=== PATIENT | female | born 2000 | race Caucasian/White ===

== ENCOUNTER 2021-01-30 11:54 | Outpatient (REF) | payer MEDICAID, SELFPAY ==
--- NOTE | ~2021-01-30 | US_ITS ---
EXAMINATION:US pelvic and transvaginal CLINICAL INFORMATION: Reason for Exam EXCESSIVE AND FREQ. MENSES COMPARISON: No priors available. LMP: December 1820 FINDINGS: UTERUS: The uterus is anteverted. Size: 7.6 x 4.1 x 5 cm. Uterine mass: There is no uterine mass. Cervix: Grossly unremarkable. Endometrium: No ultrasound evidence of endometrial lesion. endometrial thickness measures 0.7 cm trace amount of free fluid in the endometrial canal probably physiologic. ADNEXA: Normal Right ovary: There is a simple cyst right ovary measure up to 4.6 cm. Adjacent probably dominant follicle 1.4 cm. Left ovary: Normal in size. FREE FLUID: Trace amount of free fluid. OTHER FINDINGS: None US/US pelvic and transvaginal IMPRESSION: Simple 4.8 cm cyst in the right ovary. Ultrasound otherwise normal. In women who undergo transvaginal ultrasound (TVUS) imaging of adnexal masses, benign ovarian and other adnexal cysts are commonly detected, leading to follow-up sonographic evaluation and, often, patient anxiety. In 2010 the Society of Radiologists in Ultrasound convened a panel of gynecologists, radiologists, and pathologists to develop a consensus statement encompassing characteristic imaging findings for various adnexal cysts as well as follow-up recommendations. Highlights of the statement are as follows: Simple cysts (reproductive age) * Follicles <3 cm in diameter are considered normal. * Cysts <5 cm: follow-up not required. * Cysts >5 to <7 cm: annual follow-up recommended. *
== END 2021-01-30 11:55 | disposition home or self-care (01) ==
LOC: HO.US 11:54
PROVIDERS: PCP Family Medicine; Visit Provider Advanced Practice Midwife
DX: N92.1 Excessive and frequent menstruation with irregular cycle (principal)
CPT/HCPCS: 76830; 76856

== ENCOUNTER 2021-05-09 15:04 | Outpatient (REF) | payer MEDICAID, SELFPAY ==
[2021-05-09 15:36] LABS: Hemoglobin 8.6 g/dl (12.0-16.0)
[2021-05-09 15:38] LABS: Hematocrit 31.7 % (37-47); Immature Retic Fraction 25.1 % (3.0-15.9); Mean Corpuscular HGB Conc 27.1 g/dl (31.0-35.0); Mean Corpuscular Hemoglobin 19.8 pg (27.0-33.0); Mean Corpuscular Volume 72.9 fL (80-98); Mean Platelet Volume 10.3 fL (9.4-12.3); Platelet Count 411 X10*3/uL (160-400); Red Blood Count 4.35 X10*6/uL (4.20-5.50); Red Cell Distribution Width 19.4 % (11.0-16.0); Reticulocyte Percent 2.1 % (0.5-1.8); Reticulocytes Absolute 0.093 X10*6/uL (0.026-0.095); White Blood Count 9.6 X10*3/uL (4.8-10.8)
[2021-05-09 15:41] LABS: Estimated Average Glucose 105 mg/dL; Hemoglobin A1c % 5.3 %
[2021-05-09 15:54] LABS: Alanine Aminotransferase 31 U/L (0-31); Albumin Level 4.2 g/dL (3.5-5.0); Alkaline Phosphatase 65 U/L (39-117); Anion Gap 13 (12-20); Aspartate Amino Transferase 32 U/L (5-31); Bilirubin Total 0.2 mg/dL (0.0-1.0); Blood Urea Nitrogen 11 mg/dL (9-16); Calcium 9.5 mg/dL (8.4-10.2); Carbon Dioxide 23 mmol/L (22-29); Chloride 109 mmol/L (96-108); Estimated Glomerular Filt Rate > 60; Glucose Random 98 mg/dL (60-115); Iron 17 mcg/dL (30-160); Percent Iron Saturation 5 % (15-50); Sodium 141 mmol/L (135-145); Total Iron Binding Capacity 367 mcg/dL (228-428); Total Protein 7.4 g/dL (6.5-8.0); Unsaturated Iron Binding 350 ug/dL
[2021-05-09 16:11] LABS: Band Neutrophils Percent 0 % (3-5); Eosinophils Absolute Manual 0.2 X10*3/UL (0.0-0.8); Eosinophils Percent Manual 2 % (0-4); Lymphocytes Percent Manual 31 % (20-40); Monocytes Absolute Manual 1.1 X10*3/uL (0.0-1.2); Monocytes Percent Manual 11 % (2-11); Neutrophils Absolute Manual 5.4 X10*3/uL (2.2-7.9); Neutrophils Percent Manual 56 % (45-73)
[2021-05-09 16:13] LABS: Microcytosis 1+ (5-14) /OIF
[2021-05-09 16:14] LABS: Platelet Estimate SLIGHTLY INCREASED (NORMAL); Platelet Morphology Comment NORMAL
[2021-05-09 16:15] LABS: Schistocytes 1+ (0-2) /OIF
[2021-05-09 16:16] LABS: Ferritin 4 ng/mL (10-122); HCG Quantitative < 2 mIU/mL; Hypochromasia 3+ (>30) /OIF; Polychromasia 1+ (0-2) /OIF; Smudge Cells PRESENT; TSH reflex Free T4 1.35 uIU/mL (0.32-4.0); Toxic Vacuolation PRESENT; Vitamin D 25-OH Total 17.2 ng/mL (>30)
[2021-05-09 16:18] LABS: Ovalocytes 1+ (5-14) /OIF
[2021-05-09 16:28] LABS: Folate 14.7 ng/mL (> or = 4.0); Vitamin B12 427 pg/mL (200-900)
[2021-05-10 08:55] LABS: RBC Morphology NOTED
[2021-05-12 08:06] LABS: HBsAGNum1 0.27 S/CO (0.00-0.99); Hepatitis B Surface Antigen Negative (Negative)
[2021-05-12 08:13] LABS: ~HepC Num1 0.16 S/CO (0.00-0.79); ~Hepatitis C Antibody Nonreactive (Nonreactive)
[2021-05-12 08:18] LABS: Syphilis Screen Nonreactive (Nonreactive)
[2021-05-12 08:27] LABS: HIV AB/AG Nonreactive (Nonreactive)
== END 2021-05-09 15:05 | disposition home or self-care (01) ==
LOC: HO.LAB 15:04
PROVIDERS: PCP Family Medicine; Visit Provider Family Medicine
DX: Z01.84 Encounter for antibody response examination (principal); Z11.59 Encounter for screening for other viral diseases; Z11.4 Encounter for screening for human immunodeficiency virus [HIV]; D64.9 Anemia, unspecified; N92.1 Excessive and frequent menstruation with irregular cycle
CPT/HCPCS: 36415; 80053; 82306; 82607; 82728; 82746; 83036; 83540; 84443; 84702; 85007; 85027; 85045; 86780; 86803; 87340; 87389

== ENCOUNTER 2021-06-04 21:21 | Emergency (ER) | payer MEDICAID, SELFPAY ==
[2021-06-04 21:54] VITALS: BP 109/51; PULSE 87; RESP 18; TEMP 36.4; O2SAT 99; BMI 42.0
--- NOTE | 2021-06-05 00:01 | ED.FALL ---
HPI - Fall General Chief Complaint: Fall Stated Complaint: Fall Time Seen by Provider: 06/04/21 23:55 Source: patient Mode of arrival: wheelchair Limitations: no limitations History of Present Illness HPI Narrative: Patient is a 20-year-old female with no significant past medical history who slipped and fell at the grocery store approximately 8 hours ago. Patient states she was walking down an aisle when she all of a sudden slipped, she states her legs fell into a split and she fell onto the floor on her left knee with her right leg split back behind her. She denies hitting her head or losing consciousness. She states she looked behind her and noticed 1 of the condition or bottles had poured out onto the floor so she had slipped on the conditioner. She states she is able to ambulate but limps because she has pain on her left knee, behind her knee above her knee and her low upper left leg as well as her low back. She denies any other injuries, chest pain, headache or dizziness. Related Data Allergies Allergy/AdvReac Type Severity Reaction Status Date / Time No Known Allergies Allergy Verified 06/04/21 21:54 Review of Systems Review of Systems: Yes all other systems are reviewed and are negative [facility] Social History Social History Advance Directives: No Advance Directives Information Provided: Yes Physical Exam Vital Signs: Vital Signs: Last Vital Signs Temp 97.6 F 06/04/21 21:54 Pulse 87 06/04/21 21:54 Resp 18 06/04/21 21:54 BP 109/51 L 06/04/21 21:54 Pulse Ox 99 06/04/21 21:54 Body Mass Index 42.0 Const: General: cooperative, healthy appearing, comfortable, no acute distress and well developed Orientation/consciousness: patient oriented x3 Limitations: no limitations HENMT: Head: Yes normal to inspection Eyes: General: appearance normal, both eyes and all related structures Neck: Neck: Yes normal visual inspection and Yes full ROM Resp: Effort & Inspection: normal respiratory effort and able to speak in complete sentences Cardio: Rate: regular rate Back/Spine/Pelvis: Cervical Spine: No Cervical spine tenderness Thoracic/Lumbar Spine: thoracic and lumbar spine normal to inspection, paraspinal muscle tenderness (lumbar area) bilaterally, No thoracic spinal tenderness and No lumbar spinal tenderness Skin: General skin exam: no rashes or lesions noted Neuro: General: patient oriented x3 Extrem: Other: Left knee tender to palpation in the superior aspect of the kneecap and posterior knee. No laxity in the joint, no ecchymosis, no abrasions or edema. No tenderness in the remainder of the left leg. Limping gait. General: Yes normal to inspection Discharge Plan Discharge Clinical Impression: Sprain of knee and leg Qualifiers: Encounter type: initial encounter Laterality: left Qualified Code(s): S83.92XA - Sprain of unspecified site of left knee, initial encounter Low back sprain Qualifiers: Encounter type: initial encounter Qualified Code(s): S33.5XXA - Sprain of ligaments of lumbar spine, initial encounter Patient Disposition: Home, Self-Care Instructions: Knee Sprain (ED), Low Back Strain (ED), Leg Sprain (ED) Additional Instructions: As discussed, please use the crutches to help you ambulate safely. Your leg, knee and low back should feel a little bit you better each day. Please rest them, you may use ice and 600 mg of ibuprofen every 6 hours as needed for the pain. If your pain is not improving a little bit each day over the next 5-7 days, please be sure to follow-up with your primary care doctor as you may need to go to physical therapy. If you lose control of your bladder or bowels, your pain gets worse and cannot be controlled with ibuprofen and acetaminophen, please return to the emergency department.
== END 2021-06-05 00:24 | disposition home or self-care (01) ==
PROVIDERS: Emergency Provider Internal Medicine
DX: S83.92XA Sprain of unspecified site of left knee, initial encounter (principal); S33.5XXA Sprain of ligaments of lumbar spine, initial encounter; M25.561 Pain in right knee; M79.605 Pain in left leg; M79.604 Pain in right leg; W01.0XXA Fall on same level from slipping, tripping and stumbling without subsequent striking against object, initial encounter; Y93.9 Activity, unspecified; Y92.512 Supermarket, store or market as the place of occurrence of the external cause; Y99.9 Unspecified external cause status
CPT/HCPCS: 99282; 99283

== ENCOUNTER 2021-07-28 13:20 | Outpatient (REF) | payer MEDICAID, SELFPAY ==
--- NOTE | ~2021-07-28 | XR_ITS ---
EXAMINATION: XR SKULL CLINICAL INFORMATION: Localized swelling, lump on head. COMPARISON: None TECHNIQUE: 5 views of the skull were obtained. FINDINGS: The bony calvarium is intact. There is no acute fracture. The nasal bones and orbits are intact. The paranasal sinuses are clear. The soft tissues are unremarkable. XR/XR skull min 4V IMPRESSION: Unremarkable examination.
== END 2021-07-28 13:21 | disposition home or self-care (01) ==
LOC: HO.XRAY 13:20
PROVIDERS: PCP Family Medicine; Visit Provider Family Medicine
DX: R22.0 Localized swelling, mass and lump, head (principal); E66.9 Obesity, unspecified
CPT/HCPCS: 70260

== ENCOUNTER 2021-09-05 16:56 | Emergency (ER) | payer MEDICAID, SELFPAY ==
[2021-09-05 17:00] VITALS: BP 109/79; PULSE 112; RESP 18; TEMP 36.8; O2SAT 97; BMI 49.7
--- NOTE | 2021-09-05 18:48 | ED.FEMALEGU ---
HPI - Female Genitourinary General Chief complaint: Dizziness Stated complaint: Dizziness Time Seen by Provider: 09/05/21 18:47 Source: patient and family Mode of arrival: ambulatory Limitations: no limitations History of Present Illness HPI Narrative: Patient with history of metrorrhagia with anemia been having heavy vaginal bleeding for last 2 months changing pads multiple times and passing clots, will dizzy and lightheaded weak not taking any control pill is not taking any iron pills as she does not like them. No chest pain or shortness of breath Related Data Previous Rx's Medication Instructions Recorded L norgest/E estradiol-E estrad 1 tab PO DAILY #182 ea 09/06/21 0.15 mg-30 mcg (84)/10 mcg(7) tabs,3mos (Seasonique) ferrous sulfate 325 mg (65 mg 325 mg PO DAILY #60 tab 09/06/21 iron) tablet Allergies Allergy/AdvReac Type Severity Reaction Status Date / Time No Known Allergies Allergy Verified 09/05/21 17:00 Review of Systems Review of Systems: Yes all other systems are reviewed and are negative [facility], [facility] Social History Social History Advance Directives: No Advance Directives Information Provided: No Patient : No Physical Exam Vital Signs: Vital Signs: Last Vital Signs Temp 99.1 F 09/06/21 00:21 Pulse 88 09/06/21 00:21 Resp 16 09/06/21 00:21 BP 120/75 09/06/21 00:21 Pulse Ox 100 09/05/21 22:03 Body Mass Index 49.7 Appearance: Alert. Oriented X3. No acute distress. Eyes: Pallor++ ENT: Pharynx normal. Oral Mucosa moist Neck: Normal inspection. Neck supple. CVS: Normal heart rate and rhythm. Pulses normal. Respiratory: No respiratory distress. Equal air entry bilateral, no wheezing/rales/rhonchi Abdomen: Soft and nontender. Bowel sounds are present, no mass palpable, no CVA tenderness Skin: Skin warm and dry. Normal skin color. Normal skin turgor. Extremities: No lower extremity edema. No calf tenderness Neuro: Oriented X 3. MDM - Female Genitourinary MDM Narrative Medical decision making narrative: Patient with significant anemia secondary to heavy menstrual bleeding case discussed with Dr. Salgado forger helper advised to start patient on control pills was given 1 unit of blood transfusion and plan to see him next week for follow-up Lab Data Attestation: I reviewed the patient's lab results. Result diagrams: 09/05/21 19:42 09/05/21 19:42 Labs: Lab Results 09/05/21 09/05/21 09/05/21 Range/Units 19:42 19:42 22:22 WBC 11.9 H (4.8-10.8) X10*3/uL RBC 3.81 L (4.20-5.50) X10*6/uL Hgb 7.2 L (12.0-16.0) g/dl Hct 27.2 L (37.0-47.0) % MCV 71.4 L (80.0-98.0) fL MCH 18.9 L (27.0-33.0) pg MCHC 26.5 L (31.0-35.0) g/dl RDW 21.1 H (11.0-16.0) % Plt Count 447 H (160-400) X10*3/uL MPV 9.4 (9.4-12.3) fL Immature Gran % (Auto) 0.6 H (0.0-0.4) % Neut % (Auto) 60.3 (45-73) % Lymph % (Auto) 31.9 (20-40) % [place] % (Auto) 6.0 (2-11) % Eos % (Auto) 0.7 (0-4) % Baso % (Auto) 0.5 (0-2) % Lymph # (Auto) 3.8 (1.2-4.9) X10*3/uL [place] # (Auto) 0.7 (0.1-1.2) X10*3/uL Eos # (Auto) 0.1 (0.0-0.4) X10*3/uL Baso # (Auto) 0.1 (0.0-0.2) X10*3/uL Abs Immat Gran (auto) 0.07 H (0.00-0.03) X10*3/uL Absolute Neuts (auto) 7.2 (2.0-8.3) x10*3/uL Absolute Nucleated RBC 0.000 (0.0-0.012) X10*3/uL Nucleated RBC % (auto) 0.0 (0.0-0.2) /100WBC Sodium 142 (135-145) mmol/L Potassium 4.1 (3.3-5.1) mmol/L Chloride 108 (96-108) mmol/L Carbon Dioxide 26 (22-29) mmol/L Anion Gap 12 (12-20) BUN 10 (9-16) mg/dL Creatinine 0.78 (0.5-1.4) mg/dL Estim Creat Clear Calc 143.0 Estimated GFR > 60 Random Glucose 124 H (60-115) mg/dL Calcium 8.7 D (8.4-10.2) mg/dL Beta HCG, Quant < 2 mIU/mL Blood Type A Positive Antibody Screen NEGATIVE Crossmatch See Detail Discharge Plan Discharge Clinical Impression: Metrorrhagia, Severe anemia Patient Disposition: Home, Self-Care Instructions: Dysfunctional Uterine Bleeding (ED), Anemia (ED) Additional Instructions: Take iron tablets as prescribed Start taking control pills as prescribed See forger helper next week as advised Report to the ER of worsening of bleeding Prescriptions: New L norgest/e.estradiol-e.estrad [Seasonique] 0.15 mg-30 mcg (84)/10 mcg (7) tablets,dose pack,3 month 1 tab PO DAILY Qty: 182 RF: 0 ferrous sulfate 325 mg (65 mg iron) tablet 325 mg PO DAILY Qty: 60 RF: 0
[2021-09-05 19:54] LABS: Basophils Absolute Auto 0.1 X10*3/uL (0.0-0.2); Basophils Percent Auto 0.5 % (0-2); Eosinophils Absolute Auto 0.1 X10*3/uL (0.0-0.4); Eosinophils Percent Auto 0.7 % (0-4); Hematocrit 27.2 % (37.0-47.0); Hemoglobin 7.2 g/dl (12.0-16.0); Imm Gran Abs Auto 0.07 X10*3/uL (0.00-0.03); Imm Gran Pct Auto 0.6 % (0.0-0.4); Lymphocytes Absolute Auto 3.8 X10*3/uL (1.2-4.9); Lymphocytes Percent Auto 31.9 % (20-40); MANUAL DIFF FLAG NO; Mean Corpuscular HGB Conc 26.5 g/dl (31.0-35.0); Mean Corpuscular Hemoglobin 18.9 pg (27.0-33.0); Mean Corpuscular Volume 71.4 fL (80.0-98.0); Mean Platelet Volume 9.4 fL (9.4-12.3); Monocytes Absolute Auto 0.7 X10*3/uL (0.1-1.2); Neutrophils Absolute Auto 7.2 x10*3/uL (2.0-8.3); Neutrophils Percent Auto 60.3 % (45-73); Platelet Count 447 X10*3/uL (160-400); Red Blood Count 3.81 X10*6/uL (4.20-5.50); Red Cell Distribution Width 21.1 % (11.0-16.0); White Blood Count 11.9 X10*3/uL (4.8-10.8)
[2021-09-05 20:07] LABS: Anion Gap 12 (12-20); Blood Urea Nitrogen 10 mg/dL (9-16); Calcium 8.7 mg/dL (8.4-10.2); Carbon Dioxide 26 mmol/L (22-29); Chloride 108 mmol/L (96-108); Estimated Glomerular Filt Rate > 60; Glucose Random 124 mg/dL (60-115); Potassium 4.1 mmol/L (3.3-5.1); Sodium 142 mmol/L (135-145)
[2021-09-05 20:10] VITALS: BP 127/65; PULSE 100
[2021-09-05 20:12] VITALS: BP 131/71; BP 138/72; PULSE 102; PULSE 123
[2021-09-05 20:14] LABS: HCG Quantitative < 2 mIU/mL
[2021-09-05] MEDS: Ferrous Sulfate 324 MG TABLET.DR PO (22:01)
[2021-09-05 22:03] VITALS: BP 149/75; PULSE 97; RESP 20; O2SAT 100
[2021-09-06 00:03] VITALS: BP 124/78; PULSE 92; RESP 16; TEMP 37.2
[2021-09-06 00:21] VITALS: BP 120/75; PULSE 88; RESP 16; TEMP 37.3
[2021-09-06 01:20] VITALS: BP 114/72; PULSE 86; RESP 14; TEMP 37.2
[2021-09-06 01:50] VITALS: BP 127/64; PULSE 82; RESP 16; TEMP 37.1
--- NOTE | 2021-09-06 02:01 | PC.NURSE ---
I assumed care of this pt at 1900/ The pt has been alert and oriented x 3, speech clear and appropriate. She states she came to ED today for evaluation of lightheadedness and generalized weakness - noticeably fatigued today, states she had little to no energy to get up out of bed and start her day. She denies chest pain. Denies difficulty breathing. She is speaking in full sentences, no cyanosis. She denies recent fevers or chills. She states she is currently has menses and believes the amount of bleeding is a lot. I performed orthostatic VS on the pt (see VS) and when she stood at the bedside she noted that there was blood on the bed where she was sitting from her period. Of note, when she stood at the bedside to perform orthostatic VS she denied having any lightheadedness or dizziness. labs were obtained and the pt was found to be anemic and Type and Screen and 1 unit of PRBC's was requested by ER . 1U of PRBC's has been transfused, and the pt is discharged at this time. At the conclusion of the transfusion the pt admitted to feeling much better. She ambulated out of the ED safely, with steady gait, without lightheadedness or dizziness.
== END 2021-09-06 02:06 | disposition home or self-care (01) ==
PROVIDERS: Emergency Provider Internal Medicine; PCP Family Medicine
DX: N92.1 Excessive and frequent menstruation with irregular cycle (principal); D64.9 Anemia, unspecified; R42 Dizziness and giddiness
CPT/HCPCS: 36415; 36430; 80048; 84702; 85025; 86850; 86900; 86901; 86923; 99284; 99285; P9016

== ENCOUNTER 2021-09-23 17:23 | Emergency (ER) | payer MEDICAID, SELFPAY ==
[2021-09-23 17:40] VITALS: BP 158/95; PULSE 77; RESP 18; TEMP 36.2; O2SAT 99; BMI 43.0
[2021-09-23 18:52] LABS: MANUAL DIFF FLAG NO
[2021-09-23 18:53] LABS: Basophils Absolute Auto 0.1 X10*3/uL (0.0-0.2); Basophils Percent Auto 0.6 % (0-2); Eosinophils Percent Auto 0.3 % (0-4); Hematocrit 35.3 % (37.0-47.0); Hemoglobin 10.1 g/dl (12.0-16.0); Imm Gran Abs Auto 0.04 X10*3/uL (0.00-0.03); Imm Gran Pct Auto 0.3 % (0.0-0.4); Lymphocytes Absolute Auto 3.9 X10*3/uL (1.2-4.9); Lymphocytes Percent Auto 33.7 % (20-40); Mean Corpuscular HGB Conc 28.6 g/dl (31.0-35.0); Mean Corpuscular Hemoglobin 22.3 pg (27.0-33.0); Mean Corpuscular Volume 77.9 fL (80.0-98.0); Mean Platelet Volume 9.7 fL (9.4-12.3); Monocytes Absolute Auto 0.7 X10*3/uL (0.1-1.2); Monocytes Percent Auto 5.6 % (2-11); Neutrophils Absolute Auto 6.9 x10*3/uL (2.0-8.3); Neutrophils Percent Auto 59.5 % (45-73); Platelet Count 453 X10*3/uL (160-400); Red Blood Count 4.53 X10*6/uL (4.20-5.50); White Blood Count 11.5 X10*3/uL (4.8-10.8)
[2021-09-23 19:14] LABS: Alanine Aminotransferase 20 U/L (0-31); Albumin Level 4.1 g/dL (3.5-5.0); Alkaline Phosphatase 63 U/L (39-117); Anion Gap 13 (12-20); Aspartate Amino Transferase 19 U/L (5-31); Bilirubin Total 0.2 mg/dL (0.0-1.0); Blood Urea Nitrogen 13 mg/dL (9-16); Calcium 9.5 mg/dL (8.4-10.2); Carbon Dioxide 25 mmol/L (22-29); Chloride 106 mmol/L (96-108); Creatinine Clr Calc Pharmacy 126.1; Estimated Glomerular Filt Rate > 60; Glucose Random 85 mg/dL (60-115); Lipase 34 U/L (8-78); Sodium 140 mmol/L (135-145); Total Protein 7.7 g/dL (6.5-8.0)
--- NOTE | 2021-09-23 23:43 | ED.GENADULT ---
HPI - General Adult General Chief complaint: Vaginal Bleeding Stated complaint: rectal bleeding Time Seen by Provider: 09/23/21 23:42 Related Data Previous Rx's Medication Instructions Recorded L norgest/E estradiol-E estrad 1 tab PO DAILY #182 ea 09/06/21 0.15 mg-30 mcg (84)/10 mcg(7) tabs,3mos (Seasonique) ferrous sulfate 325 mg (65 mg 325 mg PO DAILY #60 tab 09/06/21 iron) tablet Allergies Allergy/AdvReac Type Severity Reaction Status Date / Time No Known Allergies Allergy Verified 09/18/21 14:48 [facility] Family History Family History (Updated 09/18/21 @ 14:47 by Barry Christianson RN) Paternal Grandfather No problems noted. Paternal Grandmother Hypertension Social History Social History Advance Directives: No Advance Directives Information Provided: No Physical Exam Vital Signs: Vital Signs: Last Vital Signs Temp 97.2 F 09/23/21 17:40 Pulse 77 09/23/21 17:40 Resp 18 09/23/21 17:40 BP 158/95 H 09/23/21 17:40 Pulse Ox 99 09/23/21 17:40 BMI result Body Mass Index 43.0 Medical Decision Making Lab Data Result diagrams: 09/23/21 18:47 09/23/21 18:47 Labs: Lab Results 09/23/21 09/23/21 Range/Units 18:47 18:47 WBC 11.5 H (4.8-10.8) X10*3/uL RBC 4.53 (4.20-5.50) X10*6/uL Hgb 10.1 L (12.0-16.0) g/dl Hct 35.3 L (37.0-47.0) % MCV 77.9 L (80.0-98.0) fL MCH 22.3 L (27.0-33.0) pg MCHC 28.6 L (31.0-35.0) g/dl RDW 27.0 H (11.0-16.0) % Plt Count 453 H (160-400) X10*3/uL MPV 9.7 (9.4-12.3) fL Immature Gran % (Auto) 0.3 (0.0-0.4) % Neut % (Auto) 59.5 (45-73) % Lymph % (Auto) 33.7 (20-40) % [place] % (Auto) 5.6 (2-11) % Eos % (Auto) 0.3 (0-4) % Baso % (Auto) 0.6 (0-2) % Lymph # (Auto) 3.9 (1.2-4.9) X10*3/uL [place] # (Auto) 0.7 (0.1-1.2) X10*3/uL Eos # (Auto) 0.0 (0.0-0.4) X10*3/uL Baso # (Auto) 0.1 (0.0-0.2) X10*3/uL Abs Immat Gran (auto) 0.04 H (0.00-0.03) X10*3/uL Absolute Neuts (auto) 6.9 (2.0-8.3) x10*3/uL Absolute Nucleated RBC 0.000 (0.0-0.012) X10*3/uL Nucleated RBC % (auto) 0.0 (0.0-0.2) /100WBC Sodium 140 (135-145) mmol/L Potassium 4.0 (3.3-5.1) mmol/L Chloride 106 (96-108) mmol/L Carbon Dioxide 25 (22-29) mmol/L Anion Gap 13 (12-20) BUN 13 (9-16) mg/dL Creatinine 0.81 (0.5-1.4) mg/dL Estim Creat Clear Calc 126.1 Estimated GFR > 60 Random Glucose 85 (60-115) mg/dL Calcium 9.5 (8.4-10.2) mg/dL Total Bilirubin 0.2 (0.0-1.0) mg/dL AST 19 (5-31) U/L ALT 20 (0-31) U/L Alkaline Phosphatase 63 (39-117) U/L Total Protein 7.7 (6.5-8.0) g/dL Albumin 4.1 (3.5-5.0) g/dL Lipase 34 (8-78) U/L Discharge Plan Discharge Prescriptions: No Action L norgest/e.estradiol-e.estrad [Seasonique] 0.15 mg-30 mcg (84)/10 mcg (7) tablets,dose pack,3 month 1 tab PO DAILY Qty: 182 RF: 0 ferrous sulfate 325 mg (65 mg iron) tablet 325 mg PO DAILY Qty: 60 RF: 0
== END 2021-09-23 23:42 | disposition left against medical advice (07) ==
PROVIDERS: Emergency Provider Emergency Medicine
DX: N93.9 Abnormal uterine and vaginal bleeding, unspecified (principal); D50.9 Iron deficiency anemia, unspecified; Z79.899 Other long term (current) drug therapy
CPT/HCPCS: 36415; 80053; 83690; 85025; 99282; 99283

== ENCOUNTER 2021-10-15 08:53 | Outpatient (REF) | payer MEDICAID, SELFPAY | END 2021-10-15 08:54 | disposition home or self-care (01) | LOC: HO.MDS 08:53 | PROVIDERS: Visit Provider Internal Medicine Medical Oncology | DX: D50.9 Iron deficiency anemia, unspecified (principal) | CPT/HCPCS: 96365; J2916 ==

== ENCOUNTER 2021-12-09 10:14 | Outpatient (REF) | payer MEDICAID, SELFPAY | END 2021-12-09 10:15 | disposition home or self-care (01) | LOC: HO.LAB 10:14 | PROVIDERS: PCP Family Medicine; Visit Provider Family Medicine | DX: Z13.89 Encounter for screening for other disorder (principal) ==

== ENCOUNTER 2022-01-08 11:57 | Emergency (ER) | payer MEDICAID, SELFPAY ==
--- NOTE | ~2022-01-08 | XR_ITS ---
EXAMINATION: LEFT HAND/WRIST CLINICAL INFORMATION: Left hand pain COMPARISON: None TECHNIQUE: 4 views FINDINGS: There is no visible acute fracture, dislocation or subluxation seen. There is no scaphoid fracture either. The soft tissues are normal. XR/XR hand wrist LT IMPRESSION: Unremarkable left hand/wrist exam.
[2022-01-08 13:19] VITALS: BP 125/81; PULSE 61; RESP 18; O2SAT 99; BMI 49.8
--- NOTE | 2022-01-08 14:20 | ED.EXTPRO ---
HPI - Extremity Problem General Chief complaint: Extremity Injury, Upper Stated complaint: Wrist pain/l arm numbness Time Seen by Provider: 01/08/22 14:20 History of Present Illness HPI Narrative: Patient complains of 2 days of a tingling sensation going down her left arm associated with pain in the left side of her neck, she has had no injury or trauma she does not do any lifting at work, she has had no weakness no loss of sensation no other complaint Related Data Home Medications Medication Instructions Recorded Confirmed cholecalciferol (vitamin D3) 25 1 cap PO DAILY 11/06/21 11/06/21 mcg (1,000 unit) capsule (Vitamin D3) Previous Rx's Medication Instructions Recorded ferrous sulfate 325 mg (65 mg 325 mg PO DAILY #60 tab 09/06/21 iron) tablet acetaminophen 500 mg tablet 1,000 mg PO QID PRN #30 tab 01/08/22 ibuprofen 600 mg tablet 600 mg PO Q6H PRN #20 tab 01/08/22 prednisone 20 mg tablet 60 mg PO DAILY 3 Days #9 tab 01/08/22 Allergies Allergy/AdvReac Type Severity Reaction Status Date / Time No Known Allergies Allergy Verified 01/08/22 13:18 Review of Systems Review of Systems: Positive for left arm tingling associated with left-sided neck pain Negatives are no fever chills no dizziness no weakness no headache no loss of sensation no muscle weakness no changes to bowel or bladder no chest pain no shortness of breath no abdominal pain no nausea or vomiting no skin rash Yes all other systems are reviewed and are negative PMFSH Past Medical History Source: nursing notes reviewed Medical History (Updated 01/08/22 @ 14:25 by MICHELE Huerta) COVID-19 Family History Family History (Updated 09/18/21 @ 14:47 by Barry Christianson RN) Paternal Grandfather No problems noted. Paternal Grandmother Hypertension Social History Social History Advance Directives: No Advance Directives Information Provided: Yes Patient : No Physical Exam Vital Signs: Vital Signs: Last Vital Signs Pulse 61 01/08/22 13:19 Resp 18 01/08/22 13:19 BP 125/81 01/08/22 13:19 Pulse Ox 99 01/08/22 13:19 BMI result Body Mass Index 49.8 General appearance comfortable relax no acute distress Head is normocephalic atraumatic The neck is supple but does have some pain with rotation of the neck or lateral bending of the neck, there is tenderness in the soft tissue on the left side of the neck but the skin is normal in appearance there is no bony or midline tenderness The chest is clear to auscultation bilateral Respiratory no distress The back has full range of motion Extremities is full range of motion x4 Left arm exam is full range of motion in shoulder elbow wrist and hand Sensation is intact in distal hand and fingers and symmetrical with the other side Patient Accounting Representative strength is 5/5 symmetrical with the other side Tapping on the volar surface of the wrist did produce mild increase in tingling but there was no significant tenderness in the wrist Course Course Course Narrative: This is likely cervical radiculopathy with no neurologic deficit, but as there was some tenderness when I tapped on the volar wrist there is also a slight chance it could be carpal tunnel so I gave the patient the number of an orthopedist and she is advised to follow with primary doctor and orthopedist for further evaluation if symptoms are not resolved with prednisone and time Discharge Plan Discharge Clinical Impression: Cervical radiculopathy Patient Disposition: Home, Self-Care Additional Instructions: Your exam is consistent with a pinched nerve in the left side neck sending tingling down the arm This is likely from the neck but in some cases carpal tunnel in the left wrist can also cause tingling in the hand so I gave you the number of orthopedist if the tingling continues This is very common and usually goes away by itself We are using steroid prednisone which reduces inflammation around the nerve and many people find it very helpful If you develop weakness or inability to use your hand this is concerning so you would return to the ER right away Follow with primary doctor for further evaluation Prescriptions: New prednisone 20 mg tablet 60 mg PO DAILY 3 Days Qty: 9 0RF ibuprofen 600 mg tablet 600 mg PO Q6H PRN (Reason: pain) Qty: 20 0RF acetaminophen 500 mg tablet 1,000 mg PO QID PRN (Reason: pain) Qty: 30 0RF No Action cholecalciferol (vitamin D3) [Vitamin D3] 25 mcg (1,000 unit) capsule 1 cap PO DAILY 0RF ferrous sulfate 325 mg (65 mg iron) tablet 325 mg PO DAILY Qty: 60 0RF Referrals: Agata Abel MD [Physician] - 2 weeks (Tingling in left hand possible carpal tunnel)
[2022-01-08] MEDS: Ibuprofen 600 MG TABLET PO (14:37)
[2022-01-08] MEDS: predniSONE 20 MG TABLET 60 MG PO (14:37)
== END 2022-01-08 14:46 | disposition home or self-care (01) ==
PROVIDERS: Emergency Provider Emergency Medicine; PCP Family Medicine
DX: M25.532 Pain in left wrist (principal); M54.12 Radiculopathy, cervical region
CPT/HCPCS: 73110; 73130; 99283; 99284

== ENCOUNTER 2022-05-25 11:54 | Emergency (ER) | payer MEDICAID, SELFPAY ==
--- NOTE | ~2022-05-25 | US_ITS ---
EXAMINATION: US VENOUS ULTRASOUND WITH DOPPLER LOWER EXTREMITY, LEFT CLINICAL INFORMATION: Left lower extremity pain and swelling. COMPARISON: None TECHNIQUE: Ultrasound of the deep veins is performed from the hip to the calf with compression sonography and color and pulse Doppler assessment. Spectral analysis with color-flow imaging is performed. FINDINGS: There is normal venous compression and respiratory variation and augmented flow. The visualized common femoral vein, superficial femoral vein, profunda femoral vein, popliteal vein, and the trifurcation region shows no evidence of deep venous thrombosis. No left popliteal cyst. The subcutaneous soft tissues are unremarkable. If the patient's symptoms persist, followup ultrasound in 5 days 7 days might be of value to exclude proximal propagation from a non-visualized calf vein. US/US venous duplex LE LT IMPRESSION: No evidence for deep venous thrombosis in the visualized veins of the left lower extremity.
--- NOTE | ~2022-05-25 | XR_ITS ---
EXAMINATION: XR ANKLE, LEFT CLINICAL INFORMATION: Pain COMPARISON: None TECHNIQUE: AP, lateral, and mortise views of the left ankle. FINDINGS: Bone alignment is normal. No fracture or dislocation is seen. The ankle mortise is normal. Soft tissues are normal. XR/XR ankle LT min 3V IMPRESSION: Normal left ankle.
[2022-05-25 12:02] VITALS: BP 134/64; PULSE 80; RESP 19; O2SAT 98; BMI 43.9
--- NOTE | 2022-05-25 17:18 | ED_ITS ---
HPI - Extremity Injury (Lower) General Chief Complaint: Extremity Injury, Lower Stated Complaint: L leg swollen Time Seen by Provider: 05/25/22 16:05 History of Present Illness HPI Narrative: Patient complains of pain and some swelling to the left ankle and posterior ankle, denies any injury denies any fever denies any rash, no other joint swollen Related Data Home Medications Medication Instructions Recorded Confirmed cholecalciferol (vitamin D3) 25 1 cap PO DAILY 11/06/21 02/19/22 mcg (1,000 unit) capsule (Vitamin D3) Previous Rx's Medication Instructions Recorded ferrous sulfate 325 mg (65 mg 325 mg PO DAILY #60 tabs 09/06/21 iron) tablet acetaminophen 500 mg tablet 1,000 mg PO QID PRN pain #30 tabs 01/08/22 ibuprofen 600 mg tablet 600 mg PO Q6H PRN pain #20 tabs 01/08/22 prednisone 20 mg tablet 60 mg PO DAILY 3 days #9 tabs 01/08/22 ibuprofen 600 mg tablet 600 mg PO Q6H PRN pain #20 tabs 05/25/22 Allergies Allergy/AdvReac Type Severity Reaction Status Date / Time No Known Allergies Allergy Verified 02/19/22 09:40 Review of Systems Review of Systems: Positive for left ankle pain and swelling Negatives are no fever no chills no dizziness no weakness no fainting no falling no headache no neck pain no back pain no chest pain no abdominal pain no numbness weakness or tingling no skin rash Yes all other systems are reviewed and are negative PMFSH Past Medical History Source: nursing notes reviewed Medical History (Updated 05/25/22 @ 17:23 by MICHELE Huerta) COVID-19 Family History Family History Paternal Grandfather No problems noted. Paternal Grandmother Hypertension Social History Social History (Updated 02/19/22 @ 09:40 by Rissa Turner CMA) Household Members: Family Housing: Apartment Are you a primary restorative care technician to a significant other at home: No Do you presently have visiting nurse or other home services: No Patient Tobacco Use Status: Never used Tobacco Advance Directives: No Advance Directives Information Provided: No service: No Current occupational status: unemployed Physical Exam Vital Signs: Vital Signs: Last Vital Signs Pulse 80 05/25/22 12:02 Resp 19 05/25/22 12:02 BP 134/64 05/25/22 12:02 Pulse Ox 98 05/25/22 12:02 O2 Del Method 05/25/22 12:02 BMI result Body Mass Index 43.9 General appearance is no distress comfortable The head is normocephalic atraumatic Neck is supple Respiratory no distress Extremities full range of motion x4 including left ankle Left ankle exam there is mild tenderness and mild swelling to the lateral aspect of the left ankle and the posterior ankle there is no swelling or tenderness over the Achilles, the ankle has full range of motion, patient can walk with only a mild limp, skin is normal color no redness or warmth no rash no wound and neurovascular intact distal Other extremities normal Course Course Course Narrative: Patient had ultrasound ordered from triage because there was some pain in the posterior lower leg mostly around the Achilles Ultrasound was negative for DVT The ankle had normal color and circulation no evidence of cellulitis, there was mild soft tissue swelling, patient was given an ankle brace and discharged It was unclear if she could have had a mild twist she thought she may have but was uncertain so it may be a mild sprained ankle and she will follow with orthopedist as needed Discharge Plan Discharge Clinical Impression: Left ankle sprain Patient Disposition: Home, Self-Care Additional Instructions: Activity as tolerated, apply ice, use Motrin only if needed Follow with orthopedist if not improved Return any concerns Prescriptions: New ibuprofen 600 mg tablet 600 mg PO Q6H PRN (Reason: pain) Qty: 20 0RF No Action cholecalciferol (vitamin D3) [Vitamin D3] 25 mcg (1,000 unit) capsule 1 cap PO DAILY ferrous sulfate 325 mg (65 mg iron) tablet 325 mg PO DAILY Qty: 60 0RF prednisone 20 mg tablet 60 mg PO DAILY 3 Days Qty: 9 0RF ibuprofen 600 mg tablet 600 mg PO Q6H PRN (Reason: pain) Qty: 20 0RF acetaminophen 500 mg tablet 1,000 mg PO QID PRN (Reason: pain) Qty: 30 0RF Referrals: Ricardo Florentino MD [Physician] - (Left ankle swelling)
== END 2022-05-25 17:53 | disposition home or self-care (01) ==
PROVIDERS: Emergency Provider Emergency Medicine; PCP Family Medicine
DX: S93.402A Sprain of unspecified ligament of left ankle, initial encounter (principal); X58.XXXA Exposure to other specified factors, initial encounter; M25.572 Pain in left ankle and joints of left foot; Y93.9 Activity, unspecified; Y92.9 Unspecified place or not applicable; Y99.9 Unspecified external cause status
CPT/HCPCS: 73610; 93971; 99282; 99284

== ENCOUNTER → 2022-07-03 10:56 | Outpatient (BNVA) | payer MEDICAID, SELFPAY | PROVIDERS: PCP Family Medicine; Visit Provider Advanced Practice Midwife | DX: Z32.02 Encounter for pregnancy test, result negative (principal); Z87.42 Personal history of other diseases of the female genital tract | CPT/HCPCS: 81025; 99202 ==

== ENCOUNTER 2022-07-17 09:55 | Emergency (ER) | payer MEDICAID, SELFPAY ==
[2022-07-17 10:58] VITALS: BP 127/68; PULSE 74; RESP 16; TEMP 36.5; O2SAT 95; BMI 49.4
[2022-07-17 11:28] LABS: Strep A Nucleic Acid Negative (Negative)
[2022-07-17 11:46] LABS: COVID-19 Test Negative (Negative)
--- NOTE | 2022-07-17 14:28 | PC.NURSE ---
called x 3 to [facility]. no answer presumed lwt
== END 2022-07-17 14:40 | disposition left against medical advice (07) ==
LOC: HO.ED 14:34
PROVIDERS: Emergency Provider Emergency Medicine; PCP Family Medicine
DX: J02.9 Acute pharyngitis, unspecified (principal); Z20.822 Contact with and (suspected) exposure to COVID-19; Z79.899 Other long term (current) drug therapy
CPT/HCPCS: 87635; 87651; 99281; 99283

== ENCOUNTER 2022-08-06 11:53 | Outpatient (REF) | payer MEDICAID, SELFPAY ==
--- NOTE | ~2022-08-06 | XR_ITS ---
EXAMINATION: XR KNEE, LEFT CLINICAL INFORMATION: Pain. COMPARISON: None TECHNIQUE: Three views of the left knee. FINDINGS: No acute fractures or malalignment. No significant degenerative changes. Small joint effusion. Diffuse nonspecific soft tissue thickening. XR/XR knee LT 3V IMPRESSION: 1. No acute fractures or malalignment. 2. Small joint effusion. 3. Diffuse nonspecific soft tissue thickening. If an occult injury is clinically suspected, consider correlation with CT or MR.
--- NOTE | ~2022-08-06 | XR_ITS ---
EXAMINATION: XR TIBIA AND FIBULA, LEFT CLINICAL INFORMATION: Pain. COMPARISON: None TECHNIQUE: AP and lateral views of the left tibia and fibula were obtained. FINDINGS: The bones and soft tissues are normal. No fracture. No osseous lesions. XR/XR tibia fibula LT 2V IMPRESSION: Normal left tibia and fibula. If an occult injury is clinically suspected, consider correlation with CT or MR.
--- NOTE | ~2022-08-06 | XR_ITS ---
EXAMINATION: X-RAY LEFT ANKLE X-RAY LEFT FOOT CLINICAL INFORMATION: Fall. Pain. COMPARISON: Radiograph of the left ankle 05/25/2022. TECHNIQUE: 1 view of the left ankle. 3 views of the left foot. FINDINGS: No acute fractures or subluxation. The ankle mortise is maintained. There is diffuse nonspecific soft tissue swelling, more noticeable around the ankle. XR/XR foot LT min 3V IMPRESSION: 1. No acute fractures or subluxation. 2. Nonspecific soft tissue swelling. If there is clinical suspicious of an occult injury, recommend correlation with a CT or MR.
--- NOTE | ~2022-08-06 | XR_ITS ---
EXAMINATION: X-RAY LEFT ANKLE X-RAY LEFT FOOT CLINICAL INFORMATION: Fall. Pain. COMPARISON: Radiograph of the left ankle 05/25/2022. TECHNIQUE: 1 view of the left ankle. 3 views of the left foot. FINDINGS: No acute fractures or subluxation. The ankle mortise is maintained. There is diffuse nonspecific soft tissue swelling, more noticeable around the ankle. XR/XR ankle LT 2V IMPRESSION: 1. No acute fractures or subluxation. 2. Nonspecific soft tissue swelling. If there is clinical suspicious of an occult injury, recommend correlation with a CT or MR.
== END 2022-08-06 11:54 | disposition home or self-care (01) ==
LOC: HO.XRAY 11:53
PROVIDERS: PCP Family Medicine; Visit Provider Family Medicine
DX: M25.572 Pain in left ankle and joints of left foot (principal); M79.606 Pain in leg, unspecified
CPT/HCPCS: 73562; 73590; 73600; 73630

== ENCOUNTER 2022-08-16 17:43 | Emergency (ER) | payer MEDICAID, SELFPAY ==
[2022-08-16 18:06] VITALS: BP 146/78; PULSE 68; PULSE 83; RESP 16; TEMP 36.4; O2SAT 100; O2SAT 99; BMI 49.4
--- NOTE | 2022-08-16 18:26 | ED_ITS ---
HPI - Psych General Chief Complaint: Psychiatric Symptoms <MICHELE Butler Last Filed: 08/17/22 03:09> Stated Complaint: Depression <MICHELE Butler Last Filed: 08/17/22 03:09> Time Seen by Provider: 08/16/22 17:53 <MICHELE Butler Last Filed: 08/17/22 03:09> Source: patient <MICHELE Butler Last Filed: 08/17/22 03:09> Mode of arrival: ambulatory <MICHELE Butler Last Filed: 08/17/22 03:09> Limitations: no limitations <MICHELE Butler Last Filed: 08/17/22 03:09> History of Present Illness HPI Narrative: 22 yold female presents to the ED for anxiety, depression, and suicidal ideation. Patient states he does not get along with her father at home. He states he has support from a therapist. Patient states she has no plan on how she would kill herself. <MICHELE Butler Last Filed: 08/17/22 03:09> MD complaint: suicidal ideation and feels depressed <MICHELE Butler Last Filed: 08/17/22 03:09> Related Data Home Medications: Home Medications Medication Instructions Recorded Confirmed cholecalciferol (vitamin D3) 25 1 cap PO DAILY 11/06/21 07/03/22 mcg (1,000 unit) capsule (Vitamin D3) Previous Rx's Medication Instructions Recorded acetaminophen 500 mg tablet 1,000 mg PO QID PRN pain #30 tabs 01/08/22 ibuprofen 600 mg tablet 600 mg PO Q6H PRN pain #20 tabs 05/25/22 ferrous sulfate 220 mg (44 mg 220 mg (5 mL) PO BID #300 mL 06/18/22 iron)/5 mL oral elixir <MICHELE Butler Last Filed: 08/17/22 03:09> Allergies/Adverse Reactions: Allergies Allergy/AdvReac Type Severity Reaction Status Date / Time No Known Allergies Allergy Verified 07/03/22 11:18 <MICHELE Butler Last Filed: 08/17/22 03:09> Review of Systems Review of Systems: anixety, depression, suicidal <MICHELE Butler Last Filed: 08/17/22 03:09> Yes all other systems are reviewed and are negative <MICHELE Butler - Last Filed: 08/17/22 03:09> PMF Past Medical History Medical History: Medical History COVID-19 <MICHELE Butler - Last Filed: 08/17/22 03:09> Surgical History: Surgical History No pertinent past surgical history <MICHELE Butler - Last Filed: 08/17/22 03:09> Family History Family History: Family History Paternal Grandfather No problems noted. Paternal Grandmother Hypertension Other Family history of nonleukemic lymphatic malignancy <MICHELE Butler - Last Filed: 08/17/22 03:09> Social History Social History: Social History Household Members: Family Housing: Apartment Are you a primary neonatal intensive care nurse to a significant other at home: No Do you presently have visiting nurse or other home services: No Patient Tobacco Use Status: Never used Tobacco Advance Directives: No Advance Directives Information Provided: Yes service: No Current occupational status: employed <MICHELE Butler - Last Filed: 08/17/22 03:09> Physical Exam Vital Signs: Vital Signs: Last Vital Signs Temp 97.7 F 08/17/22 07:48 Pulse 75 08/17/22 07:48 Resp 16 08/17/22 07:48 BP 132/78 08/17/22 07:48 Pulse Ox 98 08/17/22 07:48 O2 Del Method 08/17/22 07:48 BMI result Body Mass Index 49.4 <MICHELE Butler - Last Filed: 08/17/22 03:09> Vital Signs: Last Vital Signs Temp 97.7 F 08/17/22 07:48 Pulse 75 08/17/22 07:48 Resp 16 08/17/22 07:48 BP 132/78 08/17/22 07:48 Pulse Ox 98 08/17/22 07:48 O2 Del Method 08/17/22 07:48 BMI result Body Mass Index 49.4 <Aldo Moon MD - Last Filed: 08/17/22 08:23> Const: General: cooperative, healthy appearing, comfortable, no acute distress, well developed, alert, awake and Physically active <MICHELE Butler Last Filed: 08/17/22 03:09> Orientation/consciousness: oriented to person, oriented to place, oriented to time and patient oriented x3 <MICHELE Butler Last Filed: 08/17/22 03:09> HEENT: Head: Yes normal to inspection, Yes No palpable skull fracture present, Yes normocephalic, Yes atraumatic and No abrasion <MICHELE Butler Last Filed: 08/17/22 03:09> Eyes: General: appearance normal, both eyes and all related structures <MICHELE Butler Last Filed: 08/17/22 03:09> Neck: Neck: Yes normal visual inspection, Yes full ROM, Yes no lymphadenopathy, Yes no meningeal signs, Yes trachea midline, Yes supple, No anterior neck swelling and No tender <MICHELE Butler Last Filed: 08/17/22 03:09> Chest: Chest palpation & inspection: normal inspection of the chest and normal palpation of entire chest wall <MICHELE Butler Last Filed: 08/17/22 03:09> Resp: Effort & Inspection: normal respiratory effort and able to speak in complete sentences <MICHELE Butler Last Filed: 08/17/22 03:09> Auscultation: clear to auscultation bilaterally <MICHELE Butler Last Filed: 08/17/22 03:09> Cardio: Jugular venous distension: no JVD <MICHELE Butler Last Filed: 08/17/22 03:09> Heart sounds: S1 normal heart sound present and S2 normal heart sound present <MICHELE Butler Last Filed: 08/17/22 03:09> GI: Inspection: Yes normal to inspection and No abdominal wall ecchymosis <MICHELE Butler Last Filed: 08/17/22 03:09> Palpation (GI): Soft to palpation, not firm, nontender, no guarding and not rigid <MICHELE Butler Last Filed: 08/17/22 03:09> : General: Yes no CVA tenderness <MICHELE Butler Last Filed: 08/17/22 03:09> Back/Spine/Pelvis: Back: no CVA tenderness and No back tenderness <MICHELE Butler Last Filed: 08/17/22 03:09> Skin: General skin exam: no rashes or lesions noted and elasticity normal <MICHELE Butler Last Filed: 08/17/22 03:09> Neuro: General: oriented to person, oriented to place, oriented to time, patient oriented x3, gait normal, tone normal, Normal light touch and pain sensation, no meningeal signs and no focal motor deficits <MICHELE Butler Last Filed: 08/17/22 03:09> Extrem: General: Yes normal to inspection and Yes full ROM <MICHELE Butler Last Filed: 08/17/22 03:09> Psych: Appearance: grossly normal, well kempt and not disheveled <MICHELE Butler Last Filed: 08/17/22 03:09> Course Course Course Narrative: Labs ordered. S ordered <MICHELE Butler Last Filed: 08/17/22 03:09> Reevaluation(s) Reevaluation #1: Patient seen by N in the ED. N counselor states patient is safe for discharge. She states patient will be referred Psych Urgent Care where she will be placed with a therapists/psychologist, and [facility]. Patient to be discharged in the morning <MICHELE Butler Last Filed: 08/17/22 03:09> Time: 01:35 <MICHELE Butler Last Filed: 08/17/22 03:09> Reevaluation #2: Patient placed in physician observation at 7am The indication for observation is that the patient needs more time to see if her depression improves or she will need to be admitted. At this time the patient is well developed well nourished, lungs clear, CV RRR, abd nontender, neuro is intact. Crisis to reevaluate to see if patient can be discharged <Aldo Moon MD - Last Filed: 08/17/22 08:23> Time: 07:03 <Aldo Moon MD - Last Filed: 08/17/22 08:23> Reevaluation #3: seen and cleared by crisis <Aldo Moon MD - Last Filed: 08/17/22 08:23> Time: 08:22 <Aldo Moon MD - Last Filed: 08/17/22 08:23> MDM - Psych Lab Data Result diagrams: : 08/16/22 20:00 08/16/22 20:00 <MICHELE Butler - Last Filed: 08/17/22 03:09> Labs: Lab Results 08/16/22 08/16/22 08/16/22 Range/Units 19:35 20:00 20:00 WBC 10.9 H (4.8-10.8) X10*3/uL RBC 4.35 (4.20-5.50) X10*6/uL Hgb 10.6 L (12.0-16.0) g/dl Hct 34.8 L (37.0-47.0) % MCV 80.0 (80.0-98.0) fL MCH 24.4 L (27.0-33.0) pg MCHC 30.5 L (31.0-35.0) g/dl RDW 17.9 H (11.0-16.0) % Plt Count 328 (160-400) X10*3/uL MPV 9.9 (9.4-12.3) fL Immature Gran % (Auto) 0.2 (0.0-0.4) % Neut % (Auto) 67.8 (45-73) % Lymph % (Auto) 25.1 (20-40) % Hart % (Auto) 5.7 (2-11) % Eos % (Auto) 0.6 (0-4) % Baso % (Auto) 0.6 (0-2) % Lymph # (Auto) 2.7 (1.2-4.9) X10*3/uL Hart # (Auto) 0.6 (0.1-1.2) X10*3/uL Eos # (Auto) 0.1 (0.0-0.4) X10*3/uL Baso # (Auto) 0.1 (0.0-0.2) X10*3/uL Abs Immat Gran (auto) 0.02 (0.00-0.03) X10*3/uL Absolute Neuts (auto) 7.4 (2.0-8.3) x10*3/uL Absolute Nucleated RBC 0.000 (0.0-0.012) X10*3/uL Nucleated RBC % (auto) 0.0 (0.0-0.2) /100WBC Sodium 141 (135-145) mmol/L Potassium 3.6 (3.3-5.1) mmol/L Chloride 107 (96-108) mmol/L Carbon Dioxide 20 L (22-29) mmol/L Anion Gap 18 (12-20) BUN 9 (9-16) mg/dL Creatinine 0.76 (0.5-1.4) mg/dL Estim Creat Clear Calc 144.8 Estimated GFR > 60 Random Glucose 111 (60-115) mg/dL Calcium 8.7 (8.4-10.2) mg/dL Total Bilirubin 0.4 (0.0-1.0) mg/dL AST 21 (5-31) U/L ALT 23 (0-31) U/L Alkaline Phosphatase 63 (39-117) U/L Total Protein 7.1 (6.5-8.0) g/dL Albumin 3.9 (3.5-5.0) g/dL Urine Color Urine Appearance Urine pH (5.0-9.0) Ur Specific [place] (1.005-1.025) Urine Protein (Neg-Trace) mg/dL Urine Glucose (UA) (Negative) mg/dL Urine Ketones (Negative) mg/dL Urine Blood (Negative) Urine Nitrite (Negative) Ur Leukocyte Esterase (Negative) Urine RBC (0-2) /HPF Urine WBC (0-5) /HPF Ur Squamous Epith Cells (0-2) /HPF Urine Bacteria (None Seen) Hyaline Casts (0-2) /LPF Urine Test (NEGATIVE) Urine Opiates Screen (Not Detect) Urine Fentanyl Screen (Not Detect) Ur Barbiturates Screen (Not Detect) Ur Phencyclidine Scrn (Not Detect) Ur Amphetamines Screen (Not Detect) U Benzodiazepines Scrn (Not Detect) Urine Cocaine Screen (Not Detect) U Marijuana (THC) Screen (Not Detect) Ethyl Alcohol < 10 mg/dL COVID-19 (NARGIS) Negative (Negative) COVID-19 Clin Com See Note 08/16/22 08/16/22 08/16/22 Range/Units 20:01 20:01 20:01 WBC (4.8-10.8) X10*3/uL RBC (4.20-5.50) X10*6/uL Hgb (12.0-16.0) g/dl Hct (37.0-47.0) % MCV (80.0-98.0) fL MCH (27.0-33.0) pg MCHC (31.0-35.0) g/dl RDW (11.0-16.0) % Plt Count (160-400) X10*3/uL MPV (9.4-12.3) fL Immature Gran % (Auto) (0.0-0.4) % Neut % (Auto) (45-73) % Lymph % (Auto) (20-40) % Hart % (Auto) (2-11) % Eos % (Auto) (0-4) % Baso % (Auto) (0-2) % Lymph # (Auto) (1.2-4.9) X10*3/uL Hart # (Auto) (0.1-1.2) X10*3/uL Eos # (Auto) (0.0-0.4) X10*3/uL Baso # (Auto) (0.0-0.2) X10*3/uL Abs Immat Gran (auto) (0.00-0.03) X10*3/uL Absolute Neuts (auto) (2.0-8.3) x10*3/uL Absolute Nucleated RBC (0.0-0.012) X10*3/uL Nucleated RBC % (auto) (0.0-0.2) /100WBC Sodium (135-145) mmol/L Potassium (3.3-5.1) mmol/L Chloride (96-108) mmol/L Carbon Dioxide (22-29) mmol/L Anion Gap (12-20) BUN (9-16) mg/dL Creatinine (0.5-1.4) mg/dL Estim Creat Clear Calc Estimated GFR Random Glucose (60-115) mg/dL Calcium (8.4-10.2) mg/dL Total Bilirubin (0.0-1.0) mg/dL AST (5-31) U/L ALT (0-31) U/L Alkaline Phosphatase (39-117) U/L Total Protein (6.5-8.0) g/dL Albumin (3.5-5.0) g/dL Urine Color Yellow Urine Appearance Clear Urine pH 6.0 (5.0-9.0) Ur Specific [place] 1.025 (1.005-1.025) Urine Protein Negative (Neg-Trace) mg/dL Urine Glucose (UA) Negative (Negative) mg/dL Urine Ketones Negative (Negative) mg/dL Urine Blood Negative (Negative) Urine Nitrite Negative (Negative) Ur Leukocyte Esterase Trace H (Negative) Urine RBC 0-2 (0-2) /HPF Urine WBC 0-5 (0-5) /HPF Ur Squamous Epith Cells 3-5 (0-2) /HPF Urine Bacteria None Seen (None Seen) Hyaline Casts 0-2 (0-2) /LPF Urine Test NEGATIVE (NEGATIVE) Urine Opiates Screen Not Detected (Not Detect) Urine Fentanyl Screen Not Detected (Not Detect) Ur Barbiturates Screen Not Detected (Not Detect) Ur Phencyclidine Scrn Not Detected (Not Detect) Ur Amphetamines Screen Not Detected (Not Detect) U Benzodiazepines Scrn Not Detected (Not Detect) Urine Cocaine Screen Not Detected (Not Detect) U Marijuana (THC) Screen POSITIVE H (Not Detect) Ethyl Alcohol mg/dL COVID-19 (NARGIS) (Negative) COVID-19 Clin Com <MICHELE Butler - Last Filed: 08/17/22 03:09> Lab Results 08/16/22 08/16/22 08/16/22 Range/Units 19:35 20:00 20:00 WBC 10.9 H (4.8-10.8) X10*3/uL RBC 4.35 (4.20-5.50) X10*6/uL Hgb 10.6 L (12.0-16.0) g/dl Hct 34.8 L (37.0-47.0) % MCV 80.0 (80.0-98.0) fL MCH 24.4 L (27.0-33.0) pg MCHC 30.5 L (31.0-35.0) g/dl RDW 17.9 H (11.0-16.0) % Plt Count 328 (160-400) X10*3/uL MPV 9.9 (9.4-12.3) fL Immature Gran % (Auto) 0.2 (0.0-0.4) % Neut % (Auto) 67.8 (45-73) % Lymph % (Auto) 25.1 (20-40) % Hart % (Auto) 5.7 (2-11) % Eos % (Auto) 0.6 (0-4) % Baso % (Auto) 0.6 (0-2) % Lymph # (Auto) 2.7 (1.2-4.9) X10*3/uL Hart # (Auto) 0.6 (0.1-1.2) X10*3/uL Eos # (Auto) 0.1 (0.0-0.4) X10*3/uL Baso # (Auto) 0.1 (0.0-0.2) X10*3/uL Abs Immat Gran (auto) 0.02 (0.00-0.03) X10*3/uL Absolute Neuts (auto) 7.4 (2.0-8.3) x10*3/uL Absolute Nucleated RBC 0.000 (0.0-0.012) X10*3/uL Nucleated RBC % (auto) 0.0 (0.0-0.2) /100WBC Sodium 141 (135-145) mmol/L Potassium 3.6 (3.3-5.1) mmol/L Chloride 107 (96-108) mmol/L Carbon Dioxide 20 L (22-29) mmol/L Anion Gap 18 (12-20) BUN 9 (9-16) mg/dL Creatinine 0.76 (0.5-1.4) mg/dL Estim Creat Clear Calc 144.8 Estimated GFR > 60 Random Glucose 111 (60-115) mg/dL Calcium 8.7 (8.4-10.2) mg/dL Total Bilirubin 0.4 (0.0-1.0) mg/dL AST 21 (5-31) U/L ALT 23 (0-31) U/L Alkaline Phosphatase 63 (39-117) U/L Total Protein 7.1 (6.5-8.0) g/dL Albumin 3.9 (3.5-5.0) g/dL Urine Color Urine Appearance Urine pH (5.0-9.0) Ur Specific [place] (1.005-1.025) Urine Protein (Neg-Trace) mg/dL Urine Glucose (UA) (Negative) mg/dL Urine Ketones (Negative) mg/dL Urine Blood (Negative) Urine Nitrite (Negative) Ur Leukocyte Esterase (Negative) Urine RBC (0-2) /HPF Urine WBC (0-5) /HPF Ur Squamous Epith Cells (0-2) /HPF Urine Bacteria (None Seen) Hyaline Casts (0-2) /LPF Urine Test (NEGATIVE) Urine Opiates Screen (Not Detect) Urine Fentanyl Screen (Not Detect) Ur Barbiturates Screen (Not Detect) Ur Phencyclidine Scrn (Not Detect) Ur Amphetamines Screen (Not Detect) U Benzodiazepines Scrn (Not Detect) Urine Cocaine Screen (Not Detect) U Marijuana (THC) Screen (Not Detect) Ethyl Alcohol < 10 mg/dL COVID-19 (NARGIS) Negative (Negative) COVID-19 Clin Com See Note 08/16/22 08/16/22 08/16/22 Range/Units 20:01 20:01 20:01 WBC (4.8-10.8) X10*3/uL RBC (4.20-5.50) X10*6/uL Hgb (12.0-16.0) g/dl Hct (37.0-47.0) % MCV (80.0-98.0) fL MCH (27.0-33.0) pg MCHC (31.0-35.0) g/dl RDW (11.0-16.0) % Plt Count (160-400) X10*3/uL MPV (9.4-12.3) fL Immature Gran % (Auto) (0.0-0.4) % Neut % (Auto) (45-73) % Lymph % (Auto) (20-40) % Hart % (Auto) (2-11) % Eos % (Auto) (0-4) % Baso % (Auto) (0-2) % Lymph # (Auto) (1.2-4.9) X10*3/uL Hart # (Auto) (0.1-1.2) X10*3/uL Eos # (Auto) (0.0-0.4) X10*3/uL Baso # (Auto) (0.0-0.2) X10*3/uL Abs Immat Gran (auto) (0.00-0.03) X10*3/uL Absolute Neuts (auto) (2.0-8.3) x10*3/uL Absolute Nucleated RBC (0.0-0.012) X10*3/uL Nucleated RBC % (auto) (0.0-0.2) /100WBC Sodium (135-145) mmol/L Potassium (3.3-5.1) mmol/L Chloride (96-108) mmol/L Carbon Dioxide (22-29) mmol/L Anion Gap (12-20) BUN (9-16) mg/dL Creatinine (0.5-1.4) mg/dL Estim Creat Clear Calc Estimated GFR Random Glucose (60-115) mg/dL Calcium (8.4-10.2) mg/dL Total Bilirubin (0.0-1.0) mg/dL AST (5-31) U/L ALT (0-31) U/L Alkaline Phosphatase (39-117) U/L Total Protein (6.5-8.0) g/dL Albumin (3.5-5.0) g/dL Urine Color Yellow Urine Appearance Clear Urine pH 6.0 (5.0-9.0) Ur Specific [place] 1.025 (1.005-1.025) Urine Protein Negative (Neg-Trace) mg/dL Urine Glucose (UA) Negative (Negative) mg/dL Urine Ketones Negative (Negative) mg/dL Urine Blood Negative (Negative) Urine Nitrite Negative (Negative) Ur Leukocyte Esterase Trace H (Negative) Urine RBC 0-2 (0-2) /HPF Urine WBC 0-5 (0-5) /HPF Ur Squamous Epith Cells 3-5 (0-2) /HPF Urine Bacteria None Seen (None Seen) Hyaline Casts 0-2 (0-2) /LPF Urine Test NEGATIVE (NEGATIVE) Urine Opiates Screen Not Detected (Not Detect) Urine Fentanyl Screen Not Detected (Not Detect) Ur Barbiturates Screen Not Detected (Not Detect) Ur Phencyclidine Scrn Not Detected (Not Detect) Ur Amphetamines Screen Not Detected (Not Detect) U Benzodiazepines Scrn Not Detected (Not Detect) Urine Cocaine Screen Not Detected (Not Detect) U Marijuana (THC) Screen POSITIVE H (Not Detect) Ethyl Alcohol mg/dL COVID-19 (NARGIS) (Negative) COVID-19 Clin Com <Aldo Moon MD - Last Filed: 08/17/22 08:23> Discharge Plan Discharge Clinical Impression: Anxiety, Depression <MICHELE Butler - Last Filed: 08/17/22 03:09> Patient Disposition: Home, Self-Care <MICHELE Butler - Last Filed: 08/17/22 03:09> Instructions: Depression (ED), Anxiety (ED) <MICHELE Butler - Last Filed: 08/17/22 03:09> Additional Instructions: You will be referred by in to Urgent Care for Psychiatry which would give you medication, therapist, and psychiatrist. Return to the ED for any suicidal/homicidal ideation, auditory/visual hallucinations, any physical complaints, any other concerning symptoms. <MICHELE Butler - Last Filed: 08/17/22 03:09> Prescriptions: No Action cholecalciferol (vitamin D3) [Vitamin D3] 25 mcg (1,000 unit) capsule 1 cap PO DAILY ferrous sulfate 220 mg (44 mg iron)/5 mL Elixir 220 mg PO BID Qty: 300 4RF ibuprofen 600 mg tablet 600 mg PO Q6H PRN (Reason: pain) Qty: 20 0RF acetaminophen 500 mg tablet 1,000 mg PO QID PRN (Reason: pain) Qty: 30 0RF <MICHELE Butler - Last Filed: 08/17/22 03:09> Stand Alone Forms: Work/School Release <MICHELE Butler - Last Filed: 08/17/22 03:09> Print Language: Vietnamese <MICHELE Butler - Last Filed: 08/17/22 03:09>
[2022-08-16 19:58] LABS: COVID-19 Test Negative (Negative); IDNOW Serial# 55D5AD1C
[2022-08-16 20:00] VITALS: BP 131/71; PULSE 82; RESP 16; TEMP 36.6; O2SAT 98
[2022-08-16 20:08] LABS: MANUAL DIFF FLAG NO
[2022-08-16 20:11] LABS: Basophils Absolute Auto 0.1 X10*3/uL (0.0-0.2); Basophils Percent Auto 0.6 % (0-2); Eosinophils Absolute Auto 0.1 X10*3/uL (0.0-0.4); Eosinophils Percent Auto 0.6 % (0-4); Hematocrit 34.8 % (37.0-47.0); Hemoglobin 10.6 g/dl (12.0-16.0); Imm Gran Abs Auto 0.02 X10*3/uL (0.00-0.03); Imm Gran Pct Auto 0.2 % (0.0-0.4); Lymphocytes Absolute Auto 2.7 X10*3/uL (1.2-4.9); Lymphocytes Percent Auto 25.1 % (20-40); Mean Corpuscular HGB Conc 30.5 g/dl (31.0-35.0); Mean Corpuscular Hemoglobin 24.4 pg (27.0-33.0); Mean Platelet Volume 9.9 fL (9.4-12.3); Monocytes Absolute Auto 0.6 X10*3/uL (0.1-1.2); Monocytes Percent Auto 5.7 % (2-11); Neutrophils Absolute Auto 7.4 x10*3/uL (2.0-8.3); Neutrophils Percent Auto 67.8 % (45-73); Platelet Count 328 X10*3/uL (160-400); Red Blood Count 4.35 X10*6/uL (4.20-5.50); Red Cell Distribution Width 17.9 % (11.0-16.0); White Blood Count 10.9 X10*3/uL (4.8-10.8)
[2022-08-16 20:11] LABS: Appearance Urine Clear; Color Urine Yellow; Glucose Urine UA Negative (Negative); Leukocyte Esterase Urine Trace (Negative); Nitrite Urine Negative (Negative); Specific Gravity - Urine 1.025 (1.005-1.025); UMIC TRIGGER UACC YES; Urine Blood Negative (Negative); Urine Ketones Negative (Negative); Urine Protein Negative (Neg-Trace)
[2022-08-16 20:14] LABS: UPreg QC Valid YES; Urine Pregnancy NEGATIVE (NEGATIVE)
[2022-08-16 20:16] LABS: Bacteria Urine None Seen (None Seen); Hyaline Casts Urine 0-2 /LPF (0-2); RBC Urine 0-2 /HPF (0-2); WBC Urine 0-5 /HPF (0-5)
[2022-08-16 20:26] LABS: Amphetamine Screen Urine Not Detected (Not Detect); Barbiturates, Urine Not Detected (Not Detect); Benzodiazepines Screen Urine Not Detected (Not Detect); Cannabinoid Screen Urine POSITIVE (Not Detect); Cocaine Screen Urine Not Detected (Not Detect); Fentanyl, urine Not Detected (Not Detect); Opiate Screen Urine Not Detected (Not Detect); Phencyclidine Screen Urine Not Detected (Not Detect)
[2022-08-16 20:27] LABS: Alanine Aminotransferase 23 U/L (0-31); Albumin Level 3.9 g/dL (3.5-5.0); Alkaline Phosphatase 63 U/L (39-117); Anion Gap 18 (12-20); Aspartate Amino Transferase 21 U/L (5-31); Bilirubin Total 0.4 mg/dL (0.0-1.0); Blood Urea Nitrogen 9 mg/dL (9-16); Calcium 8.7 mg/dL (8.4-10.2); Carbon Dioxide 20 mmol/L (22-29); Chloride 107 mmol/L (96-108); Creatinine Clr Calc Pharmacy 144.8; Estimated Glomerular Filt Rate > 60; Ethanol < 10 mg/dL; Glucose Random 111 mg/dL (60-115); Potassium 3.6 mmol/L (3.3-5.1); Sodium 141 mmol/L (135-145); Total Protein 7.1 g/dL (6.5-8.0)
--- NOTE | 2022-08-16 20:37 | PC.NURSE ---
pt is having [employer] for supper.step mom at bedside .
[2022-08-16 21:51] VITALS: BP 150/76; PULSE 86; RESP 16; TEMP 37.1; O2SAT 98
--- NOTE | 2022-08-16 23:49 | PC.NURSE ---
pt is laying in bed watching television ,sitter at bedside .
[2022-08-16] MEDS: Melatonin 3 MG TABLET PO (23:56)
[2022-08-16] MEDS: LORazepam 1 MG TABLET PO (23:56)
--- NOTE | 2022-08-17 01:03 | PC.NURSE ---
[facility] in to evaluate patient
[2022-08-17 01:27] VITALS: BP 147/68; PULSE 79; RESP 17; TEMP 37.1; O2SAT 98
[2022-08-17 06:00] VITALS: RESP 18
--- NOTE | 2022-08-17 07:00 | PC.NURSE ---
report given to VENKATESH Cordon
[2022-08-17 07:48] VITALS: BP 132/78; PULSE 75; RESP 16; TEMP 36.5; O2SAT 98
== END 2022-08-17 08:44 | disposition home or self-care (01) ==
PROVIDERS: Physician Assistant; Emergency Provider Student in an Organized Health Care Education/Training Program; PCP Family Medicine
DX: F33.1 Major depressive disorder, recurrent, moderate (principal); R45.851 Suicidal ideations; F41.1 Generalized anxiety disorder; F43.0 Acute stress reaction; Z20.822 Contact with and (suspected) exposure to COVID-19; Z79.899 Other long term (current) drug therapy
CPT/HCPCS: 36415; 80053; 80307; 81001; 81025; 82077; 85025; 87635; 99284

== ENCOUNTER → 2022-11-24 07:52 | Outpatient (BNVA) | payer MEDICAID, SELFPAY | PROVIDERS: PCP Family Medicine; Visit Provider Nurse Practitioner Family | DX: G47.33 Obstructive sleep apnea (adult) (pediatric) (principal); G47.19 Other hypersomnia; R06.83 Snoring | CPT/HCPCS: 99202 ==

== ENCOUNTER → 2022-12-16 15:44 | Outpatient (REF) | payer MEDICAID, SELFPAY | LOC: HO.SL 15:44 | PROVIDERS: PCP Family Medicine; Visit Provider Nurse Practitioner Family | DX: G47.33 Obstructive sleep apnea (adult) (pediatric) (principal); G47.19 Other hypersomnia; R06.83 Snoring | CPT/HCPCS: 95806 ==

== ENCOUNTER 2022-12-24 15:59 | Emergency (ER) | payer MEDICAID, SELFPAY ==
--- NOTE | ~2022-12-24 | CT_ITS ---
EXAMINATION: CT ABDOMEN AND PELVIS WITHOUT CONTRAST CLINICAL INFORMATION: Left-sided abdominal pain diverticulitis. COMPARISON: None available. TECHNIQUE: Multidetector volumetric imaging was performed from the superior aspect of the liver through the pubic symphysis. Sagittal and coronal reformatted images were obtained on the technologist's workstation. This CT examination was performed using dose optimization techniques as appropriate, variously including the following: *Automated exposure control *Adjustment of mA and/or kV according to patient size (this includes techniques or standardized protocols for targeted exams where dose is matched to indication/reason for exam; i.e. extremities or head) *Use of iterative reconstruction technique DLP: 1056 mGy-cm FINDINGS: LUNG BASES: The visualized lung bases are unremarkable. LIVER, GALLBLADDER, AND BILIARY TREE: Mild hepatomegaly. Diffuse hepatic steatosis. No focal liver lesions. No biliary dilatation. Gallbladder unremarkable. PANCREAS: Unremarkable. SPLEEN: Unremarkable. ADRENAL GLANDS: Unremarkable. KIDNEYS AND URETERS: The kidneys are normal in size, shape, and attenuation. No hydronephrosis, hydroureter, or calculi seen. No perinephric stranding. BLADDER: Unremarkable. GASTROINTESTINAL TRACT: The small and large bowel are unremarkable. The appendix is unremarkable. ABDOMINAL WALL: No significant hernia is appreciated. LYMPH NODES: Normal. VASCULAR: Unremarkable. PELVIC VISCERA: Uterus and ovaries unremarkable. OSSEOUS STRUCTURES: No acute or suspicious osseous abnormalities. CT/CT abdomen pelvis wo IV con IMPRESSION: * No acute findings within the abdomen or pelvis to explain the patient's symptomatology. * Mild hepatomegaly and diffuse hepatic steatosis.
--- NOTE | 2022-12-24 16:04 | ED.ABDPAIN ---
HPI - Abdominal Pain General Chief Complaint: Abdominal Pain <MICHELE Gan - Last Filed: 12/24/22 16:09> Stated Complaint: Abdominal pain <MICHELE Gan - Last Filed: 12/24/22 16:09> Time Seen by Provider: 12/25/22 01:38 <MICHELE Gan - Last Filed: 12/24/22 16:09> Source: patient <Aime Bethea MD - Last Filed: 12/25/22 03:45> Mode of arrival: ambulatory <Aime Bethea MD - Last Filed: 12/25/22 03:45> Limitations: no limitations <Aime Bethea MD - Last Filed: 12/25/22 03:45> History of Present Illness HPI narrative: 22-year-old female who presents emergency department for evaluation of abdominal pain. The patient states she has been having abdominal pain on off since November of 2022. She is to her epigastric and left abdominal areas when asked to localize the pain. She states the pain will last for 3 or 4 days and then resolved. She states that over the last 3 days the pain is come back. She states that it is a intermittent, sharp pain which is 8/10 at its worst. The pain is associated with nausea and vomiting, she vomited once today. She states that she has also had 2 loose tray. She denied dysuria but has noted urinary frequency. She states that her doctor started her on a pill for her stomach acid in this give her some improvement of her pain. She also states that she started Depo-Provera in November of 2022 to help control her menstrual periods. <Aime Bethea MD - Last Filed: 12/25/22 03:45> Related Data Home Medications: Home Medications Medication Instructions Recorded Confirmed cholecalciferol (vitamin D3) 25 1 cap PO DAILY 11/06/21 12/17/22 mcg (1,000 unit) capsule (Vitamin D3) omeprazole 20 mg capsule,delayed 20 mg PO DAILY 11/24/22 12/17/22 release sertraline 25 mg tablet 25 mg PO DAILY 11/24/22 12/17/22 Previous Rx's Medication Instructions Recorded acetaminophen 500 mg tablet 1,000 mg PO QID PRN pain #30 tabs 01/08/22 ibuprofen 600 mg tablet 600 mg PO Q6H PRN pain #20 tabs 05/25/22 ferrous sulfate 220 mg (44 mg 220 mg (5 mL) PO BID #300 mL 06/18/22 iron)/5 mL oral elixir aluminum hydrox-magnesium carb 254 10 ml PO QID PRN dyspepsia #355 mL 12/25/22 mg-237.5 mg/5 mL oral suspension (Gaviscon Extra Strength) <MICHELE Gan - Last Filed: 12/24/22 16:09> Allergies/Adverse Reactions: Allergies Allergy/AdvReac Type Severity Reaction Status Date / Time No Known Allergies Allergy Verified 11/24/22 07:57 <MICHELE Gan - Last Filed: 12/24/22 16:09> Review of Systems Review of Systems Yes all other systems are reviewed and are negative <Aime Bethea MD - Last Filed: 12/25/22 03:45> [facility] Past Medical History [facility] Narrative: Past surgical history: None. Social history: She denies tobacco and alcohol use. She states she smokes marijuana and night to help her sleep. <Aime Bethea MD - Last Filed: 12/25/22 03:45> Medical History: Medical History COVID-19 <MICHELE Gan - Last Filed: 12/24/22 16:09> Surgical History: Surgical History No pertinent past surgical history S/P tonsillectomy <MICHELE Gan - Last Filed: 12/24/22 16:09> Family History Family History: Family History Paternal Grandfather No problems noted. Paternal Grandmother Hypertension Other Family history of nonleukemic lymphatic malignancy <MICHELE Gan - Last Filed: 12/24/22 16:09> Social History Social History: Social History Household Members: Family Housing: Apartment Are you a primary ocular care technician to a significant other at home: No Do you presently have visiting nurse or other home services: No Alcohol intake: never Patient Tobacco Use Status: Never used Tobacco Smoked in Last 30 Days: No Use of substances other than those prescribed or required for medical reasons: Yes Substance Use Type: Marijuana Substance Use Frequency: Daily Advance Directives: No Advance Directives Information Provided: No service: No Current occupational status: employed <MICHELE Gan - Last Filed: 12/24/22 16:09> Physical Exam ED Vital Signs: Vital Signs - 24 hr 12/24/22 16:06 12/24/22 23:06 12/25/22 01:52 Temperature 98 F 98.0 F Pulse Rate 99 73 65 Respiratory Rate 20 19 18 Blood Pressure 164/93 H 104/59 L 116/62 Pulse Oximetry 100 98 97 Oxygen Delivery Method Room Air Room Air BMI result Body Mass Index 49.4 <MICHELE Gan - Last Filed: 12/24/22 16:09> Vital Signs - 24 hr 12/24/22 16:06 12/24/22 23:06 12/25/22 01:52 Temperature 98 F 98.0 F Pulse Rate 99 73 65 Respiratory Rate 20 19 18 Blood Pressure 164/93 H 104/59 L 116/62 Pulse Oximetry 100 98 97 Oxygen Delivery Method Room Air Room Air BMI result Body Mass Index 49.4 <Aime Bethea MD - Last Filed: 12/25/22 03:45> Const Other: Awake, alert, female patient, pleasant, cooperative, no distress, answers all questions appropriately, elevated BMI 49.4 <Aime Bethea MD - Last Filed: 12/25/22 03:45> HENMT Head: Yes normal to inspection, Yes normocephalic and Yes atraumatic <Aime Bethea MD - Last Filed: 12/25/22 03:45> Ears: external ears normal <Aime Bethea MD - Last Filed: 12/25/22 03:45> General nose exam: Normal external nose present <Aime Bethea MD - Last Filed: 12/25/22 03:45> Face and sinus: Yes normal facial exam <Aime Bethea MD - Last Filed: 12/25/22 03:45> Mouth: Normal oral and palatal mucosa present <MD Terence Ventura Last Filed: 12/25/22 03:45> Throat: Yes posterior oropharynx normal <MD Terence Ventura Last Filed: 12/25/22 03:45> Eyes General: appearance normal, both eyes and all related structures <MD Terence Ventura Last Filed: 12/25/22 03:45> Pupils: Equal, round and reactive pupils present <MD Terence Ventura Last Filed: 12/25/22 03:45> Neck Neck: Yes normal visual inspection, Yes no lymphadenopathy, Yes trachea midline and Yes supple <MD Terence Ventura Last Filed: 12/25/22 03:45> Chest Chest palpation & inspection: normal inspection of the chest and normal palpation of entire chest wall <MD Terence Ventura Last Filed: 12/25/22 03:45> Resp Effort & Inspection: normal respiratory effort and able to speak in complete sentences <MD Terence Ventura Last Filed: 12/25/22 03:45> Auscultation: clear to auscultation bilaterally <MD Terence Ventura Last Filed: 12/25/22 03:45> Cardio Rate: regular rate <MD Terence Ventura Last Filed: 12/25/22 03:45> Rhythm: regular rhythm <MD Terence Ventura Last Filed: 12/25/22 03:45> Heart sounds: S1 normal heart sound present, S2 normal heart sound present and no murmurs <MD Terence Ventura Last Filed: 12/25/22 03:45> GI Other: Abdomen is obese, moderate epigastric and left upper quadrant tenderness, mild left lower quadrant tenderness, normoactive bowel sounds, no rebound <MD Terence Ventura Last Filed: 12/25/22 03:45> Palpation (GI): Tenderness to palpation present (GI) and Guarding due to palpation present (GI) <MD Terence Ventura Last Filed: 12/25/22 03:45> General: Yes no CVA tenderness <Aime Bethea MD - Last Filed: 12/25/22 03:45> Back/Spine/Pelvis Back: no CVA tenderness <Aime Bethea MD - Last Filed: 12/25/22 03:45> Skin General skin exam: no rashes or lesions noted <Aime Bethea MD - Last Filed: 12/25/22 03:45> Neuro Cranial nerves: Yes Equal, round and reactive pupils present <Aime Bethea MD - Last Filed: 12/25/22 03:45> Cognition (Neuro): normal cognition <Aime Bethea MD - Last Filed: 12/25/22 03:45> Motor exam (neuro): 5/5 motor strength present throughout <Aime Bethea MD - Last Filed: 12/25/22 03:45> Extrem General: Yes normal to inspection <Aime Behtea MD - Last Filed: 12/25/22 03:45> Psych Appearance: grossly normal <Aime Bethea MD - Last Filed: 12/25/22 03:45> Speech and movement: Normal speech and movement present <Aime Bethea MD - Last Filed: 12/25/22 03:45> Affect: normal affect <Aime Bethea MD - Last Filed: 12/25/22 03:45> Course Course Course Narrative: RME--22yo F w/PMHx AGUSTÍN, c/o left lower abd pain, nausea, emesis x1 episode, and ?vaginal bleeding when wiping x today. Denies dysuria, diarrhea, fever. LMP in October Abd soft nontender Labs, UA, Preg ordered <MICHELE Gna - Last Filed: 12/24/22 16:09> Medical Decision Making Medical Decision Making MDM Narrative: 22-year-old female who presents emergency department for evaluation of intermittent epigastric and left sided abdominal pain since November 2022. She states the pain will last for 3-4 days and then resolved. The pain started again 3-4 days prior, she has had associated nausea, vomiting and diarrhea. Vital signs revealed an elevated blood pressure otherwise unremarkable. Physical examination did reveal epigastric, left upper quadrant and left lower quadrant tenderness. Patient had a CBC, BMP, lipase, test, urinalysis ordered from provider triage. 0154: My interpretation patient's laboratory evaluation is as follows: Low elevated platelets [id number]. Rate is test negative. Urinalysis revealed positive blood, trace leukocyte esterase, microscopic revealed greater than 20 RBCs, and squamous cells I ordered a CT scan of the abdomen pelvis without IV contrast to further evaluate the patient's abdominal pain. 0327: CT of the abdomen pelvis did not reveal any acute causes for the patient's pain. The patient most likely has gastritis. She was advised to continue taking the medication prescribed her provider and she was also given a prescription for extra-strength Gaviscon. <Aime Bethea MD - Last Filed: 12/25/22 03:45> Differential Diagnosis Differential diagnosis includes was not limited to gastritis, esophagitis, pancreatitis, diverticulitis, renal colic <Aime Bethea MD - Last Filed: 12/25/22 03:45> Lab Data [facility] Lab Attestation statement: I reviewed the patient's lab results. <Aime Bethea MD - Last Filed: 12/25/22 03:45> Please see [facility] for discussion <Aime Bethea MD - Last Filed: 12/25/22 03:45> Result Diagrams: 12/24/22 16:18 12/24/22 16:18 <MICHELE Gan - Last Filed: 12/24/22 16:09> Labs: Lab Results 12/24/22 12/24/22 12/24/22 Range/Units 16:18 16:18 16:18 WBC 12.3 H (4.8-10.8) X10*3/uL RBC 5.01 (4.20-5.50) X10*6/uL Hgb 9.9 L (12.0-16.0) g/dl Hct 35.4 L (37.0-47.0) % MCV 70.7 L (80.0-98.0) fL MCH 19.8 L (27.0-33.0) pg MCHC 28.0 L (31.0-35.0) g/dl RDW 21.4 H (11.0-16.0) % Plt Count 516 H (160-400) X10*3/uL MPV 9.8 (9.4-12.3) fL Immature Gran % (Auto) 0.4 (0.0-0.4) % Neut % (Auto) 62.6 (45-73) % Lymph % (Auto) 29.6 (20-40) % Beauregard % (Auto) 6.8 (2-11) % Eos % (Auto) 0.2 (0-4) % Baso % (Auto) 0.4 (0-2) % Lymph # (Auto) 3.7 (1.2-4.9) X10*3/uL Bea[place]gard # (Auto) 0.8 (0.1-1.2) X10*3/uL Eos # (Auto) 0.0 (0.0-0.4) X10*3/uL Baso # (Auto) 0.1 (0.0-0.2) X10*3/uL Abs Immat Gran (auto) 0.05 H (0.00-0.03) X10*3/uL Absolute Neuts (auto) 7.7 (2.0-8.3) x10*3/uL Absolute Nucleated RBC 0.000 (0.0-0.012) X10*3/uL Nucleated RBC % (auto) 0.0 (0.0-0.2) /100WBC Sodium 143 (135-145) mmol/L Potassium 3.9 (3.3-5.1) mmol/L Chloride 110 H (96-108) mmol/L Carbon Dioxide 24 (22-29) mmol/L Anion Gap 13 (12-20) BUN 9 (9-16) mg/dL Creatinine 0.84 (0.5-1.4) mg/dL Estim Creat Clear Calc 131.1 Estimated GFR > 60 Random Glucose 114 (60-115) mg/dL Calcium 9.2 (8.4-10.2) mg/dL Magnesium 2.2 (1.6-2.6) mg/dL Total Bilirubin 0.4 (0.0-1.0) mg/dL Direct Bilirubin < 0.2 (0.0-0.5) mg/dL AST 15 (5-31) U/L ALT 15 (0-31) U/L Alkaline Phosphatase 67 (39-117) U/L Total Protein 7.5 (6.5-8.0) g/dL Albumin 4.2 (3.5-5.0) g/dL Lipase 31 (8-78) U/L Urine Color DK YELLOW Urine Appearance Cloudy Urine pH 6.0 (5.0-9.0) Ur Specific [place]ville >= 1.030 H (1.005-1.025) Urine Protein 30 (1+) H (Neg-Trace) mg/dL Urine Glucose (UA) Negative (Negative) mg/dL Urine Ketones Trace (Negative) mg/dL Urine Blood Large (3+) H (Negative) Urine Nitrite Negative (Negative) Ur Leukocyte Esterase Trace H (Negative) Urine RBC >20 H (0-2) /HPF Urine WBC 21-50 H (0-5) /HPF Ur Squamous Epith Cells 6-10 (0-2) /HPF Urine Bacteria Trace (None Seen) Hyaline Casts 3-5 (0-2) /LPF Urine Test (NEGATIVE) 12/24/22 Range/Units 16:18 WBC (4.8-10.8) X10*3/uL RBC (4.20-5.50) X10*6/uL Hgb (12.0-16.0) g/dl Hct (37.0-47.0) % MCV (80.0-98.0) fL MCH (27.0-33.0) pg MCHC (31.0-35.0) g/dl RDW (11.0-16.0) % Plt Count (160-400) X10*3/uL MPV (9.4-12.3) fL Immature Gran % (Auto) (0.0-0.4) % Neut % (Auto) (45-73) % Lymph % (Auto) (20-40) % Beauregard % (Auto) (2-11) % Eos % (Auto) (0-4) % Baso % (Auto) (0-2) % Lymph # (Auto) (1.2-4.9) X10*3/uL Bea[place]gard # (Auto) (0.1-1.2) X10*3/uL Eos # (Auto) (0.0-0.4) X10*3/uL Baso # (Auto) (0.0-0.2) X10*3/uL Abs Immat Gran (auto) (0.00-0.03) X10*3/uL Absolute Neuts (auto) (2.0-8.3) x10*3/uL Absolute Nucleated RBC (0.0-0.012) X10*3/uL Nucleated RBC % (auto) (0.0-0.2) /100WBC Sodium (135-145) mmol/L Potassium (3.3-5.1) mmol/L Chloride (96-108) mmol/L Carbon Dioxide (22-29) mmol/L Anion Gap (12-20) BUN (9-16) mg/dL Creatinine (0.5-1.4) mg/dL Estim Creat Clear Calc Estimated GFR Random Glucose (60-115) mg/dL Calcium (8.4-10.2) mg/dL Magnesium (1.6-2.6) mg/dL Total Bilirubin (0.0-1.0) mg/dL Direct Bilirubin (0.0-0.5) mg/dL AST (5-31) U/L ALT (0-31) U/L Alkaline Phosphatase (39-117) U/L Total Protein (6.5-8.0) g/dL Albumin (3.5-5.0) g/dL Lipase (8-78) U/L Urine Color Urine Appearance Urine pH (5.0-9.0) Ur Specific Granville (1.005-1.025) Urine Protein (Neg-Trace) mg/dL Urine Glucose (UA) (Negative) mg/dL Urine Ketones (Negative) mg/dL Urine Blood (Negative) Urine Nitrite (Negative) Ur Leukocyte Esterase (Negative) Urine RBC (0-2) /HPF Urine WBC (0-5) /HPF Ur Squamous Epith Cells (0-2) /HPF Urine Bacteria (None Seen) Hyaline Casts (0-2) /LPF Urine Test NEGATIVE (NEGATIVE) <MICHELE Gan - Last Filed: 12/24/22 16:09> Lab Results 12/24/22 12/24/22 12/24/22 Range/Units 16:18 16:18 16:18 WBC 12.3 H (4.8-10.8) X10*3/uL RBC 5.01 (4.20-5.50) X10*6/uL Hgb 9.9 L (12.0-16.0) g/dl Hct 35.4 L (37.0-47.0) % MCV 70.7 L (80.0-98.0) fL MCH 19.8 L (27.0-33.0) pg MCHC 28.0 L (31.0-35.0) g/dl RDW 21.4 H (11.0-16.0) % Plt Count 516 H (160-400) X10*3/uL MPV 9.8 (9.4-12.3) fL Immature Gran % (Auto) 0.4 (0.0-0.4) % Neut % (Auto) 62.6 (45-73) % Lymph % (Auto) 29.6 (20-40) % Beauregard % (Auto) 6.8 (2-11) % Eos % (Auto) 0.2 (0-4) % Baso % (Auto) 0.4 (0-2) % Lymph # (Auto) 3.7 (1.2-4.9) X10*3/uL Bea[place]gard # (Auto) 0.8 (0.1-1.2) X10*3/uL Eos # (Auto) 0.0 (0.0-0.4) X10*3/uL Baso # (Auto) 0.1 (0.0-0.2) X10*3/uL Abs Immat Gran (auto) 0.05 H (0.00-0.03) X10*3/uL Absolute Neuts (auto) 7.7 (2.0-8.3) x10*3/uL Absolute Nucleated RBC 0.000 (0.0-0.012) X10*3/uL Nucleated RBC % (auto) 0.0 (0.0-0.2) /100WBC Sodium 143 (135-145) mmol/L Potassium 3.9 (3.3-5.1) mmol/L Chloride 110 H (96-108) mmol/L Carbon Dioxide 24 (22-29) mmol/L Anion Gap 13 (12-20) BUN 9 (9-16) mg/dL Creatinine 0.84 (0.5-1.4) mg/dL Estim Creat Clear Calc 131.1 Estimated GFR > 60 Random Glucose 114 (60-115) mg/dL Calcium 9.2 (8.4-10.2) mg/dL Magnesium 2.2 (1.6-2.6) mg/dL Total Bilirubin 0.4 (0.0-1.0) mg/dL Direct Bilirubin < 0.2 (0.0-0.5) mg/dL AST 15 (5-31) U/L ALT 15 (0-31) U/L Alkaline Phosphatase 67 (39-117) U/L Total Protein 7.5 (6.5-8.0) g/dL Albumin 4.2 (3.5-5.0) g/dL Lipase 31 (8-78) U/L Urine Color DK YELLOW Urine Appearance Cloudy Urine pH 6.0 (5.0-9.0) Ur Specific [place] >= 1.030 H (1.005-1.025) Urine Protein 30 (1+) H (Neg-Trace) mg/dL Urine Glucose (UA) Negative (Negative) mg/dL Urine Ketones Trace (Negative) mg/dL Urine Blood Large (3+) H (Negative) Urine Nitrite Negative (Negative) Ur Leukocyte Esterase Trace H (Negative) Urine RBC >20 H (0-2) /HPF Urine WBC 21-50 H (0-5) /HPF Ur Squamous Epith Cells 6-10 (0-2) /HPF Urine Bacteria Trace (None Seen) Hyaline Casts 3-5 (0-2) /LPF Urine Test (NEGATIVE) 12/24/22 Range/Units 16:18 WBC (4.8-10.8) X10*3/uL RBC (4.20-5.50) X10*6/uL Hgb (12.0-16.0) g/dl Hct (37.0-47.0) % MCV (80.0-98.0) fL MCH (27.0-33.0) pg MCHC (31.0-35.0) g/dl RDW (11.0-16.0) % Plt Count (160-400) X10*3/uL MPV (9.4-12.3) fL Immature Gran % (Auto) (0.0-0.4) % Neut % (Auto) (45-73) % Lymph % (Auto) (20-40) % Beauregard % (Auto) (2-11) % Eos % (Auto) (0-4) % Baso % (Auto) (0-2) % Lymph # (Auto) (1.2-4.9) X10*3/uL Bea[place]gard # (Auto) (0.1-1.2) X10*3/uL Eos # (Auto) (0.0-0.4) X10*3/uL Baso # (Auto) (0.0-0.2) X10*3/uL Abs Immat Gran (auto) (0.00-0.03) X10*3/uL Absolute Neuts (auto) (2.0-8.3) x10*3/uL Absolute Nucleated RBC (0.0-0.012) X10*3/uL Nucleated RBC % (auto) (0.0-0.2) /100WBC Sodium (135-145) mmol/L Potassium (3.3-5.1) mmol/L Chloride (96-108) mmol/L Carbon Dioxide (22-29) mmol/L Anion Gap (12-20) BUN (9-16) mg/dL Creatinine (0.5-1.4) mg/dL Estim Creat Clear Calc Estimated GFR Random Glucose (60-115) mg/dL Calcium (8.4-10.2) mg/dL Magnesium (1.6-2.6) mg/dL Total Bilirubin (0.0-1.0) mg/dL Direct Bilirubin (0.0-0.5) mg/dL AST (5-31) U/L ALT (0-31) U/L Alkaline Phosphatase (39-117) U/L Total Protein (6.5-8.0) g/dL Albumin (3.5-5.0) g/dL Lipase (8-78) U/L Urine Color Urine Appearance Urine pH (5.0-9.0) Ur Specific [place] (1.005-1.025) Urine Protein (Neg-Trace) mg/dL Urine Glucose (UA) (Negative) mg/dL Urine Ketones (Negative) mg/dL Urine Blood (Negative) Urine Nitrite (Negative) Ur Leukocyte Esterase (Negative) Urine RBC (0-2) /HPF Urine WBC (0-5) /HPF Ur Squamous Epith Cells (0-2) /HPF Urine Bacteria (None Seen) Hyaline Casts (0-2) /LPF Urine Test NEGATIVE (NEGATIVE) <Aime Bethea MD - Last Filed: 12/25/22 03:45> Radiology Impression Discussion of test interpretation with radiology: I have reviewed the radiologist's reading. <Aime Bethea MD - Last Filed: 12/25/22 03:45> Radiologist Impression: CT abdomen pelvis wo IV con IMPRESSION: * No acute findings within the abdomen or pelvis to explain the patient's symptomatology. * Mild hepatomegaly and diffuse hepatic steatosis. Dictated By:Minh White MDSigned By:<Electronically signed by Minh White MD in [place]>12/25/22 0257 <Aime Bethea MD - Last Filed: 12/25/22 03:45> Discharge Plan Discharge Clinical Impression: Abdominal pain, Gastritis <MICHELE Gan - Last Filed: 12/24/22 16:09> Patient Disposition: Home, Self-Care <MICHELE Gan - Last Filed: 12/24/22 16:09> Instructions: Gastritis (ED) <MICHELE Gan - Last Filed: 12/24/22 16:09> Additional Instructions: Your blood work was unremarkable. The CT scan of your abdomen pelvis did not reveal a cause for your pain. Continue taking the medication prescribed by your doctor (omeprazole) to help reduce the acid in your stomach Take extra-strength Gaviscon 10 mL (2 tsp) 4 times a day as needed for abdominal pain. Follow-up with your doctor in 2 days. Please return to the emergency department if your symptoms get worse or if you develop any symptoms that are concerning to you. <MICHELE Gan - Last Filed: 12/24/22 16:09> Prescriptions: New Gaviscon Extra Strength 254-237.5 mg/5 mL suspension 10 ml PO QID PRN (Reason: dyspepsia) Qty: 355 0RF No Action cholecalciferol (vitamin D3) [Vitamin D3] 25 mcg (1,000 unit) capsule 1 cap PO DAILY ferrous sulfate 220 mg (44 mg iron)/5 mL Elixir 220 mg PO BID Qty: 300 4RF ibuprofen 600 mg tablet 600 mg PO Q6H PRN (Reason: pain) Qty: 20 0RF acetaminophen 500 mg tablet 1,000 mg PO QID PRN (Reason: pain) Qty: 30 0RF omeprazole 20 mg capsule,delayed release(DR/EC) 20 mg PO DAILY sertraline 25 mg tablet 25 mg PO DAILY <MICEHLE Gan - Last Filed: 12/24/22 16:09>
[2022-12-24 16:06] VITALS: BP 164/93; PULSE 99; RESP 20; TEMP 36.6; O2SAT 100; BMI 49.4
[2022-12-24 16:26] LABS: MANUAL DIFF FLAG NO
[2022-12-24 16:28] LABS: Basophils Absolute Auto 0.1 X10*3/uL (0.0-0.2); Basophils Percent Auto 0.4 % (0-2); Eosinophils Percent Auto 0.2 % (0-4); Hematocrit 35.4 % (37.0-47.0); Hemoglobin 9.9 g/dl (12.0-16.0); Imm Gran Abs Auto 0.05 X10*3/uL (0.00-0.03); Imm Gran Pct Auto 0.4 % (0.0-0.4); Lymphocytes Absolute Auto 3.7 X10*3/uL (1.2-4.9); Lymphocytes Percent Auto 29.6 % (20-40); Mean Corpuscular Hemoglobin 19.8 pg (27.0-33.0); Mean Corpuscular Volume 70.7 fL (80.0-98.0); Mean Platelet Volume 9.8 fL (9.4-12.3); Monocytes Absolute Auto 0.8 X10*3/uL (0.1-1.2); Monocytes Percent Auto 6.8 % (2-11); Neutrophils Absolute Auto 7.7 x10*3/uL (2.0-8.3); Neutrophils Percent Auto 62.6 % (45-73); Platelet Count 516 X10*3/uL (160-400); Red Blood Count 5.01 X10*6/uL (4.20-5.50); Red Cell Distribution Width 21.4 % (11.0-16.0); White Blood Count 12.3 X10*3/uL (4.8-10.8)
[2022-12-24 16:29] LABS: Appearance Urine Cloudy; Color Urine DK YELLOW; Glucose Urine UA Negative (Negative); Leukocyte Esterase Urine Trace (Negative); Nitrite Urine Negative (Negative); Specific Gravity - Urine >= 1.030 (1.005-1.025); UMIC TRIGGER UACC YES; Urine Blood Large (3+) (Negative); Urine Ketones Trace mg/dL (Negative); Urine Protein 30 (1+) mg/dL (Neg-Trace)
[2022-12-24 16:31] LABS: UPreg QC Valid YES; Urine Pregnancy NEGATIVE (NEGATIVE)
[2022-12-24 16:39] LABS: Bacteria Urine Trace (None Seen); RBC Urine >20 /HPF (0-2); UACC Culture Trigger YES; WBC Urine 21-50 /HPF (0-5)
[2022-12-24 16:47] LABS: Alanine Aminotransferase 15 U/L (0-31); Albumin Level 4.2 g/dL (3.5-5.0); Alkaline Phosphatase 67 U/L (39-117); Anion Gap 13 (12-20); Aspartate Amino Transferase 15 U/L (5-31); Bilirubin Direct < 0.2 mg/dL (0.0-0.5); Bilirubin Total 0.4 mg/dL (0.0-1.0); Blood Urea Nitrogen 9 mg/dL (9-16); Calcium 9.2 mg/dL (8.4-10.2); Carbon Dioxide 24 mmol/L (22-29); Chloride 110 mmol/L (96-108); Creatinine Clr Calc Pharmacy 131.1; Estimated Glomerular Filt Rate > 60; Glucose Random 114 mg/dL (60-115); Lipase 31 U/L (8-78); Magnesium 2.2 mg/dL (1.6-2.6); Potassium 3.9 mmol/L (3.3-5.1); Sodium 143 mmol/L (135-145); Total Protein 7.5 g/dL (6.5-8.0)
[2022-12-24 23:06] VITALS: BP 104/59; PULSE 73; RESP 19; TEMP 36.7; O2SAT 98
[2022-12-25 01:52] VITALS: BP 116/62; PULSE 65; RESP 18; O2SAT 97
[2022-12-25 03:55] VITALS: BP 104/50; PULSE 69; RESP 16; O2SAT 95
== END 2022-12-25 04:05 | disposition home or self-care (01) ==
PROVIDERS: Physician Assistant; Emergency Provider Emergency Medicine Emergency Medical Services; PCP Family Medicine
DX: K29.70 Gastritis, unspecified, without bleeding (principal); R10.9 Unspecified abdominal pain; F12.90 Cannabis use, unspecified, uncomplicated
CPT/HCPCS: 36415; 74176; 80048; 80076; 81001; 81025; 83690; 83735; 85025; 87086; 99284

== ENCOUNTER 2022-12-29 13:30 | Emergency (ER) | payer MEDICAID, SELFPAY ==
[2022-12-29 14:04] VITALS: BP 118/76; PULSE 67; O2SAT 98
[2022-12-29 14:38] VITALS: BP 143/78; PULSE 62; RESP 18; TEMP 36.1; O2SAT 98; BMI 50.1
--- NOTE | 2022-12-29 14:42 | ED_ITS ---
HPI - Abdominal Pain General Chief Complaint: Abdominal Pain <MICHELE Treviño - Last Filed: 12/29/22 14:44> Stated Complaint: N/V <MICHELE Treviño - Last Filed: 12/29/22 14:44> Time Seen by Provider: 12/29/22 17:31 <MICHELE Treviño - Last Filed: 12/29/22 14:44> Source: patient <Morgan Colunga MD - Last Filed: 12/29/22 18:30> Mode of arrival: ambulatory <Morgan Colunga MD - Last Filed: 12/29/22 18:30> Limitations: no limitations <Morgan Colunga MD - Last Filed: 12/29/22 18:30> History of Present Illness HPI narrative: Patient been having chronic lower abdominal pain for last 2 months was seen here on 12/24 CT scan was negative comes in for same with nausea , vomiting to 4-5 times no nausea now no fever no chills also complaining of mild headache patient looks very comfortable on arrival talking to the family on the phone denies any significant dysuria frequency patient was seen here on 12/24 at that time urine showed WBC and leuko Estrase was positive <Morgan Colunga MD - Last Filed: 12/29/22 18:30> Related Data Home Medications: Home Medications Medication Instructions Recorded Confirmed cholecalciferol (vitamin D3) 25 1 cap PO DAILY 11/06/21 12/17/22 mcg (1,000 unit) capsule (Vitamin D3) omeprazole 20 mg capsule,delayed 20 mg PO DAILY 11/24/22 12/17/22 release sertraline 25 mg tablet 25 mg PO DAILY 11/24/22 12/17/22 Previous Rx's Medication Instructions Recorded acetaminophen 500 mg tablet 1,000 mg PO QID PRN pain #30 tabs 01/08/22 ibuprofen 600 mg tablet 600 mg PO Q6H PRN pain #20 tabs 05/25/22 ferrous sulfate 220 mg (44 mg 220 mg (5 mL) PO BID #300 mL 06/18/22 iron)/5 mL oral elixir aluminum hydrox-magnesium carb 254 10 ml PO QID PRN dyspepsia #355 mL 12/25/22 mg-237.5 mg/5 mL oral suspension (Gaviscon Extra Strength) cefuroxime axetil 250 mg tablet 250 mg PO BID 7 days #14 tabs 12/29/22 dicyclomine 20 mg tablet 20 mg PO QID PRN abdominal pain 12/29/22 #20 tabs <MICHELE Treviño - Last Filed: 12/29/22 14:44> Allergies/Adverse Reactions: Allergies Allergy/AdvReac Type Severity Reaction Status Date / Time No Known Allergies Allergy Verified 11/24/22 07:57 <MICHELE Treviño - Last Filed: 12/29/22 14:44> Review of Systems Review of Systems Yes all other systems are reviewed and are negative <Morgan Colunga MD - Last Filed: 12/29/22 18:30> [facility] Past Medical History Medical History: Medical History COVID-19 <MICHELE Treviño - Last Filed: 12/29/22 14:44> Surgical History: Surgical History No pertinent past surgical history S/P tonsillectomy <MICHELE Treviño - Last Filed: 12/29/22 14:44> Family History Family History: Family History Paternal Grandfather No problems noted. Paternal Grandmother Hypertension Other Family history of nonleukemic lymphatic malignancy <MICHELE Treviño - Last Filed: 12/29/22 14:44> Social History Social History: Social History Household Members: Family Housing: Apartment Are you a primary child care provider to a significant other at home: No Do you presently have visiting nurse or other home services: No Alcohol intake: never Patient Tobacco Use Status: Never used Tobacco Substance Use Type: Marijuana Advance Directives: No Advance Directives Information Provided: No service: No Current occupational status: employed <MICHELE Treviño - Last Filed: 12/29/22 14:44> Physical Exam ED Vital Signs: Vital Signs - 24 hr 12/29/22 14:38 Temperature 97 F Pulse Rate 62 Respiratory Rate 18 Blood Pressure 143/78 H Pulse Oximetry 98 Oxygen Delivery Method Room Air BMI result Body Mass Index 50.1 <MICHELE Treviño - Last Filed: 12/29/22 14:44> Vital Signs - 24 hr 12/29/22 14:38 Temperature 97 F Pulse Rate 62 Respiratory Rate 18 Blood Pressure 143/78 H Pulse Oximetry 98 Oxygen Delivery Method Room Air BMI result Body Mass Index 50.1 <Morgan Colunga MD - Last Filed: 12/29/22 18:30> Appearance: Alert. Oriented X3. No acute distress. ENT: Pharynx normal. Oral Mucosa moist Neck: Normal inspection. Neck supple. CVS: Normal heart rate and rhythm. Pulses normal. Respiratory: No respiratory distress. Equal air entry bilateral, no wheezing/rales/rhonchi Abdomen: Soft and nontender. Bowel sounds are present, mild suprapubic tenderness no rebound tenderness or guarding Skin: Skin warm and dry. Normal skin color. Normal skin turgor. Extremities: No lower extremity edema. No calf tenderness Neuro: Oriented X 3. No motor deficit. <Morgan Colunga MD - Last Filed: 12/29/22 18:30> Course Course Course Narrative: This is an RME: Additional HPI, ROS, PE not included below will be deferred to primary provider. 22 year old female presents w/ n/v lower abd pain since this am. Reports fatigue, mailse. Abd pain is lower and crampy. No appetitite PE diffuse lower abd tenderness. Plan- labs, imaging, ua <MICHELE Treviño - Last Filed: 12/29/22 14:44> Medical Decision Making Medical Decision Making [facility] Narrative: Patient with nonspecific lower abdominal pain likely IBS , also has UTI, will treat her with antibiotic Ceftin and Rx dicyclomine <Morgan Colunga MD - Last Filed: 12/29/22 18:30> Lab Data [facility] Lab Attestation statement: I reviewed the patient's lab results. <Morgan Colunga MD - Last Filed: 12/29/22 18:30> Result Diagrams: 12/29/22 16:46 12/29/22 16:46 <MICHELE Treviño - Last Filed: 12/29/22 14:44> Labs: Lab Results 12/29/22 12/29/22 12/29/22 Range/Units 16:46 16:46 16:46 WBC 13.3 H (4.8-10.8) X10*3/uL RBC 4.87 (4.20-5.50) X10*6/uL Hgb 9.5 L (12.0-16.0) g/dl Hct 35.0 L (37.0-47.0) % MCV 71.9 L (80.0-98.0) fL MCH 19.5 L (27.0-33.0) pg MCHC 27.1 L (31.0-35.0) g/dl RDW 22.5 H (11.0-16.0) % Plt Count 463 H (160-400) X10*3/uL MPV 9.6 (9.4-12.3) fL Immature Gran % (Auto) 0.5 H (0.0-0.4) % Neut % (Auto) 77.6 H (45-73) % Lymph % (Auto) 17.0 L (20-40) % [place] % (Auto) 4.4 (2-11) % Eos % (Auto) 0.1 (0-4) % Baso % (Auto) 0.4 (0-2) % Lymph # (Auto) 2.3 (1.2-4.9) X10*3/uL [place] # (Auto) 0.6 (0.1-1.2) X10*3/uL Eos # (Auto) 0.0 (0.0-0.4) X10*3/uL Baso # (Auto) 0.1 (0.0-0.2) X10*3/uL Abs Immat Gran (auto) 0.07 H (0.00-0.03) X10*3/uL Absolute Neuts (auto) 10.3 H (2.0-8.3) x10*3/uL Absolute Nucleated RBC 0.000 (0.0-0.012) X10*3/uL Nucleated RBC % (auto) 0.0 (0.0-0.2) /100WBC Sodium 144 (135-145) mmol/L Potassium 4.0 (3.3-5.1) mmol/L Chloride 112 H (96-108) mmol/L Carbon Dioxide 26 (22-29) mmol/L Anion Gap 10 L (12-20) BUN 8 L (9-16) mg/dL Creatinine 0.76 (0.5-1.4) mg/dL Estim Creat Clear Calc 146.2 Estimated GFR > 60 Random Glucose 80 (60-115) mg/dL Calcium 9.1 (8.4-10.2) mg/dL Magnesium 2.4 (1.6-2.6) mg/dL Total Bilirubin 0.3 (0.0-1.0) mg/dL AST 16 (5-31) U/L ALT 15 (0-31) U/L Alkaline Phosphatase 65 (39-117) U/L Total Protein 7.0 (6.5-8.0) g/dL Albumin 4.0 (3.5-5.0) g/dL Lipase 20 (8-78) U/L COVID-19 (NARGIS) (Negative) COVID-19 Clin Com Influenza Type A (ANUJA) Negative (Negative) Influenza Type B (ANUJA) Negative (Negative) Influenza A & B Note See Note 12/29/22 Range/Units 16:46 WBC (4.8-10.8) X10*3/uL RBC (4.20-5.50) X10*6/uL Hgb (12.0-16.0) g/dl Hct (37.0-47.0) % MCV (80.0-98.0) fL MCH (27.0-33.0) pg MCHC (31.0-35.0) g/dl RDW (11.0-16.0) % Plt Count (160-400) X10*3/uL MPV (9.4-12.3) fL Immature Gran % (Auto) (0.0-0.4) % Neut % (Auto) (45-73) % Lymph % (Auto) (20-40) % [place] % (Auto) (2-11) % Eos % (Auto) (0-4) % Baso % (Auto) (0-2) % Lymph # (Auto) (1.2-4.9) X10*3/uL [place] # (Auto) (0.1-1.2) X10*3/uL Eos # (Auto) (0.0-0.4) X10*3/uL Baso # (Auto) (0.0-0.2) X10*3/uL Abs Immat Gran (auto) (0.00-0.03) X10*3/uL Absolute Neuts (auto) (2.0-8.3) x10*3/uL Absolute Nucleated RBC (0.0-0.012) X10*3/uL Nucleated RBC % (auto) (0.0-0.2) /100WBC Sodium (135-145) mmol/L Potassium (3.3-5.1) mmol/L Chloride (96-108) mmol/L Carbon Dioxide (22-29) mmol/L Anion Gap (12-20) BUN (9-16) mg/dL Creatinine (0.5-1.4) mg/dL Estim Creat Clear Calc Estimated GFR Random Glucose (60-115) mg/dL Calcium (8.4-10.2) mg/dL Magnesium (1.6-2.6) mg/dL Total Bilirubin (0.0-1.0) mg/dL AST (5-31) U/L ALT (0-31) U/L Alkaline Phosphatase (39-117) U/L Total Protein (6.5-8.0) g/dL Albumin (3.5-5.0) g/dL Lipase (8-78) U/L COVID-19 (NARGIS) Negative (Negative) COVID-19 Clin Com See Note Influenza Type A (ANUJA) (Negative) Influenza Type B (ANUJA) (Negative) Influenza A & B Note <MICHELE Treviño - Last Filed: 12/29/22 14:44> Lab Results 12/29/22 12/29/22 12/29/22 Range/Units 16:46 16:46 16:46 WBC 13.3 H (4.8-10.8) X10*3/uL RBC 4.87 (4.20-5.50) X10*6/uL Hgb 9.5 L (12.0-16.0) g/dl Hct 35.0 L (37.0-47.0) % MCV 71.9 L (80.0-98.0) fL MCH 19.5 L (27.0-33.0) pg MCHC 27.1 L (31.0-35.0) g/dl RDW 22.5 H (11.0-16.0) % Plt Count 463 H (160-400) X10*3/uL MPV 9.6 (9.4-12.3) fL Immature Gran % (Auto) 0.5 H (0.0-0.4) % Neut % (Auto) 77.6 H (45-73) % Lymph % (Auto) 17.0 L (20-40) % [place] % (Auto) 4.4 (2-11) % Eos % (Auto) 0.1 (0-4) % Baso % (Auto) 0.4 (0-2) % Lymph # (Auto) 2.3 (1.2-4.9) X10*3/uL [place] # (Auto) 0.6 (0.1-1.2) X10*3/uL Eos # (Auto) 0.0 (0.0-0.4) X10*3/uL Baso # (Auto) 0.1 (0.0-0.2) X10*3/uL Abs Immat Gran (auto) 0.07 H (0.00-0.03) X10*3/uL Absolute Neuts (auto) 10.3 H (2.0-8.3) x10*3/uL Absolute Nucleated RBC 0.000 (0.0-0.012) X10*3/uL Nucleated RBC % (auto) 0.0 (0.0-0.2) /100WBC Sodium 144 (135-145) mmol/L Potassium 4.0 (3.3-5.1) mmol/L Chloride 112 H (96-108) mmol/L Carbon Dioxide 26 (22-29) mmol/L Anion Gap 10 L (12-20) BUN 8 L (9-16) mg/dL Creatinine 0.76 (0.5-1.4) mg/dL Estim Creat Clear Calc 146.2 Estimated GFR > 60 Random Glucose 80 (60-115) mg/dL Calcium 9.1 (8.4-10.2) mg/dL Magnesium 2.4 (1.6-2.6) mg/dL Total Bilirubin 0.3 (0.0-1.0) mg/dL AST 16 (5-31) U/L ALT 15 (0-31) U/L Alkaline Phosphatase 65 (39-117) U/L Total Protein 7.0 (6.5-8.0) g/dL Albumin 4.0 (3.5-5.0) g/dL Lipase 20 (8-78) U/L COVID-19 (NARGIS) (Negative) COVID-19 Clin Com Influenza Type A (ANUJA) Negative (Negative) Influenza Type B (ANUJA) Negative (Negative) Influenza A & B Note See Note 12/29/22 Range/Units 16:46 WBC (4.8-10.8) X10*3/uL RBC (4.20-5.50) X10*6/uL Hgb (12.0-16.0) g/dl Hct (37.0-47.0) % MCV (80.0-98.0) fL MCH (27.0-33.0) pg MCHC (31.0-35.0) g/dl RDW (11.0-16.0) % Plt Count (160-400) X10*3/uL MPV (9.4-12.3) fL Immature Gran % (Auto) (0.0-0.4) % Neut % (Auto) (45-73) % Lymph % (Auto) (20-40) % [place] % (Auto) (2-11) % Eos % (Auto) (0-4) % Baso % (Auto) (0-2) % Lymph # (Auto) (1.2-4.9) X10*3/uL [place] # (Auto) (0.1-1.2) X10*3/uL Eos # (Auto) (0.0-0.4) X10*3/uL Baso # (Auto) (0.0-0.2) X10*3/uL Abs Immat Gran (auto) (0.00-0.03) X10*3/uL Absolute Neuts (auto) (2.0-8.3) x10*3/uL Absolute Nucleated RBC (0.0-0.012) X10*3/uL Nucleated RBC % (auto) (0.0-0.2) /100WBC Sodium (135-145) mmol/L Potassium (3.3-5.1) mmol/L Chloride (96-108) mmol/L Carbon Dioxide (22-29) mmol/L Anion Gap (12-20) BUN (9-16) mg/dL Creatinine (0.5-1.4) mg/dL Estim Creat Clear Calc Estimated GFR Random Glucose (60-115) mg/dL Calcium (8.4-10.2) mg/dL Magnesium (1.6-2.6) mg/dL Total Bilirubin (0.0-1.0) mg/dL AST (5-31) U/L ALT (0-31) U/L Alkaline Phosphatase (39-117) U/L Total Protein (6.5-8.0) g/dL Albumin (3.5-5.0) g/dL Lipase (8-78) U/L COVID-19 (NARGIS) Negative (Negative) COVID-19 Clin Com See Note Influenza Type A (ANUJA) (Negative) Influenza Type B (ANUJA) (Negative) Influenza A & B Note <Morgan Colunga MD - Last Filed: 12/29/22 18:30> Discharge Plan Discharge Clinical Impression: UTI (urinary tract infection), Irritable bowel syndrome <MICHELE Treviño - Last Filed: 12/29/22 14:44> Patient Disposition: Home, Self-Care <MICHELE Treviño - Last Filed: 12/29/22 14:44> Instructions: Irritable Bowel Syndrome (ED), Urinary Tract Infection in Women (ED) <MICHELE Treviño - Last Filed: 12/29/22 14:44> Additional Instructions: Drink plenty of fluid Take medication as prescribed Follow with PCP <MICHELE Treviño - Last Filed: 12/29/22 14:44> Prescriptions: New cefuroxime axetil 250 mg tablet 250 mg PO BID 7 Days Qty: 14 0RF dicyclomine 20 mg tablet 20 mg PO QID PRN (Reason: abdominal pain) Qty: 20 0RF No Action cholecalciferol (vitamin D3) [Vitamin D3] 25 mcg (1,000 unit) capsule 1 cap PO DAILY ferrous sulfate 220 mg (44 mg iron)/5 mL Elixir 220 mg PO BID Qty: 300 4RF ibuprofen 600 mg tablet 600 mg PO Q6H PRN (Reason: pain) Qty: 20 0RF Gaviscon Extra Strength 254-237.5 mg/5 mL suspension 10 ml PO QID PRN (Reason: dyspepsia) Qty: 355 0RF acetaminophen 500 mg tablet 1,000 mg PO QID PRN (Reason: pain) Qty: 30 0RF omeprazole 20 mg capsule,delayed release(DR/EC) 20 mg PO DAILY sertraline 25 mg tablet 25 mg PO DAILY <MICHELE Treviño - Last Filed: 12/29/22 14:44>
[2022-12-29 16:53] LABS: MANUAL DIFF FLAG NO
[2022-12-29 16:55] LABS: Basophils Absolute Auto 0.1 X10*3/uL (0.0-0.2); Basophils Percent Auto 0.4 % (0-2); Eosinophils Percent Auto 0.1 % (0-4); Hemoglobin 9.5 g/dl (12.0-16.0); Imm Gran Abs Auto 0.07 X10*3/uL (0.00-0.03); Imm Gran Pct Auto 0.5 % (0.0-0.4); Lymphocytes Absolute Auto 2.3 X10*3/uL (1.2-4.9); Mean Corpuscular HGB Conc 27.1 g/dl (31.0-35.0); Mean Corpuscular Hemoglobin 19.5 pg (27.0-33.0); Mean Corpuscular Volume 71.9 fL (80.0-98.0); Mean Platelet Volume 9.6 fL (9.4-12.3); Monocytes Absolute Auto 0.6 X10*3/uL (0.1-1.2); Monocytes Percent Auto 4.4 % (2-11); Neutrophils Absolute Auto 10.3 x10*3/uL (2.0-8.3); Neutrophils Percent Auto 77.6 % (45-73); Platelet Count 463 X10*3/uL (160-400); Red Blood Count 4.87 X10*6/uL (4.20-5.50); Red Cell Distribution Width 22.5 % (11.0-16.0); White Blood Count 13.3 X10*3/uL (4.8-10.8)
[2022-12-29 17:09] LABS: COVID-19 Test Negative (Negative); IDNOW Serial# 9DB6401D; IDNOW Serial# BCCEAD1C; Influenza A Negative (Negative); Influenza B2 Negative (Negative)
[2022-12-29 17:15] LABS: Alanine Aminotransferase 15 U/L (0-31); Alkaline Phosphatase 65 U/L (39-117); Anion Gap 10 (12-20); Aspartate Amino Transferase 16 U/L (5-31); Bilirubin Total 0.3 mg/dL (0.0-1.0); Blood Urea Nitrogen 8 mg/dL (9-16); Calcium 9.1 mg/dL (8.4-10.2); Carbon Dioxide 26 mmol/L (22-29); Chloride 112 mmol/L (96-108); Creatinine Clr Calc Pharmacy 146.2; Estimated Glomerular Filt Rate > 60; Glucose Random 80 mg/dL (60-115); Lipase 20 U/L (8-78); Magnesium 2.4 mg/dL (1.6-2.6); Sodium 144 mmol/L (135-145)
[2022-12-29] MEDS: Dicyclomine HCl 10 MG CAPSULE 20 MG PO (18:24)
[2022-12-29 18:27] VITALS: BP 140/79; RESP 16
== END 2022-12-29 18:37 | disposition home or self-care (01) ==
PROVIDERS: Physician Assistant; Emergency Provider Internal Medicine; PCP Family Medicine
DX: K58.9 Irritable bowel syndrome, unspecified (principal); N39.0 Urinary tract infection, site not specified; Z20.822 Contact with and (suspected) exposure to COVID-19; Z20.828 Contact with and (suspected) exposure to other viral communicable diseases; Z79.899 Other long term (current) drug therapy
CPT/HCPCS: 80053; 83690; 83735; 85025; 87502; 87635; 99282; 99283

== ENCOUNTER 2023-01-05 09:24 | Outpatient (REF) | payer MEDICAID, SELFPAY | END 2023-01-05 09:25 | disposition home or self-care (01) | LOC: HO.MDS 09:24 | PROVIDERS: Visit Provider Internal Medicine Medical Oncology | DX: D50.9 Iron deficiency anemia, unspecified (principal) | CPT/HCPCS: 96365; J1756 ==

== ENCOUNTER → 2023-01-19 09:59 | Day surgery (SDC) | payer MEDICAID, SELFPAY ==
--- NOTE | 2023-01-19 12:49 | P.PICC_ITS ---
PICC Line Insertion NPICC Diagnosis: Anemia Indication: Transfusions Pertinent Labs: reviewed Technique: Following informed consent including risks, benefits and alternatives and using sterile technique including cap and mask, sterile gown, glove and drape, the left arm was prepped and draped in the usual sterile fashion of full barrier technique with CHG. Following completion of [place] Protocol the skin and soft tissues were anesthetized with 1% Lidocaine plain. Using ultrasound guidance, the left basilic vein access was obtained in a single attempt. Over an 0.018 wire through peel-away sheath, a single lumen 4 r[place] PASV PICC line was positioned. Catheter length is 45 cm internal length, 0 cm external length, for a total trimmed length of 45 cm . The procedure was performed in . Tip verification was performed by Karime Rosario with Amelia 3CG. Tip located in SVC. Ultrasound was used to document vein patency and for needle entry. A formal ultrasound picture and cardiac rhythm strip was recorded. [facility] [employer] [facility] has released the line for use and it is currently dressed with a StatLock, Tegaderm, and CHG disc. Verification has been performed for blood return and line patency. Arm Circumference: 45 cm Equipment: [employer] PowerPICC Solo Catheter Type: 4 r[place] single lumen PASV PICC Lot #: [id number]
== END ==
PROVIDERS: PCP Family Medicine; Visit Provider Radiology Diagnostic Radiology
DX: D50.9 Iron deficiency anemia, unspecified (principal); Z90.89 Acquired absence of other organs; F12.90 Cannabis use, unspecified, uncomplicated; Z86.16 Personal history of COVID-19; R06.83 Snoring; G47.19 Other hypersomnia
CPT/HCPCS: 36573; 99212; C1751

== ENCOUNTER 2023-01-22 15:23 | Outpatient (REF) | payer MEDICAID, SELFPAY ==
--- NOTE | ~2023-01-22 | US_ITS ---
EXAMINATION: US VENOUS WITH DOPPLER UPPER EXTREMITY, LEFT CLINICAL INFORMATION: Left upper extremity swelling. COMPARISON: None available. TECHNIQUE: Ultrasound of the upper extremity is performed using compression sonography and color and pulse Doppler flow with assessment of augmentation of flow. There is also imaging and Doppler assessment of the jugular and subclavian veins. Spectral analysis with color-flow imaging is performed. FINDINGS: The left internal jugular, subclavian, axillary, basilic and cephalic veins are patent. There is a long line seen in the left basilic vein. The left brachial vein is not optimally visualized due to patient's bandage. The visualized left brachial vein is patent. Radial and ulnar veins in the forearm are patent. US/US venous duplex UE LT IMPRESSION: No DVT demonstrated in the left upper extremity.
== END 2023-01-22 15:24 | disposition home or self-care (01) ==
LOC: HO.US 15:23
PROVIDERS: PCP Family Medicine; Visit Provider Internal Medicine Medical Oncology
DX: R60.9 Edema, unspecified (principal)
CPT/HCPCS: 93971

== ENCOUNTER 2023-01-29 13:12 | Outpatient (REF) | payer MEDICAID, SELFPAY | END 2023-01-29 13:13 | disposition home or self-care (01) | LOC: HO.MDS 13:12 | PROVIDERS: Visit Provider Internal Medicine Medical Oncology | DX: D50.9 Iron deficiency anemia, unspecified (principal) | CPT/HCPCS: 96365; J1756 ==

== ENCOUNTER 2023-02-04 10:57 | Outpatient (REF) | payer MEDICAID, SELFPAY | END 2023-02-04 10:58 | disposition home or self-care (01) | LOC: HO.MDS 10:57 | PROVIDERS: Visit Provider Internal Medicine Medical Oncology | DX: D50.9 Iron deficiency anemia, unspecified (principal) | CPT/HCPCS: 96365; J1756 ==

== ENCOUNTER 2023-02-04 12:11 | Outpatient (REF) | payer MEDICAID, SELFPAY ==
[2023-02-04 13:31] LABS: Alanine Aminotransferase 20 U/L (0-31); Alkaline Phosphatase 64 U/L (39-117); Anion Gap 11 (12-20); Aspartate Amino Transferase 20 U/L (5-31); Bilirubin Total 0.4 mg/dL (0.0-1.0); Blood Urea Nitrogen 9 mg/dL (9-16); Calcium 9.3 mg/dL (8.4-10.2); Carbon Dioxide 27 mmol/L (22-29); Chloride 108 mmol/L (96-108); Cholesterol 105 mg/dL; Estimated Glomerular Filt Rate > 60; Glucose Random 108 mg/dL (60-115); HDL Cholesterol 24 mg/dL; LDL Cholesterol Calculated 46 mg/dl; Potassium 4.4 mmol/L (3.3-5.1); Sodium 142 mmol/L (135-145); Triglycerides 175 mg/dL
[2023-02-04 13:49] LABS: TSH reflex Free T4 1.81 uIU/mL (0.32-4.0)
[2023-02-05 08:50] LABS: ~HepC Num1 0.28 S/CO (0.00-0.79); ~Hepatitis C Antibody Nonreactive (Nonreactive)
[2023-02-05 08:51] LABS: HIV AB/AG Nonreactive (Nonreactive)
[2023-02-06 15:09] LABS: TS Negative Control Passed; TS Panel A 0; TS Panel B 0; TS Positive Control Passed; TSpotTB Negative (Negative)
== END 2023-02-04 12:12 | disposition home or self-care (01) ==
LOC: HO.LAB 12:11
PROVIDERS: Visit Provider Nurse Practitioner Primary Care
DX: Z11.1 Encounter for screening for respiratory tuberculosis (principal); R60.9 Edema, unspecified; R03.0 Elevated blood-pressure reading, without diagnosis of hypertension; E66.01 Morbid (severe) obesity due to excess calories; Z68.42 Body mass index [BMI] 45.0-49.9, adult; Z86.2 Personal history of diseases of the blood and blood-forming organs and certain disorders involving the immune mechanism; Z11.3 Encounter for screening for infections with a predominantly sexual mode of transmission
CPT/HCPCS: 36415; 80053; 80061; 84443; 86481; 86803; 87389

== ENCOUNTER 2023-02-12 12:55 | Outpatient (REF) | payer MEDICAID, SELFPAY | END 2023-02-12 12:56 | disposition home or self-care (01) | LOC: HO.MDS 12:55 | PROVIDERS: Visit Provider Internal Medicine Medical Oncology | DX: D50.9 Iron deficiency anemia, unspecified (principal) | CPT/HCPCS: 96365; J1756 ==

== ENCOUNTER 2023-02-17 12:55 | Emergency (ER) | payer MEDICAID, SELFPAY ==
[2023-02-17 13:23] VITALS: BP 137/85; PULSE 63; RESP 18; TEMP 36.4; O2SAT 100; BMI 69.5
--- NOTE | 2023-02-17 14:51 | ED.EXTPRO ---
HPI - Extremity Problem General Chief complaint: Extremity Injury, Upper Stated complaint: L Arm Swelling No Injury Related Data Home Medications Medication Instructions Recorded Confirmed cholecalciferol (vitamin D3) 25 1 cap PO DAILY 11/06/21 12/17/22 mcg (1,000 unit) capsule (Vitamin D3) omeprazole 20 mg capsule,delayed 20 mg PO DAILY 11/24/22 12/17/22 release sertraline 25 mg tablet 25 mg PO DAILY 11/24/22 12/17/22 Previous Rx's Medication Instructions Recorded acetaminophen 500 mg tablet 1,000 mg PO QID PRN pain #30 tabs 01/08/22 ibuprofen 600 mg tablet 600 mg PO Q6H PRN pain #20 tabs 05/25/22 ferrous sulfate 220 mg (44 mg 220 mg (5 mL) PO BID #300 mL 06/18/22 iron)/5 mL oral elixir aluminum hydrox-magnesium carb 254 10 ml PO QID PRN dyspepsia #355 mL 12/25/22 mg-237.5 mg/5 mL oral suspension (Gaviscon Extra Strength) cefuroxime axetil 250 mg tablet 250 mg PO BID 7 days #14 tabs 12/29/22 dicyclomine 20 mg tablet 20 mg PO QID PRN abdominal pain 12/29/22 #20 tabs Allergies Allergy/AdvReac Type Severity Reaction Status Date / Time No Known Allergies Allergy Verified 01/19/23 14:16 [facility] Past Medical History Medical History COVID-19 Surgical History No pertinent past surgical history S/P tonsillectomy Family History Family History Paternal Grandfather No problems noted. Paternal Grandmother Hypertension Other Family history of nonleukemic lymphatic malignancy Social History Social History Household Members: Family Housing: Apartment Are you a primary overnight caregiver to a significant other at home: No Do you presently have visiting nurse or other home services: No Alcohol intake: never Patient Tobacco Use Status: Never used Tobacco Substance Use Type: Marijuana service: No Current occupational status: employed Physical Exam Vital Signs: Vital Signs: Last Vital Signs Temp 97.5 F 02/17/23 13:23 Pulse 63 02/17/23 13:23 Resp 18 02/17/23 13:23 BP 137/85 02/17/23 13:23 Pulse Ox 100 02/17/23 13:23 O2 Del Method Room Air 02/17/23 13:23 BMI result Body Mass Index 69.5 Course Course Course Narrative: RME - 22 yo female with LUE PICC placed in January for iron transfusions presents to the ER for evaluation of LUE swelling, worsening over the last 1 week. visiting nurse measured her arm last week and it was 44cm, this week up to 48 cm. concern for UE DVT. plan: LUE doppler Reevaluation(s) Reevaluation #1: patient eloped from the ER prior to US completion. attemped to call her cell phone but there was no answer. Discharge Plan Discharge Clinical Impression: Left arm swelling Patient Disposition: Elopement Prescriptions: No Action cholecalciferol (vitamin D3) [Vitamin D3] 25 mcg (1,000 unit) capsule 1 cap PO DAILY ferrous sulfate 220 mg (44 mg iron)/5 mL Elixir 220 mg PO BID Qty: 300 4RF ibuprofen 600 mg tablet 600 mg PO Q6H PRN (Reason: pain) Qty: 20 0RF Gaviscon Extra Strength 254-237.5 mg/5 mL suspension 10 ml PO QID PRN (Reason: dyspepsia) Qty: 355 0RF acetaminophen 500 mg tablet 1,000 mg PO QID PRN (Reason: pain) Qty: 30 0RF cefuroxime axetil 250 mg tablet 250 mg PO BID 7 Days Qty: 14 0RF dicyclomine 20 mg tablet 20 mg PO QID PRN (Reason: abdominal pain) Qty: 20 0RF omeprazole 20 mg capsule,delayed release(DR/EC) 20 mg PO DAILY sertraline 25 mg tablet 25 mg PO DAILY
== END 2023-02-17 16:56 | disposition left against medical advice (07) ==
PROVIDERS: Emergency Provider Emergency Medicine; PCP Family Medicine
DX: M79.89 Other specified soft tissue disorders (principal); Z79.899 Other long term (current) drug therapy
CPT/HCPCS: 99281

== ENCOUNTER 2023-02-18 | Outpatient (REF) | payer MEDICAID, SELFPAY | END 2023-02-18 00:01 | disposition home or self-care (01) | LOC: HO.MDS | PROVIDERS: Visit Provider Internal Medicine Medical Oncology | DX: D50.9 Iron deficiency anemia, unspecified (principal) | CPT/HCPCS: J1756 ==

== ENCOUNTER 2023-02-18 13:57 | Emergency (ER) | payer MEDICAID, SELFPAY ==
--- NOTE | ~2023-02-18 | XR_ITS ---
EXAMINATION: XR CHEST CLINICAL INFORMATION: Check PICC COMPARISON: None available. TECHNIQUE: PA view of the chest was obtained. FINDINGS: No significant abnormality is noted involving the heart, lungs, mediastinum, bony thorax or soft tissues. Left upper extremity PICC line is seen with its tip within the distal superior vena cava. XR/XR chest 1V IMPRESSION: No acute parenchymal disease. Left upper extremity PICC line in place.
--- NOTE | ~2023-02-18 | US_ITS ---
EXAMINATION: US VENOUS WITH DOPPLER UPPER EXTREMITY, LEFT CLINICAL INFORMATION: Swelling COMPARISON: None available. TECHNIQUE: Ultrasound of the upper extremity is performed using compression sonography and color and pulse Doppler flow with assessment of augmentation of flow. There is also imaging and Doppler assessment of the jugular and subclavian veins. Spectral analysis with color-flow imaging is performed. FINDINGS: Respiratory variation, normal compression, and augmented flow are noted throughout the upper extremity including the axillary, brachial, cubital, and radial and ulnar veins. There is normal flow in the internal jugular and subclavian veins. There is no visible deep or superficial thrombophlebitis. If the patient's symptoms progress, a followup ultrasound in 5 -7 days might be of value to exclude proximal propagation from a nonvisualized distal arm vein. US/US venous duplex UE LT IMPRESSION: No DVT demonstrated in the left upper extremity
[2023-02-18 14:04] VITALS: BP 138/91; PULSE 81; RESP 17; TEMP 36.6; O2SAT 100; BMI 50.4
--- NOTE | 2023-02-18 14:07 | ED_ITS ---
HPI - General Adult General Chief complaint: General Medical Stated complaint: pick line issues Time Seen by Provider: 02/18/23 14:26 Source: patient, RN notes reviewed and old records reviewed Mode of arrival: ambulatory History of Present Illness HPI narrative: 22-year-old female with a past medical history LUE PICC placed in January for iron transfusions presenting to the ED complaining of LUE swelling and discomfort x 1 week. States her VNA measured her arm last week and was 44 cm, this week 48 cm. Denies CP, SOB, miss, tingling, weakness, injury to area, fever Onset (ago): week(s) Related Data Home Medications Medication Instructions Recorded Confirmed cholecalciferol (vitamin D3) 25 1 cap PO DAILY 11/06/21 12/17/22 mcg (1,000 unit) capsule (Vitamin D3) omeprazole 20 mg capsule,delayed 20 mg PO DAILY 11/24/22 12/17/22 release sertraline 25 mg tablet 25 mg PO DAILY 11/24/22 12/17/22 Previous Rx's Medication Instructions Recorded acetaminophen 500 mg tablet 1,000 mg PO QID PRN pain #30 tabs 01/08/22 ibuprofen 600 mg tablet 600 mg PO Q6H PRN pain #20 tabs 05/25/22 ferrous sulfate 220 mg (44 mg 220 mg (5 mL) PO BID #300 mL 06/18/22 iron)/5 mL oral elixir aluminum hydrox-magnesium carb 254 10 ml PO QID PRN dyspepsia #355 mL 12/25/22 mg-237.5 mg/5 mL oral suspension (Gaviscon Extra Strength) cefuroxime axetil 250 mg tablet 250 mg PO BID 7 days #14 tabs 12/29/22 dicyclomine 20 mg tablet 20 mg PO QID PRN abdominal pain 12/29/22 #20 tabs Allergies Allergy/AdvReac Type Severity Reaction Status Date / Time No Known Allergies Allergy Verified 01/19/23 14:16 Review of Systems Review of Systems: Constitutional: No Fever, No Chills ENT/Mouth: No Ear Pain, No Nasal Congestion, No sore throat, No Rhinorrhea, No Swallowing Difficulty Cardiovascular: No Chest Pain, No SOB Respiratory: No Cough, No Wheezing Gastrointestinal: No Nausea, No Vomiting, No Diarrhea, No Abdominal pain Musculoskeletal: No joint pain, No Myalgias, + Joint Swelling Skin: +Skin Lesions, No rash Neuro: No Weakness, No Numbness, No Paresthesias Yes all other systems are reviewed and are negative Constitutional: Constitutional: Reports as per [facility] Past Medical History Attestation statement: The following information was validated with the patient. Source: old records reviewed Medical History COVID-19 Surgical History No pertinent past surgical history S/P tonsillectomy Family History Family History Paternal Grandfather No problems noted. Paternal Grandmother Hypertension Other Family history of nonleukemic lymphatic malignancy Social History Social History Household Members: Family Housing: Apartment Are you a primary wild animal caretaker to a significant other at home: No Do you presently have visiting nurse or other home services: No Alcohol intake: never Patient Tobacco Use Status: Never used Tobacco Substance Use Type: Marijuana Advance Directives: No Advance Directives Information Provided: No service: No Current occupational status: employed Physical Exam ED Vital Signs: Vital Signs - 24 hr 02/18/23 14:04 02/18/23 15:30 Temperature 97.9 F 98.6 F Pulse Rate 81 81 Respiratory Rate 17 18 Blood Pressure 138/91 H 131/73 Pulse Oximetry 100 100 Oxygen Delivery Method Room Air Room Air BMI result Body Mass Index 50.4 Const General: cooperative, healthy appearing and no acute distress Orientation/consciousness: patient oriented x3 Limitations: no limitations HENMT Head: Yes normal to inspection and Yes atraumatic Ears: hearing grossly normal bilaterally General nose exam: Normal external nose present Face and sinus: Yes normal facial exam Eyes General: appearance normal, both eyes and all related structures EOM: EOMs intact bilaterally Neck Neck: Yes normal visual inspection and Yes no meningeal signs Resp Effort & Inspection: normal respiratory effort and no respiratory distress Cardio Rate: regular rate Heart sounds: S1 normal heart sound present and S2 normal heart sound present Skin Rashes: no rashes Wounds: no wounds Neuro General: patient oriented x3, tone normal and no meningeal signs Gait exam (Neuro): Normal gait present Extrem Other: PICC line in place to LUE with mild surrounding swelling. No fluctuance/ induration. Mildly tender. No erythema/ warmth or drainage. Neurovascularly intact distally Course Course Course Narrative: This is an RME: Additional HPI, ROS, PE not included below will be deferred to primary provider. 22 yo F w/ picline to LUE placed on January 19 using it for iron infussions presents w/ pain and swelling around site of line PE appears infiltrated ? plan- Ir nurses called will se patient XR chest 1V IMPRESSION: No acute parenchymal disease. Left upper extremity PICC line in place. ? US venous duplex UE LT IMPRESSION: No DVT demonstrated in the left upper extremity >IR nurse evaluated patient in the ED and states line appears appropriate, flushes easily and has good blood return. PICC positioned correctly. Results discussed with patient including worrisome signs and symptoms and strict return precautions, and when to return to the emergency department. They verbalized understanding and feel safe for discharge at this time. Medical Decision Making Medical Decision Making MDM Narrative: 22-year-old female with a past medical history LUE PICC placed in January for iron transfusions presenting to the ED complaining of LUE swelling and discomfort x 1 week. on exam vital signs stable, NAD, nontoxic-appearing, physical exam as noted above. PICC line intact left upper extremity with mild surrounding swelling and tenderness. Neurovascular intact distally. No erythema/ warmth. No crepitus/fluctuance or induration. Line possibly infiltrated. Low suspicion for infection PICC team was consulted by triage provider and stated they would evaluate patient in the ED will obtain x-ray for placement in ultrasound rule out DVT Please refer to course for remaining clinical decision making, interpretation of labs/imaging results, and discussions with consultants and/or family members. Differential Diagnosis Differential Diagnoses: The differential diagnosis associated with the presentation includes As above Consult Healthcare Provider Management of the patient was discussed with: Hoisting Engine Operator Lab Data [facility] Lab Attestation statement: I reviewed the patient's lab results. Radiology Impression Discussion of test interpretation with radiology: I have reviewed the radiologist's reading. External Record Review External record reviewed: Inpatient record, Office record, Outpatient record, Prior outpatient labs, Prior outpatient radiology, Primary care record and Outside ED record Tests considered The following testing was considered but not selected: As above Discharge Plan Discharge Clinical Impression: PICC line infiltration Patient Disposition: Still a Patient Prescriptions: No Action cholecalciferol (vitamin D3) [Vitamin D3] 25 mcg (1,000 unit) capsule 1 cap PO DAILY ferrous sulfate 220 mg (44 mg iron)/5 mL Elixir 220 mg PO BID Qty: 300 4RF ibuprofen 600 mg tablet 600 mg PO Q6H PRN (Reason: pain) Qty: 20 0RF Gaviscon Extra Strength 254-237.5 mg/5 mL suspension 10 ml PO QID PRN (Reason: dyspepsia) Qty: 355 0RF acetaminophen 500 mg tablet 1,000 mg PO QID PRN (Reason: pain) Qty: 30 0RF cefuroxime axetil 250 mg tablet 250 mg PO BID 7 Days Qty: 14 0RF dicyclomine 20 mg tablet 20 mg PO QID PRN (Reason: abdominal pain) Qty: 20 0RF omeprazole 20 mg capsule,delayed release(DR/EC) 20 mg PO DAILY sertraline 25 mg tablet 25 mg PO DAILY
[2023-02-18 15:30] VITALS: BP 131/73; PULSE 81; RESP 18; TEMP 37; O2SAT 100
--- NOTE | 2023-02-18 16:26 | PC.NURSE ---
02/18/2023 1610 to ED to assess PICC line. Flushes easily no pain with flushing good blood return, no redness or swelling noted. PICC line at 0. Reported to the patient's nurse and MICHELE Gan who stated ultrasound of left arm was negative. awaiting chest xray report.
--- NOTE | 2023-02-18 16:35 | PC.NURSE ---
02/18/23 Visit to ED to assess the PICC. No redness or swelling noted. The PICC flushed easily with no pain and had a good blood return. The PICC was positioned as it was placed at 0. This was reported to ED RN and MICHELE Gan who stated that the ultrasound of the left arm was negative. Chest xray taken and was read that the tip of the PICC was at the distal SVC. Patient given Radiology number to report in the future if there are any future problem.
== END 2023-02-18 17:01 | disposition home or self-care (01) ==
PROVIDERS: Emergency Provider Student in an Organized Health Care Education/Training Program; PCP Family Medicine
DX: M79.89 Other specified soft tissue disorders (principal); R60.0 Localized edema; M79.602 Pain in left arm; M79.601 Pain in right arm; R07.89 Other chest pain; Z79.899 Other long term (current) drug therapy
CPT/HCPCS: 71045; 93971; 99283; 99284

== ENCOUNTER 2023-02-19 12:00 | Outpatient (REF) | payer MEDICAID, SELFPAY | END 2023-02-19 12:01 | disposition home or self-care (01) | LOC: HO.MDS 12:00 | PROVIDERS: Visit Provider Internal Medicine Medical Oncology | DX: D50.9 Iron deficiency anemia, unspecified (principal) | CPT/HCPCS: 96365; 96374; J1756 ==

== ENCOUNTER 2023-03-04 11:08 | Outpatient (REF) | payer MEDICAID, SELFPAY | END 2023-03-04 11:09 | disposition home or self-care (01) | LOC: HO.MDS 11:08 | PROVIDERS: Visit Provider Internal Medicine Medical Oncology | DX: D50.9 Iron deficiency anemia, unspecified (principal) | CPT/HCPCS: 96365; J1756 ==

== ENCOUNTER 2023-03-09 12:59 | Outpatient (REF) | payer MEDICAID, SELFPAY ==
[2023-03-09 13:58] LABS: MANUAL DIFF FLAG NO
[2023-03-09 14:07] LABS: Basophils Percent Auto 0.5 % (0-2); Eosinophils Absolute Auto 0.1 X10*3/uL (0.0-0.4); Eosinophils Percent Auto 0.7 % (0-4); Hematocrit 40.7 % (37.0-47.0); Imm Gran Abs Auto 0.03 X10*3/uL (0.00-0.03); Imm Gran Pct Auto 0.3 % (0.0-0.4); Lymphocytes Percent Auto 22.6 % (20-40); Mean Corpuscular HGB Conc 29.5 g/dl (31.0-35.0); Mean Corpuscular Hemoglobin 23.8 pg (27.0-33.0); Mean Corpuscular Volume 80.8 fL (80.0-98.0); Mean Platelet Volume 9.9 fL (9.4-12.3); Monocytes Absolute Auto 0.5 X10*3/uL (0.1-1.2); Monocytes Percent Auto 5.6 % (2-11); Neutrophils Absolute Auto 6.2 x10*3/uL (2.0-8.3); Neutrophils Percent Auto 70.3 % (45-73); Platelet Count 263 X10*3/uL (160-400); Red Blood Count 5.04 X10*6/uL (4.20-5.50); Red Cell Distribution Width 23.9 % (11.0-16.0); White Blood Count 8.9 X10*3/uL (4.8-10.8)
--- NOTE | 2023-03-09 14:35 | HO.REMOVAL ---
Removal of PICC/Midline Removal of PICC/Midline: Removal of PICC/Midline: 1. Date: 03/09/2023 2. Reason removed: no longer needed 3. Inserted length: 45 CM 4. Removed length: 45 CM 5. A 2X2 gauze and Tegaderm dressing was placed over the site upon removal. No edema or bleeding at the site.
== END 2023-03-09 13:00 | disposition home or self-care (01) ==
LOC: HO.MDS 12:59
PROVIDERS: Visit Provider Internal Medicine Medical Oncology
DX: D50.9 Iron deficiency anemia, unspecified (principal); Z45.2 Encounter for adjustment and management of vascular access device
CPT/HCPCS: 36415; 85025; 96365; J1756

== ENCOUNTER 2023-03-24 10:26 | Outpatient (RCR) | payer MEDICAID, SELFPAY | END 2023-04-15 10:38 | disposition home or self-care (01) | LOC: HO.PT 10:26 | PROVIDERS: PCP Family Medicine; Visit Provider Family Medicine | DX: M79.605 Pain in left leg (principal) | CPT/HCPCS: 97110; 97162 ==

== ENCOUNTER 2023-05-10 12:01 | Emergency (ER) | payer MEDICAID, SELFPAY ==
--- NOTE | ~2023-05-10 | XR_ITS ---
EXAMINATION: XR LUMBOSACRAL SPINE CLINICAL INFORMATION: Low back pain, status post fall COMPARISON: None available. TECHNIQUE: Three views of the lumbosacral spine. FINDINGS: Vertebral body heights are maintained. No evidence of acute compression deformity. The disc spaces are preserved and the vertebral alignment is normal. The paraspinal soft tissues are normal. Visualized pelvic bones intact. XR/XR lumbar spine 2-3V IMPRESSION: No radiographic evidence of acute osseous abnormality.
--- NOTE | ~2023-05-10 | US_ITS ---
EXAMINATION: US VENOUS ULTRASOUND WITH DOPPLER LOWER EXTREMITY, LEFT CLINICAL INFORMATION: Left lower extremity pain and swelling COMPARISON: May 2022. TECHNIQUE: Ultrasound of the deep veins is performed from the hip to the calf with compression sonography and color and pulse Doppler assessment. Spectral analysis with color-flow imaging is performed. FINDINGS: There is normal venous compression and respiratory variation and augmented flow. The visualized common femoral vein, superficial femoral vein, profunda femoral vein, popliteal vein, and the trifurcation region shows no evidence of deep venous thrombosis. There is no significant popliteal fossa cyst. There is a node in the upper left thigh measuring 2.5 x 0.7 cm. If the patient's symptoms persist, followup ultrasound in 5 days 7 days might be of value to exclude proximal propagation from a non-visualized calf vein. US/US venous duplex LE IMPRESSION: No DVT demonstrated in the left lower extremity.
[2023-05-10 12:13] VITALS: BP 123/72; PULSE 71; RESP 18; TEMP 36.4; O2SAT 100; BMI 72.1
--- NOTE | 2023-05-10 12:19 | ED_ITS ---
HPI - General Adult General Chief complaint: Back Pain/Injury Stated complaint: fall lower back inj Time Seen by Provider: 05/10/23 13:28 Source: patient, RN notes reviewed and old records reviewed Mode of arrival: ambulatory History of Present Illness HPI narrative: 22-year-old female with a past medical history of anemia, AGUSTÍN, presenting to the ED complaining of left low back/buttock pain intermittently radiating down LLE x3 days s/p mechanical trip and fall on water at [employer]. Denies head trauma or LOC. Denies symptoms prior to fall, numbness, tingling, weakness, incontinence/retention, fever. Also reports LLE swelling, and intermittent calf pain. Denies recent travel, cigarette smoking, oral OCPs, history of clots Onset (ago): day(s) Related Data Home Medications Medication Instructions Recorded Confirmed cholecalciferol (vitamin D3) 25 1 cap PO DAILY 11/06/21 12/17/22 mcg (1,000 unit) capsule (Vitamin D3) omeprazole 20 mg capsule,delayed 20 mg PO DAILY 11/24/22 12/17/22 release sertraline 25 mg tablet 25 mg PO DAILY 11/24/22 12/17/22 Previous Rx's Medication Instructions Recorded acetaminophen 500 mg tablet 1,000 mg PO QID PRN pain #30 tabs 01/08/22 ibuprofen 600 mg tablet 600 mg PO Q6H PRN pain #20 tabs 05/25/22 ferrous sulfate 220 mg (44 mg 220 mg (5 mL) PO BID #300 mL 06/18/22 iron)/5 mL oral elixir aluminum hydrox-magnesium carb 254 10 ml PO QID PRN dyspepsia #355 mL 12/25/22 mg-237.5 mg/5 mL oral suspension (Gaviscon Extra Strength) cefuroxime axetil 250 mg tablet 250 mg PO BID 7 days #14 tabs 12/29/22 dicyclomine 20 mg tablet 20 mg PO QID PRN abdominal pain 12/29/22 #20 tabs acetaminophen 500 mg tablet 500 mg PO Q6H PRN fever or pain 05/10/23 (Tylenol Extra Strength) #14 tabs cyclobenzaprine 5 mg tablet 5 mg PO Q8H PRN pain (scale score 05/10/23 7-10) 5 days #14 tabs lidocaine 5 % topical patch 1 patch topical DAILY PRN pain #30 05/10/23 (Lidoderm) ea naproxen 500 mg tablet 500 mg PO BID PRN pain 10 days #20 05/10/23 tabs Allergies Allergy/AdvReac Type Severity Reaction Status Date / Time No Known Allergies Allergy Verified 01/19/23 14:16 Review of Systems Review of Systems: Constitutional: No Fever, No Chills ENT/Mouth: No Ear Pain, No Nasal Congestion, No sore throat, No Rhinorrhea, No Swallowing Difficulty Cardiovascular: No Chest Pain, No SOB, +LLE edema Respiratory: No Cough, No Sputum, No Wheezing Gastrointestinal: No Nausea, No Vomiting, No Abdominal pain Genitourinary: No Dysuria, No Hematuria, No Urinary Incontinence/retention, No Flank Pain Musculoskeletal: + joint pain, No Myalgias, No Joint Swelling Skin: No Skin Lesions, No rash Neuro: No Weakness, No Numbness, No Paresthesias Yes all other systems are reviewed and are negative Constitutional: Constitutional: Reports as per [facility] Past Medical History Attestation statement: The following information was validated with the patient. Source: old records reviewed Medical History COVID-19 Surgical History No pertinent past surgical history S/P tonsillectomy Family History Family History Paternal Grandfather No problems noted. Paternal Grandmother Hypertension Other Family history of nonleukemic lymphatic malignancy Social History Social History Household Members: Family Housing: Apartment Are you a primary skin care instructor to a significant other at home: No Do you presently have visiting nurse or other home services: No Alcohol intake: never Patient Tobacco Use Status: Never used Tobacco Substance Use Type: Marijuana Advance Directives: No Advance Directives Information Provided: No service: No Current occupational status: employed Physical Exam ED Vital Signs: Vital Signs - 24 hr 05/10/23 12:13 05/10/23 16:19 Temperature 97.5 F 97.9 F Pulse Rate 71 72 Respiratory Rate 18 18 Blood Pressure 123/72 126/72 Pulse Oximetry 100 100 Oxygen Delivery Method Room Air Room Air BMI result Body Mass Index 72.1 Const General: cooperative, healthy appearing and no acute distress Orientation/consciousness: patient oriented x3 Limitations: no limitations HENMT Head: Yes normal to inspection and Yes atraumatic Ears: hearing grossly normal bilaterally General nose exam: Normal external nose present Face and sinus: Yes normal facial exam Eyes General: appearance normal, both eyes and all related structures EOM: EOMs intact bilaterally Neck Neck: Yes normal visual inspection and Yes no meningeal signs Resp Effort & Inspection: normal respiratory effort and no respiratory distress Auscultation: clear to auscultation bilaterally Cardio Rate: regular rate Heart sounds: S1 normal heart sound present and S2 normal heart sound present GI Inspection: Yes normal to inspection Palpation (GI): Soft to palpation, nontender, no guarding and not rigid General: Yes no CVA tenderness Back/Spine/Pelvis Other: No midline cervical/thoracic/lumbar spinous tenderness/step-off or deformity. + left buttock tenderness to palpation reproducing subjective complaint. No erythema/ecchymosis Back: no CVA tenderness Skin Rashes: no rashes Wounds: no wounds Neuro Other: Strength intact throughout. No saddle anesthesia. Sensation intact to light touch. Neurovascular intact distally General: patient oriented x3, gait normal, tone normal, moves all extremities, no meningeal signs and no focal motor deficits Gait exam (Neuro): Normal gait present Motor exam (neuro): 5/5 motor strength present throughout Extrem Other: + left lower extremity with mild swelling, nonpitting edema, + calf tenderness. Neurovascular intact distally. No superficial thrombophlebitis or discoloration Course Course Course Narrative: This is an RME: Additional HPI, ROS, PE not included below will be deferred to primary provider. This is a 22-year-old female presenting to the emergency department with left lower back pain with radiation to left lower extremity, patient tells me on Wednesday she fell onto her back and since then has been having pain in it intermittently radiates left lower extremity just above the knee. Denies numbness, tingling. No red flag symptoms. Ambulatory into triage Since this is traumatic will obtain x-ray of lower back, will give Toradol for pain. 155--US venous duplex LE LT IMPRESSION: No DVT demonstrated in the left lower extremity. US venous duplex LE LT IMPRESSION: No DVT demonstrated in the left lower extremity. Results discussed with patient including worrisome signs and symptoms and strict return precautions, and when to return to the emergency department. They verbalized understanding and feel safe for discharge at this time. Medications Administered Discontinued Medications Generic Name Dose Route Start Last Admin Trade Name Jean Carlos PRN Reason Stop Dose Admin Ketorolac Tromethamine 30 mg 05/10/23 12:19 05/10/23 13:09 Ketorolac Tromethamine 15 Mg/Ml Vial IM 05/10/23 12:20 Not Given ONCE ONE Lidocaine 1 patch 05/10/23 15:53 05/10/23 16:24 Lidocaine 4 % Patch Adh..Patch TRANSDERMA 05/10/23 15:54 1 patch ONCE ONE Administration Protocol Naproxen 500 mg 05/10/23 15:53 05/10/23 16:25 Naproxen 500 Mg Tablet PO 05/10/23 15:54 500 mg ONCE ONE Administration Medical Decision Making Medical Decision Making MDM Narrative: 22-year-old female with a past medical history of anemia, AGUSTÍN, presenting to the ED complaining of left low back/buttock pain intermittently radiating down LLE x3 days s/p mechanical trip and fall on water [place]. On exam vital signs stable, NAD, nontoxic appearing, physical exam as noted above, no midline spinous tenderness throughout or red flag symptoms. LLE with mild swelling and calf tenderness. Concern for fracture vs MSK pain/strain vs sciatica vs DVT. Lower suspicion for cauda equina/cord compression, epidural abscess, DVT, compartment syndrome, PE Plan: X-ray, venous duplex ultrasound Please refer to course for remaining clinical decision making, interpretation of labs/imaging results, and discussions with consultants and/or family members. Differential Diagnosis Differential Diagnoses: The differential diagnosis associated with the presentation includes As above Admission/Observation Consideration of admission/observation: Escalation of care including admission/observation considered Lab Data MDM Lab Attestation statement: I reviewed the patient's lab results. Radiology Impression Discussion of test interpretation with radiology: I have reviewed the radiologist's reading. External Record Review External record reviewed: Inpatient record, Office record, Outpatient record, Prior outpatient labs, Prior outpatient radiology, Primary care record and Outside ED record Tests considered The following testing was considered but not selected: As above Prescription Management I considered prescription management with: Pain Medication Chronic Conditions Patient?s care impacted by: Other (AGUSTÍN, anemia) Discharge Plan Discharge Clinical Impression: Low back pain Patient Disposition: Home, Self-Care Instructions: Acute Low Back Pain (ED) Additional Instructions: Your x-ray and ultrasound were unremarkable Your pain is likely musculoskeletal Flexeril is a muscle relaxer, take at night as it makes you drowsy, do not drive, drink alcohol, or operate machinery while taking it Naproxen as an anti-inflammatory / pain medication, take with food Lidoderm patches are numbing patches, apply to painful area In addition take Tylenol at home If symptoms persist or worsen, pain becomes unbearable, you developed urinary retention or incontinence, or weakness return to the ED Prescriptions: New acetaminophen [Tylenol Extra Strength] 500 mg tablet 500 mg PO Q6H PRN (Reason: fever or pain) Qty: 14 0RF lidocaine [Lidoderm] 5 % adhesive patch,medicated 1 patch topical DAILY MDD remove after 12 hours PRN (Reason: pain) Qty: 30 0RF Rx Instructions: leave on most painful area for up to 12 hrs naproxen 500 mg tablet 500 mg PO BID PRN (Reason: pain) 10 Days Qty: 20 0RF cyclobenzaprine 5 mg tablet 5 mg PO Q8H PRN (Reason: pain (scale score 7-10)) 5 Days Qty: 14 0RF No Action cholecalciferol (vitamin D3) [Vitamin D3] 25 mcg (1,000 unit) capsule 1 cap PO DAILY ferrous sulfate 220 mg (44 mg iron)/5 mL Elixir 220 mg PO BID Qty: 300 4RF ibuprofen 600 mg tablet 600 mg PO Q6H PRN (Reason: pain) Qty: 20 0RF Gaviscon Extra Strength 254-237.5 mg/5 mL suspension 10 ml PO QID PRN (Reason: dyspepsia) Qty: 355 0RF acetaminophen 500 mg tablet 1,000 mg PO QID PRN (Reason: pain) Qty: 30 0RF cefuroxime axetil 250 mg tablet 250 mg PO BID 7 Days Qty: 14 0RF dicyclomine 20 mg tablet 20 mg PO QID PRN (Reason: abdominal pain) Qty: 20 0RF omeprazole 20 mg capsule,delayed release(DR/EC) 20 mg PO DAILY sertraline 25 mg tablet 25 mg PO DAILY Referrals: Antoinette Mejia MD [Primary Care Provider] - 5 days Interventions: ED Discharge Assessment Last Done: 05/10/23 16:28 Discharge Date/Time: 05/10/23 16:28
[2023-05-10 16:19] VITALS: BP 126/72; PULSE 72; RESP 18; TEMP 36.6; O2SAT 100
[2023-05-10] MEDS: Lidocaine 4 % Patch ADH..PATCH 1 PATCH TRANSDERMA (16:24)
[2023-05-10] MEDS: NaPROXEN 500 MG TABLET PO (16:25)
== END 2023-05-10 16:28 | disposition home or self-care (01) ==
PROVIDERS: Emergency Provider Emergency Medicine; PCP Family Medicine
DX: M54.50 Low back pain, unspecified (principal); M79.662 Pain in left lower leg
CPT/HCPCS: 72100; 93971; 99283; 99284

== ENCOUNTER → 2023-06-18 09:06 | Outpatient (BNVA) | payer MEDICAID, SELFPAY | PROVIDERS: PCP Family Medicine; Visit Provider Physician Assistant Surgical ==

== ENCOUNTER 2023-06-21 08:04 | Outpatient (AMB) | payer MEDICAID, SELFPAY ==
--- NOTE | 2023-06-21 09:06 | MHC.OFFVISWM ---
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 Allergies No Known Allergies Allergy (Verified 06/21/23 09:06) Medication List - Last Reconciled 06/21/23 by Piter Coleman MD acetaminophen 1,000 mg (2 x 500 mg) PO QID PRN acetaminophen (Tylenol Extra Strength) 500 mg PO Q6H PRN aluminum hydrox-magnesium carb 254-237.5 mg/5 mL (Gaviscon Extra Strength) 10 mL PO QID PRN cholecalciferol (vitamin D3) (Vitamin D3) 1 cap PO DAILY cyclobenzaprine 5 mg PO Q8H PRN 5 days dicyclomine 20 mg PO QID PRN ferrous sulfate 220 mg (5 mL) PO BID ibuprofen 600 mg PO Q6H PRN lidocaine 5% (Lidoderm) 1 patch topical DAILY PRN MDD remove after 12 hours omeprazole 20 mg PO DAILY sertraline 25 mg PO DAILY 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 HPI Details Start time: 8.50am, End time: 9.39am ?I spent 44 minutes speaking with the patient on the phone plus an additional 5 minutes reviewing and updating records for a total of 49 minutes HPI Comments History of Present Illness Details Previous weight loss efforts: none Wakes up: 9am, Sleeps: 11pm Breakfast: 9.30am (pancakes, waffles, oatmeal, bread) Lunch: 2.30pm (pizza, rice) Dinner: 4pm (rice and beans) Snacks: 8pm (cupcakes) Exercise: none Fluids: Coffee (1/wk), tea: none, soda: none, juice: (apple/orange juice) 1 glass per day, ETOH: none PFSH Medical History (Updated 06/21/23 @ 09:12 by Piter Coleman MD) Chronic headaches GERD (gastroesophageal reflux disease) Back pain Morbid obesity COVID-19 Surgical History S/P tonsillectomy No pertinent past surgical history Family History Paternal Grandfather No problems noted. Paternal Grandmother Hypertension Other Family history of nonleukemic lymphatic malignancy Social History Household Members: Family Housing: Apartment Are you a primary hospice home care coordinator to a significant other at home: No Do you presently have visiting nurse or other home services: No Alcohol intake: never Patient Tobacco Use Status: Never used Tobacco Substance Use Type: Marijuana service: No Current occupational status: employed Female Reproductive History Menstrual Age of Menarche: 10 Assessment & Plan Assessment & Plan (1) Morbid obesity: Code(s): E66.01 - Morbid (severe) obesity due to excess calories Plan: 1.? Plan for lap sleeve gastrectomy. If diaphragmatic or ventral hernias are present at time of surgery, these will be repaired laparoscopically as well. 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 I emphasized the importance of close follow-up, adherence to instructions and good communication. 2. Nutritional counseling. Start with 2 Pure protein (buy at [employer], [employer], [employer], [employer]) shakes (HALF scoop EACH in 8oz low fat unsweetened almond milk each) at 10am-12pm and 1pm-3pm, 1 protein bar ([employer] Perfect protein bars, buy at [employer], ?[employer], [employer], or [employer]) at 4pm-6pm, dinner at 7pm (10 forks of protein and 10 forks of salad/vegetables) and one more protein bar after dinner at 9pm-11pm. Meal to include lean meat (beef, fish, pork, turkey, chicken), or ethiopian yogurt, or egg whites, or beans with a salad with olive oil and fruits (berries, pears, apples, kiwi). Avoid salt, breads, potatoes, rice, pasta, desserts. 3. Each shake would be drunk slowly, like coffee in a period of 2 hours. 4. Cut each bar in 4 pieces and eat each piece in 30min ?to make each bar last 2 hours. 5. I emphasized the importance of measuring accurately the food portion and measure it when serving the food in plate 6. The meal portions include 10 full-size forks of meat and 10 full-size forks of salad. You always eat the meat portion but you can replace up to 5 forks for salad/vegetables with rice, potatoes or pasta, or a fruit ?if you like. The less you do it the better weight loss will be. 7. One full-size fork is what it can be scooped on the fork without falling aside and not what can be bit with the fork. Use regular forks like those you find in a typical restaurant. 8.? Please send me weight measurements as soon as possible and then once a week. Always include your diet and exercise plan. 9. Start walking outside daily, tracking calories with a goal of 300 calories per day, daily. Goal is to burn 2000 calories per week on active walking. 10. Alternatively purchase a stationary bike, elliptical or treadmill at home that can track calories. Let me know if you do so I can give you an exercise plan. 11.?It is important of avoiding and for at least 18 months postoperatively and has been discussed at the infosession. 12. Goal is to lose at least 1.5-2lbs per week 13. Goal to lose 10% of your weight before surgery, which is about 28lbs. Ultimate weight goal: 251lbs before surgery 14. Please follow the diet plan exactly without any change. If you don't like something about the plan or you feel hungry you need to communicate with me so I can help you revise the plan. You should not change the plan yourself. (2) GERD (gastroesophageal reflux disease): Code(s): K21.9 - Gastro-esophageal reflux disease without esophagitis (3) Back pain: Code(s): M54.9 - Dorsalgia, unspecified (4) Microcytic anemia: Code(s): D50.9 - Iron deficiency anemia, unspecified Orders: Orders Lipid Panel Today D50.9 - Iron deficiency anemia, unspecified, E66.01 - Morbid (severe) obesity due to excess calories, K21.9 - Gastro-esophageal reflux disease without esophagitis, M54.9 - Dorsalgia, unspecified IRON PROFILE Today D50.9 - Iron deficiency anemia, unspecified, E66.01 - Morbid (severe) obesity due to excess calories, K21.9 - Gastro-esophageal reflux disease without esophagitis, M54.9 - Dorsalgia, unspecified Vitamin B12 and Folate Today D50.9 - Iron deficiency anemia, unspecified, E66.01 - Morbid (severe) obesity due to excess calories, K21.9 - Gastro-esophageal reflux disease without esophagitis, M54.9 - Dorsalgia, unspecified Zinc Today D50.9 - Iron deficiency anemia, unspecified, E66.01 - Morbid (severe) obesity due to excess calories, K21.9 - Gastro-esophageal reflux disease without esophagitis, M54.9 - Dorsalgia, unspecified Comprehensive Met. Panel Today D50.9 - Iron deficiency anemia, unspecified, E66.01 - Morbid (severe) obesity due to excess calories, K21.9 - Gastro-esophageal reflux disease without esophagitis, M54.9 - Dorsalgia, unspecified Vitamin B1 Today D50.9 - Iron deficiency anemia, unspecified, E66.01 - Morbid (severe) obesity due to excess calories, K21.9 - Gastro-esophageal reflux disease without esophagitis, M54.9 - Dorsalgia, unspecified Vitamin A Today D50.9 - Iron deficiency anemia, unspecified, E66.01 - Morbid (severe) obesity due to excess calories, K21.9 - Gastro-esophageal reflux disease without esophagitis, M54.9 - Dorsalgia, unspecified Ferritin Today D50.9 - Iron deficiency anemia, unspecified, E66.01 - Morbid (severe) obesity due to excess calories, K21.9 - Gastro-esophageal reflux disease without esophagitis, M54.9 - Dorsalgia, unspecified H Pylori Breath Test Today D50.9 - Iron deficiency anemia, unspecified, E66.01 - Morbid (severe) obesity due to excess calories, K21.9 - Gastro-esophageal reflux disease without esophagitis, M54.9 - Dorsalgia, unspecified Hemoglobin A1c Today D50.9 - Iron deficiency anemia, unspecified, E66.01 - Morbid (severe) obesity due to excess calories, K21.9 - Gastro-esophageal reflux disease without esophagitis, M54.9 - Dorsalgia, unspecified Insulin Today D50.9 - Iron deficiency anemia, unspecified, E66.01 - Morbid (severe) obesity due to excess calories, K21.9 - Gastro-esophageal reflux disease without esophagitis, M54.9 - Dorsalgia, unspecified Complete Blood Count Auto Diff Today D50.9 - Iron deficiency anemia, unspecified, E66.01 - Morbid (severe) obesity due to excess calories, K21.9 - Gastro-esophageal reflux disease without esophagitis, M54.9 - Dorsalgia, unspecified C Reactive Protein Today D50.9 - Iron deficiency anemia, unspecified, E66.01 - Morbid (severe) obesity due to excess calories, K21.9 - Gastro-esophageal reflux disease without esophagitis, M54.9 - Dorsalgia, unspecified PTHI Today D50.9 - Iron deficiency anemia, unspecified, E66.01 - Morbid (severe) obesity due to excess calories, K21.9 - Gastro-esophageal reflux disease without esophagitis, M54.9 - Dorsalgia, unspecified TSH reflex Free T4 Today D50.9 - Iron deficiency anemia, unspecified, E66.01 - Morbid (severe) obesity due to excess calories, K21.9 - Gastro-esophageal reflux disease without esophagitis, M54.9 - Dorsalgia, unspecified Vitamin D 25-OH Total Today D50.9 - Iron deficiency anemia, unspecified, E66.01 - Morbid (severe) obesity due to excess calories, K21.9 - Gastro-esophageal reflux disease without esophagitis, M54.9 - Dorsalgia, unspecified US abdomen comp w elastography Today D50.9 - Iron deficiency anemia, unspecified, E66.01 - Morbid (severe) obesity due to excess calories, K21.9 - Gastro-esophageal reflux disease without esophagitis, M54.9 - Dorsalgia, unspecified XR chest 2V Today D50.9 - Iron deficiency anemia, unspecified, E66.01 - Morbid (severe) obesity due to excess calories, K21.9 - Gastro-esophageal reflux disease without esophagitis, M54.9 - Dorsalgia, unspecified ECG 12 lead EKG Today D50.9 - Iron deficiency anemia, unspecified, E66.01 - Morbid (severe) obesity due to excess calories, K21.9 - Gastro-esophageal reflux disease without esophagitis, M54.9 - Dorsalgia, unspecified FL upper GI w air Today D50.9 - Iron deficiency anemia, unspecified, E66.01 - Morbid (severe) obesity due to excess calories, K21.9 - Gastro-esophageal reflux disease without esophagitis, M54.9 - Dorsalgia, unspecified Referrals Behavioral Health Referral D50.9 - Iron deficiency anemia, unspecified, E66.01 - Morbid (severe) obesity due to excess calories, K21.9 - Gastro-esophageal reflux disease without esophagitis, M54.9 - Dorsalgia, unspecified Nutrition/Dietitian Referral D50.9 - Iron deficiency anemia, unspecified, E66.01 - Morbid (severe) obesity due to excess calories, K21.9 - Gastro-esophageal reflux disease without esophagitis, M54.9 - Dorsalgia, unspecified Telehealth Telehealth Location of provider rendering services: practice address Location of patient: address on file Patient Identification confirmed using: Name, : Yes Telehealth method: voice only Patient verbally consented to treatment: Yes Patient verbally consented to billing insurance company: Yes Patient informed of any privacy concerns related to visit: Yes Minutes spent on Phone/Video with Pt.: 49 Coding Level of Care Code Tele [facility] Pt Level 4 ([id number]) Diagnoses Morbid obesity E66.01 GERD (gastroesophageal reflux disease) K21.9 Back pain M54.9 Microcytic anemia D50.9 Time Spent (min) 49
[2023-06-21 09:17] VITALS: BMI 49.5
== END 2023-06-21 09:40 | disposition home or self-care (01) ==
LOC: HO.HBS 08:04
PROVIDERS: PCP Family Medicine; Visit Provider Surgery
DX: E66.01 Morbid (severe) obesity due to excess calories (principal); Z68.42 Body mass index [BMI] 45.0-49.9, adult; K21.9 Gastro-esophageal reflux disease without esophagitis; M54.9 Dorsalgia, unspecified; D50.9 Iron deficiency anemia, unspecified
CPT/HCPCS: 99204

== ENCOUNTER → 2023-06-21 08:04 | Outpatient (BNVA) | payer MEDICAID, SELFPAY | PROVIDERS: PCP Family Medicine; Visit Provider Surgery ==

== ENCOUNTER 2023-06-22 09:59 | Outpatient (REF) | payer MEDICAID, SELFPAY ==
--- NOTE | ~2023-06-22 | XR_ITS ---
EXAMINATION: XR CHEST CLINICAL INFORMATION: Morbid obesity. COMPARISON: 02/18/2023. TECHNIQUE: 2 views of the chest were obtained. FINDINGS: No acute finding. Lung barakat are comparable to previous. The cardiac silhouette is within normal limits. The hilar regions do not appear pathologically enlarged. There is no effusion. XR/XR chest 2V IMPRESSION: No acute finding.
--- NOTE | 2023-06-22 10:05 | ECG_ITS ---
Test Reason : morbid obesity Blood Pressure : / mmHG Vent. Rate : 081 BPM Atrial Rate : 081 BPM P-R Int : 136 ms QRS Dur : 080 ms QT Int : 360 ms P-R-T Axes : 060 036 009 degrees QTc Int : 418 ms Normal sinus rhythm Normal ECG No previous ECGs available Referred By: Piter Coleman Electronically Signed By:VIDAL KOENIG
[2023-06-22 10:24] LABS: MANUAL DIFF FLAG NO
[2023-06-22 10:36] LABS: Basophils Absolute Auto 0.1 X10*3/uL (0.0-0.2); Basophils Percent Auto 0.6 % (0-2); Eosinophils Absolute Auto 0.1 X10*3/uL (0.0-0.4); Eosinophils Percent Auto 0.8 % (0-4); Hemoglobin 14.6 g/dl (12.0-16.0); Imm Gran Abs Auto 0.03 X10*3/uL (0.00-0.03); Imm Gran Pct Auto 0.3 % (0.0-0.4); Lymphocytes Absolute Auto 3.3 X10*3/uL (1.2-4.9); Lymphocytes Percent Auto 34.2 % (20-40); Mean Corpuscular HGB Conc 32.4 g/dl (31.0-35.0); Mean Corpuscular Hemoglobin 28.1 pg (27.0-33.0); Mean Corpuscular Volume 86.7 fL (80.0-98.0); Mean Platelet Volume 10.2 fL (9.4-12.3); Monocytes Absolute Auto 0.6 X10*3/uL (0.1-1.2); Monocytes Percent Auto 5.8 % (2-11); Neutrophils Absolute Auto 5.6 x10*3/uL (2.0-8.3); Neutrophils Percent Auto 58.3 % (45-73); Platelet Count 295 X10*3/uL (160-400); Red Blood Count 5.19 X10*6/uL (4.20-5.50); Red Cell Distribution Width 14.5 % (11.0-16.0); White Blood Count 9.6 X10*3/uL (4.8-10.8)
[2023-06-22 10:48] LABS: Estimated Average Glucose 128 mg/dL; Hemoglobin A1c % 6.1 % (<6.0)
[2023-06-22 11:07] LABS: Alanine Aminotransferase 13 U/L (0-31); Albumin Level 4.1 g/dL (3.5-5.0); Alkaline Phosphatase 60 U/L (39-117); Anion Gap 13 (12-20); Aspartate Amino Transferase 15 U/L (5-31); Bilirubin Total 0.6 mg/dL (0.0-1.0); Blood Urea Nitrogen 11 mg/dL (9-16); C Reactive Protein 1.04 mg/dL (< or = 0.50); Calcium 9.7 mg/dL (8.4-10.2); Carbon Dioxide 22 mmol/L (22-29); Chloride 111 mmol/L (96-108); Cholesterol 123 mg/dL (<200); Estimated Glomerular Filt Rate > 60; Glucose Random 103 mg/dL (60-115); HDL Cholesterol 26 mg/dL (>40); Iron 83 mcg/dL (30-160); LDL Cholesterol Calculated 58 mg/dL (<100); Percent Iron Saturation 33 % (15-50); Potassium 3.9 mmol/L (3.3-5.1); Sodium 142 mmol/L (135-145); Total Iron Binding Capacity 249 mcg/dL (228-428); Total Protein 7.4 g/dL (6.5-8.0); Triglycerides 197 mg/dL (<150); Unsaturated Iron Binding 166 ug/dL
[2023-06-22 11:29] LABS: Ferritin 63 ng/mL (10-122); Insulin 89 uU/mL (2-29); TSH reflex Free T4 2.53 uIU/mL (0.32-4.0); Vitamin D 25-OH Total 22.4 ng/mL (>30)
[2023-06-22 11:30] LABS: Vitamin B12 358 pg/mL (200-900)
[2023-06-23 11:53] LABS: Calcium (PTHI) 9.2 mg/dL (8.6-10.2); PTHI 28 pg/mL (16-77)
[2023-06-25 06:18] LABS: Zinc 84 mcg/dL (60-130)
[2023-06-27 06:18] LABS: Vitamin B1 11 nmol/L (8-30)
[2023-06-30 11:59] LABS: Vitamin A 52 mcg/dL (38-98)
== END 2023-06-22 10:00 | disposition home or self-care (01) ==
LOC: HO.LAB 09:59
PROVIDERS: PCP Family Medicine; Visit Provider Surgery
DX: E66.01 Morbid (severe) obesity due to excess calories (principal); K21.9 Gastro-esophageal reflux disease without esophagitis; M54.9 Dorsalgia, unspecified; D50.9 Iron deficiency anemia, unspecified
CPT/HCPCS: 36415; 71046; 80053; 80061; 82306; 82607; 82728; 82746; 83036; 83525; 83540; 83970; 84425; 84443; 84590; 84630; 85025; 86140; 93005

== ENCOUNTER 2023-07-07 09:00 | Outpatient (AMB) | payer MEDICAID, SELFPAY ==
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
== END 2023-07-07 10:00 | disposition home or self-care (01) ==
LOC: HO.HBST 09:31
PROVIDERS: PCP Family Medicine; Visit Provider Counselor Mental Health
DX: F41.9 Anxiety disorder, unspecified (principal); F43.21 Adjustment disorder with depressed mood; F50.9 Eating disorder, unspecified
CPT/HCPCS: 90791

== ENCOUNTER → 2023-07-07 09:00 | Outpatient (BNVA) | payer MEDICAID, SELFPAY | PROVIDERS: PCP Family Medicine; Visit Provider Counselor Mental Health | DX: F41.8 Other specified anxiety disorders (principal); F43.21 Adjustment disorder with depressed mood; F50.9 Eating disorder, unspecified; E66.01 Morbid (severe) obesity due to excess calories | CPT/HCPCS: 90791 ==

== ENCOUNTER 2023-07-13 10:46 | Outpatient (AMB) | payer MEDICAID, SELFPAY ==
--- NOTE | 2023-07-13 10:39 | A.OFFVIS_ITS ---
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 doesn't feel safe to walk outside. doesn't have money for a membership or workout equipment Dietary counseling reduction Who buys your food self Who prepares/cooks your food self Meal frequency regular: breakfast (pancakes), lunch (Mcdonalds ), dinner (dominos ) and snacks Lifestyle Food frequency Dairy: daily, Fruit: occasionally, Vegetables: occasionally, Grains/pasta/breads/cereal (carbs): daily, Meats/poultry/fish (protein): daily (chicken, fish, beef ), Meat substitutes/nuts/seeds/legumes: daily, Processed foods/meats: daily, Restaurants/fast foods: daily, Soda: daily, Juice: daily and Coffee: daily (now has cut back on ) Diagnosis Nutrition problem #1 overweight/obesity As related to (etiology) #1 excess energy intake and physical inactivity As evidenced by (sign/symptom) #1 high BMI Monitoring/Goals Nutrition problem monitoring total energy intake, level of knowledge/skill, total PRO intake, total CHO intake and weight Outcome progress not met Learning/Education Readiness to learn good Stages of change contemplation Educational materials provided Yes Most Recent Diabetes Results: Cholesterol 123 mg/dL (<200) 06/22/23 HDL Cholesterol 26 mg/dL (>40) L 06/22/23 Triglycerides 197 mg/dL (<150) H 06/22/23 Creatinine 0.72 mg/dL (0.5-1.4) 06/22/23 Blood Urea Nitrogen 11 mg/dL (9-16) 06/22/23 Sodium 142 mmol/L (135-145) 06/22/23 Potassium 3.9 mmol/L (3.3-5.1) 06/22/23 Chloride 111 mmol/L (96-108) H 06/22/23 Carbon Dioxide 22 mmol/L (22-29) 06/22/23 Calcium 9.7 mg/dL (8.4-10.2) 06/22/23 AST 15 U/L (5-31) 06/22/23 ALT 13 U/L (0-31) 06/22/23 Total Protein 7.4 g/dL (6.5-8.0) 06/22/23 Albumin 4.1 g/dL (3.5-5.0) 06/22/23 PFSH Medical History (Updated 07/10/23 @ 12:17 by Piter Coleman MD) Chronic headaches GERD (gastroesophageal reflux disease) Back pain Morbid obesity COVID-19 Surgical History S/P tonsillectomy No pertinent past surgical history Family History Paternal Grandfather No problems noted. Paternal Grandmother Hypertension Other Family history of nonleukemic lymphatic malignancy Social History Household Members: Family Housing: Apartment Are you a primary acute care clinical nurse specialist to a significant other at home: No Do you presently have visiting nurse or other home services: No Alcohol intake: never Patient Tobacco Use Status: Never used Tobacco Substance Use Type: Marijuana service: No Current occupational status: employed Female Reproductive History Menstrual Age of Menarche: 10 Assessment & Plan Assessment & Plan (1) Morbid obesity: Code(s): E66.01 - Morbid (severe) obesity due to excess calories Patient Instructions: Provided resources for free exercise videos at home, suggested using the stairs in her building for exercise. She will continue her nutrition plan as given by surgeon, but recommended lower sugar bar such as zone macros or the celebrate. complete classes. f/u 08/18 10:30 Telehealth Telehealth Location of provider rendering services: practice address Location of patient: address on file Patient Identification confirmed using: Name, : Yes Telehealth method: video Patient verbally consented to treatment: Yes Patient verbally consented to billing insurance company: Yes Patient informed of any privacy concerns related to visit: Yes Minutes spent on Phone/Video with Pt.: 25 Coding Level of Care Code Nutr Indiv Intake (35190) Diagnoses Morbid obesity E66.01 Time Spent (min) 25
== END 2023-07-13 10:55 | disposition home or self-care (01) ==
LOC: HO.HBS 10:46
PROVIDERS: PCP Family Medicine; Visit Provider Dietitian, Registered
DX: E66.01 Morbid (severe) obesity due to excess calories (principal)

== ENCOUNTER → 2023-07-13 10:46 | Outpatient (BNVA) | payer MEDICAID, SELFPAY | PROVIDERS: PCP Family Medicine; Visit Provider Dietitian, Registered | DX: E66.01 Morbid (severe) obesity due to excess calories (principal); Z71.3 Dietary counseling and surveillance | CPT/HCPCS: 97802 ==

== ENCOUNTER 2023-07-16 08:06 | Outpatient (AMB) | payer MEDICAID, SELFPAY ==
--- NOTE | 2023-07-16 10:13 | MHC.OFFVISWM ---
Intake VS Expanded 07/16/23 10:27 Height 5 ft 3 in Weight 274 lb 4 oz BMI 48.6 Body Fat % 41.4 Body Fat Mass 113.6 Fat Free Mass 160.8 Visceral Fat Rating 29 Body Water % 40.2 Body Water Mass 110.3 Intake Visit Reasons: TV Follow Up SWL - 1ST Allergies No Known Allergies Allergy (Verified 06/21/23 09:06) HPI TV Follow Up SWL - 1ST HPI Details Start time: 10am, End time: 10.33am ?I spent 28 minutes speaking with the patient on the phone plus an additional 5 minutes reviewing and updating records for a total of 33 minutes HPI Comments History of Present Illness Details Overall weight loss: 5.4lbs, or 1.93% TBWL Is doing 2 Pure protein shakes (1/2 scoop in almond milk), 2 Zone Perfect protein bars and one meal (not measured) Exercise: walking outside for 350 calories, daily PFSH Medical History (Updated 07/10/23 @ 12:17 by Piter Coleman MD) Chronic headaches GERD (gastroesophageal reflux disease) Back pain Morbid obesity COVID-19 Surgical History S/P tonsillectomy No pertinent past surgical history Family History Paternal Grandfather No problems noted. Paternal Grandmother Hypertension Other Family history of nonleukemic lymphatic malignancy Social History Household Members: Family Housing: Apartment Are you a primary family day care worker to a significant other at home: No Do you presently have visiting nurse or other home services: No Alcohol intake: never Patient Tobacco Use Status: Never used Tobacco Substance Use Type: Marijuana service: No Current occupational status: employed Female Reproductive History Menstrual Age of Menarche: 10 Assessment & Plan Assessment & Plan (1) Morbid obesity: Code(s): E66.01 - Morbid (severe) obesity due to excess calories Plan: 1. Continue same nutritional plan of 2 Pure protein shakes (1/2 scoop in almond milk), 2 Zone Perfect protein bars and one meal 2. It is extremely important to measure the food portions in forkfuls to be 10 of protein and 10 salad 3. Exercise: continue walking outside for 350 calories, daily. Track only the calories you burn when you walk with the intention to exercise and not calories you burn walking at work. 4. Alternatively purchase a stationary bike, elliptical or treadmill at home that can track calories. Let me know if you do so I can give you an exercise plan. 5. Continue to send me weight measurements weekly on Saturdays (2) GERD (gastroesophageal reflux disease): Code(s): K21.9 - Gastro-esophageal reflux disease without esophagitis (3) AGUSTÍN (obstructive sleep apnea): Code(s): G47.33 - Obstructive sleep apnea (adult) (pediatric) Telehealth Telehealth Location of provider rendering services: practice address Location of patient: address on file Patient Identification confirmed using: Name, : Yes Telehealth method: voice only Patient verbally consented to treatment: Yes Patient verbally consented to billing insurance company: Yes Patient informed of any privacy concerns related to visit: Yes Minutes spent on Phone/Video with Pt.: 33 Coding Level of Care Code Tele Est Pt Level 4 (29061) Diagnoses Morbid obesity E66.01 GERD (gastroesophageal reflux disease) K21.9 AGUSTÍN (obstructive sleep apnea) G47.33 Time Spent (min) 33
[2023-07-16 10:27] VITALS: BMI 48.6
== END 2023-07-16 10:34 | disposition home or self-care (01) ==
LOC: HO.HBS 08:06
PROVIDERS: PCP Family Medicine; Visit Provider Surgery
DX: E66.01 Morbid (severe) obesity due to excess calories (principal); K21.9 Gastro-esophageal reflux disease without esophagitis; G47.33 Obstructive sleep apnea (adult) (pediatric)
CPT/HCPCS: 99214

== ENCOUNTER 2023-07-16 08:06 | Outpatient (REF) | payer MEDICAID, SELFPAY ==
--- NOTE | ~2023-07-16 | XR_ITS ---
EXAMINATION: XR ANKLE, LEFT CLINICAL INFORMATION: Pain. COMPARISON: Radiograph left ankle 08/06/2022. TECHNIQUE: AP, lateral, and mortise views of the left ankle. FINDINGS: Significant diffuse soft tissue swelling. No acute fractures or subluxation. No unexpected radiopaque foreign bodies. XR/XR ankle LT min 3V IMPRESSION: 1. No acute fractures or malalignment. 2. Nonspecific diffuse significant soft tissue swelling. Correlate with physical examination.
== END 2023-07-16 08:07 | disposition home or self-care (01) ==
LOC: HO.LNP 08:06
PROVIDERS: PCP Family Medicine; Visit Provider Surgery
DX: M25.572 Pain in left ankle and joints of left foot (principal); E66.01 Morbid (severe) obesity due to excess calories; K21.9 Gastro-esophageal reflux disease without esophagitis; M54.9 Dorsalgia, unspecified; D50.9 Iron deficiency anemia, unspecified; G89.29 Other chronic pain
CPT/HCPCS: 73610; 83013

== ENCOUNTER 2023-08-04 17:41 | Outpatient (REF) | payer MEDICAID, SELFPAY ==
[2023-08-05 04:54] LABS: CT PCR NOT DETECTED (Not Detect.); NG PCR NOT DETECTED (Not Detect.)
[2023-08-05 13:38] LABS: BV Int Neg Control Negative (Negative); BV Int Pos Control Positive (Positive)
== END 2023-08-04 17:42 | disposition home or self-care (01) ==
LOC: HO.HHCLNP 17:41
PROVIDERS: Visit Provider Advanced Practice Midwife
DX: N72 Inflammatory disease of cervix uteri (principal); Z11.3 Encounter for screening for infections with a predominantly sexual mode of transmission
CPT/HCPCS: 0353U; 87480; 87510; 87660

== ENCOUNTER 2023-08-06 08:27 | Outpatient (AMB) | payer MEDICAID, SELFPAY ==
--- NOTE | 2023-08-06 08:28 | MHC.OFFVISWM ---
Intake Intake Visit Reasons: (tv) SWL followup transfer from Dr Brionna Neslon No Known Allergies Allergy (Verified 08/06/23 08:28) HPI HPI Comments History of Present Illness Details The pt was called at [phone] for today's tele visit in transition from Dr. Coleman. Patient confirmed that she would like to transition and is interested in laparoscopic sleeve gastrectomy. The patient is a 23-year-old woman with a history of iron deficiency anemia, possibly due to menses, who required IV iron transfusion earlier this year. Notes from heme/onc suggested an evaluation to exclude celiac and other possible etiologies. Prior overall weight loss: 5.4lbs, or 1.93% TBWL The patient did not have await to report today. Is doing 2 Pure protein shakes (1/2 scoop in almond milk), Celebrate protein bars and one meal (not measured) for dinner, anywhere from 4-6pm. She would like to transition to premade pure protein shake since there is old at [employer] were she works but was advised to continue the current meal plan Exercise: walking outside for 350 calories, daily; she reports that she is going to the gym for 2 hours twice a week. She states she has burning about 300 calories on the treadmill with the incline at 5 GERD ESS VY QOL PFSH Medical History Chronic headaches GERD (gastroesophageal reflux disease) Back pain Morbid obesity COVID-19 Surgical History S/P tonsillectomy No pertinent past surgical history Family History Paternal Grandfather No problems noted. Paternal Grandmother Hypertension Other Family history of nonleukemic lymphatic malignancy Social History Household Members: Family Housing: Apartment Are you a primary healthcare management to a significant other at home: No Do you presently have visiting nurse or other home services: No Alcohol intake: never Patient Tobacco Use Status: Never used Tobacco Substance Use Type: Marijuana service: No Current occupational status: employed Female Reproductive History Menstrual Age of Menarche: 10 Review of Systems Const All systems reviewed & are unremarkable except as noted in HPI and below Physical Exam Telephone visit was conducted today Results Reviewed Results Reviewed: 06/22/2023 Hemoglobin is normal at 14.6 following IV iron infusion Platelet count 295 K, white cell count 9.6 Hemoglobin A1c is elevated 6.1 consistent with prediabetes insulin elevated at 89 CRP elevated 1.04 TAGs elevated at 197 Vit D low at 22.4 Assessment & Plan Assessment & Plan (1) Morbid obesity: Code(s): E66.01 - Morbid (severe) obesity due to excess calories (2) GERD (gastroesophageal reflux disease): Code(s): K21.9 - Gastro-esophageal reflux disease without esophagitis (3) Chronic headaches: Code(s): R51.9 - Headache, unspecified; G89.29 - Other chronic pain (4) Vitamin D deficiency: Code(s): E55.9 - Vitamin D deficiency, unspecified (5) Vitamin B12 deficiency: Code(s): E53.8 - Deficiency of other specified B group vitamins (6) AGUSTÍN (obstructive sleep apnea): Code(s): G47.33 - Obstructive sleep apnea (adult) (pediatric) (7) Excessive daytime sleepiness: Code(s): G47.19 - Other hypersomnia (8) Microcytic anemia: Code(s): D50.9 - Iron deficiency anemia, unspecified Plan No changes were made to the patient's meal plan today. She is discouraged from using premade protein shakes and could should continue her current meal plan. The importance of exercise to augment weight loss was discussed with the patient and apparently understood. We discussed her steps at work verses trended exercise/calorie expenditure in a gym. The patient is advised to increase her game time to 3-4 days a week and to exclude concern over steps at work as these do not correlate with successful exercise directed towards weight loss. We briefly discussed the patient's history of anemia and she noted that she needed to end the call and requested an in-person follow-up. Will see the patient back in 2 weeks for 45 minute office visit. She will contact me before then if she has any questions. Telehealth Telehealth Location of provider rendering services: practice address Location of patient: address on file Patient Identification confirmed using: Name, : Yes Telehealth method: voice only Patient verbally consented to treatment: Yes Patient verbally consented to billing insurance company: Yes Patient informed of any privacy concerns related to visit: Yes Coding Level of Care Code Tele New Pt Level 4 (68490) Diagnoses Morbid obesity E66.01 GERD (gastroesophageal reflux disease) K21.9 Chronic headaches R51.9; G89.29 Vitamin D deficiency E55.9 Vitamin B12 deficiency E53.8 AGUSTÍN (obstructive sleep apnea) G47.33 Excessive daytime sleepiness G47.19 Microcytic anemia D50.9
== END 2023-08-06 16:25 | disposition home or self-care (01) ==
LOC: HO.HBS 08:27
PROVIDERS: Visit Provider Surgery
DX: E66.01 Morbid (severe) obesity due to excess calories (principal); K21.9 Gastro-esophageal reflux disease without esophagitis; R51.9 Headache, unspecified; G89.29 Other chronic pain; E55.9 Vitamin D deficiency, unspecified; E53.8 Deficiency of other specified B group vitamins; G47.33 Obstructive sleep apnea (adult) (pediatric); G47.19 Other hypersomnia; D50.9 Iron deficiency anemia, unspecified
CPT/HCPCS: 99213

== ENCOUNTER → 2023-08-06 08:27 | Outpatient (BNVA) | payer MEDICAID, SELFPAY | PROVIDERS: Visit Provider Surgery ==

== ENCOUNTER → 2023-08-18 11:03 | Outpatient (BNVA) | payer MEDICAID, SELFPAY | PROVIDERS: Visit Provider Dietitian, Registered | DX: E66.9 Obesity, unspecified (principal) | CPT/HCPCS: 97803 ==

== ENCOUNTER 2023-08-26 12:54 | Outpatient (AMB) | payer MEDICAID, SELFPAY ==
--- NOTE | 2023-08-26 13:10 | A.OFFVIS_ITS ---
Intake VS Expanded 08/26/23 13:17 BP 137/72 Blood Pressure Location Rt brachial Blood Pressure Position Sitting Pulse 85 Pulse Source Pulse Oximeter Temp 98.6 F Temperature Source Temporal Artery Scan Pulse Oximetry 97 Oxygen Delivery Method Room Air Height 5 ft 3 in Weight 284 lb 9.6 oz BMI 50.4 Body Fat % 44.0 Body Fat Mass 125.0 Fat Free Mass 159.4 Visceral Fat Rating 13.0 Body Water % 40.3 Body Water Mass 114.6 Muscle Mass/Score 151.4 Basal Metabolic Rate/Score 2,304 Intake Visit Reasons: SWL Allergies No Known Allergies Allergy (Verified 08/26/23 13:14) HPI HPI Comments History of Present Illness Details The patient is a 23-year-old woman with a history of iron deficiency anemia, possibly due to menses, who required IV iron transfusion earlier this year. Notes from heme/onc suggested an evaluation to exclude celiac and other possible etiologies. Pt presents today wth a weight of 284.6 lbs/BMI 50.4 representing 6 lb weight gain since her last appointment. Patient notes a need to use Premier premade protein products due to financial assistance paying for the product. We reviewed yesterday's meals which included an apple and peanut butter, weight rice with dinner, applesauce and the patient also notes that due to requiring a bus to get to the gym, she has only been to the gym on 1 occasion. She would like to transition to Premiere premade pure protein shakes due to coverage with food stamps. Exercise: The patient stated today she has not been exercising and is not trending calories. daily; she reports that she is going to the gym for 2 hours twice a week. She states she has burning about 300 calories on the treadmill with the incline at 5 only once. GERD 1 ESS 5 VY 1 QOL 36 PFSH Medical History Chronic headaches GERD (gastroesophageal reflux disease) Back pain Morbid obesity COVID-19 Surgical History S/P tonsillectomy No pertinent past surgical history Family History Paternal Grandfather No problems noted. Paternal Grandmother Hypertension Other Family history of nonleukemic lymphatic malignancy Social History (Reviewed 08/26/23 @ 13:18 by Lucian Lynne MD, [facility], [facility]) Household Members: Family Housing: Apartment Are you a primary zoo caretaker to a significant other at home: No Do you presently have visiting nurse or other home services: No Alcohol intake: never Patient Tobacco Use Status: Never used Tobacco Substance Use Type: Marijuana service: No Current occupational status: employed Female Reproductive History Menstrual Age of Menarche: 10 Review of Systems Const All systems reviewed & are unremarkable except as noted in HPI and below Physical Exam On exam, the patient is nontoxic and in good spirits She is anicteric She is having no respiratory distress Abdomen is obese Results Reviewed Results Reviewed: 06/22/2023 Hemoglobin is normal at 14.6 following IV iron infusion Platelet count 295 K, white cell count 9.6 Hemoglobin A1c is elevated 6.1 consistent with prediabetes insulin elevated at 89 CRP elevated 1.04 TAGs elevated at 197 Vit D low at 22.4 Diagnostic imaging CXR-NAD UGI-pending Abdominal ultrasound-pending Assessment & Plan Assessment & Plan (1) Morbid obesity: Code(s): E66.01 - Morbid (severe) obesity due to excess calories (2) AGUSTÍN (obstructive sleep apnea): Code(s): G47.33 - Obstructive sleep apnea (adult) (pediatric) (3) History of irregular menstrual bleeding: Code(s): Z87.42 - Personal history of other diseases of the female genital tract (4) Microcytic anemia: Code(s): D50.9 - Iron deficiency anemia, unspecified (5) GERD (gastroesophageal reflux disease): Code(s): K21.9 - Gastro-esophageal reflux disease without esophagitis (6) Vitamin D deficiency: Code(s): E55.9 - Vitamin D deficiency, unspecified (7) Vitamin B12 deficiency: Code(s): E53.8 - Deficiency of other specified B group vitamins Plan We reviewed the patient's weight gain and her meal from yesterday. We also reviewed her lack of exercise and difficulty in getting to a gym due to transportation. She also notes that she is not currently working and has no plans to return to work. We discussed options of walking for an hour while tracking calories expended in a shopping mall or large shopping center and she is working on trying to obtain exercise equipment. Since she stated she will not be returning to work, she noted that she has time to exercise during the day and will try to do so. She also noted living in a 7 store apartment and asked about using the stairs for exercise. Once is a reasonable option as long as she does not fall. We reviewed the need for weight loss of 29 lb to a goal of 255 lb for surgery. Patient was given educational materials to sure with her grandmother who cooks her meals to try to avoid pasta, starch, carbohydrates and fats. The patient requested a written meal plan to review with her grandmother and is follows below from [employer]. The patient will follow-up with me in 3 weeks. The patient stated plainly that she cannot afford protein mixes and would have to drop out of the program for financial reasons if she cannot use Premier protein. Preop Bariatric Plan 1.?? Nutritional counseling:?Keep using the Premier Protein shakes & Celebrate bars?you do NOT need to buy a new product Start with? Premier Protein shakes First shake at 7-9am Second shake at noon 1 Celebrate Protein bars at 2-3pm. Dinner at 4:30 pm (10 forks of protein and 10 forks of salad/vegetables). Meal to include lean meat (beef, fish, pork, turkey, chicken), cooked vegetables or a salad with olive oil and/or fruits (berries, pears, apples, kiwi). Avoid breads, potatoes, starches, rice, pasta, desserts.? The sooner you decrease carbohydrates & excess fats, the sooner you will reach your goal. 2.?? If you are hungry after dinner, you can have a Mohawk Yogurt, cottage cheese (4 oz) or another protein bar. Try to drink 64 oz of water daily and avoid soda and juices. ?2. Each shake would be drunk slowly in a period of 2 hours. ?3. Cut each bar in 4 pieces and eat each piece in 30 min to make each bar last 2 hours. ?4. I emphasized the importance of measuring accurately the food portion and measure it carefully when serving the food on the plate ?5. The meal portions include 10 full-size forks of meat and 10 full-size forks of salad. You should always eat the meat portion but you can skip the forks of salad/vegetables and replace with a fruit if you like. The less you do it the better weight loss will be. ?6. One full-size fork is what can be scooped on the fork without falling aside and not what can be bit with the fork. Use regular forks like those you find in a typical restaurant. ?7.? Please send me weight measurements as soon as possible and then once a week. Always include your diet and exercise plan. Alternatively come weekly at the office for weight checks and send me the measurements. ?8. Exercise counseling:? Begin by watching a stretching for beginner?s video.? Start slowly and begin to stretch your muscles.? You should do this before and after each exercise session to prevent injury.? Please use the exercise equipment at your building. Start elliptical with a resistance of 2. Increase resistance by 1 every 3 min to your most comfortable resistance with a max resistance of 8.? Reduce the resistance by 1 every 3 minutes back down to 2 and repeat cycles for 300 calories. Alternatively, start treadmill with a speed of 3.0 and incline of 0, increasing incline by 1 every 3 minutes to the highest comfortable level (max 6 for now) then decrease in the same fashion.? Repeat process to a goal of 300 calories.? Goal of 2000 calories burned or more weekly.? You may also consider use of the stationary bike.? The easiest would be to choose the fat-burn or interval training program on the machine and do this until you reach the 300 calorie goal.? Alternatively, you can manually adjust the resistance in a similar fashion as mentioned above, (resistance of 2-8 with a goal speed of 12 mph).?Tracking calories is essential. 9. Alternatively, start walking outside daily, tracking calories with a goal of 300 calories per day, daily. If [id number] is needed, you can start there, but the goal is DAILY. You can download the suyapa?[employer]?which can track your time, distance and calories while walking outside.? You press start in the suyapa when you start and then stop when you are finished. ? 10.? It is important to avoid and for at least 18 months postoperatively and it has been discussed at the information session 11. Please get labs, EKG and chest X-Ray within 1 week. 12. Discussed and answered all questions regarding?obtained consent to participate in the [place] [facility]?Registry. 13. Please follow the diet plan exactly, without any change.? If you do not like something about the plan or you feel hungry, you need to communicate with m jace so I can help you revise the plan.? You should not change the plan yourself. 14. Goal is to lose 1.5-2.0 lbs/week 15. Goal is to lose 10% of your weight before surgery, which is about 29 lbs. Ultimate weight goal: 255 lbs before surgery.? Remember that you may need to lose more weight to qualify for surgery if your abdominal ultrasound shows your liver or spleen are enlarged or if your upper GI shows a hiatal hernia. IF YOU EXPERIENCE PAIN, SEVERE SHORTNESS OF BREATH, DIZZINESS OR LIGHTHEADEDNESS, OR SIGNIFICANT CONSTIPATION OR DIARRHEA, (DIARRRHEA CAN OCCUR FROM SOME ARTIFICIAL SWEETENERS) PLEASE NOTIFY THE OFFICE! If you have diabetes, you will need to follow your blood sugars at least twice a day (morning & evening, or as needed if you are shaky/sweaty or feel hypoglycemic).? Please discuss with Dr. Lynne.? Text Dr. Lynne at [phone] If you have hypertension/high blood pressure, you will need to monitor your blood pressure regarding adjusting medications.? Please discuss with Dr. Lynne.? We encourage patients to track calories burned while exercising as this is a more proven method verses ?steps? or ?miles walked? apps.? Patients who have dedicated exercise time at regular intervals throughout the week have greater weight loss then patients who hope that being active at work or through their day will result in weight loss.? Your body has adapted to your current life & you need to add regular exercise, just like you added a healthier diet for your health goals. Resistance training (weight lifting) is helpful to reach your goal, strengthen your bones or if your weight loss has stalled (reached a plateau) by both burning calories & adding muscle, which increases your metabolism.? Chest, back & thigh muscles can be exercised at home or at a gym.? Please discuss your goals with Dr. Lynne or a qualified crew trainer at your local gym. YouTube options: ?Sit to Be Fit, Daily Burn, Venu, Walk away the pounds, [employer] Websites: Sit and Be Fit? https://www.sitandbefit.org/ Go For Life https://dm8zbcs.mally.nih.gov/ Coding Level of Care Code Est Pt Level 4 (01126) Diagnoses Morbid obesity E66.01 AGUSTÍN (obstructive sleep apnea) G47.33 History of irregular menstrual bleeding Z87.42 Microcytic anemia D50.9 GERD (gastroesophageal reflux disease) K21.9 Vitamin D deficiency E55.9 Vitamin B12 deficiency E53.8
[2023-08-26 13:17] VITALS: BP 137/72; PULSE 85; TEMP 37; O2SAT 97; BMI 50.4
== END 2023-08-26 14:34 | disposition home or self-care (01) ==
PROVIDERS: PCP Family Medicine; Visit Provider Surgery
DX: Z92.3 Personal history of irradiation (principal); R06.00 Dyspnea, unspecified
CPT/HCPCS: 99214

== ENCOUNTER → 2023-08-26 12:54 | Outpatient (BNVA) | payer MEDICAID, SELFPAY | PROVIDERS: Visit Provider Surgery | DX: E66.01 Morbid (severe) obesity due to excess calories (principal); G47.33 Obstructive sleep apnea (adult) (pediatric); E55.9 Vitamin D deficiency, unspecified; E53.8 Deficiency of other specified B group vitamins; K21.9 Gastro-esophageal reflux disease without esophagitis; D50.9 Iron deficiency anemia, unspecified; Z87.42 Personal history of other diseases of the female genital tract; Z68.43 Body mass index [BMI] 50.0-59.9, adult | CPT/HCPCS: 99212 ==

== ENCOUNTER 2023-09-07 08:58 | Outpatient (REF) | payer MEDICAID, SELFPAY ==
--- NOTE | ~2023-09-07 | US_ITS ---
EXAMINATION: US COMPLETE ABDOMEN WITH LIVER ELASTOGRAPHY CLINICAL INFORMATION: Morbid obesity. COMPARISON: None available. TECHNIQUE: Real-time imaging of the abdominal viscera. Noninvasive ultrasound liver fibrosis assessment is performed using Diego ElastPQ point quantification shear wave elastography (2D-SWE) with a C5-2 MHz transducer. Multiple elastography samples are obtained. FINDINGS: PANCREAS: Normal. The visualized pancreatic head and body are normal in appearance. The remainder of the pancreas is obscured from visualization by the overlying bowel gas. ABDOMINAL AORTA: The proximal and distal aortic segments are normal in caliber. The mid segment is obscured by overlapping bowel gas. INFERIOR VENA CAVA: Visualized portions are normal. LIVER: The liver demonstrates normal size, contour and echogenicity. No focal lesion or intrahepatic biliary duct dilatation. The right lobe measures 20.0 cm in length. The left lobe measures 15.1 cm in length. Portal flow is towards the liver (hepatopetal). Shear wave liver elastography median stiffness is 1.39 m/s (reference: normal median stiffness is 1.3 m/s or less). IQR/median stiffness to assess sampling precision is 0.11 (reference: good quality data set is IQR/median stiffness of 0.15 or less). GALLBLADDER: Normal. The gallbladder is physiologically distended without evidence of stones, sludge, polyps, wall thickening or pericholecystic fluid. COMMON BILE DUCT: Normal in caliber measuring 0.6 cm in diameter. RIGHT KIDNEY: Normal. No hydronephrosis. No renal calculi or focal parenchymal lesions. The kidney measures 10.8 cm in maximum dimension. LEFT KIDNEY: Normal. No hydronephrosis. No renal calculi or focal parenchymal lesions. The kidney measures 10.0 cm in maximum dimension. SPLEEN: Normal. The spleen measures 10.4 cm in maximum dimension. FREE FLUID: None. US/US abdomen comp w elastography IMPRESSION: 1. There is generalized increase in hepatic echotexture, consistent with fatty infiltration or hepatocellular disease. Please correlate clinically. No focal hepatic mass or intrahepatic biliary dilatation is seen. 2. Liver elastography: In the absence of other known clinical signs, measurements rule out compensated advanced chronic liver disease. If there are known clinical signs, further testing may be needed for confirmation. 3. Technically limited ultrasound examination of the pancreas and abdominal great vessels. REFERENCE: Society of Radiologists in Ultrasound Liver Stiffness Thresholds (2020): LIVER STIFFNESS THRESHOLDS: *Liver Stiffness equal or less than 1.3 m/s: High probability of being normal. *Liver Stiffness less than 1.7 m/s: In the absence of other known clinical signs, rules out compensated advanced chronic liver disease. *Liver Stiffness 1.7-2.1 m/s: Suggestive of compensated advanced chronic liver disease but need further test for confirmation. *Liver Stiffness over 2.1 m/s: Rules in compensated advanced chronic liver disease. *Liver Stiffness over 2.4 m/s: Suggestive of clinically significant portal hypertension. QUALITY OF DATA SET: *IQR/Median value equal or less than 0.15 implies a quality data set. *IQR/Median value over 0.15 implies a poor quality data set. SIGNIFICANT CHANGE FROM PRIOR EXAM: Significant change if liver stiffness measurement is 10% or greater from prior exam. OTHER CONSIDERATIONS: The stage of liver fibrosis may be overestimated in the setting of acute hepatitis, liver inflammation, elevated liver function tests, hepatic vascular congestion, obstructive cholestasis, non-fasting state, and infiltrative diseases such as amyloidosis and lymphoma. In some patients with NAFLD, the liver stiffness thresholds for compensated advanced chronic liver disease may be lower. In causes other than viral hepatitis and NAFLD, liver stiffness thresholds are not well established.
--- NOTE | ~2023-09-07 | FL_ITS ---
EXAMINATION: XR FLUOROSCOPY UPPER GI WITH AIR CLINICAL INFORMATION: Preop evaluation prior to bariatric surgery COMPARISON: None TECHNIQUE: Fluoroscopic air contrast upper GI examination was performed utilizing standard techniques with thin and thick barium and effervescent granules. Numerous spot images were obtained. FINDINGS: Lateral cine images of the oropharynx and hypopharynx demonstrate normal swallow mechanism with normal epiglottic inversion and soft palate elevation. No tracheal penetration, glottic or subglottic aspiration identified. No nasopharyngeal reflux present. Hypopharyngeal structures appear normal without evidence of mass or diverticulum. There was no significant cricopharyngeal achalasia. Dual and single contrast images of the esophagus demonstrate normal caliber, contour, and mucosal pattern. No evidence of stricture, mass, or ulcerations identified. Esophageal peristalsis was normal. No evidence of hiatus hernia identified. Gastroesophageal reflux is seen up to the thoracic inlet. Dual contrast and single contrast images of the stomach demonstrated normal contour and mucosal pattern without evidence of mass, ulceration, or other abnormality. Contrast freely passed into the gastric antrum and duodenal bulb without delay. Single and air-contrast images of the duodenal bulb demonstrate no abnormality. The duodenal sweep has a normal appearance, course, and mucosal fold appearance. The imaged proximal jejunum has a normal fold pattern and caliber. FLUOROSCOPY TIME: 4 minutes 35 seconds Number of Spot Images: 11 Number of Cine: 9 DOSE AREA PRODUCT: [id number] uGy-m2 (microgray-meter squared) FL/FL upper GI w air IMPRESSION: 1. Gastroesophageal reflux, otherwise unremarkable exam This procedure was performed by Neo Zavala PA-C, and supervised by Dr. Bardales
== END 2023-09-07 08:59 | disposition home or self-care (01) ==
LOC: HO.US 08:58
PROVIDERS: Visit Provider Surgery
DX: E66.01 Morbid (severe) obesity due to excess calories (principal); K21.9 Gastro-esophageal reflux disease without esophagitis; M54.9 Dorsalgia, unspecified; D50.9 Iron deficiency anemia, unspecified
CPT/HCPCS: 74246; 76705; 76981

== ENCOUNTER → 2023-09-07 09:00 | Outpatient (BNV) | payer MEDICAID, SELFPAY | PROVIDERS: Visit Provider Radiology Diagnostic Radiology | DX: K21.9 Gastro-esophageal reflux disease without esophagitis (principal); E66.01 Morbid (severe) obesity due to excess calories; Z01.818 Encounter for other preprocedural examination | CPT/HCPCS: 74246 ==

== ENCOUNTER 2023-09-16 12:30 | Outpatient (AMB) | payer OTHER, SELFPAY ==
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
== END 2023-10-06 15:02 | disposition home or self-care (01) ==
LOC: HO.HBST 13:24
PROVIDERS: Visit Provider Counselor Mental Health
DX: F41.9 Anxiety disorder, unspecified (principal); F43.21 Adjustment disorder with depressed mood; F50.9 Eating disorder, unspecified
CPT/HCPCS: 90834

== ENCOUNTER → 2023-09-16 12:30 | Outpatient (BNVA) | payer OTHER, MEDICAID, SELFPAY | PROVIDERS: Visit Provider Counselor Mental Health ==

== ENCOUNTER 2023-09-17 15:34 | Outpatient (REF) | payer MEDICAID, SELFPAY ==
--- NOTE | ~2023-09-17 | XR_ITS ---
EXAMINATION: XR FOOT, LEFT CLINICAL INFORMATION: Pain left great toe. COMPARISON: None available. TECHNIQUE: AP, lateral, and oblique views of the left foot. FINDINGS: The bones and soft tissues are normal. No fracture. Alignment is anatomic. Joint spaces are maintained. XR/XR foot LT min 3V IMPRESSION: Unremarkable left foot.
== END 2023-09-17 15:35 | disposition home or self-care (01) ==
LOC: HO.HHCX 15:34
PROVIDERS: Visit Provider Registered Nurse
DX: M79.675 Pain in left toe(s) (principal)
CPT/HCPCS: 73630

== ENCOUNTER 2023-09-29 13:16 | Outpatient (AMB) | payer MEDICAID, SELFPAY ==
--- NOTE | 2023-09-29 13:07 | MHC.AMNUTRGE ---
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 is avoidant of questions Exercise: 3x per week [employer] online classes: completed, score 25% and 60% on classes 4 and 6 Reviewed today. Pt stated no questions but also had difficulty remembering anything from the classes Dietary counseling reduction Diagnosis Nutrition problem #1 overweight/obesity As related to (etiology) #1 excess energy intake and physical inactivity As evidenced by (sign/symptom) #1 high BMI Monitoring/Goals Nutrition problem monitoring total energy intake, level of knowledge/skill, total PRO intake, total CHO intake and weight Outcome progress not met Learning/Education Readiness to learn fair Stages of change preparation Educational materials provided Yes Most Recent Diabetes Results: No Data to Display [facility] Medical History Chronic headaches GERD (gastroesophageal reflux disease) Back pain Morbid obesity COVID-19 Surgical History S/P tonsillectomy No pertinent past surgical history Family History Paternal Grandfather No problems noted. Paternal Grandmother Hypertension Other Family history of nonleukemic lymphatic malignancy Social History Household Members: Family Housing: Apartment Are you a primary personal care service provider to a significant other at home: No Do you presently have visiting nurse or other home services: No Alcohol intake: never Patient Tobacco Use Status: Never used Tobacco Substance Use Type: Marijuana service: No Current occupational status: employed Female Reproductive History Menstrual Age of Menarche: 10 Assessment & Plan Assessment & Plan (1) Morbid obesity: Code(s): E66.01 - Morbid (severe) obesity due to excess calories Plan will discuss pts candidacy with team Telehealth Telehealth Location of provider rendering services: practice address Location of patient: address on file Patient Identification confirmed using: Name, : Yes Telehealth method: voice only Patient verbally consented to treatment: Yes Patient verbally consented to billing insurance company: Yes Patient informed of any privacy concerns related to visit: Yes Minutes spent on Phone/Video with Pt.: 20 Coding Level of Care Code Nutr Indiv Subseq ([id number]) Diagnoses Morbid obesity E66.01 Time Spent (min) 20
[2023-09-29 13:20] VITALS: BMI 47.5
== END 2023-09-29 13:20 | disposition home or self-care (01) ==
LOC: HO.HBS 13:16
PROVIDERS: Visit Provider Dietitian, Registered
DX: E66.01 Morbid (severe) obesity due to excess calories (principal)

== ENCOUNTER → 2023-09-29 13:16 | Outpatient (BNVA) | payer MEDICAID, SELFPAY | PROVIDERS: Visit Provider Dietitian, Registered | DX: E66.01 Morbid (severe) obesity due to excess calories (principal); Z68.42 Body mass index [BMI] 45.0-49.9, adult | CPT/HCPCS: 97803 ==

== ENCOUNTER 2023-10-28 11:59 | Outpatient (AMB) | payer MEDICAID, SELFPAY ==
--- NOTE | 2023-10-28 11:37 | MHC.OFFVISWM ---
Intake Intake Visit Reasons: telephone F/U SWL Allergies No Known Allergies Allergy (Verified 08/26/23 13:14) HPI HPI Comments History of Present Illness Details The patient is a pleasant 23 year old female who returns to the clinic for pre-operative surgical weight loss management.? They were last seen in the office on 09/29/2023, recorded weight at that time was 268 pounds, with a BMI of 47.8.? Today's weight is same.? There has been a weight loss of 11 pounds since initiating the surgical weight loss program with a total body weight loss of 3.94%. Goal weight prior to surgery is 255lbs. Pre op work up completed as follows: SWL classes:? 05/18 appts: 09/16 with Zuleyka, Pt will need to provide a letter from her provider and will be seen by me again in 4-[address] appts: 09/29, kirill Barclay will discuss pts candidacy with team Labs: 06/22/2023, Hemoglobin A1c is elevated 6.1 consistent with prediabetes insulin elevated at 89, CRP elevated 1.04, TAGs elevated at 197, Vit D low at 22.4 H. pylori: 07/16/2023, negative CXR: 06/22/23, NAD EK06/22/23, normal EKG ABD U/S: 09/07/23, generalized increase in hepatic echotexture, consistent with fatty infiltration or hepatocellular disease; In the absence of other known clinical signs, measurements rule out compensated advanced chronic liver disease UGI: reflux, otherwise unremarkable Current meal plan includes: Premier premade shake at 7-9am Second shake at noon 1 Celebrate Protein bars at 2-3pm Dinner at 4:30 pm (10 forks of protein and 10 forks of salad/vegetables) if hungry after dinner can have yogurt, cottage cheese or bar Current exercise plan includes: home workouts, has dumbbells and using Buru Buru videos has been working out 3x/week, 30 minutes to an hour COUNTS INCLUDE 234 BEDS AT THE [facility] Medical History Chronic headaches GERD (gastroesophageal reflux disease) Back pain Morbid obesity COVID-19 Surgical History S/P tonsillectomy No pertinent past surgical history Family History Paternal Grandfather No problems noted. Paternal Grandmother Hypertension Other Family history of nonleukemic lymphatic malignancy Social History Household Members: Family Housing: Apartment Are you a primary home care specialist to a significant other at home: No Do you presently have visiting nurse or other home services: No Alcohol intake: never Patient Tobacco Use Status: Never used Tobacco Substance Use Type: Marijuana service: No Current occupational status: employed Female Reproductive History Menstrual Age of Menarche: 10 Assessment & Plan Assessment & Plan (1) Morbid obesity: Code(s): E66.01 - Morbid (severe) obesity due to excess calories (2) AGUSTÍN (obstructive sleep apnea): Code(s): G47.33 - Obstructive sleep apnea (adult) (pediatric) (3) GERD (gastroesophageal reflux disease): Code(s): K21.9 - Gastro-esophageal reflux disease without esophagitis (4) Microcytic anemia: Code(s): D50.9 - Iron deficiency anemia, unspecified Plan Will schedule follow up appt with Zuleyka and discuss pt with Ning. Change meal plan to the following per pt request: 7-9am Slimfast shake, 1.5 scoops in 8oz unsweetened almond milk (30g protein) 11am-1pm same shake 2-3pm Celebrate bar 4:30pm dinner- 10 forks protein, 10 forks veg 6pm if needed- protein bar, yogurt, or cottage cheese Congratulated pt on increasing her exercise, goal of 2000 calories burned per week. Texted meal plan to pt and encouarged her to reach out between appts with any questions. F/U again with me in 3-4 weeks. Patient is morbidly obese and is not considered stable at this time. I spent a total of 30 minutes reviewing/updating records, examining the patient and counseling the patient on weight management as detailed above. Telehealth Telehealth Location of provider rendering services: practice address Location of patient: address on file Patient Identification confirmed using: Name, : Yes Telehealth method: voice only Patient verbally consented to treatment: Yes Patient verbally consented to billing insurance company: Yes Patient informed of any privacy concerns related to visit: Yes Minutes spent on Phone/Video with Pt.: 18 Coding Level of Care Code Tele Est Pt Level 4 (28258) Diagnoses Morbid obesity E66.01 AGUSTÍN (obstructive sleep apnea) G47.33 GERD (gastroesophageal reflux disease) K21.9 Microcytic anemia D50.9
== END 2023-10-28 12:02 | disposition home or self-care (01) ==
LOC: HO.HBS 11:59
PROVIDERS: Visit Provider Physician Assistant Surgical
DX: E66.01 Morbid (severe) obesity due to excess calories (principal); Z68.42 Body mass index [BMI] 45.0-49.9, adult; G47.33 Obstructive sleep apnea (adult) (pediatric); K21.9 Gastro-esophageal reflux disease without esophagitis; D50.9 Iron deficiency anemia, unspecified
CPT/HCPCS: 99214

== ENCOUNTER → 2023-10-28 11:59 | Outpatient (BNVA) | payer MEDICAID, SELFPAY | PROVIDERS: Visit Provider Physician Assistant Surgical ==

== ENCOUNTER 2023-11-02 13:42 | Outpatient (REF) | payer MEDICAID, SELFPAY ==
[2023-11-02 16:49] LABS: CT PCR NOT DETECTED (Not Detect.); NG PCR NOT DETECTED (Not Detect.)
== END 2023-11-02 13:43 | disposition home or self-care (01) ==
LOC: HO.CHCLNP 13:42
PROVIDERS: Visit Provider Advanced Practice Midwife
DX: N76.0 Acute vaginitis (principal)
CPT/HCPCS: 0353U

== ENCOUNTER 2023-11-10 13:58 | Emergency (ER) | payer MEDICAID, SELFPAY ==
[2023-11-10 14:30] VITALS: BP 155/103; PULSE 92; RESP 16; TEMP 35.6; O2SAT 98; BMI 49.0
--- NOTE | 2023-11-10 14:34 | ED.GENADULT ---
HPI - General Adult General Chief complaint: Extremity Problem Stated complaint: L Toe Infection Time Seen by Provider: 11/10/23 14:40 Source: patient Mode of arrival: ambulatory Limitations: no limitations History of Present Illness HPI narrative: 23-year-old female presents with concerns that she may have a left great toe infection, patient reports she had an ingrown toenail she tried to remove at home, since then has been having redness, swelling around cuticle and drainage. She reports toes very painful and throbbing. Denies fevers, chills, numbness, tingling. This has never happened to her before. No recent pedicures. Has not seen a specialist for this. Related Data Home Medications Medication Instructions Recorded Confirmed omeprazole 20 mg capsule,delayed 20 mg PO DAILY 11/24/22 06/21/23 release Previous Rx's Medication Instructions Recorded ibuprofen 600 mg tablet 600 mg PO Q6H PRN pain #20 tabs 05/25/22 ferrous sulfate 220 mg (44 mg 220 mg (5 mL) PO BID #300 mL 06/18/22 iron)/5 mL oral elixir dicyclomine 20 mg tablet 20 mg PO QID PRN abdominal pain 12/29/22 #20 tabs acetaminophen 500 mg tablet 500 mg PO Q6H PRN fever or pain 05/10/23 (Tylenol Extra Strength) #14 tabs cyclobenzaprine 5 mg tablet 5 mg PO Q8H PRN pain (scale score 05/10/23 7-10) 5 days #14 tabs lidocaine 5 % topical patch 1 patch topical DAILY PRN pain #30 05/10/23 (Lidoderm) ea cholecalciferol (vitamin D3) 125 125 mcg PO DAILY #30 caps 07/10/23 mcg (5,000 unit) capsule mecobalamin (vitamin B12) 500 mcg 500 mcg PO .COMPLEX #30 tabs 07/10/23 chewable tablet cephalexin 500 mg tablet 500 mg PO Q6H 10 days #40 tabs 11/10/23 doxycycline hyclate 100 mg capsule 100 mg PO BID 10 days #20 caps 11/10/23 Allergies Allergy/AdvReac Type Severity Reaction Status Date / Time No Known Allergies Allergy Verified 08/26/23 13:14 Review of Systems Review of Systems: Yes all other systems are reviewed and are negative PMFSH Past Medical History Attestation statement: The following information was validated with the patient. Source: old records reviewed and nursing notes reviewed Medical History Chronic headaches GERD (gastroesophageal reflux disease) Back pain Morbid obesity COVID-19 Surgical History S/P tonsillectomy No pertinent past surgical history Family History Family History Paternal Grandfather No problems noted. Paternal Grandmother Hypertension Other Family history of nonleukemic lymphatic malignancy Social History Social History Household Members: Family Housing: Apartment Are you a primary acute care occupational therapist to a significant other at home: No Do you presently have visiting nurse or other home services: No Alcohol intake: never Patient Tobacco Use Status: Never used Tobacco Substance Use Type: Marijuana Advance Directives: No Advance Directives Information Provided: No service: No Current occupational status: employed Physical Exam ED Vital Signs: Vital Signs - 24 hr 11/10/23 14:30 Temperature 96.1 F L Pulse Rate 92 Respiratory Rate 16 Blood Pressure 155/103 H Pulse Oximetry 98 Oxygen Delivery Method Room Air BMI result Body Mass Index 49.0 Vital signs significant for hypertension likely secondary to pain/discomfort. Appearance: Alert.? Oriented X3.? No acute distress.? Head: Normocephalic, atraumatic, no step-offs or deformities CVS: Pulses normal.? Respiratory: No respiratory distress.? Abdomen: Soft and nontender.? Skin: Skin warm and dry.? Normal skin color.? Normal skin turgor.? Extremities: No lower extremity edema.? No calf ttp. 5/5 strength to bilateral upper and lower extremities 2+ dorsalis pedis, anterior tibialis posterior tibialis pulses equal bilateral. Normal sensation distally. Left great toe with erythema, warmth and drainage from cuticle region. Consistent with a paronychia. No abscess. Full range of motion to all toes. Neuro: Oriented X 3.? No motor deficit.? No sensory deficit. CN 2-12 intact Course Course Course Narrative: RME: 23 yold female presents to the ED for left great toe pain that is infected. Patient tried to take her out her grown toe nail and than redness and pus collection. Discussed with patient for trial of oral anbtiotics and soaking, but patient refused and wants in grown toe nail excised. Medical Decision Making Medical Decision Making [facility] Narrative: 1445 23 year old female presents w/ pain to L great toe PE w/ 2+ dorsalis pedis, anterior tibialis posterior tibialis pulses equal bilateral. Normal sensation distally. Left great toe with erythema, warmth and drainage from cuticle region. Consistent with a paronychia. No abscess. History and physical exam consistent with paronychia without abscess. An overlying cellulitis. Unlikely septic joint, gout, pseudogout. No signs of systemic illness Plan antibiotic and warm water soaks at home. No indication for incision and drainage no palpable abscess. Patient to be discharged explain this to her. Has no further questions. Will give her follow-up with podiatry. Educated patient on diagnosis and treatment plan, answered all question, patient verbalizes understanding. At this time patient will be discharged home, advised to return with new or worsening symptoms. Educated on worrisome signs and symptoms and when to return. At this time I feel comfortable discharge home. Differential Diagnosis Differential Diagnoses: The differential diagnosis associated with the presentation includes History and physical exam consistent with paronychia without abscess. An overlying cellulitis. Unlikely septic joint, gout, pseudogout. No signs of systemic illness Admission/Observation Consideration of admission/observation: Escalation of care including admission/observation considered unlikely Discharge Plan Discharge Clinical Impression: Paronychia of great toe Patient Disposition: Home, Self-Care Instructions: Paronychia (ED), Cellulitis (ED) Additional Instructions: Take your medications as prescribed. If you were prescribed antibiotics today, it is important that you take your medication to their entirety, do not skip any doses, do not finish them early. Follow-up with your primary care provider this week. Return to the emergency department with new or worsening symptoms. Such as fevers, chills, chest pain, shortness of breath, nausea, vomiting, dizziness, headache, vision changes, lethargy In case of emergency call 911 Please soak here foot in warm water with Epsom salt 3 to 4 times a day. Follow-up with podiatry or body specialist you may need a referral from your primary care provider. [facility] [address] [place] [id number] Prescriptions: New doxycycline hyclate 100 mg capsule 100 mg PO BID 10 Days Qty: 20 0RF cephalexin 500 mg tablet 500 mg PO Q6H 10 Days Qty: 40 0RF No Action cholecalciferol (vitamin D3) 125 mcg (5,000 unit) capsule 125 mcg PO DAILY Qty: 30 2RF mecobalamin (vitamin B12) 500 mcg tablet,chewable 500 mcg PO .COMPLEX Qty: 30 2RF Rx Instructions: 500 mcg orally once per day; ferrous sulfate 220 mg (44 mg iron)/5 mL Elixir 220 mg PO BID Qty: 300 4RF ibuprofen 600 mg tablet 600 mg PO Q6H PRN (Reason: pain) Qty: 20 0RF dicyclomine 20 mg tablet 20 mg PO QID PRN (Reason: abdominal pain) Qty: 20 0RF acetaminophen [Tylenol Extra Strength] 500 mg tablet 500 mg PO Q6H PRN (Reason: fever or pain) Qty: 14 0RF lidocaine [Lidoderm] 5 % adhesive patch,medicated 1 patch topical DAILY MDD remove after 12 hours PRN (Reason: pain) Qty: 30 0RF Rx Instructions: leave on most painful area for up to 12 hrs cyclobenzaprine 5 mg tablet 5 mg PO Q8H PRN (Reason: pain (scale score 7-10)) 5 Days Qty: 14 0RF omeprazole 20 mg capsule,delayed release(DR/EC) 20 mg PO DAILY Referrals: Antoinette Mejia MD [Primary Care Provider] - 2 days Interventions: ED Discharge Assessment Last Done: 11/10/23 14:51 Discharge Date/Time: 11/10/23 14:52
--- NOTE | 2023-11-10 14:52 | PC.NURSE ---
Pt brought to [facility] from triage, provider at bedside to see patient, pt d/c a couple minutes later with pod follow up
== END 2023-11-10 14:52 | disposition home or self-care (01) ==
PROVIDERS: Emergency Provider Emergency Medicine Emergency Medical Services; PCP Family Medicine
DX: L03.032 Cellulitis of left toe (principal)
CPT/HCPCS: 99282; 99283

== ENCOUNTER 2023-12-17 15:36 | Outpatient (REF) | payer MEDICAID, SELFPAY ==
[2023-12-17 17:44] LABS: MANUAL DIFF FLAG NO
[2023-12-17 18:02] LABS: Basophils Absolute Auto 0.1 X10*3/uL (0.0-0.2); Basophils Percent Auto 0.7 % (0-2); Eosinophils Absolute Auto 0.1 X10*3/uL (0.0-0.4); Eosinophils Percent Auto 0.5 % (0-4); Hematocrit 46.3 % (37.0-47.0); Hemoglobin 15.5 g/dl (12.0-16.0); Imm Gran Abs Auto 0.04 X10*3/uL (0.00-0.03); Imm Gran Pct Auto 0.4 % (0.0-0.4); Lymphocytes Absolute Auto 3.3 X10*3/uL (1.2-4.9); Lymphocytes Percent Auto 33.6 % (20-40); Mean Corpuscular HGB Conc 33.5 g/dl (31.0-35.0); Mean Corpuscular Volume 89.7 fL (80.0-98.0); Mean Platelet Volume 10.6 fL (9.4-12.3); Monocytes Absolute Auto 0.5 X10*3/uL (0.1-1.2); Monocytes Percent Auto 5.1 % (2-11); Neutrophils Absolute Auto 5.9 x10*3/uL (2.0-8.3); Neutrophils Percent Auto 59.7 % (45-73); Platelet Count 271 X10*3/uL (160-400); Red Blood Count 5.16 X10*6/uL (4.20-5.50); Red Cell Distribution Width 14.6 % (11.0-16.0)
[2023-12-17 18:11] LABS: Alanine Aminotransferase 30 U/L (0-31); Alkaline Phosphatase 78 U/L (39-117); Anion Gap 12 (12-20); Aspartate Amino Transferase 30 U/L (5-31); Bilirubin Total 0.4 mg/dL (0.0-1.0); Blood Urea Nitrogen 8 mg/dL (9-16); Calcium 9.5 mg/dL (8.4-10.2); Carbon Dioxide 27 mmol/L (22-29); Chloride 107 mmol/L (96-108); Estimated Glomerular Filt Rate > 60; Glucose Random 76 mg/dL (60-115); Potassium 3.5 mmol/L (3.3-5.1); Sodium 142 mmol/L (135-145); Total Protein 7.7 g/dL (6.5-8.0)
[2023-12-17 18:26] LABS: HCG Quantitative < 2 mIU/mL; TSH reflex Free T4 2.29 uIU/mL (0.32-4.0)
[2023-12-18 06:08] LABS: Estimated Average Glucose 134 mg/dL; Hemoglobin A1c % 6.3 % (<6.0)
== END 2023-12-17 15:37 | disposition home or self-care (01) ==
LOC: HO.HHCL 15:36
PROVIDERS: Visit Provider Student in an Organized Health Care Education/Training Program
DX: R53.1 Weakness (principal)
CPT/HCPCS: 36415; 80053; 83036; 84443; 84702; 85025

== ENCOUNTER 2023-12-24 23:16 | Emergency (ER) | payer MEDICAID, SELFPAY ==
[2023-12-24 23:23] VITALS: BP 157/93; PULSE 102; RESP 20; TEMP 37.6; O2SAT 99; BMI 51.8
--- NOTE | 2023-12-25 02:25 | ED_ITS ---
HPI - Ear Problem General Chief complaint: Ear Problems Stated complaint: Earache Time Seen by Provider: 12/25/23 02:02 Source: patient Mode of arrival: ambulatory Limitations: no limitations History of Present Illness HPI Narrative: 23 yo female with PMH of GERD, AGUSTÍN, here with c/o L ear pain since Wednesday now ear is more swollen and it's hard to hear. History of same in past not a diabetic MD Complaint: ear pain and ear discharge Location: left ear Duration: constant Severity: moderate Relieving factors: nothing Exacerbating factors: palpation Discharge from ear: yes - purulent Associated symptoms ear: decreased hearing, headache, external ear tenderness and ear swelling Treatment prior to arrival: none Related Data Home Medications Medication Instructions Recorded Confirmed omeprazole 20 mg capsule,delayed 20 mg PO DAILY 11/24/22 06/21/23 release Previous Rx's Medication Instructions Recorded ibuprofen 600 mg tablet 600 mg PO Q6H PRN pain #20 tabs 05/25/22 ferrous sulfate 220 mg (44 mg 220 mg (5 mL) PO BID #300 mL 06/18/22 iron)/5 mL oral elixir dicyclomine 20 mg tablet 20 mg PO QID PRN abdominal pain 12/29/22 #20 tabs acetaminophen 500 mg tablet 500 mg PO Q6H PRN fever or pain 05/10/23 (Tylenol Extra Strength) #14 tabs cyclobenzaprine 5 mg tablet 5 mg PO Q8H PRN pain (scale score 05/10/23 7-10) 5 days #14 tabs lidocaine 5 % topical patch 1 patch topical DAILY PRN pain #30 05/10/23 (Lidoderm) ea cholecalciferol (vitamin D3) 125 125 mcg PO DAILY #30 caps 07/10/23 mcg (5,000 unit) capsule mecobalamin (vitamin B12) 500 mcg 500 mcg PO .COMPLEX #30 tabs 07/10/23 chewable tablet cephalexin 500 mg tablet 500 mg PO Q6H 10 days #40 tabs 11/10/23 doxycycline hyclate 100 mg capsule 100 mg PO BID 10 days #20 caps 11/10/23 levofloxacin 750 mg tablet 750 mg PO DAILY #9 tabs 12/25/23 ofloxacin 0.3 % ear drops 10 drp otic (ears) DAILY 7 days #5 12/25/23 mL Allergies Allergy/AdvReac Type Severity Reaction Status Date / Time No Known Allergies Allergy Verified 12/24/23 23:23 Review of Systems Review of Systems: Constitutional : No Fever, No Chills, No Fatigue ENT/Mouth : No sore throat, No Rhinorrhea Eyes: No Eye Pain, No Swelling, No Redness, pos ear pain, pos ear swelling Cardiovascular : No Chest Pain, No SOB, No Dyspnea on Exertion Respiratory : No Cough, No Sputum Gastrointestinal : No Nausea, No Vomiting, No Diarrhea, No abdominal Pain Genitourinary : No Dysuria, No Urinary Frequency, No Hematuria, Musculoskeletal : No joint pain, No Myalgias, No Joint Swelling Skin : No Skin Lesions, No rash Neuro : No Weakness, No Numbness, No Dizziness, positive Headache All other systems reviewed and are negative [facility] Past Medical History Attestation statement: The following information was validated with the patient. Source: old records reviewed Medical History Chronic headaches GERD (gastroesophageal reflux disease) Back pain Morbid obesity COVID-19 Surgical History S/P tonsillectomy No pertinent past surgical history Family History Family History (Reviewed 08/26/23 @ 13:18 by Lucian Lynne MD, [facility], [facility]) Paternal Grandfather No problems noted. Paternal Grandmother Hypertension Other Family history of nonleukemic lymphatic malignancy Social History Social History Household Members: Family Housing: Apartment Are you a primary wound care physician to a significant other at home: No Do you presently have visiting nurse or other home services: No Alcohol intake: never Patient Tobacco Use Status: Never used Tobacco Substance Use Type: Marijuana Advance Directives: No Advance Directives Information Provided: No service: No Current occupational status: employed Physical Exam Vital Signs: Vital Signs: Last Vital Signs Temp 99.7 F 12/24/23 23:23 Pulse 102 H 12/24/23 23:23 Resp 20 12/24/23 23:23 BP 157/93 H 12/24/23 23:23 Pulse Ox 99 12/24/23 23:23 O2 Del Method Room Air 12/24/23 23:23 BMI result Body Mass Index 51.8 Appearance: Alert. Oriented X3. No acute distress. Eyes: Pupils equal, round and reactive to light. ENT: Pharynx normal. L ear TM normal, ext canal swollen with yellow material, L ext ear there is mild swelling and erythema but not sig no mastoid or preauricular swelling no swelling into the jaw Neck: Normal inspection. Neck supple. CVS: Normal heart rate and rhythm. Pulses normal. Respiratory: No respiratory distress. Breath sounds normal. Abdomen: Soft and nontender. Skin: Skin warm and dry. Normal skin color. Normal skin turgor. Extremities: No lower extremity edema. No calf ttp Neuro: Oriented X 3. No motor deficit. No sensory deficit. Medical Decision Making Medical Decision Making MDM Narrative: 23 yo female with no diabetes here with c/o L ear pain with external otitis and mild external swelling given then will start on ofloxacin gtt and levofloxacin PO - will DC home with precautions no signs of deeper space infection Differential Diagnosis Differential Diagnoses: The differential diagnosis associated with the presentation includes otitis externa, malignant external otitis Admission/Observation Consideration of admission/observation: Escalation of care including admission/observation considered not toxic, immuncompetent will start on oral antibiotics and gtt trial External Record Review External record reviewed: Office record Prescription Management I considered prescription management with: Antibiotic Discharge Plan Discharge Clinical Impression: Otitis externa Qualifiers: Otitis externa type: unspecified type Chronicity: acute Laterality: left Qualified Code(s): H60.502 - Unspecified acute noninfective otitis externa, left ear Patient Disposition: Home, Self-Care Instructions: Otitis Externa (ED) Additional Instructions: finish all antibiotics. fill the medications tomorrow. return for worsening symptoms increased swelling pain, confusion, severe headaches, fevers or any other concerns. while on the levofloxacin do not exercise jump or do anything that can injure your tendons Prescriptions: New levofloxacin 750 mg tablet 750 mg PO DAILY Qty: 9 0RF ofloxacin 0.3 % drops 10 drp otic (ears) DAILY 7 Days Qty: 5 0RF No Action cholecalciferol (vitamin D3) 125 mcg (5,000 unit) capsule 125 mcg PO DAILY Qty: 30 2RF mecobalamin (vitamin B12) 500 mcg tablet,chewable 500 mcg PO .COMPLEX Qty: 30 2RF Rx Instructions: 500 mcg orally once per day; ferrous sulfate 220 mg (44 mg iron)/5 mL Elixir 220 mg PO BID Qty: 300 4RF ibuprofen 600 mg tablet 600 mg PO Q6H PRN (Reason: pain) Qty: 20 0RF dicyclomine 20 mg tablet 20 mg PO QID PRN (Reason: abdominal pain) Qty: 20 0RF doxycycline hyclate 100 mg capsule 100 mg PO BID 10 Days Qty: 20 0RF cephalexin 500 mg tablet 500 mg PO Q6H 10 Days Qty: 40 0RF acetaminophen [Tylenol Extra Strength] 500 mg tablet 500 mg PO Q6H PRN (Reason: fever or pain) Qty: 14 0RF lidocaine [Lidoderm] 5 % adhesive patch,medicated 1 patch topical DAILY MDD remove after 12 hours PRN (Reason: pain) Qty: 30 0RF Rx Instructions: leave on most painful area for up to 12 hrs cyclobenzaprine 5 mg tablet 5 mg PO Q8H PRN (Reason: pain (scale score 7-10)) 5 Days Qty: 14 0RF omeprazole 20 mg capsule,delayed release(DR/EC) 20 mg PO DAILY Stand Alone Forms: Work/School Release
[2023-12-25] MEDS: levoFLOXacin 750 MG TABLET PO (02:41)
[2023-12-25] MEDS: dexAMETHasone 6 MG TABLET PO (02:41)
[2023-12-25] MEDS: HYDROcodone Bit/Acetam 5/325 TABLET 1 TAB PO (02:41)
[2023-12-25 02:46] VITALS: BP 131/77; PULSE 93; RESP 14; TEMP 36.8; O2SAT 100
== END 2023-12-25 02:51 | disposition home or self-care (01) ==
PROVIDERS: Emergency Provider Emergency Medicine; PCP Family Medicine
DX: H60.502 Unspecified acute noninfective otitis externa, left ear (principal); H92.02 Otalgia, left ear
CPT/HCPCS: 99283; J8540

== ENCOUNTER 2023-12-27 11:41 | Outpatient (AMB) | payer MEDICAID, SELFPAY ==
--- NOTE | 2023-12-27 11:30 | MHC.OFFVISWM ---
Intake VS Expanded 12/27/23 11:48 Height 5 ft 2.5 in Weight 286 lb BMI 51.5 Intake Visit Reasons: TV F/U SWL Allergies No Known Allergies Allergy (Verified 12/24/23 23:23) Medication List - Last Reconciled 12/27/23 by MICHELE Quintero acetaminophen (Tylenol Extra Strength) 500 mg PO Q6H PRN cephalexin 500 mg PO Q6H 10 days cholecalciferol (vitamin D3) 125 mcg PO DAILY cyclobenzaprine 5 mg PO Q8H PRN 5 days dicyclomine 20 mg PO QID PRN doxycycline hyclate 100 mg PO BID 10 days ferrous sulfate 220 mg (5 mL) PO BID ibuprofen 600 mg PO Q6H PRN levofloxacin 750 mg PO DAILY lidocaine 5% (Lidoderm) 1 patch topical DAILY PRN MDD remove after 12 hours mecobalamin (vitamin B12) 500 mcg orally once per day; ofloxacin 0.3% 10 drps otic (ears) DAILY 7 days omeprazole 20 mg PO DAILY HPI HPI Comments History of Present Illness Details The patient is a pleasant 23 year old female who returns to the clinic for pre-operative surgical weight loss management.? They were last seen in the office on 10/28/2023, recorded weight at that time was 268 pounds, with a BMI of 47.8.? Today's weight is 286.?Weight at start of program was 279.5. Goal weight prior to surgery is 255lbs. Pt reports stress is a factor. Pt reports I'm eating healthy, eating salads and proteins like chicken . When asked how many protein bars she has been consuming per day she reports 3. Pre op work up completed as follows: SWL classes:? 05/18 appts: 09/16 with Zuleyka, Pt will need to provide a letter from her provider and will be seen by me again in 4-[address] appts: 09/29, kirill Barclay will discuss pts candidacy with team Labs: 06/22/2023, Hemoglobin A1c is elevated 6.1 consistent with prediabetes insulin elevated at 89, CRP elevated 1.04, TAGs elevated at 197, Vit D low at 22.4 H. pylori: 07/16/2023, negative CXR: 06/22/23, NAD EK/12/23, normal EKG ABD U/S: 09/07/23, generalized increase in hepatic echotexture, consistent with fatty infiltration or hepatocellular disease; In the absence of other known clinical signs, measurements rule out compensated advanced chronic liver disease UGI: reflux, otherwise unremarkable Current meal plan includes: 7-9am Slimfast shake, 1.5 scoops in 8oz unsweetened almond milk (30g protein) 11am-1pm same shake 2-3pm Celebrate bar 4:30pm dinner- 10 forks protein, 10 forks veg 6pm if needed- protein bar, yogurt, or cottage cheese Current exercise plan includes: home workouts, has dumbbells and using [employer] videos has only been walking outdoors 3x/week, 30 minutes PFSH Medical History Chronic headaches GERD (gastroesophageal reflux disease) Back pain Morbid obesity COVID-19 Surgical History S/P tonsillectomy No pertinent past surgical history Family History Paternal Grandfather No problems noted. Paternal Grandmother Hypertension Other Family history of nonleukemic lymphatic malignancy Social History Household Members: Family Housing: Apartment Are you a primary career development coordinator/teacher to a significant other at home: No Do you presently have visiting nurse or other home services: No Alcohol intake: never Patient Tobacco Use Status: Never used Tobacco Substance Use Type: Marijuana service: No Current occupational status: employed Female Reproductive History Menstrual Age of Menarche: 10 Assessment & Plan Assessment & Plan (1) Morbid obesity: Code(s): E66.01 - Morbid (severe) obesity due to excess calories Plan We discussed that pt is now at a higher weight than when she started the program. Reinforced the need to stick to meal plan and not deviate. Do not make changes without communicating with our office first. Will resend meal plan via text. Pt is not exercising adequately, needs to burn 2000 calories per week and track. Will schedule f/u with Zuleyka and discuss with Ning as pt still needs RD/BH clearance. RTC 4 weeks. Encouraged pt to text me weights weekly and reach out between appts with any questions. Patient is morbidly obese and is not considered stable at this time. I spent a total of 30 minutes reviewing/updating records, examining the patient and counseling the patient on weight management as detailed above. Telehealth Telehealth Location of provider rendering services: other Location of patient: address on file Patient Identification confirmed using: Name, : Yes Telehealth method: voice only Patient verbally consented to treatment: Yes Patient verbally consented to billing insurance company: Yes Patient informed of any privacy concerns related to visit: Yes Minutes spent on Phone/Video with Pt.: 14 Coding Level of Care Code Tele Est Pt Level 4 (96343) Diagnoses Morbid obesity E66.01
[2023-12-27 11:48] VITALS: BMI 51.5
== END 2023-12-27 12:28 | disposition home or self-care (01) ==
LOC: HO.HBS 11:41
PROVIDERS: PCP Family Medicine; Visit Provider Physician Assistant Surgical
DX: E66.01 Morbid (severe) obesity due to excess calories (principal)
CPT/HCPCS: 99214

== ENCOUNTER → 2023-12-27 11:41 | Outpatient (BNVA) | payer MEDICAID, SELFPAY | PROVIDERS: PCP Family Medicine; Visit Provider Physician Assistant Surgical ==

== ENCOUNTER → 2024-01-20 13:14 | Outpatient (BNVA) | payer MEDICAID, SELFPAY | PROVIDERS: PCP Family Medicine; Visit Provider Physician Assistant Surgical ==

== ENCOUNTER 2024-01-25 22:46 | Emergency (ER) | payer MEDICAID, SELFPAY ==
[2024-01-25 22:59] VITALS: BP 126/67; PULSE 107; RESP 16; TEMP 37.5; O2SAT 96; BMI 52.5
[2024-01-25 23:29] LABS: MANUAL DIFF FLAG NO
[2024-01-25 23:34] LABS: Basophils Percent Auto 0.2 % (0-2); Eosinophils Percent Auto 0.1 % (0-4); Hematocrit 43.2 % (37.0-47.0); Hemoglobin 14.2 g/dl (12.0-16.0); Imm Gran Abs Auto 0.03 X10*3/uL (0.00-0.03); Imm Gran Pct Auto 0.3 % (0.0-0.4); Lymphocytes Absolute Auto 1.3 X10*3/uL (1.2-4.9); Lymphocytes Percent Auto 13.8 % (20-40); Mean Corpuscular HGB Conc 32.9 g/dl (31.0-35.0); Mean Corpuscular Hemoglobin 29.5 pg (27.0-33.0); Mean Corpuscular Volume 89.6 fL (80.0-98.0); Mean Platelet Volume 9.8 fL (9.4-12.3); Monocytes Absolute Auto 0.6 X10*3/uL (0.1-1.2); Monocytes Percent Auto 6.5 % (2-11); Neutrophils Absolute Auto 7.7 x10*3/uL (2.0-8.3); Neutrophils Percent Auto 79.1 % (45-73); Platelet Count 283 X10*3/uL (160-400); Red Blood Count 4.82 X10*6/uL (4.20-5.50); White Blood Count 9.7 X10*3/uL (4.8-10.8)
[2024-01-25 23:52] LABS: Alanine Aminotransferase 28 U/L (0-31); Alkaline Phosphatase 68 U/L (39-117); Anion Gap 13 (12-20); Aspartate Amino Transferase 26 U/L (5-31); Bilirubin Total 0.6 mg/dL (0.0-1.0); Blood Urea Nitrogen 10 mg/dL (9-16); Calcium 8.9 mg/dL (8.4-10.2); Carbon Dioxide 23 mmol/L (22-29); Chloride 107 mmol/L (96-108); Creatinine Clr Calc Pharmacy 166.1; Estimated Glomerular Filt Rate > 60; Glucose Random 90 mg/dL (60-115); Lipase 13 U/L (8-78); Potassium 3.3 mmol/L (3.3-5.1); Sodium 140 mmol/L (135-145); Total Protein 7.5 g/dL (6.5-8.0)
[2024-01-26 00:12] LABS: Influenza A PCR NEGATIVE (Negative); Influenza B PCR NEGATIVE (Negative); Resp Syncy Virus RNA Qual PCR NEGATIVE (Negative); SARS COV2 PCR INHOUSE NEGATIVE (Negative)
[2024-01-26 05:11] VITALS: BP 100/58; PULSE 99; RESP 16; TEMP 36.9; O2SAT 96
--- NOTE | 2024-01-26 05:51 | ED.NAVMDI ---
HPI - Nausea/Vomiting/Diarrhea General Chief complaint: Nausea/Vomiting/Diarrhea Stated complaint: Vomiting/headache/hot and cold Time Seen by Provider: 01/26/24 05:28 Source: patient Mode of arrival: ambulatory Limitations: no limitations History of Present Illness HPI Narrative: Patient has been nauseated and vomiting for last 24hrs vomited 4 -5 times also had diarrhea 3 times diffuse abdominal pain no fever no chills unable to take any solid of liquids although complain of headache and chills last bowel movement was over 6 hours ago patient also complaining of slight dysuria no frequency no hematuria /flank pain Related Data Home Medications ?Medication ?Instructions ?Recorded ?Confirmed omeprazole 20 mg capsule,delayed 20 mg PO DAILY 11/24/22 12/27/23 release Previous Rx's ?Medication ?Instructions ?Recorded ibuprofen 600 mg tablet 600 mg PO Q6H PRN pain #20 tabs 05/25/22 ferrous sulfate 220 mg (44 mg 220 mg (5 mL) PO BID #300 mL 06/18/22 iron)/5 mL oral elixir dicyclomine 20 mg tablet 20 mg PO QID PRN abdominal pain 12/29/22 #20 tabs acetaminophen 500 mg tablet 500 mg PO Q6H PRN fever or pain 05/10/23 (Tylenol Extra Strength) #14 tabs cyclobenzaprine 5 mg tablet 5 mg PO Q8H PRN pain (scale score 05/10/23 7-10) 5 days #14 tabs lidocaine 5 % topical patch 1 patch topical DAILY PRN pain #30 05/10/23 (Lidoderm) ea cholecalciferol (vitamin D3) 125 125 mcg PO DAILY #30 caps 07/10/23 mcg (5,000 unit) capsule mecobalamin (vitamin B12) 500 mcg 500 mcg PO .COMPLEX #30 tabs 07/10/23 chewable tablet cephalexin 500 mg tablet 500 mg PO Q6H 10 days #40 tabs 11/10/23 doxycycline hyclate 100 mg capsule 100 mg PO BID 10 days #20 caps 11/10/23 levofloxacin 750 mg tablet 750 mg PO DAILY #9 tabs 12/25/23 ofloxacin 0.3 % ear drops 10 drp otic (ears) DAILY 7 days #5 12/25/23 mL ondansetron 4 mg disintegrating 4 mg PO Q6-8H PRN nausea and 01/26/24 tablet vomiting #7 tabs Allergies Allergy/AdvReac Type Severity Reaction Status Date / Time No Known Allergies Allergy Verified 01/25/24 23:02 Review of Systems Review of Systems: Yes all other systems are reviewed and are negative [facility] Past Medical History Medical History Chronic headaches GERD (gastroesophageal reflux disease) Back pain Morbid obesity COVID-19 Surgical History S/P tonsillectomy No pertinent past surgical history Family History Family History Paternal Grandfather No problems noted. Paternal Grandmother Hypertension Other Family history of nonleukemic lymphatic malignancy Social History Social History Household Members: Family Housing: Apartment Are you a primary health care legal assistant to a significant other at home: No Do you presently have visiting nurse or other home services: No Alcohol intake: never Patient Tobacco Use Status: Never used Tobacco Smoked in Last 30 Days: No Use of substances other than those prescribed or required for medical reasons: No Substance Use Type: Marijuana Advance Directives: No Advance Directives Information Provided: No Patient : No service: No Current occupational status: employed Physical Exam Vital Signs: Vital Signs: Last Vital Signs Temp 98.5 F 01/26/24 05:11 Pulse 99 01/26/24 05:11 Resp 16 01/26/24 05:11 BP 100/58 L 01/26/24 05:11 Pulse Ox 96 01/26/24 05:11 O2 Del Method Room Air 01/26/24 05:11 BMI result Body Mass Index 52.5 Appearance: Alert. Oriented X3. No acute distress. Eyes: No pallor or icterus ENT: Pharynx normal. Oral Mucosa moist Neck: Normal inspection. Neck supple. CVS: Normal heart rate and rhythm. Pulses normal. Respiratory: No respiratory distress. Equal air entry bilateral, no wheezing/rales/rhonchi Abdomen: Soft and nontender. Bowel sounds are present, no mass palpable, no CVA tenderness Skin: Skin warm and dry. Normal skin color. Normal skin turgor. Medications Administered Discontinued Medications Generic Name Dose Route Start Last Admin Trade Name Jean Carlos PRN Reason Stop Dose Admin Ondansetron HCl 4 mg 01/26/24 05:35 01/26/24 06:04 Ondansetron Odt 4 Mg Tab.Kaity SIEGEL 01/26/24 05:36 4 mg ONCE ONE Administration Medical Decision Making Medical Decision Making [facility] Narrative: Patient has acute gastroenteritis with mostly nausea and vomiting feeling better after Zofran labs are stable will check the Lab Data [facility] Lab Attestation statement: I reviewed the patient's lab results. 01/25/24 23:12 01/25/24 23:12 Labs: Lab Results 01/25/24 Range/Units 23:12 WBC 9.7 (4.8-10.8) X10*3/uL RBC 4.82 (4.20-5.50) X10*6/uL Hgb 14.2 (12.0-16.0) g/dl Hct 43.2 (37.0-47.0) % MCV 89.6 (80.0-98.0) fL MCH 29.5 (27.0-33.0) pg MCHC 32.9 (31.0-35.0) g/dl RDW 14.0 (11.0-16.0) % Plt Count 283 (160-400) X10*3/uL MPV 9.8 (9.4-12.3) fL Immature Gran % (Auto) 0.3 (0.0-0.4) % Neut % (Auto) 79.1 H (45-73) % Lymph % (Auto) 13.8 L (20-40) % [place] % (Auto) 6.5 (2-11) % Eos % (Auto) 0.1 (0-4) % Baso % (Auto) 0.2 (0-2) % Lymph # (Auto) 1.3 (1.2-4.9) X10*3/uL [place] # (Auto) 0.6 (0.1-1.2) X10*3/uL Eos # (Auto) 0.0 (0.0-0.4) X10*3/uL Baso # (Auto) 0.0 (0.0-0.2) X10*3/uL Abs Immat Gran (auto) 0.03 (0.00-0.03) X10*3/uL Absolute Neuts (auto) 7.7 (2.0-8.3) x10*3/uL Absolute Nucleated RBC 0.000 (0.0-0.012) X10*3/uL Nucleated RBC % (auto) 0.0 (0.0-0.2) /100WBC Sodium 140 (135-145) mmol/L Potassium 3.3 (3.3-5.1) mmol/L Chloride 107 (96-108) mmol/L Carbon Dioxide 23 (22-29) mmol/L Anion Gap 13 (12-20) BUN 10 (9-16) mg/dL Creatinine 0.69 (0.5-1.4) mg/dL Estim Creat Clear Calc 166.1 Estimated GFR > 60 Random Glucose 90 (60-115) mg/dL Calcium 8.9 D (8.4-10.2) mg/dL Total Bilirubin 0.6 (0.0-1.0) mg/dL AST 26 (5-31) U/L ALT 28 (0-31) U/L Alkaline Phosphatase 68 (39-117) U/L Total Protein 7.5 (6.5-8.0) g/dL Albumin 4.0 (3.5-5.0) g/dL Lipase 13 (8-78) U/L Influenza Type A (PCR) NEGATIVE (Negative) Influenza Type B (PCR) NEGATIVE (Negative) RSV RNA Qual (PCR) NEGATIVE (Negative) SARS-CoV-2 RNA (RT-PCR) NEGATIVE (Negative) Discharge Plan Discharge Clinical Impression: Acute gastroenteritis Patient Disposition: Still a Patient Prescriptions: New ondansetron 4 mg tablet,disintegrating 4 mg PO Q6-8H PRN (Reason: nausea and vomiting) Qty: 7 0RF No Action cholecalciferol (vitamin D3) 125 mcg (5,000 unit) capsule 125 mcg PO DAILY Qty: 30 2RF mecobalamin (vitamin B12) 500 mcg tablet,chewable 500 mcg PO .COMPLEX Qty: 30 2RF Rx Instructions: 500 mcg orally once per day; ferrous sulfate 220 mg (44 mg iron)/5 mL Elixir 220 mg PO BID Qty: 300 4RF ibuprofen 600 mg tablet 600 mg PO Q6H PRN (Reason: pain) Qty: 20 0RF dicyclomine 20 mg tablet 20 mg PO QID PRN (Reason: abdominal pain) Qty: 20 0RF doxycycline hyclate 100 mg capsule 100 mg PO BID 10 Days Qty: 20 0RF cephalexin 500 mg tablet 500 mg PO Q6H 10 Days Qty: 40 0RF levofloxacin 750 mg tablet 750 mg PO DAILY Qty: 9 0RF ofloxacin 0.3 % drops 10 drp otic (ears) DAILY 7 Days Qty: 5 0RF acetaminophen [Tylenol Extra Strength] 500 mg tablet 500 mg PO Q6H PRN (Reason: fever or pain) Qty: 14 0RF lidocaine [Lidoderm] 5 % adhesive patch,medicated 1 patch topical DAILY MDD remove after 12 hours PRN (Reason: pain) Qty: 30 0RF Rx Instructions: leave on most painful area for up to 12 hrs cyclobenzaprine 5 mg tablet 5 mg PO Q8H PRN (Reason: pain (scale score 7-10)) 5 Days Qty: 14 0RF omeprazole 20 mg capsule,delayed release(DR/EC) 20 mg PO DAILY Print Language: Honduran
[2024-01-26] MEDS: Ondansetron ODT 4 MG TAB.RAPDIS TRANSLINGU (06:04)
[2024-01-26 08:10] VITALS: BP 94/53; PULSE 80; RESP 17; TEMP 36.7; O2SAT 98
--- NOTE | 2024-01-26 09:00 | PC.NURSE ---
PT IS A/O X 4 NO SOB/MONIKA NOTED SPEAKS IN FULL SENTENCES. AMB (I) GAIT STEADY. DENIES ANY ABD PAIN/DISC AT THIS TIME PT IS C/O HEADACHE. PT AWARE OF PLAN OF CARE. WILL CONTINUE TO MONITOR.
[2024-01-26 09:17] VITALS: BP 130/88; PULSE 86; RESP 18; TEMP 36.6; O2SAT 96
[2024-01-26 09:18] LABS: Appearance Urine Cloudy; Color Urine Dark Yellow; Glucose Urine UA Negative (Negative); Leukocyte Esterase Urine Trace (Negative); Nitrite Urine Negative (Negative); PH 5.5 (5.0-9.0); Specific Gravity - Urine >= 1.030 (1.005-1.025); UMIC TRIGGER UACC YES; Urine Blood Large (3+) (Negative); Urine Ketones 15 mg/dL (Negative); Urine Protein 30 (1+) mg/dL (Neg-Trace)
[2024-01-26 09:23] LABS: Bacteria Urine None Seen (None Seen); Hyaline Casts Urine 0-2 /LPF (0-2); RBC Urine >20 /HPF (0-2); WBC Urine 0-5 /HPF (0-5)
[2024-01-26] MEDS: Acetaminophen 325 MG TABLET 650 MG PO (09:40)
[2024-01-26 09:44] VITALS: BP 130/88; PULSE 86; RESP 18; TEMP 36.6; O2SAT 96
[2024-01-26 09:49] LABS: UPreg QC Valid YES; Urine Pregnancy NEGATIVE (NEGATIVE)
== END 2024-01-26 09:45 | disposition home or self-care (01) ==
PROVIDERS: Emergency Medicine; Emergency Provider Internal Medicine; PCP Family Medicine
DX: K52.9 Noninfective gastroenteritis and colitis, unspecified (principal)
CPT/HCPCS: 0241U; 80053; 81001; 81025; 83690; 85025; 99283; 99284

== ENCOUNTER 2024-02-23 12:41 | Outpatient (AMB) | payer MEDICAID, SELFPAY ==
--- NOTE | 2024-02-23 12:32 | A.OFFVIS_ITS ---
VS Expanded 02/23/24 12:37 Height 5 ft 2.5 in Weight 282 lb BMI 50.8 Intake Visit Reasons: (TELEPHONE) SWL F/U Allergies No Known Allergies Allergy (Verified 01/25/24 23:02) Medication List - Last Reconciled 02/23/24 by MICHELE Quintero acetaminophen (Tylenol Extra Strength) 500 mg PO Q6H PRN cephalexin 500 mg PO Q6H 10 days cholecalciferol (vitamin D3) 125 mcg PO DAILY cyclobenzaprine 5 mg PO Q8H PRN 5 days dicyclomine 20 mg PO QID PRN doxycycline hyclate 100 mg PO BID 10 days ferrous sulfate 220 mg (5 mL) PO BID ibuprofen 600 mg PO Q6H PRN levofloxacin 750 mg PO DAILY lidocaine 5% (Lidoderm) 1 patch topical DAILY PRN MDD remove after 12 hours mecobalamin (vitamin B12) 500 mcg orally once per day; ofloxacin 0.3% 10 drps otic (ears) DAILY 7 days omeprazole 20 mg PO DAILY ondansetron 4 mg PO Q6-8H PRN HPI Comments Details: The patient is a pleasant 23 year old female who returns to the clinic for pre-operative surgical weight loss management.? They were last seen in the office on 12/27/2023, recorded weight at that time was 286 pounds.? Today's weight is 286.?Weight at start of program was 279.5. Goal weight prior to surgery is 255lbs. Pt reports stress is a factor. Pt reports I'm eating healthy, eating salads and proteins like chicken . When asked how many protein bars she has been consuming per day she reports 3. Pre op work up completed as follows: SWL classes:? 05/18 appts: 09/16 with Zuleyka, Pt will need to provide a letter from her provider and will be seen by me again in 4-[address] appts: 09/29, kirill Barclay will discuss pts candidacy with team Labs: 06/22/2023, Hemoglobin A1c is elevated 6.1 consistent with prediabetes insulin elevated at 89, CRP elevated 1.04, TAGs elevated at 197, Vit D low at 22.4 H. pylori: 07/16/2023, negative CXR: 06/22/23, NAD EK06/22/23, normal EKG ABD U/S: 09/07/23, generalized increase in hepatic echotexture, consistent with fatty infiltration or hepatocellular disease; In the absence of other known clinical signs, measurements rule out compensated advanced chronic liver disease UGI: reflux, otherwise unremarkable Current meal plan includes: 7-9am Slimfast shake, 1.5 scoops in 8oz unsweetened almond milk (30g protein) 11am-1pm same shake 2-3pm Celebrate bar 4:30pm dinner- 10 forks protein, 10 forks veg 6pm if needed- protein bar, yogurt, or cottage cheese Current exercise plan includes: home workouts, has dumbbells and using [employer] videos has only been walking outdoors almost every day now, 2 hours PFSH Medical History Chronic headaches GERD (gastroesophageal reflux disease) Back pain Morbid obesity COVID-19 Surgical History S/P tonsillectomy No pertinent past surgical history Family History Paternal Grandfather No problems noted. Paternal Grandmother Hypertension Other Family history of nonleukemic lymphatic malignancy Social History Household Members: Family Housing: Apartment Are you a primary long term care phlebotomist to a significant other at home: No Do you presently have visiting nurse or other home services: No Alcohol intake: never Patient Tobacco Use Status: Never used Tobacco Substance Use Type: Marijuana service: No Current occupational status: employed Female Reproductive History Menstrual Age of Menarche: 10 Telehealth Telehealth Telehealth Platform: Telephone Location of provider rendering services: other Location of patient: address on file Patient Identification confirmed using: Name, : Yes Telehealth method: voice only Patient verbally consented to treatment: Yes Patient verbally consented to billing insurance company: Yes Patient informed of any privacy concerns related to visit: Yes Minutes spent on Phone/Video with Pt.: 15 Assessment & Plan Assessment & Plan (1) Morbid obesity: Code(s): E66.01 - Morbid (severe) obesity due to excess calories Category: Medical (2) GERD (gastroesophageal reflux disease): Code(s): K21.9 - Gastro-esophageal reflux disease without esophagitis Category: Medical (3) AGUSTÍN (obstructive sleep apnea): Code(s): G47.33 - Obstructive sleep apnea (adult) (pediatric) Category: Medical Plan Pt has lost weight since last OV, reports getting enough protein and has increased her exercise. Still needs BH clearance- will arrange appt with Zuleyka before next visit with me. RTC with me in 1 month. Patient is morbidly obese and is not considered stable at this time. I spent a total of 30 minutes reviewing/updating records, examining the patient and counseling the patient on weight management as detailed above.
[2024-02-23 12:37] VITALS: BMI 50.8
== END 2024-02-23 13:01 | disposition home or self-care (01) ==
LOC: HO.HBS 12:41
PROVIDERS: PCP Family Medicine; Visit Provider Physician Assistant Surgical
DX: E66.01 Morbid (severe) obesity due to excess calories (principal); K21.9 Gastro-esophageal reflux disease without esophagitis; G47.33 Obstructive sleep apnea (adult) (pediatric)
CPT/HCPCS: 99214

== ENCOUNTER → 2024-02-23 12:41 | Outpatient (BNVA) | payer MEDICAID, SELFPAY | PROVIDERS: PCP Family Medicine; Visit Provider Physician Assistant Surgical ==

== ENCOUNTER 2024-02-24 13:14 | Outpatient (REF) | payer MEDICAID, SELFPAY ==
[2024-02-24 18:42] LABS: CT PCR NOT DETECTED (Not Detect.); NG PCR NOT DETECTED (Not Detect.)
== END 2024-02-24 13:15 | disposition home or self-care (01) ==
LOC: HO.HHCL 13:14
PROVIDERS: Visit Provider Family Medicine
DX: Z11.3 Encounter for screening for infections with a predominantly sexual mode of transmission (principal)
CPT/HCPCS: 0353U

== ENCOUNTER 2024-02-25 11:08 | Outpatient (REF) | payer MEDICAID, SELFPAY ==
[2024-02-25 11:48] LABS: MANUAL DIFF FLAG NO
[2024-02-25 12:55] LABS: Basophils Absolute Auto 0.1 X10*3/uL (0.0-0.2); Basophils Percent Auto 0.7 % (0-2); Eosinophils Absolute Auto 0.1 X10*3/uL (0.0-0.4); Eosinophils Percent Auto 0.7 % (0-4); Hemoglobin 13.9 g/dl (12.0-16.0); Imm Gran Abs Auto 0.07 X10*3/uL (0.00-0.03); Imm Gran Pct Auto 0.8 % (0.0-0.4); Lymphocytes Absolute Auto 2.6 X10*3/uL (1.2-4.9); Lymphocytes Percent Auto 29.8 % (20-40); Mean Corpuscular HGB Conc 32.3 g/dl (31.0-35.0); Mean Corpuscular Hemoglobin 29.2 pg (27.0-33.0); Mean Corpuscular Volume 90.3 fL (80.0-98.0); Mean Platelet Volume 10.9 fL (9.4-12.3); Monocytes Absolute Auto 0.4 X10*3/uL (0.1-1.2); Monocytes Percent Auto 4.2 % (2-11); Neutrophils Absolute Auto 5.5 x10*3/uL (2.0-8.3); Neutrophils Percent Auto 63.8 % (45-73); Platelet Count 300 X10*3/uL (160-400); Red Blood Count 4.76 X10*6/uL (4.20-5.50); Red Cell Distribution Width 13.7 % (11.0-16.0); White Blood Count 8.6 X10*3/uL (4.8-10.8)
[2024-02-25 12:59] LABS: Estimated Average Glucose 117 mg/dL; Hemoglobin A1c % 5.7 % (<6.0)
[2024-02-25 13:34] LABS: Alanine Aminotransferase 26 U/L (0-31); Albumin Level 4.1 g/dL (3.5-5.0); Alkaline Phosphatase 67 U/L (39-117); Anion Gap 14 (12-20); Aspartate Amino Transferase 26 U/L (5-31); Bilirubin Total 0.4 mg/dL (0.0-1.0); Blood Urea Nitrogen 7 mg/dL (9-16); Calcium 9.5 mg/dL (8.4-10.2); Carbon Dioxide 23 mmol/L (22-29); Chloride 108 mmol/L (96-108); Cholesterol 129 mg/dL (<200); Estimated Glomerular Filt Rate > 60; Glucose Random 123 mg/dL (60-115); HDL Cholesterol 33 mg/dL (>40); Iron 64 mcg/dL (30-160); LDL Cholesterol Calculated 64 mg/dL (<100); Percent Iron Saturation 24 % (15-50); Potassium 3.5 mmol/L (3.3-5.1); Sodium 141 mmol/L (135-145); Total Iron Binding Capacity 272 mcg/dL (228-428); Total Protein 7.6 g/dL (6.5-8.0); Triglycerides 160 mg/dL (<150); Unsaturated Iron Binding 208 ug/dL
[2024-02-25 13:51] LABS: Ferritin 24 ng/mL (10-122)
[2024-02-25 13:59] LABS: Folate 10.3 ng/mL (> or = 4.0); Vitamin B12 357 pg/mL (200-900)
[2024-02-25 14:48] LABS: Reflex LDLD? No
[2024-02-26 10:30] LABS: Syphilis Screen Reactive (Nonreactive)
[2024-02-26 10:36] LABS: HBS Num1 0.87 mIU/mL (0-7.99); HBc Num1 0.11 S/CO (0.00-0.79); HBsAGNum1 0.25 S/CO (0.00-0.99); HIV AB/AG Nonreactive (Nonreactive); HIV Num 1 0.05 S/CO (0.00-0.99); Hepatitis B Core Antibody Nonreactive (Nonreactive); Hepatitis B Surface Antigen Negative (Negative); ~HepC Num1 0.19 S/CO (0.00-0.79); ~Hepatitis B Surface Antibody NONREACTIVE (Nonreactive); ~Hepatitis C Antibody Nonreactive (Nonreactive)
[2024-02-26 10:39] LABS: HBS Num1 0.83 mIU/mL (0-7.99); ~Hepatitis B Surface Antibody NONREACTIVE (Nonreactive)
[2024-02-26 10:49] LABS: Hepatitis A Antibody IgG REACTIVE (Nonreactive); ~Hepatitis A Antibody IgG 11.03 S/CO (0.00-0.99)
[2024-02-26 10:50] LABS: HBc Num1 0.11 S/CO (0.00-0.79); Hepatitis B Core Antibody Nonreactive (Nonreactive)
[2024-03-03 11:50] LABS: RPR Quantitative Reactive 1:1 (Nonreactive); T.Pallidum Particle Agg Test Reactive (Nonreactive)
== END 2024-02-25 11:09 | disposition home or self-care (01) ==
LOC: HO.LAB 11:08
PROVIDERS: PCP Family Medicine; Visit Provider Family Medicine
DX: R03.0 Elevated blood-pressure reading, without diagnosis of hypertension (principal); Z86.2 Personal history of diseases of the blood and blood-forming organs and certain disorders involving the immune mechanism; Z11.3 Encounter for screening for infections with a predominantly sexual mode of transmission; R73.9 Hyperglycemia, unspecified; Z01.84 Encounter for antibody response examination
CPT/HCPCS: 36415; 80053; 80061; 82607; 82728; 82746; 83036; 83540; 85025; 86592; 86704; 86706; 86708; 86780; 86803; 87389

== ENCOUNTER 2024-04-01 20:25 | Emergency (ER) | payer MEDICAID, SELFPAY ==
[2024-04-01 20:32] VITALS: BP 116/72; BP 147/94; PULSE 87; PULSE 92; RESP 16; TEMP 37.2; O2SAT 99; BMI 52.4
[2024-04-01 20:58] LABS: Basophils Absolute Auto 0.1 X10*3/uL (0.0-0.2); Basophils Percent Auto 0.7 % (0-2); Eosinophils Percent Auto 0.4 % (0-4); Hematocrit 39.5 % (37.0-47.0); Hemoglobin 13.2 g/dl (12.0-16.0); Imm Gran Abs Auto 0.02 X10*3/uL (0.00-0.03); Imm Gran Pct Auto 0.2 % (0.0-0.4); Lymphocytes Absolute Auto 2.4 X10*3/uL (1.2-4.9); Lymphocytes Percent Auto 26.6 % (20-40); MANUAL DIFF FLAG NO; Mean Corpuscular HGB Conc 33.4 g/dl (31.0-35.0); Mean Corpuscular Hemoglobin 29.3 pg (27.0-33.0); Mean Corpuscular Volume 87.8 fL (80.0-98.0); Mean Platelet Volume 10.1 fL (9.4-12.3); Monocytes Absolute Auto 0.5 X10*3/uL (0.1-1.2); Monocytes Percent Auto 5.1 % (2-11); Neutrophils Absolute Auto 6.1 x10*3/uL (2.0-8.3); Platelet Count 310 X10*3/uL (160-400); Red Cell Distribution Width 13.9 % (11.0-16.0); White Blood Count 9.1 X10*3/uL (4.8-10.8)
[2024-04-01 21:00] LABS: Appearance Urine Cloudy; Color Urine Yellow; Glucose Urine UA Negative (Negative); Leukocyte Esterase Urine Large (3+) (Negative); Nitrite Urine Negative (Negative); PH 6.5 (5.0-9.0); Specific Gravity - Urine <= 1.005 (1.005-1.025); UMIC TRIGGER UACC YES; Urine Blood Small (1+) (Negative); Urine Ketones Negative (Negative); Urine Protein Negative (Neg-Trace)
[2024-04-01 21:01] LABS: UPreg QC Valid YES; Urine Pregnancy NEGATIVE (NEGATIVE)
[2024-04-01 21:07] LABS: Bacteria Urine 1+ (None Seen); Hyaline Casts Urine 0-2 /LPF (0-2); RBC Urine 0-2 /HPF (0-2); UACC Culture Trigger YES; WBC Urine 21-50 /HPF (0-5)
[2024-04-01 21:11] LABS: Alanine Aminotransferase 19 U/L (0-31); Albumin Level 4.2 g/dL (3.5-5.0); Alkaline Phosphatase 61 U/L (39-117); Anion Gap 14 (12-20); Aspartate Amino Transferase 21 U/L (5-31); Bilirubin Total 0.2 mg/dL (0.0-1.0); Blood Urea Nitrogen 10 mg/dL (9-16); Calcium 9.8 mg/dL (8.4-10.2); Carbon Dioxide 24 mmol/L (22-29); Chloride 108 mmol/L (96-108); Creatinine Clr Calc Pharmacy 128.8; Estimated Glomerular Filt Rate > 60; Glucose Random 102 mg/dL (60-115); Potassium 3.4 mmol/L (3.3-5.1); Sodium 143 mmol/L (135-145); Total Protein 7.8 g/dL (6.5-8.0)
[2024-04-01] MEDS: Ondansetron ODT 4 MG TAB.RAPDIS TRANSLINGU (21:34)
--- NOTE | 2024-04-01 21:35 | ED.NAVMDI ---
HPI - Nausea/Vomiting/Diarrhea General Chief complaint: Nausea/Vomiting/Diarrhea Stated complaint: NAUSEA,LIGHT HEADED Time Seen by Provider: 04/01/24 21:06 Source: patient Mode of arrival: ambulatory History of Present Illness ED Provider: Dr Crawford HPI Narrative: This is a 23-year-old female who is on Wegovy for weight loss, states that she had some side effects over a week ago and then decided to go and take the shot again and felt dizzy and nauseous. She denies any facial/lip/tongue swelling and no difficulty breathing or swallowing and currently denies any issues of nausea stating that they have passed. She denies any fever, chills, vomiting or diarrhea. Related Data Home Medications ?Medication ?Instructions ?Recorded ?Confirmed omeprazole 20 mg capsule,delayed 20 mg PO DAILY 11/24/22 02/23/24 release Previous Rx's ?Medication ?Instructions ?Recorded ibuprofen 600 mg tablet 600 mg PO Q6H PRN pain #20 tabs 05/25/22 ferrous sulfate 220 mg (44 mg 220 mg (5 mL) PO BID #300 mL 06/18/22 iron)/5 mL oral elixir dicyclomine 20 mg tablet 20 mg PO QID PRN abdominal pain 12/29/22 #20 tabs acetaminophen 500 mg tablet 500 mg PO Q6H PRN fever or pain 05/10/23 (Tylenol Extra Strength) #14 tabs cyclobenzaprine 5 mg tablet 5 mg PO Q8H PRN pain (scale score 05/10/23 7-10) 5 days #14 tabs lidocaine 5 % topical patch 1 patch topical DAILY PRN pain #30 05/10/23 (Lidoderm) ea cholecalciferol (vitamin D3) 125 125 mcg PO DAILY #30 caps 07/10/23 mcg (5,000 unit) capsule mecobalamin (vitamin B12) 500 mcg 500 mcg PO .COMPLEX #30 tabs 07/10/23 chewable tablet cephalexin 500 mg tablet 500 mg PO Q6H 10 days #40 tabs 11/10/23 doxycycline hyclate 100 mg capsule 100 mg PO BID 10 days #20 caps 11/10/23 levofloxacin 750 mg tablet 750 mg PO DAILY #9 tabs 12/25/23 ofloxacin 0.3 % ear drops 10 drp otic (ears) DAILY 7 days #5 12/25/23 mL ondansetron 4 mg disintegrating 4 mg PO Q6-8H PRN nausea and 01/26/24 tablet vomiting #7 tabs Allergies Allergy/AdvReac Type Severity Reaction Status Date / Time No Known Allergies Allergy Verified 04/01/24 20:36 Review of Systems Review of Systems: Pertinent positives and negatives as stated in [facility] Past Medical History Source: nursing notes reviewed Medical History Chronic headaches GERD (gastroesophageal reflux disease) Back pain Morbid obesity COVID-19 Surgical History S/P tonsillectomy No pertinent past surgical history Family History Family History Paternal Grandfather No problems noted. Paternal Grandmother Hypertension Other Family history of nonleukemic lymphatic malignancy Social History Social History Household Members: Family Housing: Apartment Are you a primary geriatric care manager to a significant other at home: No Do you presently have visiting nurse or other home services: No Alcohol intake: never Patient Tobacco Use Status: Never used Tobacco Substance Use Type: Marijuana Advance Directives: No Advance Directives Information Provided: No service: No Current occupational status: employed Physical Exam Vital Signs: Vital Signs: Last Vital Signs Temp 98.9 F 04/01/24 20:32 Pulse 92 04/01/24 20:32 Resp 16 04/01/24 20:32 BP 147/94 H 04/01/24 20:32 Pulse Ox 99 04/01/24 20:32 O2 Del Method Room Air 04/01/24 20:32 BMI result Body Mass Index 52.4 VITAL SIGNS: Reviewed. GENERAL: Elevated BMI, Well developed, well nourished, in no acute distress. HEAD: Normocephalic/atraumatic EYES: PERRLA, EOMI LUNGS: Normal breath sounds. No adventitious sounds or accessory muscle use. SpO2<99> CARDIOVASCULAR: Regular rate and rhythm without noted murmurs ABDOMEN: Soft, non-tender, non-distended with bowel sounds. MUSCULOSKELETAL: No tenderness, deformities, or effusions noted on gross inspection. EXTREMITIES: No cyanosis, clubbing or edema. SKIN: Inspection of the skin reveals no rashes NEUROLOGIC: Alert and oriented x 4. Strength and sensation to light touch were grossly intact x 4. Medications Administered Discontinued Medications Generic Name Dose Route Start Last Admin Trade Name Jean Carlos PRN Reason Stop Dose Admin Ondansetron HCl 4 mg 04/01/24 21:09 04/01/24 21:34 Ondansetron Odt 4 Mg Tab.Roderickdis ELMERU 04/01/24 21:10 4 mg ONCE ONE Administration Medical Decision Making Medical Decision Making [facility] Narrative: 23-year-old female with history and clinical presentation most consistent with known semaglutide side effects. No evidence of angioedema or anaphylaxis, patient is otherwise hemodynamically stable and at this time all symptoms have resolved. I reviewed all investigations and hematologic indices are negative for leukocytosis/anemia/thrombocytopenia. Chemistries indices are negative for RASHMI/electrolyte or liver enzyme derangements. Urinalysis is chronically stable with leukocyte esterase/WBCs and contaminated sample, patient has no complaints of urinary symptoms and urine is negative. My interpretation is that patient is experiencing symptoms associated with the medication that she is on, she received 0.4 mg of ODT Zofran, she was encouraged to follow-up with the primary care doctor and discuss completely stopping medication. Differential Diagnosis Differential Diagnoses: The differential diagnosis associated with the presentation includes Please see the discussion above Admission/Observation Consideration of admission/observation: Escalation of care including admission/observation considered Please see the discussion above Lab Data [facility] Lab Attestation statement: I reviewed the patient's lab results. Please see the discussion above 04/01/24 20:50 04/01/24 20:50 Labs: Lab Results 04/01/24 04/01/24 Range/Units 20:50 20:51 WBC 9.1 (4.8-10.8) X10*3/uL RBC 4.50 (4.20-5.50) X10*6/uL Hgb 13.2 (12.0-16.0) g/dl Hct 39.5 (37.0-47.0) % MCV 87.8 (80.0-98.0) fL MCH 29.3 (27.0-33.0) pg MCHC 33.4 (31.0-35.0) g/dl RDW 13.9 (11.0-16.0) % Plt Count 310 (160-400) X10*3/uL MPV 10.1 (9.4-12.3) fL Immature Gran % (Auto) 0.2 (0.0-0.4) % Neut % (Auto) 67.0 (45-73) % Lymph % (Auto) 26.6 (20-40) % Mccracken % (Auto) 5.1 (2-11) % Eos % (Auto) 0.4 (0-4) % Baso % (Auto) 0.7 (0-2) % Lymph # (Auto) 2.4 (1.2-4.9) X10*3/uL Mccracken # (Auto) 0.5 (0.1-1.2) X10*3/uL Eos # (Auto) 0.0 (0.0-0.4) X10*3/uL Baso # (Auto) 0.1 (0.0-0.2) X10*3/uL Abs Immat Gran (auto) 0.02 (0.00-0.03) X10*3/uL Absolute Neuts (auto) 6.1 (2.0-8.3) x10*3/uL Absolute Nucleated RBC 0.000 (0.0-0.012) X10*3/uL Nucleated RBC % (auto) 0.0 (0.0-0.2) /100WBC Sodium 143 (135-145) mmol/L Potassium 3.4 (3.3-5.1) mmol/L Chloride 108 (96-108) mmol/L Carbon Dioxide 24 (22-29) mmol/L Anion Gap 14 (12-20) BUN 10 (9-16) mg/dL Creatinine 0.88 (0.5-1.4) mg/dL Estim Creat Clear Calc 128.8 Estimated GFR > 60 Random Glucose 102 (60-115) mg/dL Calcium 9.8 (8.4-10.2) mg/dL Total Bilirubin 0.2 (0.0-1.0) mg/dL AST 21 (5-31) U/L ALT 19 (0-31) U/L Alkaline Phosphatase 61 (39-117) U/L Total Protein 7.8 (6.5-8.0) g/dL Albumin 4.2 (3.5-5.0) g/dL Urine Color Yellow Urine Appearance Cloudy Urine pH 6.5 (5.0-9.0) Ur Specific [place] <= 1.005 (1.005-1.025) Urine Protein Negative (Neg-Trace) mg/dL Urine Glucose (UA) Negative (Negative) mg/dL Urine Ketones Negative (Negative) mg/dL Urine Blood Small (1+) H (Negative) Urine Nitrite Negative (Negative) Ur Leukocyte Esterase Large (3+) H (Negative) Urine RBC 0-2 (0-2) /HPF Urine WBC 21-50 H (0-5) /HPF Ur Squamous Epith Cells 11-20 (0-2) /HPF Urine Bacteria 1+ (None Seen) Hyaline Casts 0-2 (0-2) /LPF Urine Test NEGATIVE (NEGATIVE) External Record Review External record reviewed: Outpatient record and Prior outpatient labs Critical Care Time Critical Care Time Critical Care Time: Yes Total Critical Care Time: 30 Attestation: I personally attest to this time spent taking care of the patient. Discharge Plan Discharge Clinical Impression: Nausea, Dizziness, Medication side effect Instructions: Lightheadedness (ED) Additional Instructions: Please have an open discussion with the provider who prescribes the weight loss medication until that time would recommend that you no longer proceed with injections. Prescriptions: No Action cholecalciferol (vitamin D3) 125 mcg (5,000 unit) capsule 125 mcg PO DAILY Qty: 30 2RF mecobalamin (vitamin B12) 500 mcg tablet,chewable 500 mcg PO .COMPLEX Qty: 30 2RF Rx Instructions: 500 mcg orally once per day; ferrous sulfate 220 mg (44 mg iron)/5 mL Elixir 220 mg PO BID Qty: 300 4RF ibuprofen 600 mg tablet 600 mg PO Q6H PRN (Reason: pain) Qty: 20 0RF dicyclomine 20 mg tablet 20 mg PO QID PRN (Reason: abdominal pain) Qty: 20 0RF doxycycline hyclate 100 mg capsule 100 mg PO BID 10 Days Qty: 20 0RF cephalexin 500 mg tablet 500 mg PO Q6H 10 Days Qty: 40 0RF levofloxacin 750 mg tablet 750 mg PO DAILY Qty: 9 0RF ofloxacin 0.3 % drops 10 drp otic (ears) DAILY 7 Days Qty: 5 0RF acetaminophen [Tylenol Extra Strength] 500 mg tablet 500 mg PO Q6H PRN (Reason: fever or pain) Qty: 14 0RF lidocaine [Lidoderm] 5 % adhesive patch,medicated 1 patch topical DAILY MDD remove after 12 hours PRN (Reason: pain) Qty: 30 0RF Rx Instructions: leave on most painful area for up to 12 hrs cyclobenzaprine 5 mg tablet 5 mg PO Q8H PRN (Reason: pain (scale score 7-10)) 5 Days Qty: 14 0RF ondansetron 4 mg tablet,disintegrating 4 mg PO Q6-8H PRN (Reason: nausea and vomiting) Qty: 7 0RF omeprazole 20 mg capsule,delayed release(DR/EC) 20 mg PO DAILY Referrals: Antoinette Mejia MD [Primary Care Provider] - Print Language: Tajik
[2024-04-01 21:59] VITALS: BP 147/94; PULSE 92; RESP 16; TEMP 37.2; O2SAT 99
--- OUTSIDE RECORDS SUMMARY | 2024-04-06 07:13 | XMS_ITS | Continuity of Care Document ---
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 Problem Ongoing Yes . Nursing Data Vital Signs : VITAL SIGNS SECTION 10/21/2022 22:57 EST Temperature 99.3 DegF Temperature Route Oral Pulse Rate 71 bpm Respiratory Rate 18 br/min Systolic Blood Pressure 114 mm Hg Diastolic Blood Pressure 72 mm Hg Blood pressure sites Arm, right Pulse Pressure 42 mm Hg Oxygen Saturation 100 % Mode of Delivery (Oxygen) Room air 10/21/2022 20:40 EST Pulse Rate 92 bpm H 10/21/2022 19:57 EST Temperature 97.3 DegF Temperature Route Oral Pulse Rate 120 bpm H Respiratory Rate 18 br/min Systolic Blood Pressure 143 mm Hg H Diastolic Blood Pressure 75 mm Hg Blood pressure sites Arm, right Pulse Pressure 68 mm Hg Oxygen Saturation 100 % Mode of Delivery (Oxygen) Room air . Narrative/Incidental Pt is alert and oriented x4. Pain 10/10, treated with scheduled tylenol and prn oxycodone. Denies dizziness, numbness, and tingling. Positive color/movement/sensation. No edema present. Lungs are clear to auscultation, denies shortness of breath. On continuous O2, satting in the high 90's. Hypoactive bowel sounds. Abdomen soft, round, and nontender. Positive belching, denies nausea and vomiting. Pt is voiding and ambulates independently. Skin is intact. Call hunt is within reach and bed set to the lowest position. . Patient Care team information Care Team Personnel Name: Cullen Seth RN Position: [facility] RN Member Role: Primary Care Nurse Name: Antoinette Mejia MD Position: [facility] Outreach Member Role: PCP Address: Address: [address] [place] [address]- Care Team Related Persons Name: KATIE DHALIWAL Address: home [address] [address] Name: CRISTOBAL DHALIWAL
== END 2024-04-01 22:07 | disposition home or self-care (01) ==
PROVIDERS: Emergency Provider Student in an Organized Health Care Education/Training Program; PCP Family Medicine
DX: R42 Dizziness and giddiness (principal); R11.0 Nausea; T50.995A Adverse effect of other drugs, medicaments and biological substances, initial encounter; Y92.9 Unspecified place or not applicable
CPT/HCPCS: 36415; 80053; 81001; 81025; 85025; 87086; 99282; 99283

== ENCOUNTER 2024-04-07 13:42 | Outpatient (REF) | payer MEDICAID, SELFPAY | END 2024-04-07 13:43 | disposition home or self-care (01) | LOC: HO.HHCLNP 13:42 | PROVIDERS: Visit Provider Registered Nurse | DX: R39.9 Unspecified symptoms and signs involving the genitourinary system (principal) | CPT/HCPCS: 87086 ==

== ENCOUNTER 2024-06-08 18:40 | Outpatient (REF) | payer MEDICAID, SELFPAY ==
[2024-06-09 13:43] LABS: Bacterial Vaginosis PCR POSITIVE (Negative); Candida Group PCR NOT DETECTED (Not Detect); Candida glab krusei PCR NOT DETECTED (Not Detect); Trichomonas vaginalis PCR NOT DETECTED (Not Detect)
== END 2024-06-08 18:41 | disposition home or self-care (01) ==
LOC: HO.HHCLNP 18:40
PROVIDERS: Visit Provider Emergency Medicine
DX: N92.0 Excessive and frequent menstruation with regular cycle (principal)
CPT/HCPCS: 0352U

== ENCOUNTER 2024-06-15 16:06 | Outpatient (REF) | payer MEDICAID, SELFPAY ==
[2024-06-15 17:48] LABS: MANUAL DIFF FLAG NO
[2024-06-15 18:03] LABS: Basophils Absolute Auto 0.1 X10*3/uL (0.0-0.2); Basophils Percent Auto 0.6 % (0-2); Eosinophils Percent Auto 0.2 % (0-4); Hematocrit 41.6 % (37.0-47.0); Hemoglobin 13.5 g/dl (12.0-16.0); Imm Gran Abs Auto 0.04 X10*3/uL (0.00-0.03); Imm Gran Pct Auto 0.4 % (0.0-0.4); Lymphocytes Absolute Auto 2.7 X10*3/uL (1.2-4.9); Lymphocytes Percent Auto 25.1 % (20-40); Mean Corpuscular HGB Conc 32.5 g/dl (31.0-35.0); Mean Corpuscular Hemoglobin 28.2 pg (27.0-33.0); Mean Corpuscular Volume 86.8 fL (80.0-98.0); Mean Platelet Volume 10.4 fL (9.4-12.3); Monocytes Absolute Auto 0.6 X10*3/uL (0.1-1.2); Monocytes Percent Auto 5.8 % (2-11); Neutrophils Absolute Auto 7.3 x10*3/uL (2.0-8.3); Neutrophils Percent Auto 67.9 % (45-73); Platelet Count 347 X10*3/uL (160-400); Red Blood Count 4.79 X10*6/uL (4.20-5.50); White Blood Count 10.8 X10*3/uL (4.8-10.8)
[2024-06-15 18:27] LABS: Alanine Aminotransferase 19 U/L (0-31); Albumin Level 4.3 g/dL (3.5-5.0); Alkaline Phosphatase 54 U/L (39-117); Anion Gap 13 (12-20); Aspartate Amino Transferase 20 U/L (5-31); Bilirubin Total 0.3 mg/dL (0.0-1.0); Blood Urea Nitrogen 11 mg/dL (9-16); Calcium 9.7 mg/dL (8.4-10.2); Carbon Dioxide 25 mmol/L (22-29); Chloride 108 mmol/L (96-108); Estimated Glomerular Filt Rate > 60; Glucose Random 93 mg/dL (60-115); Potassium 3.7 mmol/L (3.3-5.1); Sodium 142 mmol/L (135-145); Total Protein 7.6 g/dL (6.5-8.0)
[2024-06-15 18:44] LABS: Ferritin 20 ng/mL (10-122)
== END 2024-06-15 16:07 | disposition home or self-care (01) ==
LOC: HO.HHCL 16:06
PROVIDERS: Visit Provider Internal Medicine Medical Oncology
DX: D50.9 Iron deficiency anemia, unspecified (principal); R30.0 Dysuria
CPT/HCPCS: 36415; 80053; 82728; 85025; 87086

== ENCOUNTER 2024-06-19 15:19 | Outpatient (REF) | payer MEDICAID, SELFPAY ==
[2024-06-20 04:23] LABS: HBsAGNum1 0.25 S/CO (0.00-0.99); Hepatitis B Surface Antigen Negative (Negative); ~HepC Num1 0.23 S/CO (0.00-0.79); ~Hepatitis C Antibody Nonreactive (Nonreactive)
[2024-06-20 04:51] LABS: HIV AB/AG Nonreactive (Nonreactive); HIV Num 1 0.04 S/CO (0.00-0.99)
[2024-06-20 05:46] LABS: CT PCR NOT DETECTED (Not Detect.); NG PCR NOT DETECTED (Not Detect.)
[2024-06-20 17:33] LABS: RPR Rapid Plasma Reagin REACTIVE (NON-REACTIVE)
== END 2024-06-19 15:20 | disposition home or self-care (01) ==
LOC: HO.HHCL 15:19
PROVIDERS: Visit Provider Family Medicine
DX: Z86.19 Personal history of other infectious and parasitic diseases (principal)
CPT/HCPCS: 36415; 86592; 86593; 86803; 87340; 87389; 87491; 87591

== ENCOUNTER 2024-07-26 17:59 | Outpatient (REF) | payer MEDICAID, SELFPAY ==
[2024-07-27 11:34] LABS: Bacterial Vaginosis PCR POSITIVE (Negative); Candida Group PCR NOT DETECTED (Not Detect); Candida glab krusei PCR NOT DETECTED (Not Detect); Trichomonas vaginalis PCR NOT DETECTED (Not Detect)
== END 2024-07-26 18:00 | disposition home or self-care (01) ==
LOC: HO.LNP 17:59
PROVIDERS: Visit Provider Advanced Practice Midwife
DX: N93.9 Abnormal uterine and vaginal bleeding, unspecified (principal)
CPT/HCPCS: 0352U

== ENCOUNTER 2024-08-08 14:49 | Outpatient (REF) | payer MEDICAID, SELFPAY ==
[2024-08-08 17:13] LABS: Estimated Average Glucose 108 mg/dL; Hemoglobin A1C 121.7657 umol/L; Hemoglobin A1c % 5.4 % (<6.0); Total Hemoglobin (HGBA1C) 3431.2594 umol/L
[2024-08-08 17:27] LABS: TSH reflex Free T4 1.18 uIU/mL (0.32-4.0)
== END 2024-08-08 14:50 | disposition home or self-care (01) ==
LOC: HO.HHCL 14:49
PROVIDERS: Visit Provider Family Medicine
DX: R73.03 Prediabetes (principal); L65.9 Nonscarring hair loss, unspecified
CPT/HCPCS: 36415; 83036; 84443

== ENCOUNTER → 2024-09-18 12:00 | Outpatient (BNVA) | payer OTHER, MEDICAID, SELFPAY | PROVIDERS: PCP Family Medicine; Visit Provider Counselor Mental Health ==

== ENCOUNTER → 2024-09-18 12:00 | Outpatient (AMB) | payer OTHER, SELFPAY ==
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
== END ==
PROVIDERS: PCP Family Medicine; Visit Provider Counselor Mental Health
DX: F41.9 Anxiety disorder, unspecified (principal); F43.21 Adjustment disorder with depressed mood
CPT/HCPCS: 90834

== ENCOUNTER 2024-10-23 15:58 | Outpatient (REF) | payer OTHER, SELFPAY ==
[2024-10-24 04:56] LABS: HIV AB/AG Nonreactive (Nonreactive); HIV Num 1 0.06 S/CO (0.00-0.99); ~Hepatitis C Antibody Nonreactive (Nonreactive)
[2024-10-24 05:56] LABS: CT PCR NOT DETECTED (Not Detect.); NG PCR NOT DETECTED (Not Detect.)
[2024-10-24 13:07] LABS: Bacterial Vaginosis PCR POSITIVE (Negative); Candida Group PCR NOT DETECTED (Not Detect); Candida glab krusei PCR NOT DETECTED (Not Detect); Trichomonas vaginalis PCR NOT DETECTED (Not Detect)
[2024-10-25 17:29] LABS: RPR Rapid Plasma Reagin NON-REACTIVE (NON-REACTIVE)
== END 2024-10-23 15:59 | disposition home or self-care (01) ==
LOC: HO.HHCL 15:58
PROVIDERS: Visit Provider Internal Medicine
DX: N89.8 Other specified noninflammatory disorders of vagina (principal); R30.0 Dysuria; R82.79 Other abnormal findings on microbiological examination of urine
CPT/HCPCS: 36415; 81515; 86592; 86803; 87086; 87186; 87389; 87491; 87591

== ENCOUNTER 2024-12-06 20:17 | Emergency (ER) | payer MEDICAID, SELFPAY ==
--- NOTE | ~2024-12-06 | XR_ITS ---
CLINICAL HISTORY: pain 2 view chest x-ray Comparison: DX/SR - XR CHEST 2V - 06/22/23 10:29 EDT Findings: No consolidation or effusion. Heart size is normal. No acute fracture. IMPRESSION: 1. No acute findings. This document has been electronically signed by: Thomas Aguilar MD on 12/06/2024 21:00:27
--- NOTE | 2024-12-06 20:18 | ECG_ITS ---
Test Reason : CHEST PAIN Blood Pressure : */* mmHG Vent. Rate : 89 BPM Atrial Rate : 89 BPM P-R Int : 132 ms QRS Dur : 72 ms QT Int : 362 ms P-R-T Axes : 74 52 48 degrees QTcB Int : 440 ms Normal sinus rhythm Normal ECG No previous ECGs available Referred By: Neo Soliman Electronically Signed By: Chano Nichols
[2024-12-06 20:32] VITALS: BP 118/73; PULSE 79; RESP 18; TEMP 36.3; O2SAT 99; BMI 47.7
--- NOTE | 2024-12-06 20:33 | ED_ITS ---
HPI - General Adult General Chief complaint: Chest Pain Stated complaint: chest pain Related Data Home Medications ?Medication ?Instructions ?Recorded ?Confirmed omeprazole 20 mg capsule,delayed 20 mg PO DAILY 11/24/22 02/23/24 release Previous Rx's ?Medication ?Instructions ?Recorded ibuprofen 600 mg tablet 600 mg PO Q6H PRN pain #20 tabs 05/25/22 ferrous sulfate 220 mg (44 mg 220 mg (5 mL) PO BID #300 mL 06/18/22 iron)/5 mL oral elixir dicyclomine 20 mg tablet 20 mg PO QID PRN abdominal pain 12/29/22 #20 tabs acetaminophen 500 mg tablet 500 mg PO Q6H PRN fever or pain 05/10/23 (Tylenol Extra Strength) #14 tabs cyclobenzaprine 5 mg tablet 5 mg PO Q8H PRN pain (scale score 05/10/23 7-10) 5 days #14 tabs lidocaine 5 % topical patch 1 patch topical DAILY PRN pain #30 05/10/23 (Lidoderm) ea cholecalciferol (vitamin D3) 125 125 mcg PO DAILY #30 caps 07/10/23 mcg (5,000 unit) capsule mecobalamin (vitamin B12) 500 mcg 500 mcg PO .COMPLEX #30 tabs 07/10/23 chewable tablet cephalexin 500 mg tablet 500 mg PO Q6H 10 days #40 tabs 11/10/23 doxycycline hyclate 100 mg capsule 100 mg PO BID 10 days #20 caps 11/10/23 levofloxacin 750 mg tablet 750 mg PO DAILY #9 tabs 12/25/23 ofloxacin 0.3 % ear drops 10 drp otic (ears) DAILY 7 days #5 12/25/23 mL ondansetron 4 mg disintegrating 4 mg PO Q6-8H PRN nausea and 01/26/24 tablet vomiting #7 tabs Allergies Allergy/AdvReac Type Severity Reaction Status Date / Time No Known Allergies Allergy Verified 12/06/24 20:33 [facility] Past Medical History Medical History Chronic headaches GERD (gastroesophageal reflux disease) Back pain Morbid obesity COVID-19 Surgical History S/P tonsillectomy No pertinent past surgical history Family History Family History Paternal Grandfather No problems noted. Paternal Grandmother Hypertension Other Family history of nonleukemic lymphatic malignancy Social History Social History Household Members: Family Housing: Apartment Are you a primary medicare sales executive to a significant other at home: No Do you presently have visiting nurse or other home services: No Alcohol intake: never Patient Tobacco Use Status: Never used Tobacco Substance Use Type: Marijuana Advance Directives: No Advance Directives Information Provided: No Do you have a plan to hurt others: No Plan service: No Current occupational status: employed Physical Exam ED Vital Signs: BMI result Body Mass Index 47.7 Course Course Course Narrative: RME, this is a rapid medical exam performed by Victor Hugo Soliman please refer to primary provider for complete H&P- 24-year-old female presents for evaluation of chest pain that started a few hours ago. Plan for EKG, labs. She was well- appearing. Medical Decision Making Lab Data Labs: Lab Results 12/06/24 Range/Units 21:45 Influenza Type A (PCR) NEGATIVE (Negative) Influenza Type B (PCR) NEGATIVE (Negative) RSV RNA Qual (PCR) NEGATIVE (Negative) SARS-CoV-2 RNA (RT-PCR) NEGATIVE (Negative) Discharge Plan Discharge Clinical Impression: Chest pain Patient Disposition: Left W/O Completing Treatment Prescriptions: No Action cholecalciferol (vitamin D3) 125 mcg (5,000 unit) capsule 125 mcg PO DAILY Qty: 30 2RF mecobalamin (vitamin B12) 500 mcg tablet,chewable 500 mcg PO .COMPLEX Qty: 30 2RF Rx Instructions: 500 mcg orally once per day; ferrous sulfate 220 mg (44 mg iron)/5 mL Elixir 220 mg PO BID Qty: 300 4RF ibuprofen 600 mg tablet 600 mg PO Q6H PRN (Reason: pain) Qty: 20 0RF dicyclomine 20 mg tablet 20 mg PO QID PRN (Reason: abdominal pain) Qty: 20 0RF doxycycline hyclate 100 mg capsule 100 mg PO BID 10 Days Qty: 20 0RF cephalexin 500 mg tablet 500 mg PO Q6H 10 Days Qty: 40 0RF levofloxacin 750 mg tablet 750 mg PO DAILY Qty: 9 0RF ofloxacin 0.3 % drops 10 drp otic (ears) DAILY 7 Days Qty: 5 0RF acetaminophen [Tylenol Extra Strength] 500 mg tablet 500 mg PO Q6H PRN (Reason: fever or pain) Qty: 14 0RF lidocaine [Lidoderm] 5 % adhesive patch,medicated 1 patch topical DAILY MDD remove after 12 hours PRN (Reason: pain) Qty: 30 0RF Rx Instructions: leave on most painful area for up to 12 hrs cyclobenzaprine 5 mg tablet 5 mg PO Q8H PRN (Reason: pain (scale score 7-10)) 5 Days Qty: 14 0RF ondansetron 4 mg tablet,disintegrating 4 mg PO Q6-8H PRN (Reason: nausea and vomiting) Qty: 7 0RF omeprazole 20 mg capsule,delayed release(DR/EC) 20 mg PO DAILY Discharge Date/Time: 12/06/24 23:55
--- NOTE | 2024-12-06 21:50 | MHC.EDTECH ---
Patient difficult drawn ,myself and another tech tried to drawn Patient with no success ,frame assembler Jess aware .
--- NOTE | 2024-12-06 21:52 | MHC.EDTECH ---
T/W was asked to help with labs by triage Tech Tin , multiple attempts, was unable to get labs,pt is a difficult stick, charge aide made aware
[2024-12-06 22:34] LABS: Influenza A PCR NEGATIVE (Negative); Influenza B PCR NEGATIVE (Negative); Resp Syncy Virus RNA Qual PCR NEGATIVE (Negative); SARS COV2 PCR INHOUSE NEGATIVE (Negative)
== END 2024-12-06 23:55 | disposition left against medical advice (07) ==
PROVIDERS: Physician Assistant; Emergency Provider Emergency Medicine; PCP Family Medicine
DX: R07.9 Chest pain, unspecified (principal); F12.90 Cannabis use, unspecified, uncomplicated; Z03.818 Encounter for observation for suspected exposure to other biological agents ruled out
CPT/HCPCS: 0241U; 71046; 93005; 99283

== ENCOUNTER → 2024-12-06 20:18 | Outpatient (BNV) | payer MEDICAID, SELFPAY | PROVIDERS: Emergency Provider Emergency Medicine; PCP Family Medicine; Visit Provider Internal Medicine Cardiovascular Disease | DX: R07.9 Chest pain, unspecified (principal) | CPT/HCPCS: 93010 ==

== ENCOUNTER → 2024-12-06 20:33 | Outpatient (BNV) | payer MEDICAID, SELFPAY | PROVIDERS: PCP Family Medicine; Visit Provider Radiology Diagnostic Radiology | DX: R07.9 Chest pain, unspecified (principal) | CPT/HCPCS: 71046 ==

== ENCOUNTER 2025-01-09 | Outpatient (REF) | payer MEDICAID, SELFPAY ==
--- OUTSIDE RECORDS SUMMARY | 2025-01-10 18:01 | XMS_ITS | Encounter Summary ---
Author Organization [employer] Address [address] [place] [address] Care Team Providers Care Health Practice Manager Name Role Phone Antoinette Mejia MD Primary Care Provider [phone] Reason for Visit * Reason Comments Dental Pain Encounter Details Date Type Department Care Team ([facility] st Contact Info) Description 01/08/2025 3:00 PM EDT Office Visit [facility] ADULT DENTAL [address] [place] [address] Karl Ruiz, DMD [address] [place] [address] Social History Tobacco Use Types Packs/Day Years Used Date Smoking Tobacco: Never Passive Smoke Exposure: Never Smokeless Tobacco: Never Alcohol Use Standard Drinks/Week Comments Never 0 (1 standard drink = 0.6 oz pur e alcohol) Alcohol Answer Date Recorded Frequency of Alcohol Consumption Not on file 08/08/2024 Average Number of Drinks Not on file 024 Frequency of Binge Drinking Not on file 07/12 Score 0 08/08/2024 Depression Answer Date Recorded Patient Health Questionnaire-9 Score 11 08/08/2024 Patient Health Questionnaire-9 Score 11 08/08/2024 Last PHQ-9: Questionnaire Data Not on file 1 Housing Stability Answer Date Recorded What is your housing situation today? I have mari chen 02/24/[address] you li ve. Do you have problems with any of the following? None of the above 02/24/2024 Food Insecurity Answer Date Recorded Within the past 12 months, y ou worried that your food would run out before you got money to buy more: Never True 02/24/2024 Within the past 12 months,th e food you bought just didn't last and you didn't have enough money to get more: Never True Transportation Answer Date Recorded In the past 12 months, has l ack of transportation kept you from medical appts, meetings, work or from getting things needed for daily living? No 02/24/2024 Utilities Answer Date Recorded In the past 12 months, has t he electric, gas, oil or water company threatened to shut off services in your home? No 02/24/2024 Depression Answer Date Recorded Patient Health Questionnaire-2 Score 1 08/08/2024 Comments No Sex and Gender Information Value Date Recorded Sex Assigned at Female 08/10/2022 10:18 AM EDT Legal Sex Female 10:18 AM EDT Gender Identity Female 08/10/2022 10:18 AM EDT Sexual Orientation Choose not to disclose 2021 10:18 AM EDT documented as of this encounter Last Filed Vital Signs Vital Sign Reading Time Taken Comments Blood Pressure 142/88 01/08/2025 2:21 PM EDT Pulse 84 01/08/2025 2:21 PM EDT Temperature - - Respiratory Rate - - Oxygen Saturation - - Inhaled Oxygen Concentration - - Weight - - Height - - Body Mass Index - - documented in this encounter Progress Notes * Karl Ruiz DMD - 01/08/2025 3:00 PM EDT C/C: toothache at LR molar. RCT#30 was started in Oct 2024 and has not completed yet I.O.E: sensitive to percussion of #30, temp filling #30 E.O.E: wnl Radiographic: in completed RCT#30 Dx: pulpitis #30 Tx: complete RCT#[address] Day Meds: Amoxill. 500mg x 21 tabs Tylenol 500mg x 15 tabs Peridex x 1 bottle Piyush documented in this encounter Plan of Treatment Upcoming Encounters Date Type Department Care Team (Late st Contact Info) Description 02/19/2025 1:15 PM EDT Procedure Visit [facility] MEDICINE [address] [place] [id number] [place], JAY [address] [place] [address] 03/20/2025 2:00 PM EDT Clinical Support [facility] [address] [place] [address] documented as of this encounter Procedures Procedure Name Priority Date/Time Associated Diagnosis Comments PALLIATIVE (EMERGENCY) TREATMENT OF DENTAL PAIN - MINOR PROCEDURE Routine 01/08/2025 3:00 PM EDT INTRAORAL - PERIAPICAL FIRST RADIOGRAPHIC IMAGE Routine 01/08/2025 3:00 PM EDT CASE PRESENTATION, DETAILED AND EXTENSIVE TREATMENT PLANNING Routine 01/08/2025 3:00 PM EDT documented in this encounter Visit Diagnoses Not on filedocumented in this encounter Additional Health Concerns Assessment Noted Time PHQ-9 Depression Total Score: 11 024 2:25 PM EDT documented as of this encounter Care Teams Health Practice Manager Relationship Specialty Start Date End Date Antoinette Mejia MD [address] [place] [id number] PCP - General Family Medicine 10/11/18 documented as of this encounter
--- OUTSIDE RECORDS SUMMARY | 2025-01-10 18:01 | XMS_ITS | Encounter Summary ---
Author Organization [employer] Address [address] [facility] [address] [place] [address] Care Team Providers Care Glue Bone Crusher Name Role Phone Antoinette Mejia MD Primary Care Provider [phone] Reason for Visit * Reason Onset Date Comments Med Refill 09/19/2023 Encounter Details Date Type Department Care Team (Late st Contact Info) Description 09/19/2023 Refill [facility] [address] [place] [address] Antoinette Mejia MD [address] [place] [address] Social History Tobacco Use Types Packs/Day Years Used Date Smoking Tobacco: Never Passive Smoke Exposure: Never Smokeless Tobacco: Never Alcohol Use Standard Drinks/Week Comments Never 0 (1 standard drink = 0.6 oz pur e alcohol) Depression Answer Date Recorded Patient Health Questionnaire-9 Score 4 02/04/2023 Housing Stability Answer Date Recorded What is your housing situation today? I have mari hcen 07/26/[address] you li ve. Do you have problems with any of the following? None of the above 07/26/2023 Food Insecurity Answer Date Recorded Within the past 12 months, y ou worried that your food would run out before you got money to buy more: Never True 07/26/2023 Within the past 12 months,th e food you bought just didn't last and you didn't have enough money to get more: Never True Transportation Answer Date Recorded In the past 12 months, has l ack of transportation kept you from medical appts, meetings, work or from getting things needed for daily living? No 07/26/2023 Utilities Answer Date Recorded In the past 12 months, has t he electric, gas, oil or water company threatened to shut off services in your home? No 07/26/2023 Depression Answer Date Recorded Patient Health Questionnaire-2 Score 0 02/04/2023 Comments No Sex and Gender Information Value Date Recorded Sex Assigned at Female 08/10/2022 10:18 AM EDT Legal Sex Female 10:18 AM EDT Gender Identity Female 08/10/2022 10:18 AM EDT Sexual Orientation Choose not to disclose 2021 10:18 AM EDT documented as of this encounter Miscellaneous Notes * Telephone Encounter - Lilly Evangelista RN - 09/20/2023 11:45 AM EST Images from the original note were not included. Triage call regarding Pt portal message below. Pt reports 3 days of vaginal itchiness. Pt has recently finished prescription for antibiotic and then these symptoms began. Pt denies odor, discharge. Only symptom is the itchiness. Pt reports being prescribed some metronadazole 08/05/23 and lost them . Pt is advised to come to [facility] which is open till 800pm tonight to be seen by provider and Pt agrees. Pt agrees with disposition. Protocol Used: Vaginal Symptoms (Adult) Protocol-Based Disposition: See in Office or Video Visit Today or Tomorrow Positive Triage Question: * Moderate-Severe itching (i.e., interferes with school, work, or sleep) * All higher-acuity triage questions were negative Care Advice Discussed: * Reasons To Call Back - Vaginal discharge becomes yellow or green - Vaginal discharge becomes foul smelling or itchy - Fever or abdomen pain occur - You become worse concern (Newest Message First) View All Conversations on this Encounter Leonel Mckeon routed conversation to [facility] Nurse 1 hour ago (10:13 AM) Leatha Colvin [facility] Clinical Support (supporting Toña Parish CNM) 10 hours ago (12:50 AM) i???m itchy down there i don???t know why and i drank all my antibiotics documented in this encounter Plan of Treatment Upcoming Encounters Date Type Department Care Team (Late st Contact Info) Description 02/19/2025 1:15 PM EDT Procedure Visit [facility] [address] [place] [address] Toña Parish CNM [address] [place] [address] 03/20/2025 2:00 PM EDT Clinical Support [facility] [address] [place] [address] documented as of this encounter Visit Diagnoses Not on filedocumented in this encounter Additional Health Concerns Assessment Noted Time PHQ-9 Depression Total Score: 4 02/05/20 23 9:05 AM EDT documented as of this encounter Care Teams Glue Bone Crusher Relationship Specialty Start Date End Date Antoinette Mejia MD [address] [place] [address] PCP - General Family Medicine 10/11/18 documented as of this encounter
--- OUTSIDE RECORDS SUMMARY | 2025-01-10 18:01 | XMS_ITS | Encounter Summary ---
Author Organization [employer] Address [address] [facility] [address] [place] [address] Care Team Providers Care Installation Specialist Name Role Phone Antoinette Mejia MD Primary Care Provider [phone] Reason for Visit * Reason Onset Date Comments Appointment Request 10/18/2023 Encounter Details Date Type Department Care Team ([facility] st Contact Info) Description 10/18/2023 Telephone [facility] [address] [place] [address] Antoinette Mejia MD [address] [place] [address] Appointment Request Social History Tobacco Use Types Packs/Day Years Used Date Smoking Tobacco: Never Passive Smoke Exposure: Never Smokeless Tobacco: Never Alcohol Use Standard Drinks/Week Comments Never 0 (1 standard drink = 0.6 oz pur e alcohol) Depression Answer Date Recorded Patient Health Questionnaire-9 Score 4 02/04/2023 Housing Stability Answer Date Recorded What is your housing situation today? I have mari chen 07/26/[address] you li [...] encounter Miscellaneous Notes * Telephone Encounter - Evan Espino - 10/18/2023 11:20 AM EST Tc from patient calling to request a appt for control states had a on going conversation witha nurse and has yet to receive a call regarding the matter documented in this encounter Plan of Treatment Upcoming Encounters Date Type Department Care Team (Late st Contact Info) Description 02/19/2025 1:15 PM EDT Procedure Visit [facility] [address] [place] [address] Toña Parish CNM [address] [place] [address] 03/20/2025 2:00 PM EDT Clinical Support [facility] [address] [place] [address] documented as of this encounter Visit Diagnoses Not on filedocumented in this encounter Additional Health Concerns Assessment Noted Time PHQ-9 Depression Total Score: 4 02/05/20 23 9:05 AM EDT documented as of this encounter Care Teams Installation Specialist Relationship Specialty Start Date End Date Antoinette Mejia MD [address] [place] [address] PCP - General Family Medicine 10/11/18 documented as of this encounter
--- OUTSIDE RECORDS SUMMARY | 2025-01-10 18:01 | XMS_ITS | Encounter Summary ---
Author Organization [employer] Address [address] [facility] 7[address] [place] [address] Care Team Providers Care Tanning Wheel Operator Name Role Phone Antoinette Mejia MD Primary Care Provider [phone] Encounter Details Date Type Department Care Team (Late st Contact Info) Description 11/17/2024 Orders Only [facility] [address] [place], [place] [phone] Antoinette Mejia MD [address] [place], [place] [phone] Social History Tobacco Use Types Packs/Day Years [...] AM EDT documented as of this encounter Plan of Treatment Upcoming Encounters Date Type Department Care Team (Late st Contact Info) Description 02/19/2025 1:15 PM EDT Procedure Visit [facility] [address] [place] [address] Toña Parish, JAY [address] [place] [address] 03/20/2025 2:00 PM EDT Clinical Support [address] [address] documented as of this encounter Procedures Procedure Name Priority Date/Time Associated Diagnosis Comments XR CHEST 2 VIEWS Routine 12/06/2024 9:00 PM EST documented in this encounter Results * XR Chest 2 Views (12/06/2024 9:00 PM EST) Anatomical Region Laterality Modality Chest Radiographic Sierra ging 12/06/2024 9:00 PM EST Narrative 12/06/2024 9:02 PM EST ? [facility] ?[address] ?[place] [address] ?XRay Report ? Signed ? Patient: Andrea,Leatha M ?MR#: [id number] ?? [id number] ? : 2000 ?Acct:[id number] ? Age/Sex: 24 / F ?ADM Date: 12/06/24 ? Loc: HO.ED ? Attending Dr: ? Ordering Physician: Neo Soliman ?? Date of Service: 12/06/24 ?? Procedure(s): XR chest 2V ?? Accession Number(s): [id number] ? cc: Neo Soliman; Antoinette Mejia MD ? CLINICAL HISTORY: pain ? 2 view chest x-ray ? Comparison: DX/SR - XR CHEST 2V - 06/22/23 10:29 EDT ? Findings: ?? No consolidation or effusion. ?? Heart size is normal. ?? No acute fracture. ? IMPRESSION: ?? 1. No acute findings. ? This document has been electronically signed by: Thomas Aguilar MD on ?? 12/06/2024 21:00:27 ? Dictated By: ?Thomas Aguilar MD ? Signed By: ?<Electronically signed by Thomas Aguilar MD in OV> ?12/06/24 2101 ? DD/ 2100 ? TD/TT: 12/06/24 2100 ? Embroidery Patternmaker: ? Procedure Note Donclaymernaelmerter, Image - 12/06/[address] [address] XRay Report Signed Patient: Leatha Mendez [facility]#: [id number] : 2000Acct:[id number] Age/Sex: 24 / FADM Date: 12/06/24 Loc: HO.ED Attending Dr: Ordering Physician: Neo Soliman Date of Service: 12/06/24 Procedure(s): XR chest 2V Accession Number(s): [id number] cc: Neo Soliman; Antoinette Mejia MD CLINICAL HISTORY: pain 2 view chest x-ray Comparison: DX/SR - XR CHEST 2V - 06/22/23 10:29 EDT Findings: No consolidation or effusion. Heart size is normal. No acute fracture. IMPRESSION: 1. No acute findings. This document has been electronically signed by: Thomas Aguilar MD on 12/06/2024 21:00:27 Dictated By: Thomas Aguilar MD Signed By: <Electronically signed by Thomas Aguilar MD in OV> 12/06/242100 DD/ 99 TD/TT: 12/06/242099 Embroidery Patternmaker: [facility] External Provider IMG XR PROCEDURES Edited Result - Final documented in this encounter Visit Diagnoses Not on filedocumented in this encounter Additional Health Concerns Assessment Noted Time PHQ-9 Depression Total Score: 11 024 2:25 PM EDT documented as of this encounter Care Teams Tanning Wheel Operator Relationship Specialty Start Date End Date Antoinette Mejia MD [address] [place] [address] PCP - General Family Medicine 10/11/18 documented as of this encounter
--- OUTSIDE RECORDS SUMMARY | 2025-01-10 18:01 | XMS_ITS | Clinical Summary ---
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 Antibody with Reflex to HCV, RNA, Quantitative, Real-Time PCR (10/23/2024 4:00 PM EST) Hepatitis C Antibody Nonreactive Nonreactive [facility] Comment:Antibodies to HCV no t detected; does not exclude early acuteHCV infection. Blood Venous blood specimen / Unknown 10/23/2024 4:00 PM EST 10/23/2024 5:37 PM EST Shanell Bermeo MD LAB BLOOD ORDERABLES Final Result [facility] [address] [place] [phone] * RPR (Monitor) with Reflex to??Titer (10/23/2024 4:00 PM EST) RPR (Monitor) w/Refl Titer NON-REACTI VE NON-REACT ADARSH [facility] Comment:THIS TEST WAS PERFOR MED AT:[facility] [place] [phone] DUNCAN MD Rapid Plasma Reagin Ab Titer TNP [facility] Blood Venous blood specimen / Unknown 10/23/2024 4:00 PM EST 10/23/2024 5:37 PM EST Shanell Bermeo MD LAB BLOOD ORDERABLES Final Result Performing Organization Address City/[facility]/ZIP Co de Phone Number [facility] [address] [place] [address] [phone] * HIV-1/2 Antigen and Antibodies, Fourth Generation, with Reflexes (10/23/2024 4:00 PM EST) HIV AB/AG Nonreactive Nonreactive [facility] Comment:HIV-1 p24 Ag and/or HIV-1/HIV-2 Ab not detected.A test result that is nonreactive does not exclude thepossibility of exposure to or infection with HIV-1 and/orHIV-2. Nonreactive results in this assay for individualswith prior exposure to HIV-1 and/or HIV-2 may be due toantigen and antibody levels that are below the limit ofdetection of this assay.The [employer] HIV Ag/Ab Combo assay result andsupplemental assay results should be interpreted inconjunction with the patient's clinical presentation,history and other laboratory results. If the results areinconsistent with clinical evidence, additional testing issuggested to confirm the result. Blood Venous blood specimen / Unknown 10/23/2024 4:00 PM EST 10/23/2024 5:37 PM EST us Shanell Bermeo MD LAB BLOOD ORDERABLES Final Result Performing Organization Address [facility]/ZIP Co de Phone Number [facility] [address] [place] [phone] * POCT Urine (10/23/2024 3:30 PM EST) Preg Test, Ur Negative Negative, Indeterminate, None Detected, Invalid, Specimen unsatisfactory for evaluation, Weakly Positive Urine 10/23/2024 3:30 PM EST Shanell Bermeo MD POINT OF CARE TEST ENTER/ED IT ORDERABLES Final Result * (ABNORMAL) POCT Urinalysis (10/23/2024 3:30 PM EST) Color, UA Yellow Comment:Dark Clarity, UA Cloudy Glucose, UA Negative Bilirubin, UA Negative Ketones, UA Negative Spec Grav, UA 1.020 Blood, UA Positive(A) Negative, None Detected Comment:MODERATE pH, UA 7.0 Protein, UA Trace Urobilinogen, UA 0.2 Leukocytes, UA Trace Negative, Rare, Trace Nitrite, UA Positive(A) Negative, None Detected Urine 10/23/2024 3:30 PM EST us Shanell Bermeo MD POINT OF CARE TEST ENTER/ED IT ORDERABLES Final Result * (ABNORMAL) Bacterial Vaginosis Panel (10/23/2024 3:29 PM EST) Pathologist [facility] TRICHOMONAS VAGINALIS DETECTION BY PCR NOT DETECTED Not Detect [facility] BACTERIAL VAGINOSIS DETECTION BY PCR POSITIVE(A) Negative [facility] Comment:The BV organism targ ets of the Xpert Xpress MVP test can becommensal in women; Xpert Xpress MVP positive results forbacterial vaginosis should be considered in conjunction withother clinical and patient information to determine thedisease status. Organisms that are not detected by the XpertXpress MVP test have also been reported to be associatedwith BV and aerobic vaginitis.The Xpert Xpress MVP test performance has not been evaluatedin patients under the age of 14. AGATA GROUP DETECTION BY PCR NOT DETECTED Not Detect [facility] Agata glab krusei PCR NOT DETECTED Not Detect [facility] Swab Vaginal structure / Unknown 10/23/2024 3:29 PM EST 10/23/2024 5:53 PM EST us Shanell Bermeo MD LAB MICROBIOLOGY - GENERAL ORDERABLES Final Result [facility] [address] [place] [phone] * Chlamydia/N. Gonorrhoeae RNA, TMA, Urogenitial (10/23/2024 3:29 PM EST) CT PCR NOT DETECTED Not Detect. [facility] Comment:A not detected test result does not exclude the possibilityof infection because test results can be affected byimproper specimen collection, concurrent antibiotic therapy,or the number of organisms in the specimen which may bebelow the sensitivity of the test. As with many diagnostictests, results from the Xpert CT/NG assay should beinterpreted in conjunction with other laboratory andclinical data available to the clinician.Xpert CT/NG performance has not been evaluated in patientsless than 14 years of age. The assay should not be used forthe evaluationof suspected sexual abuse or for other medico-legalindications. Additional testing is recommended in anycircumstance when false positive or false negative resultscould lead to adverse medical, social or psychologicalconsequences. NG PCR NOT DETECTED Not Detect. [facility] Comment:A not detected test result does not exclude the possibilityof infection because test results can be affected byimproper specimen collection, concurrent antibiotic therapy,or the number of organisms in the specimen which may bebelow the sensitivity of the test. As with many diagnostictests, results from the Xpert CT/NG assay should beinterpreted in conjunction with other laboratory andclinical data available to the clinician.Xpert CT/NG performance has not been evaluated in patientsless than 14 years of age. The assay should not be used forthe evaluationof suspected sexual abuse or for other medico-legalindications. Additional testing is recommended in anycircumstance when false positive or false negative resultscould lead to adverse medical, social or psychologicalconsequences. Swab (Vaginal Swab) 10/23/2024 3:29 PM EST 10/23/2024 5:53 PM EST Narrative [facility] - 10/24/2024 5:56 AM EST Vaginal us Shanell Bermeo MD LAB MICROBIOLOGY - GENERAL ORDERABLES Final Result [facility] [address] [place] [phone] * Culture, Urine, Routine (10/23/2024 3:29 PM EST) Urine Urine specimen obtained by clean catch procedure / Unknown 10/23/2024 3:29 PM EST 10/23/2024 5:53 PM EST Comment:[facility] Narrative [facility] - 10/26/2024 8:05 AM EST Escherichia coli Quant > 100,000 cfu/mL Corynebacterium species No [facility] Standard methods for susceptibility testing not established. Quant > 100,000 cfu/mL Escherichia coli: Ampicillin 4(S) Escherichia coli: Cefazolin 2(S) Escherichia coli: Cefepime <=0.12(S) Escherichia coli: Ceftriaxone <=0.25(S) Escherichia coli: Ciprofloxacin <=0.06(S) Escherichia coli: Gentamicin <=1(S) Escherichia coli: Nitrofurantoin <=16(S) Escherichia coli: Trimethoprim/Sulfamethoxazole <=20(S) Specimen Source: Urine clean catch us Shanell Bermeo MD LAB MICROBIOLOGY - GENERAL ORDERABLES Final Result [facility] [address] [place] [phone] * Hemoglobin A1c (08/08/2024 2:50 PM EDT) Hemoglobin A1c 5.4 <6.0 % [facility] Comment:Hemoglobin A1C Refer ence Range Adults: 4.8 - 6.0 % Non diabetic: < 6.0 % Goal: < 7.0 %Additional Action Suggested: > 8.0 %Note: Hemoglobin A1c results are invalid for patients with abnormal amounts of HbF. Blood transfusions may impact the HbA1c concentration in the patient sample. Estimated Average Glucose 108 mg/dL [facility] Comment:eAG = Estimated ave rage glucose which is %A1C expressed asaverage glucose, using the formula of the R8Y-FwvqotuKndfddr Glucose study (ADAG), Diabetes Care, Vol.31,#8,May. 2007 Blood Venous blood specimen / Unknown 08/08/2024 2:50 PM EDT 08/08/2024 4:31 PM EDT us Antoinette Mejia MD LAB BLOOD ORDERABLES Final Resul t Performing Organization Address [facility] Co de Phone Number [facility] [address] [place] [phone] * (ABNORMAL) Lipid Panel with Reflex to Direct LDL (02/25/2024 11:45 AM EDT) Triglycerides 160(H) <150 mg/dL [facility] Comment:Desirable Triglyceri de: less than 150 mg/dLBorderline High Triglyceride 150-199 mg/dLHigh Triglyceride: 200-499 mg/dLVery High Triglyceride: greater than or equal to 5OO mg/dL Cholesterol 129 <200 mg/dL [facility] Comment:Desirable Cholestero l: less than 200 mg/dLBorderline High Cholesterol: 200-239 mg/dLHigh Cholesterol: greater than 239 mg/dL LDL Cholesterol Calculated 64 <100 mg/dL [facility] Comment:Desirable LDL: less than 100 mg/dLNear Optimal/Above Optimal LDL: 110- 129 mg/dLBorderline High LDL: 130-159 mg/dLHigh LDL: 160-189 mg/dLVery High LDL: greater than or equal to 190 mg/dL HDL Cholesterol 33(L) >40 mg/dL [facility] Comment:Desirable HDL: great er than 40 mg/dL Note: This HDL assay may give artificially low results in patients with liver disease. Blood 02/25/2024 11:4 5 AM EDT 02/25/2024 11:45 AM EDT Antoinette Mejia MD LAB BLOOD ORDERABLES Final Resul t Performing Organization Address [facility]/ZIP Co de Phone Number [facility] [address] [place] [phone] * THINPREP TIS PAP AND HPV mRNA E6/E7 WITH REFLEX TO HPV 16,18/45 (12/24/2021 11:36 AM EDT) Clinical Information: None given [facility] COMMENT SEE COMMENT [facility] Comment: EXPLANATORY NOTE: ? The Pap is a screening test for cervical cancer. It is ?? not a diagnostic test and is subject to false negative ?? and false positive results. It is most reliable when a ?? satisfactory sample, regularly obtained, is submitted ?? with relevant clinical findings and history, and when ?? the Pap result is evaluated along with historic and ?? current clinical information. ?? COMMENT: This Pap test has been evaluated with computer assisted technology. [facility] Preparation Supervisor: SEE COMMENT [facility] Comment: RMM, CT(ASCP) CT screening location: [address] ??[id number] HPV nRNA E6/E7 Not Detected Not Detected [facility] Comment: Methodology: Parts Room Clerk-Mediated Amplification This assay detects E6/E7 viral messenger RNA (mRNA) from 14 high-risk HPV types (16,18,31,33,35,39,45,51,52,56,58,59,66,68). ? The analytical performance characteristics of this assay have been determined by [employer]. The modifications have not been cleared or approved by the FDA. This assay has been validated pursuant to the CLIA regulations and is used for clinical purposes. ?? For additional information, please refer to http://education.[employer]/faq/ASQ099m7 (This link if provided for information/ educational purposes only.) Interpretation/Re sult: Negative for intraepithelial lesion or malignancy. [facility] LMP: NONE [facility]IVEN [facility] Prev. BX: NONE [facility]IV[facility] Prev. PAP: NONE [facility]IVEN [facility] SOURCE: None given [facility] Statement Of Adequacy: SEE COMMENT [facility] Comment: Satisfactory for evaluation. Endocervical/transformation zone component present. Age and/or menstrual status not provided 12/24/2021 11:3 6 AM EDT us Antoinette Mejia MD LAB PATHOLOGY ORDERABLES Final R esult [facility] [address] from Last 3 Months or Most Recently Relevant to Health Maintenance Insurance [place] [facility] MEDICAID DDS ADULT Care Teams Solution Design And Analysis Manager Relationship Specialty Start Date End Date Antoinette Mejia MD [address] [place] [address] PCP - General Family Medicine 10/11/18
--- OUTSIDE RECORDS SUMMARY | 2025-01-10 18:01 | XMS_ITS | Encounter Summary ---
Author Organization [employer] Address [address] [place] [address] Care Team Providers Care Flue Gas Analyst Name Role Phone Antoinette Mejia MD Primary Care Provider [phone] Encounter Details Date Type Department Care Team (Late st Contact Info) Description 08/19/[address] [facility] [address] [place], [place] [phone] Antoinette Mejia MD [address] [place], [place] [phone] Social History Tobacco Use Types Packs/Day Years Used Date Smoking Tobacco: Never Passive Smoke Exposure: Never Smokeless Tobacco: Never Alcohol Use Standard Drinks/Week Comments Never 0 (1 standard drink = 0.6 oz pur e alcohol) Depression Answer Date Recorded Patient Health Questionnaire-9 Score 4 02/04/2023 Housing Stability Answer Date Recorded What is your housing situation today? I have marikosta chen 07/26/[address] you [...] encounter Miscellaneous Notes * Telephone Encounter - Amanda Lugo RN - 08/19/2023 12:13 PM EST TC to patient on 08/18/23 to discuss what her accommodation is for her job at [employer] as the form she dropped off is blank. The phone had a bad connection so I told her I would call back and when I did I got VM so I left a message telling her that I would call again tomorrow. Today on 08/19/23 I called patient again to ask what type of accommodation for work she needs. Patient stated that she does not need it anymore as she does not work at [employer] any longer. documented in this encounter Plan of Treatment Upcoming Encounters Date Type Department Care Team (Late st Contact Info) Description 02/19/2025 1:15 PM EDT Procedure Visit [facility] [address] [place] [phone] Toña Parish CNM [address] [place] [address] 03/20/2025 2:00 PM EDT Clinical Support [facility] [address] [place] [phone] documented as of this encounter Visit Diagnoses Not on filedocumented in this encounter Additional Health Concerns Assessment Noted Time PHQ-9 Depression Total Score: 4 02/05/20 9:05 AM EDT documented as of this encounter Care Teams Flue Gas Analyst Relationship Specialty Start Date End Date Antoinette Mejia MD [address] [place] [address] PCP - General Family Medicine 10/11/18 documented as of this encounter
--- OUTSIDE RECORDS SUMMARY | 2025-01-10 18:01 | XMS_ITS | Encounter Summary ---
Author Organization [employer] Address [address] [place] [address] Care Team Providers Care Elementary School Science Teacher Name Role Phone Antoinette Mejia MD Primary Care Provider [phone] Encounter Details Date Type Department Care Team (Latest Contact Info) Description 01/09/2025 Travel Social History Tobacco Use Types Packs/Day Years [...] Description 02/19/2025 1:15 PM EDT Procedure Visit [facility] MEDICINE [address] [place] [phone] Toña Parish CNM [address] [place] [address] 03/20/2025 2:00 PM EDT Clinical Support [address] [address] documented as of this encounter Visit Diagnoses Not on filedocumented in this encounter Additional Health Concerns Assessment Noted Time PHQ-9 Depression Total Score: 11 024 2:25 PM EDT documented as of this encounter Care Teams [employer] Science Teacher Relationship Specialty Start Date End Date Antoinette Mejia MD [address] [place] [phone] PCP - General Family Medicine 10/11/18 documented as of this encounter
--- OUTSIDE RECORDS SUMMARY | 2025-01-10 18:01 | XMS_ITS | Encounter Summary ---
Author Organization [employer] [facility] Address [address] [place] [address] [address] [address] Care Team Providers Care Manager [employer] Name Role Phone Antoinette Mejia MD Primary Care Provider [phone] Reason for Referral * Imaging (Urgent) - Authorized Specialty Diagnoses / Procedures Referred By Contac t Referred To Contact Radiology Diagnoses Right ovarian cyst Procedures Us Pelvis complete Toña Parish CNM [address] [place] [address] Phone: tel: fax: [address] Phone: tel: fax: Referral ID Status Reason Start Date Expiration Date V isits Requested Visits Authorized [id number] Authorized 01/09/2025 01/09/2026 1 1 * Imaging (Urgent) - Authorized Specialty Diagnoses / Procedures Referred By Contac t Referred To Contact Radiology Diagnoses Right ovarian cyst Procedures US Pelvis Transvaginal Toña Parish CNM [address] [place] [address] Phone: tel: fax: [address] Phone: tel: fax: Referral ID Status Reason Start Date Expiration Date V isits Requested Visits Authorized [id number] Authorized 01/09/2025 01/09/2026 1 1 Reason for Visit * Reason Comments Gynecologic Exam Encounter Details Date Type Department Care Team ([facility] st Contact Info) Description 01/09/2025 3:15 PM EDT Office Visit [facility] [address] [place] [address] Toña Parish CNM [address] [place] [address] Family planning counseling (Primary Dx); Routine cervical smear; Screening examination for venereal disease; Right ovarian cyst Social History Tobacco Use Types Packs/Day Years [...] Mass Index 50.65 01/09/2025 3:24 PM EDT documented in this encounter Progress Notes * Toña Parish CNM - 01/09/2025 3:15 PM EDT Subjective Patient ID: Leatha Mendez is a 24 y.o. female who presents for control counseling Last Depo given 01/02/2025. Pap NIL 12/2021. Would like to do pap today. Gonorrhea/Chlamydia neg . Treated for syphilis 03/2024, RPR 1:1. HIV, Hep C, Gonorrhea/Chlamydia negative 06/2024. RPR 1:2. Per [facility], no treatment needed at this time. RPR negative 10/2024. Thinking about getting in a year or so. Would like to switch to a more reversible method. Normal TSH 07/2024. 4.8cm right ovarian cyst on ultrasound in 2020, would like followup to confirm resolved. 1 AMAB partner x 4m, no safety concerns. Review of Systems Genitourinary: Negative for dyspareunia, dysuria, frequency, genital sores, hematuria, menstrual problem, pelvic pain, urgency, vaginal bleeding, vaginal discharge and vaginal pain. Objective BP (!) 152/87 (BP Location: Left arm, Patient Position: Sitting, BP Cuff Size: Large adult long) Pulse 100 Temp 97.7 ??F (36.5 ??C) (Temporal) Resp 16 Ht 5' 2.5 (1.588 m) Wt 281 lb 6.4 oz (128 kg) LMP 01/02/2025 (Approximate) SpO2 98% BMI 50.65 kg/m?? Physical Exam Constitutional: Appearance: Normal appearance. Genitourinary: General: Normal vulva. Labia: Right: No rash, tenderness, lesion or injury. Left: No rash, tenderness, lesion or injury. Vagina: Normal. No signs of injury and foreign body. No vaginal discharge, erythema, tenderness, bleeding or lesions. Cervix: No cervical motion tenderness, discharge, friability, lesion, erythema, cervical bleeding or eversion. Uterus: Normal. Not enlarged and not tender. Adnexa: Right adnexa normal and left adnexa normal. Right: No mass, tenderness or fullness. Left: No mass, tenderness or fullness. Comments: Scant blood in vagina Neurological: Mental Status: She is alert. Psychiatric: Mood and Affect: Mood normal. Behavior: Behavior normal. Assessment/Plan Diagnoses and all orders for this visit: Family planning counseling Discussed options. Thinking about progestin IUD. Reviewed risks/benefits. Given pre-insertion instructions. Schedule by end of February to stay in window until IUD will be effective. Routine cervical smear - Pap Smear Pap today. Repeat 3 years if normal. Screening examination for venereal disease - STI testing add on (NG, CT, Trich) Pap based STI testing sent. Right ovarian cyst - US Pelvis Transvaginal; Future - Us Pelvis complete; Future Reviewed no followup usually needed for simple cyst < 5cm. Will order today as precaution. Benign pelvic exam today documented in this encounter Plan of Treatment Upcoming Encounters Date Type Department Care Team ([facility] st Contact Info) Description 02/19/2025 1:15 PM EDT Procedure Visit [facility] [address] [place] [address] Toña Parish, JAY [address] [place] [address] 03/20/2025 2:00 PM EDT Clinical Support [facility] [address] [place] [address] Scheduled Orders Name Type Priority Associated Diagnoses Orde r Schedule Pap Smear Pathology and Cytology Routine Routine cervical smear Ordered: 01/09/2025 STI testing add on (NG, CT, Trich) Pathology and Cytology Routine Screening examination for venereal disease Ordered: 01/09/2025 US Pelvis Transvaginal Imaging Urgent Right ovarian cyst Expected: 01/09/2025, Expires: 01/09/2026 Us Pelvis complete Imaging Urgent Right ovarian cyst Expected: 01/09/2025, Expires: 01/09/2026 documented as of this encounter Visit Diagnoses Diagnosis Family planning counseling- Primary Other general counseling and advice for contraceptive management Routine cervical smear Screening for malignant neoplasm of the cervix Screening examination for venereal disease Right ovarian cyst Other and unspecified ovarian cyst documented in this encounter Additional Health Concerns Assessment Noted Time PHQ-9 Depression Total Score: 11 024 2:25 PM EDT documented as of this encounter Care Teams Manager [employer] Relationship Specialty Start Date End Date Antoinette Mejia MD [address] [place] [address] PCP - General Family Medicine 10/11/18 documented as of this encounter
--- OUTSIDE RECORDS SUMMARY | 2025-01-10 18:01 | XMS_ITS | Encounter Summary ---
Author Organization [employer] Address 75 [facility] 7t [place] [address] Care Team Providers Care Customs Manager Name Role Phone Antoinette Mejia MD Primary Care Provider [phone] Reason for Visit * Reason Onset Date Comments Appointment Request 12/25/2024 Encounter Details Date Type Department Care Team ([facility] Contact Info) Description 12/25/2024 Telephone [facility] [address] [place] [address] Antoinette Mejia MD 230 [place] [address] Appointment Request Social History Tobacco Use Types [...] encounter Miscellaneous Notes * Telephone Encounter - Rusty Cherry - 12/25/2024 8:53 AM EDT Tc from pt requesting appointment as she missed for a PAP SMEAR EXAM , continuity writer inform no sooner availability as pt requested a callback. Appointment: PAP SMEAR EXAM documented in this encounter Plan of Treatment Upcoming Encounters Date Type Department Care Team (Late st Contact Info) Description 02/19/2025 1:15 PM EDT Procedure Visit [facility] [address] [place] [address] Toña Parish CNM [address] [place] [address] 03/20/2025 2:00 PM EDT Clinical Support [facility] [address] [place] [address] documented as of this encounter Visit Diagnoses Not on filedocumented in this encounter Additional Health Concerns Assessment Noted Time PHQ-9 Depression Total Score: 11 024 2:25 PM EDT documented as of this encounter Care Teams Customs Manager Relationship Specialty Start Date End Date Antoinette Mejia MD 230 [place] [address] PCP - General Family Medicine 10/11/18 documented as of this encounter
--- OUTSIDE RECORDS SUMMARY | 2025-01-10 18:01 | XMS_ITS | Encounter Summary ---
Author Organization [employer] Address 75 [facility] 7t [place] [address] Care Team Providers Care Powerhouse Electrician Apprentice Name Role Phone Antoinette Mejia MD Primary Care Provider [phone] Encounter Details Date Type Department Care Team (Late st Contact Info) Description 10/24/2024 Orders Only [facility] [address] [place], [place] [phone] Shanell Bermeo MD 505 [place] [address] Bacterial vaginosis (Primary Dx) Social History Tobacco Use Types Packs/Day Years [...] Description 02/19/2025 1:15 PM EDT Procedure Visit [facility] [address] [place] [address] Toña Parish CNM 230 [place] [address] 03/20/2025 2:00 PM EDT Clinical Support [address] [address] documented as of this encounter Visit Diagnoses Diagnosis Bacterial vaginosis- Primary Unspecified vaginitis and vulvovaginitis documented in this encounter Additional Health Concerns Assessment Noted Time PHQ-9 Depression Total Score: 11 024 2:25 PM EDT documented as of this encounter Care Teams Powerhouse Electrician Apprentice Relationship Specialty Start Date End Date Antoinette Mejia MD [address] [place] [address] PCP - General Family Medicine 10/11/18 documented as of this encounter
--- OUTSIDE RECORDS SUMMARY | 2025-01-10 18:01 | XMS_ITS | Encounter Summary ---
Author Organization [employer] Address 75 [facility] 7t [place] [address] Care Team Providers Care Chef Name Role Phone Antoinette Mejia MD Primary Care Provider [phone] Reason for Visit * Reason Comments Med Refill Encounter Details Date Type Department Care Team ([facility] st Contact Info) Description 08/24/[address] [facility] [address] [place] [address] Toña Parish CNM [address] [place] [address] Social History Tobacco Use Types Packs/Day Years [...] Description 02/19/2025 1:15 PM EDT Procedure Visit [facility] [address] [place] [address] Toña Parish CNM 230 [place] [address] 03/20/2025 2:00 PM EDT Clinical Support [address] [address] documented as of this encounter Visit Diagnoses Not on filedocumented in this encounter Additional Health Concerns Assessment Noted Time PHQ-9 Depression Total Score: 4 02/05/20 23 9:05 AM EDT documented as of this encounter Care Teams Chef Relationship Specialty Start Date End Date Antoinette Mejia MD [address] [place] [address] PCP - General Family Medicine 10/11/18 documented as of this encounter
--- OUTSIDE RECORDS SUMMARY | 2025-01-10 18:01 | XMS_ITS | Encounter Summary ---
Author Organization [employer] Address 75 [facility] 7t [place] [address] Care Team Providers Care Main Line Station Engineer Name Role Phone Antoinette Mejia MD Primary Care Provider Reason for Visit * Reason Onset Date Comments Med Refill 01/08/2025 Encounter Details Date Type Department Care Team (Late st Contact Info) Description 01/08/2025 Refill [facility] 230 [place] [address] Antoinette Mejia MD 230 [place] [address] Social History Tobacco Use Types Packs/Day Years [...] Description 02/19/2025 1:15 PM EDT Procedure Visit [facility] [address] [place] [address] Toña Parish CNM 230 [place] [address] 03/20/2025 2:00 PM EDT Clinical Support [address] [address] documented as of this encounter Visit Diagnoses Not on filedocumented in this encounter Additional Health Concerns Assessment Noted Time PHQ-9 Depression Total Score: 11 024 2:25 PM EDT documented as of this encounter Care Teams Main Line Station Engineer Relationship Specialty Start Date End Date Antoinette Mejia MD [address] [place] [address] PCP - General Family Medicine 10/11/18 documented as of this encounter
--- OUTSIDE RECORDS SUMMARY | 2025-01-10 18:01 | XMS_ITS | Encounter Summary ---
Author Organization [employer] Address 75 [facility] 7t [place] [address] Care Team Providers Care Dialysis Rn Name Role Phone Antoinette Mejia MD Primary Care Provider [phone] Reason for Visit * Reason Onset Date Comments Med Refill 08/20/2023 Encounter Details Date Type Department Care Team (Late st Contact Info) Description 08/20/2023 Refill [facility] 230 [place] [address] Toña Parish, CN [address] [place] [address] Social History Tobacco Use Types Packs/Day Years [...] Description 02/19/2025 1:15 PM EDT Procedure Visit [facility] [address] [place] [address] Toña Parish CNM 230 [place] [address] 03/20/2025 2:00 PM EDT Clinical Support [facility] [address] [place] [address] documented as of this encounter Visit Diagnoses Not on filedocumented in this encounter Additional Health Concerns Assessment Noted Time PHQ-9 Depression Total Score: 4 02/05/20 23 9:05 AM EDT documented as of this encounter Care Teams Dialysis Rn Relationship Specialty Start Date End Date Antoinette Mejia MD [address] [place] [address] PCP - General Family Medicine 10/11/18 documented as of this encounter
--- OUTSIDE RECORDS SUMMARY | 2025-01-10 18:02 | XMS_ITS | Encounter Summary ---
Author Organization [email or web address] Address 75 [facility] 7t [place] [address] Care Team Providers Care Shear Helper Name Role Phone Antoinette Mejia MD Primary Care Provider [phone] Reason for Visit * Reason Onset Date Comments New Med Request 04/24/2024 Encounter Details Date Type Department Care Team ([facility] st Contact Info) Description 04/24/2024 Telephone [facility] [address] [place] [address] Antoinette Mejia MD 230 [place] [address] New Med Request Social History Tobacco Use Types Packs/Day Years Used Date Smoking Tobacco: Never Passive Smoke Exposure: Never Smokeless Tobacco: Never Alcohol Use Standard Drinks/Week Comments Never 0 (1 standard drink = 0.6 oz pur e alcohol) Depression Answer Date Recorded Patient Health Questionnaire-9 Score 0 02/24/2024 Patient Health Questionnaire-9 Score 0 02/24/2024 Last PHQ-9: Questionnaire Data Not on file 0 02/24/2024 Housing Stability Answer Date Recorded What is [...] enough money to get more: Never True 05/ Transportation Answer Date Recorded In the past [...] Date Recorded Patient Health Questionnaire-2 Score 0 02/24/2024 Comments Unknown Sex and Gender Information Value Date Recorded Sex Assigned at Female 08/10/2022 10:18 AM EDT Legal Sex Female 10:18 AM EDT Gender Identity Female 08/10/2022 10:18 AM EDT Sexual Orientation Choose not to disclose 2021 10:18 AM EDT documented as of this encounter Miscellaneous Notes * Telephone Encounter - Batsheva Hermosillo - 04/24/2024 2:12 PM EDT Tc from pt requesting multivitamins script, stated what provider consider she can have. documented in this encounter Plan of Treatment Upcoming Encounters Date Type Department Care Team (Late st Contact Info) Description 02/19/2025 1:15 PM EDT Procedure Visit [facility] [address] [place] [address] Toña Parish CNM 230 [place] [address] 03/20/2025 2:00 PM EDT Clinical Support [facility] [address] [place] [address] documented as of this encounter Visit Diagnoses Not on filedocumented in this encounter Additional Health Concerns Assessment Noted Time PHQ-9 Depression Total Score: 0 02/24/20 24 10:07 AM EDT documented as of this encounter Care Teams Shear Helper Relationship Specialty Start Date End Date Antoinette Mejia MD [address] [place] [address] PCP - General Family Medicine 10/11/18 documented as of this encounter
--- OUTSIDE RECORDS SUMMARY | 2025-01-10 18:02 | XMS_ITS | Encounter Summary ---
Author Organization [employer] Address 75 [facility] 7t [place] [address] Care Team Providers Care Airframe And Powerplant Technician Name Role Phone Antoinette Mejia MD Primary Care Provider [phone] Reason for Visit * Reason Onset Date Comments Med Refill 01/19/2024 Encounter Details Date Type Department Care Team ([facility] st Contact Info) Description 01/19/2024 Telephone [facility] 230 [place] [address] Antoinette Mejia MD 230 [place] [address] Med Refill Social History Tobacco Use Types Packs/Day Years [...] Patient Health Questionnaire-2 Score 0 02/04/2023 Comments Unknown Sex and Gender Information Value Date Recorded Sex Assigned at Female 08/10/2022 10:18 AM EDT Legal Sex Female 10:18 AM EDT Gender Identity Female 08/10/2022 10:18 AM EDT Sexual Orientation Choose not to disclose 2021 10:18 AM EDT documented as of this encounter Miscellaneous Notes * Telephone Encounter - Antoinette Mejia MD - 01/20/2024 12:41 PM EDT Sertraline 25 mg #30 sent without refill. Patient needs to keep next appointment for further refill. * Telephone Encounter - Roberta Rich LPN - 01/19/2024 11:02 AM EDT Medication is not pended as according to [employer] med last prescribed 08/14/22 with 2 refills.Please review * Telephone Encounter - Lisa Cortez - 01/19/2024 9:55 AM EDT TC from pt requesting medication refill. Medications needing refill : sertraline (Zoloft) 25 MG tablet To be sent to: [facility] - [place], [place] - [address] [facility] documented in this encounter Plan of Treatment Upcoming Encounters Date Type Department Care Team (Late st Contact Info) Description 02/19/2025 1:15 PM EDT Procedure Visit [facility] [address] [place] [address] Toña Parish CNM [address] [place], [place] [phone] 03/20/2025 2:00 PM EDT Clinical Support [facility] [address] [place] [address] documented as of this encounter Visit Diagnoses Not on filedocumented in this encounter Additional Health Concerns Assessment Noted Time PHQ-9 Depression Total Score: 4 02/05/20 23 9:05 AM EDT documented as of this encounter Care Teams Airframe And Powerplant Technician Relationship Specialty Start Date End Date Antoinette Mejia MD [address] [place] [address] PCP - General Family Medicine 10/11/18 documented as of this encounter
--- OUTSIDE RECORDS SUMMARY | 2025-01-10 18:02 | XMS_ITS | Encounter Summary ---
Author Organization [employer] Address [address] [facility] [address] 7t [place] [address] Care Team Providers Care Garment Cutter Name Role Phone Antoinette Mejia MD Primary Care Provider [phone] Encounter Details Date Type Department Care Team (Late st Contact Info) Description 07/12/2024 Orders Only [facility] 230 [place], [place] [phone] Antoinette Mejia MD 230 [place], [place] [phone] Social History Tobacco Use Types Packs/Day Years [...] Description 02/19/2025 1:15 PM EDT Procedure Visit [facility] [address] [place] [address] Toña Parish CNM [address] [place] [address] 03/20/2025 2:00 PM EDT Clinical Support [address] [address] documented as of this encounter Visit Diagnoses Not on filedocumented in this encounter Additional Health Concerns Assessment Noted Time PHQ-9 Depression Total Score: 0 02/24/20 24 10:07 AM EDT documented as of this encounter Care Teams Garment Cutter Relationship Specialty Start Date End Date Antoinette Mejia MD [address] [place] [address] PCP - General Family Medicine 10/11/18 documented as of this encounter
--- OUTSIDE RECORDS SUMMARY | 2025-01-10 18:02 | XMS_ITS | Encounter Summary ---
Author Organization [employer] Address 75 [facility] 7t [place] [address] Care Team Providers Care Accredited Farm Manager Name Role Phone Antoinette Mejia MD Primary Care Provider Encounter Details Date Type Department Care Team ([facility] Contact Info) Description 01/21/2023 Orders Only [address] [phone] Antoinette Mejia MD [address] [place] [address] [phone] Social History Tobacco Use Types Packs/Day Years Used Date Smoking Tobacco: Never Smokeless Tobacco: Never Alcohol Use Standard Drinks/Week Comments Never 0 (1 standard drink = 0.6 oz pur e alcohol) Comments Unknown Sex and Gender Information Value Date Recorded Sex Assigned at Female 08/10/2022 10:18 AM EDT Legal Sex Female 10:18 AM EDT Gender Identity Female 08/10/2022 10:18 AM EDT Sexual Orientation Choose not to disclose 2021 10:18 AM EDT documented as of this encounter Plan of Treatment Upcoming Encounters Date Type Department Care Team (Late Contact Info) Description 02/19/2025 1:15 PM EDT Procedure Visit [address] [phone] Toña Parish CNM [address] [place] [phone] 03/20/2025 2:00 PM EDT Clinical Support [address] [phone] documented as of this encounter Visit Diagnoses Not on filedocumented in this encounter Care Teams Accredited Farm Manager Relationship Specialty Start Date End Date Antoinette Mejia MD [address] [place] [address] KARINA Correa [address] PCP - General Family Medicine 10/11/18 documented as of this encounter
--- OUTSIDE RECORDS SUMMARY | 2025-01-10 18:02 | XMS_ITS | Encounter Summary ---
Author Organization [employer] Address [address] [facility] [address] 7t [place] [address] Care Team Providers Care Industrial Illuminating Engineer Name Role Phone Antoinette Mejia MD Primary Care Provider [phone] Encounter Details Date Type Department Care Team (Late st Contact Info) Description 04/17/2024 Orders Only [facility] 230 [place], [place] [phone] Antoinette Mejia MD 230 [place], [place] [phone] Social History Tobacco Use Types Packs/Day Years [...] Description 02/19/2025 1:15 PM EDT Procedure Visit [facility] [address] [place] [address] Toña Parish CNM [address] [place] [address] 03/20/2025 2:00 PM EDT Clinical Support [address] [address] documented as of this encounter Visit Diagnoses Not on filedocumented in this encounter Additional Health Concerns Assessment Noted Time PHQ-9 Depression Total Score: 0 02/24/20 24 10:07 AM EDT documented as of this encounter Care Teams Industrial Illuminating Engineer Relationship Specialty Start Date End Date Antoinette Mejia MD [address] [place] [address] PCP - General Family Medicine 10/11/18 documented as of this encounter
--- OUTSIDE RECORDS SUMMARY | 2025-01-10 18:02 | XMS_ITS | Encounter Summary ---
Author Organization [employer] Address 75 [facility] 7t [place] [address] Care Team Providers Care School Lunch Manager Name Role Phone Antoinette Mejia MD Primary Care Provider [phone] Encounter Details Date Type Department Care Team (Late st Contact Info) Description 06/16/2024 Orders Only [facility] 230 [place], [place] [phone] Antoinette Mejia MD 230 [place], [place] [phone] History of syphilis (Primary Dx) Social History Tobacco Use Types [...] Upcoming Encounters Date Type Department Care Team ([facility] st Contact Info) Description 02/19/2025 1:15 PM EDT Procedure Visit [facility] [address] [place] [phone] Toña Parish, JAY 230 [place], [place] [phone] 03/20/2025 2:00 PM EDT Clinical Support [facility] [address] [place] [address] [phone] documented as of this encounter Procedures Procedure Name Priority Date/Time Associated Diagnosis Comments HEPATITIS C AB W/REFL TO HCV RNA, QN, PCR Routine 06/19/2024 3:26 PM EDT History of syphilis HEPATITIS B SURFACE ANTIGEN, EIA Routine 06/19/2024 3:26 PM EDT History of syphilis RPR (MONITOR) W/REFL TITER Routine 06/19/2024 3:26 PM EDT History of syphilis HIV 1/2 ANTIGEN/ANTIBODY, FOURTH GENERATION W/RFL Routine 06/19/2024 3:26 PM EDT History of syphilis CHLAMYDIA/N. GONORRHOEAE RNA, TMA, UROGENITAL Routine 06/19/2024 1:36 PM EDT History of syphilis documented in this encounter Results * Hepatitis B surface antigen, EIA (06/19/2024 3:26 PM EDT) Hepatitis B Surface Ag Negative Negative [facility] Blood Venous blood specimen / Unknown 06/19/2024 3:26 PM EDT 06/19/2024 4:28 PM EDT us Antoinette Mejia MD LAB BLOOD ORDERABLES Final Resul t Performing Organization Address City/[facility]/ZIP Co de Phone Number [facility] [address] [place] [address] [phone] * HIV-1/2 Antigen and Antibodies, Fourth Generation, with Reflexes (06/19/2024 3:26 PM EDT) HIV AB/AG Nonreactive Nonreactive [facility] Comment:HIV-1 p24 Ag and/or HIV-1/HIV-2 Ab not detected.A test result that is nonreactive does not exclude thepossibility of exposure to or infection with HIV-1 and/orHIV-2. Nonreactive results in this assay for individualswith prior exposure to HIV-1 and/or HIV-2 may be due toantigen and antibody levels that are below the limit ofdetection of this assay.The [employer] HIV Ag/Ab Combo assay result andsupplemental assay results should be interpreted inconjunction with the patient's clinical presentation,history and other laboratory results. If the results areinconsistent with clinical evidence, additional testing issuggested to confirm the result. Blood Venous blood specimen / Unknown 06/19/2024 3:26 PM EDT 06/19/2024 4:28 PM EDT us Antoinette Mejia MD LAB BLOOD ORDERABLES Final Resul t [facility] [address] [place] [address] [phone] * Hepatitis C Antibody with Reflex to HCV, RNA, Quantitative, Real-Time PCR (06/19/2024 3:26 PM EDT) [facility] Hepatitis C Antibody Nonreactive Nonreactive [facility] Comment:Antibodies to HCV no t detected; does not exclude early acuteHCV infection. Blood Venous blood specimen / Unknown 06/19/2024 3:26 PM EDT 06/19/2024 4:28 PM EDT Antoinette Mejia MD LAB BLOOD ORDERABLES Final Resul t Performing Organization Address [facility] Co de Phone Number [facility] [address] [place] [phone] * (ABNORMAL) RPR (Monitor) with Reflex to??Titer (06/19/2024 3:26 PM EDT) [facility] RPR (Monitor) w/Refl Titer REACTIVE( A) NON-REACT ADARSH [facility] Comment:The RPR is a non-stephanie ponemal-specific test; therefore,a treponemal- specific confirmatory test should beperformed unless prior syphilis infection has beendocumented for this patient.THIS TEST WAS PERFORMED AT:[facility] [address] [phone] DUNCAN MD Rapid Plasma Reagin Ab Titer 1:2(A) [facility] Comment:THIS TEST WAS PERFOR MED AT:[facility] [address] [phone] DUNCAN MD Blood Venous blood specimen / Unknown 06/19/2024 3:26 PM EDT 06/19/2024 4:28 PM EDT Antoinette Mejia MD LAB BLOOD ORDERABLES Final Resul t Performing Organization Address [facility] Co de Phone Number [facility] [address] [place] [address] [phone] * Chlamydia/N. Gonorrhoeae RNA, TMA, Urogenitial (06/19/2024 1:36 PM EDT) [facility] CT PCR NOT DETECTED Not Detect. [facility] Comment:A not detected test result [...] psychologicalconsequences. NG PCR NOT DETECTED Not Detect. [facility] Comment:A not detected test result [...] lead to adverse medical, social or psychologicalconsequences. Urine, Random 06/19/2024 1:3 6 PM EDT 06/19/2024 5:42 PM EDT Narrative [facility] - 06/20/2024 5:47 AM EDT Urine us Antoinette Mejia MD LAB MICROBIOLOGY - GENERAL ORDER JESSICA Final Result [facility] [address] [place] [address] [phone] documented in this encounter Visit Diagnoses Diagnosis History of syphilis- Primary documented in this encounter Additional Health Concerns Assessment Noted Time PHQ-9 Depression Total Score: 0 02/24/20 24 10:07 AM EDT documented as of this encounter Care Teams School Lunch Manager Relationship Specialty Start Date End Date Antoinette Mejia MD [address] [place] [address] PCP - General Family Medicine 10/11/18 documented as of this encounter
--- OUTSIDE RECORDS SUMMARY | 2025-01-10 18:02 | XMS_ITS | Encounter Summary ---
Author Organization [employer] Address [address] [facility] [address] 7t [place] [address] Care Team Providers Care Black Pickler Name Role Phone Antoinette Mejia MD Primary Care Provider [phone] Encounter Details Date Type Department Care Team (Late st Contact Info) Description 05/15/2024 Orders Only [facility] 230 [place], [place] [phone] Antoinette Mejia MD 230 [place], [place] [phone] Social History Tobacco Use Types Packs/Day Years [...] 02/19/2025 1:15 PM EDT Procedure Visit [facility] [address] [place] [address] Toña Parish CNM [address] [place] [address] 03/20/2025 2:00 PM EDT Clinical Support [address] [address] documented as of this encounter Visit Diagnoses Not on filedocumented in this encounter Additional Health Concerns Assessment Noted Time PHQ-9 Depression Total Score: 0 02/24/20 24 10:07 AM EDT documented as of this encounter Care Teams Black Pickler Relationship Specialty Start Date End Date Antoinette Mejia MD [address] [place] [address] PCP - General Family Medicine 10/11/18 documented as of this encounter
--- OUTSIDE RECORDS SUMMARY | 2025-01-10 18:02 | XMS_ITS | Encounter Summary ---
Author Organization [employer] Address [address] [facility] 7t [place] [address] Care Team Providers Care Exploration Geologist Name Role Phone Antoinette Mejia MD Primary Care Provider [phone] Reason for Visit * Reason Onset Date Comments Medication Question 09/26/2024 Encounter Details Date Type Department Care Team ([facility] Contact Info) Description 09/26/2024 Refill [facility] [address] [place] [address] Antoinette Mejia MD 230 [place] [address] Social History Tobacco Use Types Packs/Day Years [...] the past 12 months, has t he [employer] gas, oil or water company threatened to [...] encounter Miscellaneous Notes * Telephone Encounter - Payton Crocker RN - 09/27/2024 3:08 PM EST Telephone call returned to pt. Explained that as of Oct 11, we have to switch pt's over to Zepbound. Explained that it is a similar medication that is still a once/week injection. Informed that I will send request to PCP to send script and then will work on PA NAHID. Went over possible side effectsof zepbound. Pt agreeable. * Telephone Encounter - Eduin Antonio - 09/27/2024 10:54 AM EST Tc from pt requesting a callback regarding medication Semaglutide-Weight Management (Wegovy) 2.4 MG/0.75ML solution auto-injector Pt would like to discuss prior message. Pt states has been struggling to get PA for Medication. Pt would like to talk about any other medication that could be prescribed. Contact pt at [phone] * Telephone Encounter - Daily Fuentes - 09/26/2024 4:04 PM EST Tc from pt requesting new weight loss medication. Insurance not approved Marycarlos. documented in this encounter Plan of Treatment Upcoming Encounters Date Type Department Care Team (Late st Contact Info) Description 02/19/2025 1:15 PM EDT Procedure Visit [facility] 230 [place] [address] Toña Parish CNM [address] [place] [address] 03/20/2025 2:00 PM EDT Clinical Support [facility] 230 [facility] [place] [address] documented as of this encounter Visit Diagnoses Not on filedocumented in this encounter Additional Health Concerns Assessment Noted Time PHQ-9 Depression Total Score: 11 024 2:25 PM EDT documented as of this encounter Care Teams Exploration Geologist Relationship Specialty Start Date End Date Antoinette Mejia MD 230 [facility] [place] [phone] PCP - General Family Medicine 10/11/18 documented as of this encounter
--- OUTSIDE RECORDS SUMMARY | 2025-01-10 18:02 | XMS_ITS | Encounter Summary ---
Author Organization [employer] Address [address] [facility] 7t [place] [address] Care Team Providers Care Project Accountant Name Role Phone Antoinette Mejia MD Primary Care Provider [phone] Reason for Visit * Reason Onset Date Comments Med Refill 04/17/2024 Encounter Details Date Type Department Care Team ([facility] st Contact Info) Description 04/17/2024 Telephone [facility] 230 [place] [address] Antoinette Mejia MD 230 [place] [address] Med Refill Social History Tobacco Use Types [...] encounter Miscellaneous Notes * Telephone Encounter - Lucretia Cali LPN - 04/17/2024 11:05 AM EDT Medication pended to PCP. * Telephone Encounter - Sonya Ramon - 04/17/2024 10:57 AM EDT TC from pt requesting medication refill. Medications needing refill : Semaglutide-Weight Management 0.25 MG/0.5ML solution auto-injector To be sent to: [facility] - [place], [place] - [address] [place] [address] documented in this encounter Plan of Treatment Upcoming Encounters Date Type Department Care Team (Late st Contact Info) Description 02/19/2025 1:15 PM EDT Procedure Visit [facility] 230 [place] [address] Toña Parish CNM [address] [place] [address] 03/20/2025 2:00 PM EDT Clinical Support [facility] [address] [place] [address] documented as of this encounter Visit Diagnoses Not on filedocumented in this encounter Additional Health Concerns Assessment Noted Time PHQ-9 Depression Total Score: 0 02/24/20 24 10:07 AM EDT documented as of this encounter Care Teams Project Accountant Relationship Specialty Start Date End Date Antoinette Mejia MD 230 [place] [address] PCP - General Family Medicine 10/11/18 documented as of this encounter
--- OUTSIDE RECORDS SUMMARY | 2025-01-10 18:02 | XMS_ITS | Encounter Summary ---
Author Organization [employer] Address [address] [facility] 7t [place] [address] Care Team Providers Care Architectural Engineering Teacher Name Role Phone Antoinette Mejia MD Primary Care Provider [phone] Reason for Visit * Reason Comments Med Refill Encounter Details Date Type Department Care Team ([facility] st Contact Info) Description 01/19/2024 Refill [facility] [address] [place], [place] [phone] Antoinette Mejia MD [address] [place], [place] [phone] Social History Tobacco Use Types Packs/Day Years [...] Description 02/19/2025 1:15 PM EDT Procedure Visit [facility] [address] [place] [address] Toña Parish CNM [address] [place] [address] 03/20/2025 2:00 PM EDT Clinical Support [address] [address] documented as of this encounter Visit Diagnoses Not on filedocumented in this encounter Additional Health Concerns Assessment Noted Time PHQ-9 Depression Total Score: 4 02/05/20 23 9:05 AM EDT documented as of this encounter Care Teams Architectural Engineering Teacher Relationship Specialty Start Date End Date Antoinette Mejia MD [address] [place] [address] PCP - General Family Medicine 10/11/18 documented as of this encounter
--- OUTSIDE RECORDS SUMMARY | 2025-01-10 18:02 | XMS_ITS | Encounter Summary ---
Author Organization [employer] Address [address] [facility] 7t [place] [address] Care Team Providers Care Machine Chain Maker Name Role Phone Antoinette Mejia MD Primary Care Provider [phone] Reason for Visit * Reason Onset Date Comments Med Refill 03/13/2024 Encounter Details Date Type Department Care Team ([facility] st Contact Info) Description 03/13/2024 Telephone [facility] 230 [place] [address] Elis Chapman, ANP 230 [place] [address] Med Refill Social History Tobacco Use Types [...] Telephone Encounter - Lilly Evangelista RN - 03/27/2024 4:09 PM EDT Images from the original note were not included. Triage call regarding Pt portal request below. Pt reports started weight control injections 03/25/24which was the LBM also. Pt reports constipation since that time. No further BM . Pt is advised to use home care suggestions. Pt to obtain OTC MOM , take 30cc this evening before bed. Try prune juice in AM or Apple juice. Increase liquids to 6-8 glasses daily as well as fiber in the diet with fresh fruits/vegetables. If no BM tomorrow call back . Pt agrees with disposition and home care and will call back if needed. Protocol Used: Constipation (Adult) Protocol-Based Disposition: Home Care Positive Triage Question: * Mild constipation * All higher-acuity triage questions were negative Care Advice Discussed: * Reassurance and Education - Constipation * General Constipation Instructions * High Fiber Diet * Drink Adequate Liquids * Reasons To Call Back - Constipation lasts more than 1 week after using Care Advice - Abdomen swelling, vomiting or fever occur - Constant or increasing abdomen pain - You think you need to be seen - You become worse * Step 1 - Fiber Laxatives, Every Day * Step 2 - Use an Osmotic Laxative if Needed * Reasons To Call Back - Constipation lasts more than 1 week after using Care Advice - Abdomen swelling, vomiting or fever occur - Constant or increasing abdomen pain - You think you need to be seen - You become worse [facility] Clinical Support (supporting Antoinette Mejia MD)44 minutes ago (3:23 PM) i haven???t been able to poop for 3 days and i was wondering if i can get something for that * Telephone Encounter - Mimi Lee - 03/17/2024 3:48 PM EDT PT would like to try something else for weightloss since INS. Rejected Semaglutide. documented in this encounter Plan of Treatment Upcoming Encounters Date Type Department Care Team (Late st Contact Info) Description 02/19/2025 1:15 PM EDT Procedure Visit [facility] [address] [place] [address] Toña Parish CN 230 [place] [address] 03/20/2025 2:00 PM EDT Clinical Support [address] [address] documented as of this encounter Visit Diagnoses Diagnosis Encounter for other general counseling or advice on contraception documented in this encounter Additional Health Concerns Assessment Noted Time PHQ-9 Depression Total Score: 0 02/24/20 24 10:07 AM EDT documented as of this encounter Care Teams Machine Chain Maker Relationship Specialty Start Date End Date Antoinette Mejia MD [address] [place] [address] PCP - General Family Medicine 10/11/18 documented as of this encounter
--- OUTSIDE RECORDS SUMMARY | 2025-01-10 18:02 | XMS_ITS | Encounter Summary ---
Author Organization [employer] Address [address] [facility] 7t [place] [address] Care Team Providers Care Ticket Taker Name Role Phone Antoinette Mejia MD Primary Care Provider [phone] Reason for Visit * Reason Onset Date Comments Med Refill 05/18/2024 Encounter Details Date Type Department Care Team ([facility] st Contact Info) Description 05/18/2024 Telephone [facility] 230 [place] [address] Antoinette Mejia MD 230 [place] [address] Med Refill Social History Tobacco Use Types [...] encounter Miscellaneous Notes * Telephone Encounter - Roberta Rich LPN - 05/18/2024 10:02 AM EDT Please review message below * Telephone Encounter - Batsheva Hermosillo - 05/18/2024 9:18 AM EDT Tc from pt requesting Wegovy 1.7 MG Due to regular dose not available at the pharmacy. [id number] [place], [place] - [address] [facility] documented in this encounter Plan of Treatment Upcoming Encounters Date Type Department Care Team (Late st Contact Info) Description 02/19/2025 1:15 PM EDT Procedure Visit [facility] [address] [place] [address] Toña Parish CNM 230 [place] [address] 03/20/2025 2:00 PM EDT Clinical Support [facility] [address] [place] [address] documented as of this encounter Visit Diagnoses Not on filedocumented in this encounter Additional Health Concerns Assessment Noted Time PHQ-9 Depression Total Score: 0 02/24/20 24 10:07 AM EDT documented as of this encounter Care Teams Ticket Taker Relationship Specialty Start Date End Date Antoinette Mejia MD 230 [place] [address] PCP - General Family Medicine 10/11/18 documented as of this encounter
--- OUTSIDE RECORDS SUMMARY | 2025-01-10 18:02 | XMS_ITS | Encounter Summary ---
Author Organization [employer] Address [address] [facility] [address] 7t [place] [address] Care Team Providers Care Hydrotel Operator Name Role Phone Antoinette Mejia MD Primary Care Provider [phone] Encounter Details Date Type Department Care Team (Late st Contact Info) Description 11/12/2023 Orders Only [facility] MED[facility]INE 230 [place], [place] [phone] Antoinette Mejia MD 230 [place] [address] Chronic pain of left ankle (Primary Dx); Great toe pain, left; Ingrown toenail of both feet Social History Tobacco Use Types Packs/Day Years [...] Description 02/19/2025 1:15 PM EDT Procedure Visit [address] [address] Toña Parish CNM [address] [place] [address] 03/20/2025 2:00 PM EDT Clinical Support [address] [address] documented as of this encounter Visit Diagnoses Diagnosis Chronic pain of left ankle- Primary Great toe pain, left Ingrown toenail of both feet documented in this encounter Additional Health Concerns Assessment Noted Time PHQ-9 Depression Total Score: 4 02/05/20 23 9:05 AM EDT documented as of this encounter Care Teams Hydrotel Operator Relationship Specialty Start Date End Date Antoinette Mejia MD [address] [place] [address] PCP - General Family Medicine 10/11/18 documented as of this encounter
--- OUTSIDE RECORDS SUMMARY | 2025-01-10 18:02 | XMS_ITS | Encounter Summary ---
Author Organization [employer] Address 75 [facility] 7t [place] [address] Care Team Providers Care Lumber Checker Name Role Phone Antoinette Mejia MD Primary Care Provider [phone] Reason for Visit * Reason Onset Date Comments Med Refill 02/17/2024 Encounter Details Date Type Department Care Team (Late st Contact Info) Description 02/17/2024 Refill [facility] 230 [place] [address] Antoinette Mejia MD 230 [place] [address] Social History Tobacco Use Types Packs/Day Years [...] Description 02/19/2025 1:15 PM EDT Procedure Visit [facility] [address] [place] [address] Toña Parish CNM 230 [place] [address] 03/20/2025 2:00 PM EDT Clinical Support [facility] [address] [place] [address] documented as of this encounter Visit Diagnoses Not on filedocumented in this encounter Additional Health Concerns Assessment Noted Time PHQ-9 Depression Total Score: 4 02/05/20 23 9:05 AM EDT documented as of this encounter Care Teams Lumber Checker Relationship Specialty Start Date End Date Antoinette Mejia MD [address] [place] [address] PCP - General Family Medicine 10/11/18 documented as of this encounter
--- OUTSIDE RECORDS SUMMARY | 2025-01-10 18:02 | XMS_ITS | Encounter Summary ---
Author Organization [employer] Address [address] [facility] 7t [place] [address] Care Team Providers Care Herbarium Curator Name Role Phone Antoinette Mejia MD Primary Care Provider [phone] Reason for Visit * Reason Onset Date Comments Med Refill 06/24/2024 Encounter Details Date Type Department Care Team (Late st Contact Info) Description 06/24/2024 Refill [facility] [address] [place] [address] Antoinette Mejia MD 230 [place] [address] Social History Tobacco Use Types Packs/Day Years [...] your housing situation today? I have mari sing 02/24/[address] you li [...] Description 02/19/2025 1:15 PM EDT Procedure Visit [facility] MEDICINE [address] [place] [address] oTña Parish CNM 230 [place] [address] 03/20/2025 2:00 PM EDT Clinical Support [address] [address] documented as of this encounter Visit Diagnoses Not on filedocumented in this encounter Additional Health Concerns Assessment Noted Time PHQ-9 Depression Total Score: 0 02/24/20 24 10:07 AM EDT documented as of this encounter Care Teams Herbarium Curator Relationship Specialty Start Date End Date Antoinette Mejia MD [address] [place] [address] PCP - General Family Medicine 10/11/18 documented as of this encounter
--- OUTSIDE RECORDS SUMMARY | 2025-01-10 18:02 | XMS_ITS | Encounter Summary ---
Author Organization [employer] Address [address] [facility] [address] 7t [place] [address] Care Team Providers Care Bike Mechanic Name Role Phone Antoinette Mejia MD Primary Care Provider [phone] Encounter Details Date Type Department Care Team (Late st Contact Info) Description 03/16/2024 Orders Only [facility] MEDICINE 230 [place], [place] [phone] Antoinette Mejia MD 230 [place], [place] [phone] Social History Tobacco Use Types Packs/Day Years [...] Description 02/19/2025 1:15 PM EDT Procedure Visit [facility]INE [address] [place] [address] Toña Parish CNM [address] [place] [address] 03/20/2025 2:00 PM EDT Clinical Support [address] [address] documented as of this encounter Visit Diagnoses Not on filedocumented in this encounter Additional Health Concerns Assessment Noted Time PHQ-9 Depression Total Score: 0 02/24/20 24 10:07 AM EDT documented as of this encounter Care Teams Bike Mechanic Relationship Specialty Start Date End Date Antoinette Mejia MD [address] [place] [address] PCP - General Family Medicine 10/11/18 documented as of this encounter
--- OUTSIDE RECORDS SUMMARY | 2025-01-10 18:02 | XMS_ITS | Clinical Summary ---
Author Organization [facility] Address [address] [place] [address] Care Team Providers Care Hourly Manager Name Role Phone Antoinette Mejia MD Primary Care Provider [phone] Social History Tobacco Use Types Packs/Day Years Used Date Smoking Tobacco: Never Assessed Comments Unknown Sex and Gender Information Value Date Recorded Sex Assigned at Not on file Legal Sex Female 8:54 PM EST Gender Identity Not on file Sexual Orientation Not on file Plan of Treatment Health Maintenance Due Date Last Done Comments Gonorrhea/Chlamydia Screening 2000 HPV Vaccines (1 - 3-dose series) 2015 DTaP,Tdap,and Td Vaccines (1 - Tdap) 2019 Hepatitis B Vaccines (1 of 3 - 19+ 3-dose series) 2019 Cervical Cancer Screening: P ap Smear 2021 Depression Screening 11/05/2023 HIV Screening 11/05/2023 Hepatitis C Screening 11/05/2023 Social Influencers of Health Screening 11/05/2023 COVID-19 Vaccine ( - 2023-2 5 season) 2024 Influenza Vaccine (Season Ended) 2025 HIB Vaccines Aged Out No longer eligi ble based on patient's age to complete this topic Hepatitis A Vaccines Aged Out No long er eligible based on patient's age to complete this topic IPV Vaccines Aged Out No longer eligi ble based on patient's age to complete this topic MMR Vaccines Aged Out No longer eligi ble based on patient's age to complete this topic Meningococcal ACWY Vaccine Aged Out N o longer eligible based on patient's age to complete this topic Meningococcal B Vacine Aged Out No lo nger eligible based on patient's age to complete this topic Pneumococcal Vaccine: Pediat rics (0 to 5 Years) and At-Risk Patients (6 to 64 Years) Aged Out No longer eligible b ased on patient's age to complete this topic RSV Immunization Patients Un lyric 20 months Aged Out No longer eligible b ased on patient's age to complete this topic Varicella Vaccines Aged Out No longer eligible based on patient's age to complete this topic Care Teams Hourly Manager Relationship Specialty Start Date End Date Antoinette Mejia MD [address] [place] [phone] PCP - General 09/22/23
--- OUTSIDE RECORDS SUMMARY | 2025-01-10 18:02 | XMS_ITS | Encounter Summary ---
Author Organization [employer] Address [address] [facility] [address] 7t [place] [address] Care Team Providers Care Supervisor Post Wave Name Role Phone Antoinette Mejia MD Primary Care Provider [phone] Encounter Details Date Type Department Care Team (Late st Contact Info) Description 03/01/[address] [facility]INE 230 [place], [place] [phone] Antoinette Mejia MD 230 [place], [place] [phone] Social History Tobacco Use Types Packs/Day Years [...] 02/19/2025 1:15 PM EDT Procedure Visit [facility] [address] [place] [address] Toña Parish CNM [address] [place] [address] 03/20/2025 2:00 PM EDT Clinical Support [address] [address] documented as of this encounter Visit Diagnoses Not on filedocumented in this encounter Additional Health Concerns Assessment Noted Time PHQ-9 Depression Total Score: 0 02/24/20 24 10:07 AM EDT documented as of this encounter Care Teams Supervisor Post Wave Relationship Specialty Start Date End Date Antoinette Mejia MD [address] [place] [address] PCP - General Family Medicine 10/11/18 documented as of this encounter
--- OUTSIDE RECORDS SUMMARY | 2025-01-10 18:02 | XMS_ITS | Encounter Summary ---
Author Organization [employer] Address [address] [facility] 7t [place] [address] Care Team Providers Care Quartz Miner Name Role Phone Antoinette Mejia MD Primary Care Provider [phone] Reason for Visit * Reason Onset Date Comments Med Refill 09/21/2024 Encounter Details Date Type Department Care Team (Late st Contact Info) Description 09/21/2024 Refill [facility] MEDICINE 230 [place] [address] Antoinette eMjia MD 230 [place] [address] Social History Tobacco Use Types Packs/Day Years [...] Description 02/19/2025 1:15 PM EDT Procedure Visit [facility] MEDICINE [address] [place] [address] Toña Parish CNM 230 [place] [address] 03/20/2025 2:00 PM EDT Clinical Support [address] [address] documented as of this encounter Visit Diagnoses Not on filedocumented in this encounter Additional Health Concerns Assessment Noted Time PHQ-9 Depression Total Score: 11 024 2:25 PM EDT documented as of this encounter Care Teams Quartz Miner Relationship Specialty Start Date End Date Antoinette Mejia MD [address] [place] [address] PCP - General Family Medicine 10/11/18 documented as of this encounter
--- OUTSIDE RECORDS SUMMARY | 2025-01-10 18:02 | XMS_ITS | Encounter Summary ---
Author Organization [employer] Address [address] [facility] 7t [place] [address] Care Team Providers Care Channel Program Manager Name Role Phone Antoinette Mejia MD Primary Care Provider [phone] Encounter Details Date Type Department Care Team (Late Contact Info) Description 10/23/2022 Orders Only [facility] [address] [place] [address] Antoinette Mejia MD 230 [place] [address] Class 3 severe obesity due to excess calories without serious comorbidity with body mass index (BMI) of 45.0 to 49.9 in adult (CMS/HCC) (Primary Dx) Social History Tobacco Use Types [...] not to disclose 2021 10:18 AM EDT COVID-19 Exposure Response Date Recorded In the last 10 days, have yo u been in contact with someone who was confirmed or suspected to have Coronavirus/COVID-19? No / Unsure 09/25/2022 10:24 AM EST documented as of this encounter Plan of Treatment Upcoming Encounters Date Type Department Care Team (Late Contact Info) Description 02/19/2025 1:15 PM EDT Procedure Visit [facility] [address] [place] [address] Toña Parish CNM [address] [place] [address] 03/20/2025 2:00 PM EDT Clinical Support [facility] [address] [place] [address] documented as of this encounter Visit Diagnoses Diagnosis Class 3 severe obesity due to excess calories without serious comorbidity with body mass index (BMI) of 45.0 to 49.9 in adult (CMS/[facility])- Primary documented in this encounter Care Teams Channel Program Manager Relationship Specialty Start Date End Date Antoinette Mejia MD [address] [place] [address] PCP - General Family Medicine 10/11/18 documented as of this encounter
--- OUTSIDE RECORDS SUMMARY | 2025-01-10 18:02 | XMS_ITS | Encounter Summary ---
Author Organization [employer] Address [address] 7t [place] [address] Care Team Providers Care Teletype Telegrapher Name Role Phone Antoinette Mejia MD Primary Care Provider [phone] Reason for Visit * Reason Onset Date Comments Appointment Request 05/16/2024 Encounter Details Date Type Department Care Team ([facility] Contact Info) Description 05/16/2024 Telephone [facility] [address] [place] [address] Antoinette Mejia MD 230 [place] [address] Appointment Request Social History Tobacco Use Types [...] * Telephone Encounter - Batsheva Hermosillo - 05/16/2024 12:42 PM EDT Tc from pt requesting a depo visit. documented in this encounter Plan of Treatment Upcoming Encounters Date Type Department Care Team (Late st Contact Info) Description 02/19/2025 1:15 PM EDT Procedure Visit [facility] [address] [place] [address] Toña Parish CNM [address] [place] [address] 03/20/2025 2:00 PM EDT Clinical Support [facility] [address] [place] [address] documented as of this encounter Visit Diagnoses Not on filedocumented in this encounter Additional Health Concerns Assessment Noted Time PHQ-9 Depression Total Score: 0 02/24/20 24 10:07 AM EDT documented as of this encounter Care Teams Teletype Telegrapher Relationship Specialty Start Date End Date Antoinette Mejia MD [address] [place] [address] PCP - General Family Medicine 10/11/18 documented as of this encounter
--- OUTSIDE RECORDS SUMMARY | 2025-01-10 18:02 | XMS_ITS | Encounter Summary ---
Author Organization [employer] Address [address] [facility] 7t [place] [address] Care Team Providers Care Statistician Mathematical Name Role Phone Antoinette Mejia MD Primary Care Provider [phone] Reason for Visit * Reason Onset Date Comments Med Refill 09/06/2024 Encounter Details Date Type Department Care Team (Late st Contact Info) Description 09/06/2024 Refill [facility] [address] [place] [address] Toña [place], [facility] [address] [place] [address] Social History Tobacco Use Types Packs/Day Years [...] Description 02/19/2025 1:15 PM EDT Procedure Visit [facility] [address] [place] [address] Toña Parish CNM [address] [place] [address] 03/20/2025 2:00 PM EDT Clinical Support [address] [address] documented as of this encounter Visit Diagnoses Not on filedocumented in this encounter Additional Health Concerns Assessment Noted Time PHQ-9 Depression Total Score: 11 024 2:25 PM EDT documented as of this encounter Care Teams Statistician Mathematical Relationship Specialty Start Date End Date Antoinette Mejia MD [address] [place] [address] PCP - General Family Medicine 10/11/18 documented as of this encounter
--- OUTSIDE RECORDS SUMMARY | 2025-01-10 18:02 | XMS_ITS | Encounter Summary ---
Author Organization [employer] Address [address] [facility] 7t [place] [address] Care Team Providers Care Malted Milk Masher Name Role Phone Antoinette Mejia MD Primary Care Provider [phone] Encounter Details Date Type Department Care Team (Late Contact Info) Description 02/12/2023 Orders Only [facility] MEDICINE [address] [place], [place] [phone] Antoinette Mejia MD 230 [place], [place] [phone] Food allergy (Primary Dx); Allergic rhinitis, unspecified seasonality, unspecified trigger Social History Tobacco Use Types Packs/Day Years Used Date Smoking Tobacco: Never Passive Smoke Exposure: Never Smokeless Tobacco: Never Alcohol Use Standard Drinks/Week Comments Never 0 (1 standard drink = 0.6 oz pur e alcohol) Depression Answer Date Recorded Patient Health Questionnaire-9 Score 4 02/04/2023 Depression Answer Date Recorded Patient Health Questionnaire-2 [...] suspected to have Coronavirus/COVID-19? No / Unsure 02/04/2023 8:50 AM EDT documented as of this encounter Plan of Treatment Upcoming Encounters Date Type Department Care Team (Late Contact Info) Description 02/19/2025 1:15 PM EDT Procedure Visit [facility] MEDICINE [address] [place] [address] Toña Parish CNM [address] [place] [address] 03/20/2025 2:00 PM EDT Clinical Support [facility] MED[facility]INE [address] [place] [address] documented as of this encounter Visit Diagnoses Diagnosis Food allergy- Primary Dermatitis due to food taken internally Allergic rhinitis, unspecified seasonality, unspecified trigger documented in this encounter Additional Health Concerns Assessment Noted Time PHQ-9 Depression Total Score: 4 02/05/20 23 9:05 AM EDT documented as of this encounter Care Teams Malted Milk Masher Relationship Specialty Start Date End Date Antoinette Mejia MD [address] [place] [address] PCP - General Family Medicine 10/11/18 documented as of this encounter
--- OUTSIDE RECORDS SUMMARY | 2025-01-10 18:02 | XMS_ITS | Encounter Summary ---
Author Organization [employer] Address [address] [facility] [address] 7t [place] [address] Care Team Providers Care Veterinary Livestock Inspector Name Role Phone Antoinette Mejia MD Primary Care Provider [phone] Encounter Details Date Type Department Care Team (Late st Contact Info) Description 01/20/2024 Orders Only [facility] MEDICINE 230 [place], [place] [phone] Antoinette Mejia MD 230 [place], [place] [phone] Social History Tobacco Use Types Packs/Day Years [...] [facility] MED[facility]INE [address] [place] [address] Toña [place] CNM [address] [place] [address] 03/20/2025 2:00 PM EDT Clinical Support [address] [address] documented as of this encounter Visit Diagnoses Not on filedocumented in this encounter Additional Health Concerns Assessment Noted Time PHQ-9 Depression Total Score: 4 02/05/20 23 9:05 AM EDT documented as of this encounter Care Teams Veterinary Livestock Inspector Relationship Specialty Start Date End Date Antoinette Mejia MD [address] [place] [address] PCP - General Family Medicine 10/11/18 documented as of this encounter
--- OUTSIDE RECORDS SUMMARY | 2025-01-10 18:02 | XMS_ITS | Encounter Summary ---
Author Organization [employer] [facility] Address [address] [facility] 7t [place] [address] Care Team Providers Care Seedling Sorter Name Role Phone Antoinette Mejia MD Primary Care Provider [phone] Encounter Details Date Type Department Care Team (Latest Contact Info) Description 05/16/2019 Abstract [facility] CONVERSION[facility] Dental, Provider, DDS Social History Tobacco Use Types Packs/Day Years [...] 1:15 PM EDT Procedure Visit [facility] MEDICINE [address] [place] [address] Toña Parish CNM 230 [place] [address] 03/20/2025 2:00 PM EDT Clinical Support [facility] MEDICINE [address] [place] [address] documented as of this encounter Visit Diagnoses Not on filedocumented in this encounter Care Teams Seedling Sorter Relationship Specialty Start Date End Date Antoinette Mejia MD [address] [place] [address] PCP - General Family Medicine 10/11/18 documented as of this encounter
--- OUTSIDE RECORDS SUMMARY | 2025-01-10 18:02 | XMS_ITS | Encounter Summary ---
Author Organization [employer] Address [address] [facility] 7t [place] [address] Care Team Providers Care Instructional Material Director Name Role Phone Antoinette Mejia MD Primary Care Provider [phone] Reason for Visit * Reason Onset Date Comments Medication Question 06/26/2024 Results 06/26/2024 Encounter Details Date Type Department Care Team ([facility] Contact Info) Description 06/26/2024 Telephone [facility] MEDICINE 230 [place], [place] [phone] Antoinette Mejia MD 230 [place] [address] Medication Question; Results Social History Tobacco Use Types Packs/Day Years [...] encounter Miscellaneous Notes * Telephone Encounter - Heriberto Washington - 06/26/2024 9:37 AM EDT Tc from pt calling requesting an alternative to Semaglutide-Weight Management (Wegovy) 1 MG/0.5ML solution auto-injector. Pt stated her periods have been more frequent and she is unsure if the medication could be the cause, she also stated the medication is not working for her. Pt is also requesting a call back with lab results from 06/19/24. Please contact pt at [phone]. documented in this encounter Plan of Treatment Upcoming Encounters Date Type Department Care Team ([facility] st Contact Info) Description 02/19/2025 1:15 PM EDT Procedure Visit [facility] MED[facility]INE [address] [place] [address] Toña Parish CNM [address] [place] [address] 03/20/2025 2:00 PM EDT Clinical Support [facility]INE [address] [place] [address] documented as of this encounter Visit Diagnoses Not on filedocumented in this encounter Additional Health Concerns Assessment Noted Time PHQ-9 Depression Total Score: 0 02/24/20 10:07 AM EDT documented as of this encounter Care Teams Instructional Material Director Relationship Specialty Start Date End Date Antoinette Mejia MD [address] [place] [address] PCP - General Family Medicine 10/11/18 documented as of this encounter
--- OUTSIDE RECORDS SUMMARY | 2025-01-10 18:02 | XMS_ITS | Encounter Summary ---
Author Organization [employer] Address [address] [facility] 7t [place] [address] Care Team Providers Care Front Load Trash Truck Driver Name Role Phone Antoinette Mejia MD Primary Care Provider [phone] Reason for Visit * Reason Onset Date Comments Medication Question 07/12/2024 Encounter Details Date Type Department Care Team ([facility] Contact Info) Description 07/12/2024 Telephone [facility] MEDICINE [address] [place] [address] Antoinette Mejia MD 230 [place] [address] Medication Question Social History Tobacco Use Types Packs/Day Years [...] Telephone Encounter - Antoinette Mejia MD - 07/12/2024 3:47 PM EDT Script sent for 1.7 mg * Telephone Encounter - Leonel Mckeon - 07/12/2024 10:58 AM EDT TC from pt states was re prescribed Semaglutide-Weight Management (Wegovy) 1 MG/0.5ML solution auto-injector . Pt states mg was to be 1.7 documented in this encounter Plan of Treatment Upcoming Encounters Date Type Department Care Team (Late st Contact Info) Description 02/19/2025 1:15 PM EDT Procedure Visit [facility] MEDICINE [address] [place] [address] Toña Parish CNM [address] [place] [address] 03/20/2025 2:00 PM EDT Clinical Support [facility] MEDICINE [address] [place] [address] documented as of this encounter Visit Diagnoses Not on filedocumented in this encounter Additional Health Concerns Assessment Noted Time PHQ-9 Depression Total Score: 0 02/24/20 24 10:07 AM EDT documented as of this encounter Care Teams Front Load Trash Truck Driver Relationship Specialty Start Date End Date Antoinette Mejia MD [address] [place] [address] PCP - General Family Medicine 10/11/18 documented as of this encounter
--- OUTSIDE RECORDS SUMMARY | 2025-01-10 18:02 | XMS_ITS | Encounter Summary ---
Author Organization [employer] Address [address] [facility] 7t [place] [address] Care Team Providers Care Pin Drafter Operator Name Role Phone Antoinette Mejia MD Primary Care Provider [phone] Encounter Details Date Type Department Care Team (Late Contact Info) Description 09/28/2022 Orders Only [facility] MEDICINE [address] [place] [address] [phone] Antoinette Mejia MD [address] [place] [phone] Visual problems (Primary Dx) Social History Tobacco Use Types [...] 02/19/2025 1:15 PM EDT Procedure Visit [facility] MEDICINE [address] [place] [address] Toña Parish CNM [address] [place] [address] 03/20/2025 2:00 PM EDT Clinical Support [facility] MEDICINE [address] [place] [address] [phone] documented as of this encounter Visit Diagnoses Diagnosis Visual problems- Primary documented in this encounter Care Teams Pin Drafter Operator Relationship Specialty Start Date End Date Antoinette Mejia MD [address] [place] [address] PCP - General Family Medicine 10/11/18 documented as of this encounter
--- OUTSIDE RECORDS SUMMARY | 2025-01-10 18:02 | XMS_ITS | Encounter Summary ---
Author Organization [employer] Address [address] [facility] 7t [place] [address] Care Team Providers Care Cigar Packer And Shader Name Role Phone Antoinette Mejia MD Primary Care Provider [phone] Reason for Visit * Reason Onset Date Comments PA 10/02/2024 Encounter Details Date Type Department Care Team ([facility] st Contact Info) Description 10/02/2024 Telephone [facility] MEDICINE [address] [place], [place] [phone] Antoinette Mejia MD [address] [place] [address] [place] Social History Tobacco Use Types Packs/Day Years [...] encounter Miscellaneous Notes * Telephone Encounter - Daily Fuentes - 10/02/2024 9:00 AM EST Tc from pt requesting change to Zepbound. Olivia will not be approved beyond 10/10/2024. documented in this encounter Plan of Treatment Upcoming Encounters Date Type Department Care Team (Late st Contact Info) Description 02/19/2025 1:15 PM EDT Procedure Visit [facility] MEDICINE [address] [place] [address] Toña Parish CNM [address] [place] [address] 03/20/2025 2:00 PM EDT Clinical Support [facility] MEDICINE [address] [place] [address] documented as of this encounter Visit Diagnoses Not on filedocumented in this encounter Additional Health Concerns Assessment Noted Time PHQ-9 Depression Total Score: 11 024 2:25 PM EDT documented as of this encounter Care Teams Cigar Packer And Shader Relationship Specialty Start Date End Date Antoinette Mejia MD 230 [place] [address] PCP - General Family Medicine 10/11/18 documented as of this encounter
[2025-01-12 23:54] LABS: C. trachomatis RNA TMA NOT DETECTED (NOT DETECTED); N. gonorrhoeae RNA TMA NOT DETECTED (NOT DETECTED); Trichomonas (NAAT) NOT DETECTED (NOT DETECTED)
== END 2025-01-09 00:01 | disposition home or self-care (01) ==
LOC: HO.HHCLNP
PROVIDERS: Visit Provider Advanced Practice Midwife
DX: Z12.4 Encounter for screening for malignant neoplasm of cervix (principal); Z11.3 Encounter for screening for infections with a predominantly sexual mode of transmission; R87.610 Atypical squamous cells of undetermined significance on cytologic smear of cervix (ASC-US)
CPT/HCPCS: 87491; 87591; 87661; 88175

== ENCOUNTER 2025-02-19 17:26 | Outpatient (REF) | payer MEDICAID, SELFPAY ==
--- OUTSIDE RECORDS SUMMARY | 2025-02-19 17:28 | XMS_ITS | Encounter Summary ---
Author Organization [employer] Address [address] [facility] [address] 7t [place] [address] Care Team Providers Care Burn Crew Member Name Role Phone Antoinette Mejia MD Primary Care Provider [phone] Reason for Visit * Reason Onset Date Comments Med Refill 09/19/2023 Encounter Details Date Type Department Care Team ([facility] st Contact Info) Description 09/19/2023 Refill [facility] MEDICINE 230 [place] [address] Antoinette Mejia MD 230 [place] [address] Social History Tobacco Use Types Packs/Day Years [...] . Pt is advised to come to [facility] which is open till 800pm tonight to [...] this Encounter Leonel Mckeon routed conversation to [facility] Triage Nurse 1 hour ago (10:13 AM) Leatha Colvin [facility] Clinical Support (supporting Toña Parish CNM) 10 hours ago (12:50 AM) i???m itchy down there i don???t know why and i drank all my antibiotics documented in this encounter Plan of Treatment Upcoming Encounters Date Type Department Care Team (Late st Contact Info) Description 03/12/2025 2:00 PM EDT Office Visit [facility] MEDICINE [address] [place] [address] Antoinette Mejia MD [address] [place] [address] 03/20/2025 2:00 PM EDT Clinical Support [address] [address] 04/23/2025 2:00 PM EDT Office Visit [address] [address] Toña Parish CN [address] [place] [address] documented as of this encounter Visit Diagnoses Not on filedocumented in this encounter Additional Health Concerns Assessment Noted Time PHQ-9 Depression Total Score: 4 02/05/20 23 9:05 AM EDT documented as of this encounter Care Teams Burn Crew Member Relationship Specialty Start Date End Date Antoinette Mejia MD [address] [place] [phone] PCP - General Family Medicine 10/11/18 documented as of this encounter
--- OUTSIDE RECORDS SUMMARY | 2025-02-19 17:28 | XMS_ITS | Encounter Summary ---
Author Organization [employer] Address [address] [facility] [address] 7t [place] [address] Care Team Providers Care Supply Technician Name Role Phone Antoinette Meija MD Primary Care Provider [phone] Reason for Visit * Reason Onset Date Comments Med Refill 08/20/2023 Encounter Details Date Type Department Care Team (Late st Contact Info) Description 08/20/2023 Refill [facility] MED[facility]INE 230 [place] [address] Toña Parish, CN [address] [place] [address] Social History Tobacco Use Types Packs/Day Years [...] Description 03/12/2025 2:00 PM EDT Office Visit [address] [address] Antoinette Mejia MD [address] [place] [address] 03/20/2025 2:00 PM EDT Clinical Support [address] [address] 04/23/2025 2:00 PM EDT Office Visit [address] [address] Toña Parish [address] [address] documented as of this encounter Visit Diagnoses Not on filedocumented in this encounter Additional Health Concerns Assessment Noted Time PHQ-9 Depression Total Score: 4 02/05/20 23 9:05 AM EDT documented as of this encounter Care Teams Supply Technician Relationship Specialty Start Date End Date Antoinette Mejia MD [address] [place] [address] PCP - General Family Medicine 10/11/18 documented as of this encounter
--- OUTSIDE RECORDS SUMMARY | 2025-02-19 17:28 | XMS_ITS | Encounter Summary ---
Author Organization [employer] Address [address] [facility] [address] 7t [place] [address] Care Team Providers Care Securities Trader Name Role Phone Antoinette Mejia MD Primary Care Provider [phone] Reason for Visit * Reason Comments Med Refill Encounter Details Date Type Department Care Team ([facility] st Contact Info) Description 08/24/2023 Refill [facility] MEDICINE 230 [place] [address] Toña Parish CNM [address] [place] [address] Social History Tobacco Use Types Packs/Day Years Used Date Smoking Tobacco: Never Passive Smoke Exposure: Never Smokeless Tobacco: Never Alcohol Use Standard Drinks/Week Comments Never 0 (1 standard drink = 0.6 oz pur e alcohol) Depression Answer Date Recorded Patient Health Questionnaire-9 Score 4 02/04/2023 Housing Stability Answer Date Recorded What is your housing situation today? I have mrai chen 07/26/[address] you [...] Description 03/12/2025 2:00 PM EDT Office Visit [facility] MEDICINE [address] [place] [address] Antoinette Mejia MD 230 [place] [address] 03/20/2025 2:00 PM EDT Clinical Support [address] [address] 04/23/2025 2:00 PM EDT Office Visit [address] [address] Toña Parish CNM [address] [place] [address] documented as of this encounter Visit Diagnoses Not on filedocumented in this encounter Additional Health Concerns Assessment Noted Time PHQ-9 Depression Total Score: 4 02/05/20 23 9:05 AM EDT documented as of this encounter Care Teams Securities Trader Relationship Specialty Start Date End Date Antoinette Mejia MD [address] [place] [address] PCP - General Family Medicine 10/11/18 documented as of this encounter
--- OUTSIDE RECORDS SUMMARY | 2025-02-19 17:28 | XMS_ITS | Encounter Summary ---
Author Organization [employer] Address [address] [facility] [address] 7t [place] [address] Care Team Providers Care Tongue Lining Stitcher Name Role Phone Antoinette Mejia MD Primary Care Provider [phone] Reason for Visit * Reason Onset Date Comments Appointment Request 12/25/2024 Encounter Details Date Type Department Care Team ([facility] st Contact Info) Description 12/25/2024 Telephone [facility] MEDICINE 230 [place] [address] Antoinette Mejia MD 230 [place] [address] Appointment Request Social History Tobacco Use Types [...] missed for a PAP SMEAR EXAM , information writer inform no sooner availability as pt requested a callback. Appointment: PAP SMEAR EXAM documented in this encounter Plan of Treatment Upcoming Encounters Date Type Department Care Team (Late st Contact Info) Description 03/12/2025 2:00 PM EDT Office Visit [address] [address] Antoinette Mejia MD [address] [place] [address] 03/20/2025 2:00 PM EDT Clinical Support [address] [address] 04/23/2025 2:00 PM EDT Office Visit [address] [address] Toña Parish CNM [address] [place] [address] documented as of this encounter Visit Diagnoses Not on filedocumented in this encounter Additional Health Concerns Assessment Noted Time PHQ-9 Depression Total Score: 11 024 2:25 PM EDT documented as of this encounter Care Teams Tongue Lining Stitcher Relationship Specialty Start Date End Date Antoinette Mejia MD 230 [place] [address] PCP - General Family Medicine 10/11/18 documented as of this encounter
--- OUTSIDE RECORDS SUMMARY | 2025-02-19 17:28 | XMS_ITS | Encounter Summary ---
Author Organization [employer] Address [address] [facility] [address] 7t [place] [address] Care Team Providers Care Ciaio Lumite Injector Name Role Phone Antoinette Mejia MD Primary Care Provider [phone] Encounter Details Date Type Department Care Team ([facility] st Contact Info) Description 08/19/2023 Telephone [facility] MEDICINE 230 [place], [place] [phone] Antoinette Mejia MD 230 [place], [place] [phone] Social History Tobacco Use Types Packs/Day Years [...] her accommodation is for her job at [employer] as the form she dropped off is [...] anymore as she does not work at [employer] any longer. documented in this encounter Plan of Treatment Upcoming Encounters Date Type Department Care Team (Late st Contact Info) Description 03/12/2025 2:00 PM EDT Office Visit [facility] MEDICINE [address] [place] [address] Antoinette Mejia MD 230 [place] [address] 03/20/2025 2:00 PM EDT Clinical Support [address] [address] 04/23/2025 2:00 PM EDT Office Visit [facility] MEDICINE [address] [place] [address] Toña Parish CNM [address] [place] [address] documented as of this encounter Visit Diagnoses Not on filedocumented in this encounter Additional Health Concerns Assessment Noted Time PHQ-9 Depression Total Score: 4 02/05/20 23 9:05 AM EDT documented as of this encounter Care Teams Ciaio Lumite Injector Relationship Specialty Start Date End Date Antoinette Mejia MD 230 [place] [address] PCP - General Family Medicine 10/11/18 documented as of this encounter
--- OUTSIDE RECORDS SUMMARY | 2025-02-19 17:28 | XMS_ITS ---
Author Organization [employer] Address [address] [place] [address] Care Team Providers Care Hadoop Engineer Name Role Phone Antoinette Mejia MD Primary Care Provider [phone] CM Complex Status:Outreach In Progress (Enrolling) Start date:02/15/2025 Enrollment reason:Referred by provider Overview Pcp referral Case Team Name Relationship Phone Amanda Cortez RN Registered Nurse(Responsible S taff) [phone] Continued Care and Services Coordination
--- OUTSIDE RECORDS SUMMARY | 2025-02-19 17:28 | XMS_ITS | Encounter Summary ---
Author Organization [employer] Address [address] 7t [place] [address] Care Team Providers Care Processing Inspector Name Role Phone Antoinette Mejia MD Primary Care Provider [phone] Encounter Details Date Type Department Care Team ([facility] st Contact Info) Description 11/17/2024 Orders Only [facility] MEDICINE [address] [place] [address] Antoinette Mejia MD 230 [place], [place] [phone] Social History Tobacco Use Types Packs/Day Years [...] Description 03/12/2025 2:00 PM EDT Office Visit [address] [address] Antoinette Mejia MD [address] [place] [address] 03/20/2025 2:00 PM EDT Clinical Support [address] [address] 04/23/2025 2:00 PM EDT Office Visit [address] [address] Toña Parish CNM [address] [place] [address] documented as of this encounter Procedures Procedure Name Priority Date/Time Associated Diagnosis Comments XR CHEST 2 VIEWS Routine 12/06/2024 9:00 PM EST documented in this encounter Results * XR Chest 2 Views (12/06/2024 9:00 PM EST) Anatomical Region Laterality Modality Chest Radiographic Sierra ging 12/06/2024 9:00 PM EST Narrative 12/06/2024 9:02 PM EST ? [facility] ?[address] ?[place] [address] ?XRay Report ? Signed ? Patient: Andrae,Leatha M ?MR#: [id number] ?? [id number] ? : 2000 ?Acct:[id number] ? Age/Sex: 24 / F ?ADM Date: 12/06/24 ? Loc: HO.ED ? Attending Dr: ? Ordering Physician: Neo Soliman ?? Date of Service: 12/06/24 ?? Procedure(s): XR chest 2V ?? Accession Number(s): [id number] ? cc: Neo Soliman; Antoinette Mejia MD [...] DD/ 2100 ? TD/TT: 12/06/24 2100 ? Patient Scheduling Manager: ? Procedure Note Angela, Bernice - 12/06/2024 [place] [address] XRay Report Signed Patient: Leatha Mendez MMR#: [id number] : 2000Acct:[id number] Age/Sex: 24 / FADM Date: 12/06/24 Loc: HO.ED Attending Dr: Ordering Physician: Neo Soliman Date of Service: 12/06/24 Procedure(s): XR chest 2V Accession Number(s): [id number] cc: Neo Soliman; Antoinette Mejia MD CLINICAL [...] in OV> 12/06/242100 DD/ 99 TD/TT: 12/06/242099 Patient Scheduling Manager: [facility] External Provider IMG XR PROCEDURES Edited Result - Final documented in this encounter Visit Diagnoses Not on filedocumented in this encounter Additional Health Concerns Assessment Noted Time PHQ-9 Depression Total Score: 11 08/08/ 024 2:25 PM EDT documented as of this encounter Care Teams Processing Inspector Relationship Specialty Start Date End Date Antoinette Mejia MD [address] [place] [address] PCP - General Family Medicine 10/11/18 documented as of this encounter
--- OUTSIDE RECORDS SUMMARY | 2025-02-19 17:28 | XMS_ITS | Encounter Summary ---
Author Organization [employer] Address [address] 7t [place] [address] Care Team Providers Care Associate Professor Of Music Name Role Phone Antoinette Mejia MD Primary Care Provider [phone] Encounter Details Date Type Department Care Team ([facility] st Contact Info) Description 10/24/2024 Orders Only [facility] MED & PEDS [address] [place], [place] [phone] Shanell Bermeo MD 505 [place], [place] [phone] Bacterial vaginosis (Primary Dx) Social History Tobacco [...] Description 03/12/2025 2:00 PM EDT Office Visit [address] [address] Antoinette Mejia MD [address] [place] [address] 03/20/2025 2:00 PM EDT Clinical Support [address] [address] 04/23/2025 2:00 PM EDT Office Visit [facility] MEDICINE [address] [place] [address] Toña Parish CNM 230 [place] [address] documented as of this encounter Visit Diagnoses Diagnosis Bacterial vaginosis- Primary Unspecified vaginitis and vulvovaginitis documented in this encounter Additional Health Concerns Assessment Noted Time PHQ-9 Depression Total Score: 11 024 2:25 PM EDT documented as of this encounter Care Teams Associate Professor Of Music Relationship Specialty Start Date End Date Antoinette Mejia MD 230 [place] [address] PCP - General Family Medicine 10/11/18 documented as of this encounter
--- OUTSIDE RECORDS SUMMARY | 2025-02-19 17:28 | XMS_ITS | Encounter Summary ---
Author Organization [email or web address] Address [address] 7t [place] [address] Care Team Providers Care Web User Experience Strategist Name Role Phone Antoinette Mejia MD Primary Care Provider [phone] Reason for Visit * Reason Onset Date Comments Dr Ruiz referral for RCT 01/31/2025 rs appt/hung up 01/31/2025 Encounter Details Date Type Department Care Team ([facility] st Contact Info) Description 01/31/2025 Telephone [facility] ADULT DENTAL [address] [place] [address] Karl Ruiz, DMD [address] [place] [address] Dr Ruiz referral for RCT ; rs appt/hung up Social History Tobacco Use Types Packs/Day Years [...] t he electric, gas, oil or water [employer]) threatened to shut off services in your [...] encounter Miscellaneous Notes * Telephone Encounter - Jojo Mishra - 02/07/2025 3:14 PM EDT Patient came in for appt today and had anxiety attack and unable to complete treatment. Patient called in looking to reschedule appt. March 26 was offered to patient by [facility] front office manager and also offeredto call [facility] on [facility] in [place]. Patient stated that March 26 was too far. It was explained to patient that this was the next available appt and she can also call the other office to see if she can get in sooner . She asked if the other office is taking new patients It was explained that we are not affiliated and she would have to contact the office directly. She repeated that March 26 is too far. It was explained to patient that she was scheduled to come in for treatment and was unable to complete treatment due to her anxiety. However it does not indicate there is an immediate appt available to reschedule. Patient disconnected call. Call was taken by Bob in [facility]. However he is training and I assisted with the call and am therefore documenting DR * Telephone Encounter - Jojo Mishra - 01/31/2025 11:20 AM EDT Message for Dr. Ruiz Patient is requesting a referral for RCT. She is currently active requested in [facility] however she was unable to attention her 01/01 appt due to school and is now on waitng list. She is looking to have treatment done sooner elsewhere if possible. Please confirm with patient when she is able to cotton picking machine operator referral DR Sent to both provider and front office manager DR documented in this encounter Plan of Treatment Upcoming Encounters Date Type Department Care Team (Late st Contact Info) Description 03/12/2025 2:00 PM EDT Office Visit [facility] MEDICINE [address] [place] [address] Antoinette Mejia MD [address] [place] [address] 03/20/2025 2:00 PM EDT Clinical Support [address] [address] 04/23/2025 2:00 PM EDT Office Visit [address] [address] Toña Parish CNM [address] [place] [address] documented as of this encounter Visit Diagnoses Not on filedocumented in this encounter Additional Health Concerns Assessment Noted Time PHQ-9 Depression Total Score: 11 08/08/ 024 2:25 PM EDT documented as of this encounter Care Teams Web User Experience Strategist Relationship Specialty Start Date End Date Antoinette Mejia MD [address] [place] [address] PCP - General Family Medicine 10/11/18 documented as of this encounter
--- OUTSIDE RECORDS SUMMARY | 2025-02-19 17:29 | XMS_ITS ---
Author Organization [employer] Address [address] [place] [address] Care Team Providers Care Nuclear Powerplant Mechanic Helper Name Role Phone Antoinette Mejia MD Primary Care Provider CHW Complex Status:Outreach In Progress (Enrolling) Start date:02/15/2025 Enrollment reason:Referred by provider Overview Pcp referral: frequent falls, difficulty organizing and keeping appts. Mild intellectual disability. Please outreach for enrollment. Case Team Name Relationship Phone Yenny Washington (Responsible Staff) [phone] Continued Care and Services Coordination
--- OUTSIDE RECORDS SUMMARY | 2025-02-19 17:29 | XMS_ITS | Encounter Summary ---
Author Organization [employer] Address [address] 7t [place] [address] Care Team Providers Care Horseradish Grinder Name Role Phone Antoinette Mejia MD Primary Care Provider [phone] Reason for Visit * Reason Onset Date Comments Med Refill 04/17/2024 Encounter Details Date Type Department Care Team ([facility] st Contact Info) Description 04/17/2024 Telephone [facility] MEDICINE [address] [place], [place] [phone] Antoinette Mejia MD 230 [place] [address] Med Refill Social History Tobacco Use Types [...] MG/0.5ML solution auto-injector To be sent to: [facility] [place], [place] - [address] [place] [address] documented in this encounter Plan of Treatment Upcoming Encounters Date Type Department Care Team (Late st Contact Info) Description 03/12/2025 2:00 PM EDT Office Visit [address] [address] Antoinette Mejia MD [address] [place] [address] 03/20/2025 2:00 PM EDT Clinical Support [address] [address] 04/23/2025 2:00 PM EDT Office Visit [facility] MEDICINE [address] [place] [address] Toña Parish CNM [address] [place], [place] [phone] documented as of this encounter Visit Diagnoses Not on filedocumented in this encounter Additional Health Concerns Assessment Noted Time PHQ-9 Depression Total Score: 0 02/24/20 24 10:07 AM EDT documented as of this encounter Care Teams Horseradish Grinder Relationship Specialty Start Date End Date Antoinette Mejia MD 230 [place] [address] PCP - General Family Medicine 10/11/18 documented as of this encounter
--- OUTSIDE RECORDS SUMMARY | 2025-02-19 17:29 | XMS_ITS | Encounter Summary ---
Author Organization [employer] Address [address] [facility] 7t [place] [address] Care Team Providers Care Wall Man Name Role Phone Antoinette Mejia MD Primary Care Provider Reason for Visit * Reason Comments Care Coordination CM/CHW outreach Encounter Details Date Type Department Care Team (Latest Contact Info) Description 02/16/2025 Patient Outreach [facility] MEDICINE 230 [place] [address] Antoinette Mejia MD 230 [place] [address] Care Coordination (CM/CHW outreach) Social History Tobacco Use Types Packs/Day Years [...] AM EDT documented as of this encounter Progress Notes * Yenny Washington - 02/16/2025 1:16 PM EDT CHW Yenny Washington, placed outbound call to patient introducing herself from [facility] CM Department, in regards to offering services. Patient's name and was confirmed. Patient agreesto participate in program. Appt. for initial assessment scheduled for 02/28/25 @ 10AM tele with CM Amanda Cortez RN. CHW reinforced direct contact information or forany additional questions or concerns and extended clinic hours on Mondays and Wednesdays, and Walk-In Urgent Care Located in [facility]. Patient provided with after-hours line for [facility], , which offer night time triage service and option to transfer to paedodontist provider if needed. Patient verbalizes understanding, and able to repeat back to marketing copywriter. documented in this encounter Plan of Treatment Upcoming Encounters Date Type Department Care Team (Late st Contact Info) Description 03/12/2025 2:00 PM EDT Office Visit [facility] MEDICINE [address] [place] [address] Antoinette Mejia MD [address] [place] [address] 03/20/2025 2:00 PM EDT Clinical Support [address] [address] 04/23/2025 2:00 PM EDT Office Visit [address] [phone] Toña Parish, [address] [address] documented as of this encounter Visit Diagnoses Not on filedocumented in this encounter Additional Health Concerns Assessment Noted Time PHQ-9 Depression Total Score: 11 024 2:25 PM EDT documented as of this encounter Care Teams Wall Man Relationship Specialty Start Date End Date Antoinette Mejia MD [address] [place] [address] PCP - General Family Medicine 10/11/18 documented as of this encounter
--- OUTSIDE RECORDS SUMMARY | 2025-02-19 17:29 | XMS_ITS | Encounter Summary ---
Author Organization [employer] Address [address] 7t [place] [address] Care Team Providers Care Land Commissioner Name Role Phone Antoinette Mejia MD Primary Care Provider [phone] Encounter Details Date Type Department Care Team ([facility] st Contact Info) Description 02/15/2025 Patient Outreach [facility] MEDICINE 230 [place] [address] Antoinette Mejia MD 230 [place], [place] [phone] Social History Tobacco Use Types Packs/Day Years [...] Description 03/12/2025 2:00 PM EDT Office Visit [facility] MEDICINE [address] [place] [address] Antoinette Mejia MD [address] [place] [address] 03/20/2025 2:00 PM EDT Clinical Support [address] [address] 04/23/2025 2:00 PM EDT Office Visit [address] [address] Toña Parish CNM [address] [place] [address] documented as of this encounter Visit Diagnoses Not on filedocumented in this encounter Additional Health Concerns Assessment Noted Time PHQ-9 Depression Total Score: 11 024 2:25 PM EDT documented as of this encounter Care Teams Land Commissioner Relationship Specialty Start Date End Date Antoinette Mejia MD [address] [place] [address] PCP - General Family Medicine 10/11/18 documented as of this encounter
--- OUTSIDE RECORDS SUMMARY | 2025-02-19 17:29 | XMS_ITS | Encounter Summary ---
Author Organization [employer] Address [address] 7t [place] [address] Care Team Providers Care Warehouse Incentive Selector Name Role Phone Antoinette Mejia MD Primary Care Provider [phone] Reason for Visit * Reason Onset Date Comments Chart Prep 02/16/2025 Encounter Details Date Type Department Care Team ([facility] st Contact Info) Description 02/16/2025 Telephone [facility] MEDICINE 230 [place] [address] Toña Parish, [facility] 230 [place] [address] Chart Prep Social History Tobacco Use Types Packs/Day Years [...] encounter Miscellaneous Notes * Telephone Encounter - Tyra Bueno [place] - 02/16/2025 1:23 PM EDT Chart Prep Labs: done pt sti testing 01/09/2025 Images: not done Referrals: complete Vaccines due: Covid Screenings: LMP Overdue care gaps: SBIRT, SDOH, PHQ-9, BRENDAN-7, and Disability screen documented in this encounter Plan of Treatment Upcoming Encounters Date Type Department Care Team (Late st Contact Info) Description 03/12/2025 2:00 PM EDT Office Visit [address] [address] Antoinette Mejia MD [address] [place] [address] 03/20/2025 2:00 PM EDT Clinical Support [address] [address] 04/23/2025 2:00 PM EDT Office Visit [address] [phone] Toña Parish CNM 230 [place] [address] documented as of this encounter Visit Diagnoses Not on filedocumented in this encounter Additional Health Concerns Assessment Noted Time PHQ-9 Depression Total Score: 11 024 2:25 PM EDT documented as of this encounter Care Teams Warehouse Incentive Selector Relationship Specialty Start Date End Date Antoinette Mejia MD 230 [place] [address] PCP - General Family Medicine 10/11/18 documented as of this encounter
--- OUTSIDE RECORDS SUMMARY | 2025-02-19 17:29 | XMS_ITS | Encounter Summary ---
Author Organization [employer] Address [address] 7t [place] [address] Care Team Providers Care Solar Installation Technician Name Role Phone Antoinette Mejia MD Primary Care Provider [phone] Encounter Details Date Type Department Care Team (Latest Contact Info) Description 02/19/2025 Travel Social History Tobacco Use Types Packs/Day [...] Description 03/12/2025 2:00 PM EDT Office Visit [address] [address] Antoinette Mejia MD [address] [place] [address] 03/20/2025 2:00 PM EDT Clinical Support [address] [address] 04/23/2025 2:00 PM EDT Office Visit [address] [address] Toña Parish [address] [address] documented as of this encounter Visit Diagnoses Not on filedocumented in this encounter Additional Health Concerns Assessment Noted Time PHQ-9 Depression Total Score: 11 024 2:25 PM EDT documented as of this encounter Care Teams Solar Installation Technician Relationship Specialty Start Date End Date Antoinette Mejia MD [address] [place] [address] PCP - General Family Medicine 10/11/18 documented as of this encounter
--- OUTSIDE RECORDS SUMMARY | 2025-02-19 17:29 | XMS_ITS | Encounter Summary ---
Author Organization [employer] Address [address] 7t [place] [address] Care Team Providers Care Production Sorter Name Role Phone Antoinette Mejia MD Primary Care Provider [phone] Reason for Visit * Reason Onset Date Comments [place] 10/02/2024 Encounter Details Date Type Department Care Team ([facility] st Contact Info) Description 10/02/2024 Telephone [facility] MEDICINE [address] [place], [place] [phone] Antoinette Mejia MD 230 [place] [address] [place] Social History Tobacco Use Types Packs/Day [...] Description 03/12/2025 2:00 PM EDT Office Visit [address] [address] Antoinette Mejia MD [address] [place] [address] 03/20/2025 2:00 PM EDT Clinical Support [address] [address] 04/23/2025 2:00 PM EDT Office Visit [address] [address] Toña Parish CNM [address] [place] [address] documented as of this encounter Visit Diagnoses Not on filedocumented in this encounter Additional Health Concerns Assessment Noted Time PHQ-9 Depression Total Score: 11 024 2:25 PM EDT documented as of this encounter Care Teams Production Sorter Relationship Specialty Start Date End Date Antoinette Mejia MD 230 [place] [address] PCP - General Family Medicine 10/11/18 documented as of this encounter
--- OUTSIDE RECORDS SUMMARY | 2025-02-19 17:29 | XMS_ITS | Encounter Summary ---
Author Organization [employer] Address [address] 7t [place] [address] Care Team Providers Care Funeral Pre Arrangement Counselor Name Role Phone Antoinette Mejia MD Primary Care Provider [phone] Reason for Visit * Reason Onset Date Comments Medication Question 09/26/2024 Encounter Details Date Type Department Care Team ([facility] st Contact Info) Description 09/26/2024 Refill [facility] MEDICINE 230 [place] [address] Antoinette Mejia MD 230 [place] [address] Social History Tobacco Use Types Packs/Day Years [...] that could be prescribed. Contact pt at [phone] * Telephone Encounter - Daily Fuentes - 09/26/2024 4:04 PM EST Tc from pt requesting new weight loss medication. Insurance not approved Olivia. documented in this encounter Plan of Treatment Upcoming Encounters Date Type Department Care Team (Late st Contact Info) Description 03/12/2025 2:00 PM EDT Office Visit [facility] [address] [facility] [place] [address] Antoinette Mejia MD [address] [facility] [place] [address] 03/20/2025 2:00 PM EDT Clinical Support [facility] MED[facility] 230 [facility] [place] [address] 04/23/2025 2:00 PM EDT Office Visit [facility] MED[facility] 230 [facility] [place] [address] Toña Parish, JAY [address] [facility] [place] [address] documented as of this encounter Visit Diagnoses Not on filedocumented in this encounter Additional Health Concerns Assessment Noted Time PHQ-9 Depression Total Score: 11 024 2:25 PM EDT documented as of this encounter Care Teams Funeral Pre Arrangement Counselor Relationship Specialty Start Date End Date Antoinette Mejia MD [facility] [place] [address] PCP - General Family Medicine 10/11/18 documented as of this encounter
--- OUTSIDE RECORDS SUMMARY | 2025-02-19 17:29 | XMS_ITS | Encounter Summary ---
Author Organization [employer] Address [address] 7t [place] [address] Care Team Providers Care Associate Professor Of Philosophy Name Role Phone Antoinette Mejia MD Primary Care Provider [phone] Encounter Details Date Type Department Care Team (Late Contact Info) Description 10/23/2022 Orders Only [facility] MEDICINE [address] [place] [address] Antoinette Mejia MD [address] [place] [address] Class 3 severe obesity due to excess [...] Department Care Team (Late Contact Info) Description 03/12/2025 2:00 PM EDT Office Visit [facility] MEDICINE [address] [place] [address] Antoinette Mejia MD [address] [place] [address] 03/20/2025 2:00 PM EDT Clinical Support [facility] [address] [facility] [place] [phone] 04/23/2025 2:00 PM EDT Office Visit [facility] [address] [facility] [place], [place] [phone] Toña Parish CNM [address] [facility] [place], [place] [phone] documented as of this encounter Visit Diagnoses Diagnosis Class 3 severe obesity due to excess calories without serious comorbidity with body mass index (BMI) of 45.0 to 49.9 in adult- Primary documented in this encounter Care Teams Associate Professor Of Philosophy Relationship Specialty Start Date End Date Antoinette Mejia MD [facility] [place] [address] PCP - General Family Medicine 10/11/18 documented as of this encounter
--- OUTSIDE RECORDS SUMMARY | 2025-02-19 17:29 | XMS_ITS | Encounter Summary ---
Author Organization [employer] Address [address] 7t [place] [address] Care Team Providers Care Duct Layer Supervisor Name Role Phone Antoinette Mejia MD Primary Care Provider [phone] Encounter Details Date Type Department Care Team ([facility] st Contact Info) Description 07/12/2024 Orders Only [facility] MEDICINE 230 [place] [address] Antoinette Mejia MD 230 [place] [address] Social History Tobacco Use Types Packs/Day Years [...] Description 03/12/2025 2:00 PM EDT Office Visit [address] [address] Antoinette Mejia MD [address] [place] [address] 03/20/2025 2:00 PM EDT Clinical Support [address] [address] 04/23/2025 2:00 PM EDT Office Visit [address] [address] Toña Parish CNM 230 [place] [address] documented as of this encounter Visit Diagnoses Not on filedocumented in this encounter Additional Health Concerns Assessment Noted Time PHQ-9 Depression Total Score: 0 02/24/20 24 10:07 AM EDT documented as of this encounter Care Teams Duct Layer Supervisor Relationship Specialty Start Date End Date Antoinette Mejia MD [address] [place] [address] PCP - General Family Medicine 10/11/18 documented as of this encounter
--- OUTSIDE RECORDS SUMMARY | 2025-02-19 17:29 | XMS_ITS | Encounter Summary ---
Author Organization [employer] Address [address] [facility] 7t [place] [address] Care Team Providers Care Packer And Carry Out Name Role Phone Antoinette Mejia MD Primary Care Provider [phone] Reason for Visit * Reason Comments Care Coordination CHW chart review Encounter Details Date Type Department Care Team (Latest Contact Info) Description 02/15/2025 Patient Outreach [facility] MEDIC[facility] [address] [place] [address] Antoinette Mejia MD [address] [place] [address] Care Coordination (CHW chart review) Social History Tobacco Use Types Packs/Day Years [...] the past 12 months, has t he [employer], gas, oil or water company threatened to [...] encounter Progress Notes * Yenny Washington - 02/15/2025 12:53 PM EDT CM/C3 AVIVAW Yenny Washington Chart Review CHW Yenny Washington reviewed chart review completed by JAMIE Cortez RN JAMIE Cortez RN, performed chart review, in anticipation of initial assessment with patient, as patient has stratified for C3 Adult Complex Care through the PCP referral. History significant forOSA, myopia, obesity, mild intellectual disability, allergic rhinitic, status post tonsillectomy and adenoidectomy, current moderate episode of major depressive d/o without prior episode, anemia, irregular menstrual bleeding, low back pain, prediabetes, BV, syphilis, and on pre-exposure prophylaxisfor HIV. Specialists include [facility] Dental, Bariatrics, Optometry, Podiatry, Allergy, Nutrition, Endocrinology, and OPH. ED visits within the last 12 months include [facility] ED 12/06/24. Last appointment in PCP office on 01/09/25 for ELECTRIC CRANE OPERATOR exam. Last seen by PCP on 07/2024. Next appointment scheduled for 02/19/25 at 1:15pm ELECTRIC CRANE OPERATOR follow up/ procedure and 03/22/25 at 2:00pm for PE with PCP. documented in this encounter Plan of Treatment Upcoming Encounters Date Type Department Care Team (Late st Contact Info) Description 03/12/2025 2:00 PM EDT Office Visit [facility] [place] [address] Antoinette Mejia MD [address] [place], [place] 03/20/2025 2:00 PM EDT Clinical Support [address] [phone] 04/23/2025 2:00 PM EDT Office Visit [address] [phone] Toña Parish CNM [address] [place] [address] documented as of this encounter Visit Diagnoses Not on filedocumented in this encounter Additional Health Concerns Assessment Noted Time PHQ-9 Depression Total Score: 11 024 2:25 PM EDT documented as of this encounter Care Teams Packer And Carry Out Relationship Specialty Start Date End Date Antoinette Mejia MD [address] [place], [place] [phone] PCP - General Family Medicine 10/11/18 documented as of this encounter
--- OUTSIDE RECORDS SUMMARY | 2025-02-19 17:29 | XMS_ITS | Encounter Summary ---
Author Organization [employer] Address [address] [facility] [address] 7t [place] [address] Care Team Providers Care Residential Leasing Manager Name Role Phone Antoinette Mejia MD Primary Care Provider [phone] Encounter Details Date Type Department Care Team ([facility] Contact Info) Description 09/28/2022 Orders Only [facility]INE [address] [place] [address] Antoinette Mejia MD [address] [place] [address] [phone] Visual problems (Primary Dx) Social History Tobacco [...] Upcoming Encounters Date Type Department Care Team ([facility] Contact Info) Description 03/12/2025 2:00 PM EDT Office Visit [facility] [address] [place] [phone] Antoinette Mejia MD [address] [place] [address] [place] [address] 03/20/2025 2:00 PM EDT Clinical Support [address] [phone] 04/23/2025 2:00 PM EDT Office Visit [address] [phone] Toña Parish, BOYD [address] [place], [place] [phone] documented as of this encounter Visit Diagnoses Diagnosis Visual problems- Primary documented in this encounter Care Teams Residential Leasing Manager Relationship Specialty Start Date End Date Antoinette Mejia MD [address] [place] [address] [phone] PCP - General Family Medicine 10/11/18 documented as of this encounter
--- OUTSIDE RECORDS SUMMARY | 2025-02-19 17:29 | XMS_ITS | Encounter Summary ---
Author Organization [employer] Address [address] [facility] [address] 7t [place] [address] Care Team Providers Care Narcotics And Vice Detective Name Role Phone Antoinette Mejia MD Primary Care Provider [phone] Reason for Visit * Reason Onset Date Comments Appointment Request 05/16/2024 Encounter Details Date Type Department Care Team ([facility] st Contact Info) Description 05/16/2024 Telephone [facility]INE [address] [place] [address] Antoinette Mejia MD [address] [place] [address] Appointment Request Social History Tobacco Use Types [...] Description 03/12/2025 2:00 PM EDT Office Visit [facility] [address] [place] [address] Antoinette Mejia MD [address] [place] [address] 03/20/2025 2:00 PM EDT Clinical Support [address] [address] 04/23/2025 2:00 PM EDT Office Visit [facility] [address] [place] [phone] Toña Parish CNM [address] [place] [address] documented as of this encounter Visit Diagnoses Not on filedocumented in this encounter Additional Health Concerns Assessment Noted Time PHQ-9 Depression Total Score: 0 02/24/20 24 10:07 AM EDT documented as of this encounter Care Teams Narcotics And Vice Detective Relationship Specialty Start Date End Date Antoinette Mejia MD [address] [place] [phone] PCP - General Family Medicine 10/11/18 documented as of this encounter
--- OUTSIDE RECORDS SUMMARY | 2025-02-19 17:29 | XMS_ITS | Encounter Summary ---
Author Organization [employer] Address [address] [facility] [address] 7t [place] [address] Care Team Providers Care Ball Maker Name Role Phone Antoinette Mejia MD Primary Care Provider [phone] Reason for Visit * Reason Onset Date Comments Med Refill 09/21/2024 Encounter Details Date Type Department Care Team ([facility] st Contact Info) Description 09/21/2024 Refill [facility]INE [address] [place] [address] Antoinette Mejia MD 230 [place] [address] Social History Tobacco Use Types Packs/Day Years [...] Description 03/12/2025 2:00 PM EDT Office Visit [facility] [address] [place] [address] Antoinette Mejia MD [address] [place] [place] [address] 03/20/2025 2:00 PM EDT Clinical Support [address] [address] 04/23/2025 2:00 PM EDT Office Visit [facility] [address] [place] [address] Toña Parish CNM [address] [place] [address] documented as of this encounter Visit Diagnoses Not on filedocumented in this encounter Additional Health Concerns Assessment Noted Time PHQ-9 Depression Total Score: 11 024 2:25 PM EDT documented as of this encounter Care Teams Ball Maker Relationship Specialty Start Date End Date Antoinette Mejia MD [address] [place] [phone] PCP - General Family Medicine 10/11/18 documented as of this encounter
--- OUTSIDE RECORDS SUMMARY | 2025-02-19 17:29 | XMS_ITS | Encounter Summary ---
Author Organization [employer] Address [address] [facility] [address] 7t [place] [address] Care Team Providers Care Audio Production Engineer Name Role Phone Antoinette Mejia MD Primary Care Provider [phone] Reason for Visit * Reason Comments Med Refill Encounter Details Date Type Department Care Team ([facility] st Contact Info) Description 01/19/[address] [facility] MED[facility]INE [address] [employer] [place], [place] [phone] Antoinette Mejia MD [address] [place], [place] [phone] Social History Tobacco Use Types Packs/Day Years [...] Description 03/12/2025 2:00 PM EDT Office Visit [address] [address] Antoinette Mejia MD [address] [place] [address] 03/20/2025 2:00 PM EDT Clinical Support [address] [address] 04/23/2025 2:00 PM EDT Office Visit [address] [address] Toña Parish CNM [address] [place] [address] documented as of this encounter Visit Diagnoses Not on filedocumented in this encounter Additional Health Concerns Assessment Noted Time PHQ-9 Depression Total Score: 4 02/05/20 23 9:05 AM EDT documented as of this encounter Care Teams Audio Production Engineer Relationship Specialty Start Date End Date Antoinette Mejia MD [address] [place] [address] PCP - General Family Medicine 10/11/18 documented as of this encounter
--- OUTSIDE RECORDS SUMMARY | 2025-02-19 17:29 | XMS_ITS | Encounter Summary ---
Author Organization [employer] Address [address] [facility] [address] 7t [place] [address] Care Team Providers Care Commercial Baking Teacher Name Role Phone Antoinette Mejia MD Primary Care Provider [phone] Encounter Details Date Type Department Care Team (Late st Contact Info) Description 06/16/2024 Orders Only [facility] [address] [place] [address] Antoinette Mejia MD [address] [place], [place] [phone] History of syphilis (Primary Dx) Social History [...] 03/12/2025 2:00 PM EDT Office Visit [address] [address] Antoinette Mejia MD [address] [place] [address] 03/20/2025 2:00 PM EDT Clinical Support [address] [address] 04/23/2025 2:00 PM EDT Office Visit [address] [address] Toña Parish, JAY [address] [place] [address] documented as of this encounter Procedures Procedure [...] EDT) Hepatitis B Surface Ag Negative Negative [facility] Blood Venous blood specimen / Unknown 06/19/2024 3:26 PM EDT 06/19/2024 4:28 PM EDT Antoinette Mejia MD LAB BLOOD ORDERABLES Final Resul t [facility] [address] [place] [phone] * HIV-1/2 Antigen and Antibodies, Fourth Generation, with Reflexes (06/19/2024 3:26 PM EDT) HIV AB/AG Nonreactive Nonreactive [facility] Comment:HIV-1 p24 Ag and/or HIV-1/HIV-2 Ab not detected.A test result that is nonreactive does not exclude thepossibility of exposure to or infection with HIV-1 and/orHIV-2. Nonreactive results in this assay for individualswith prior exposure to HIV-1 and/or HIV-2 may be due toantigen and antibody levels that are below the limit ofdetection of this assay.The [employer] HIV Ag/Ab Combo assay result andsupplemental assay results should be interpreted inconjunction with the patient's clinical presentation,history and other laboratory results. If the results areinconsistent with clinical evidence, additional testing issuggested to confirm the result. Blood Venous blood specimen / Unknown 06/19/2024 3:26 PM EDT 06/19/2024 4:28 PM EDT Antoinette Mejia MD LAB BLOOD ORDERABLES Final Resul t Performing Organization Address [facility] de Phone Number [facility] [address] [place] [phone] [phone] * Hepatitis C Antibody with Reflex to HCV, RNA, Quantitative, Real-Time PCR (06/19/2024 3:26 PM EDT) Hepatitis C Antibody Nonreactive Nonreactive [facility] Comment:Antibodies to HCV no t detected; does not exclude early acuteHCV infection. Blood Venous blood specimen / Unknown 06/19/2024 3:26 PM EDT 06/19/2024 4:28 PM EDT us Antoinette Mejia MD LAB BLOOD ORDERABLES Final Resul t Performing Organization Address [facility] de Phone Number [facility] [address] [place] [phone] [phone] * (ABNORMAL) RPR (Monitor) with Reflex to??Titer (06/19/2024 3:26 PM EDT) RPR (Monitor) w/Refl Titer REACTIVE( A) NON-REACT ADARSH [facility] Comment:The RPR is a non-stephanie ponemal-specific test; therefore,a treponemal- specific confirmatory test should beperformed unless prior syphilis infection has beendocumented for this patient.THIS TEST WAS PERFORMED AT:[facility] [address] [phone] DUNCAN MD Rapid Plasma Reagin Ab Titer 1:2(A) [facility] Comment:THIS TEST WAS PERFOR MED AT:[facility] [address] [id number] DUNCAN MD Blood Venous blood specimen / Unknown 06/19/2024 3:26 PM EDT 06/19/2024 4:28 PM EDT us Antoinette Mejia MD LAB BLOOD ORDERABLES Final Resul t Performing Organization Address [facility] Co de Phone Number [facility] [address] [place] [phone] * Chlamydia/N. Gonorrhoeae RNA, TMA, Urogenitial (06/19/2024 1:36 PM EDT) CT PCR NOT DETECTED Not Detect. [facility] Comment:A not detected test result [...] psychologicalconsequences. NG PCR NOT DETECTED Not Detect. [facility] Comment:A not detected test result [...] PM EDT 06/19/2024 5:42 PM EDT Narrative [facility] - 06/20/2024 5:47 AM EDT Urine us Antoinette Mejia MD LAB MICROBIOLOGY - GENERAL ORDER JESSICA Final Result [facility] [address] [place] [phone] documented in this encounter Visit Diagnoses Diagnosis History of syphilis- Primary documented in this encounter Additional Health Concerns Assessment Noted Time PHQ-9 Depression Total Score: 0 02/24/20 24 10:07 AM EDT documented as of this encounter Care Teams Commercial Baking Teacher Relationship Specialty Start Date End Date Antoinette Mejia MD [address] [place] [address] PCP - General Family Medicine 10/11/18 documented as of this encounter
--- OUTSIDE RECORDS SUMMARY | 2025-02-19 17:29 | XMS_ITS | Encounter Summary ---
Author Organization [employer] Address [address] [facility] [address] 7[address] [place] [address] Care Team Providers Care Machine Rope Maker Name Role Phone Antoinette Mejia MD Primary Care Provider [phone] Reason for Visit * Reason Onset Date Comments Medication Question 02/07/2025 Encounter Details Date Type Department Care Team ([facility] st Contact Info) Description 02/07/2025 Telephone [facility] MEDICINE [address] [place], [place] [phone] Antoinette Mejia MD [address] [place], [place] [phone] Medication Question Social History Tobacco Use Types [...] Telephone Encounter - Antoinette Mejia MD - 02/08/2025 6:24 PM EDT Hydroxyzine sent * Telephone Encounter - Jasmyne Sow - 02/07/2025 10:32 AM EDT Tc from pt requesting medication for anxiety due to having appointment today at dental and getting a tooth removed. Contact pt at [phone] documented in this encounter Plan of Treatment Upcoming Encounters Date Type Department Care Team (Late st Contact Info) Description 03/12/2025 2:00 PM EDT Office Visit [facility] MEDICINE [address] [place] [address] [phone] Antoinette Mejia MD [address] [place] [address] 03/20/2025 2:00 PM EDT Clinical Support [facility] [address] [place] [address] [phone] 04/23/2025 2:00 PM EDT Office Visit [facility]INE [address] [place] [address] Toña Parish CNM [address] [place] [address] documented as of this encounter Visit Diagnoses Not on filedocumented in this encounter Additional Health Concerns Assessment Noted Time PHQ-9 Depression Total Score: 11 024 2:25 PM EDT documented as of this encounter Care Teams Machine Rope Maker Relationship Specialty Start Date End Date Antoinette Mejia MD [address] [place] [address] PCP - General Family Medicine 10/11/18 documented as of this encounter
--- OUTSIDE RECORDS SUMMARY | 2025-02-19 17:29 | XMS_ITS | Encounter Summary ---
Author Organization [employer] Address [address] [facility] 7t [place] [address] Care Team Providers Care Prop Sawyer Name Role Phone Antoinette Mejia MD Primary Care Provider [phone] Reason for Referral * Consultation (Routine) - Closed Specialty Diagnoses / Procedures Referred By Contac t Referred To Contact Diagnoses Mild intellectual disability Prediabetes Class 3 severe obesity due to excess calories with serious comorbidity and body mass index (BMI) of 45.0 to 49.9 in adult Elevated blood pressure reading in office without diagnosis of hypertension AGUSTÍN (obstructive sleep apnea) Antoinette Mejia MD [address] [place] [address] Phone: tel: fax: [address] [phone] Phone: tel: fax: Referral ID Status Reason Start Date Expiration Date V isits Requested Visits Authorized [id number] Closed Specialty Services Required 02/13/2025 02/13/2026 1 1 Encounter Details Date Type Department Care Team (Late st Contact Info) Description 02/13/2025 Orders Only [facility] [address] [place] [address] [phone] Antoinette Mejia MD [address] [place] [address] [phone] Mild intellectual disability (Primary Dx); Prediabetes; Class 3 severe obesity due to excess calories with serious comorbidity and body mass index (BMI) of 45.0 to 49.9 in adult; Elevated blood pressure reading in office without diagnosis of hypertension; AGUSTÍN (obstructive sleep apnea) Social History Tobacco Use Types Packs/Day Years [...] Description 03/12/2025 2:00 PM EDT Office Visit [facility] [address] [place] [address] Antoinette Mejia MD [address] [place], [place] 03/20/2025 2:00 PM EDT Clinical Support [facility] [address] [place], [place] [phone] 04/23/2025 2:00 PM EDT Office Visit [facility] [address] [place], [place] [phone] Toña Parish CNM [address] [place], [place] [phone] Scheduled Referrals Name Type Priority Associated Diagnoses Orde r Schedule Referral to Care Management Outpatient Referral Routine Mild intellectual disability Prediabetes Class 3 severe obesity due to excess calories with serious comorbidity and body mass index (BMI) of 45.0 to 49.9 in adult Elevated blood pressure reading in office without diagnosis of hypertension AGUSTÍN (obstructive sleep apnea) Expected: 02/13/2025 (Approximate), Expires: 02/13/2026 documented as of this encounter Visit Diagnoses Diagnosis Mild intellectual disability- Primary Mild mental retardation Prediabetes Other abnormal glucose Class 3 severe obesity due to excess calories with serious comorbidity and body mass index (BMI) of 45.0 to 49.9 in adult Elevated blood pressure reading in office without diagnosis of hypertension AGUSTÍN (obstructive sleep apnea) Obstructive sleep apnea (adult) (pediatric) documented in this encounter Additional Health Concerns Assessment Noted Time PHQ-9 Depression Total Score: 11 024 2:25 PM EDT documented as of this encounter Care Teams Prop Sawyer Relationship Specialty Start Date End Date Anto[place] [address] PCP - General Family Medicine 10/11/18 documented as of this encounter
--- OUTSIDE RECORDS SUMMARY | 2025-02-19 17:29 | XMS_ITS | Clinical Summary ---
Author Organization [employer] Address [address] [facility] 7[address] [place] [address] Care Team Providers Care Ball Rolling Machine Operator Name Role Phone Antoinette Mejia MD Primary Care Provider [phone] Allergies Active Allergy Reactions Criticality Noted Date [...] HOURS DIRECTED NEEDED FOR PAIN 023 Active diphenhydrAMINE (BENADryl) 50 MG capsuleIndicatio ns:Acute [...] by mouth Once per day. 30 capsule 024 Active furosemide (Lasix) 20 MG tabletIndication s:Edema, unspecified type TAKE 1 TABLET BY MOUTH EVERY MORNING 15 tablet 024 Active emtricitabine-te nofovir DF (Truvada) 200-300 MG tablet TAKE 1 TABLET BY MOUTH EVERY DAY 30 tablet 2 024 Active ibuprofen 600 MG tablet Take 1 tablet (600 mg) by mouth every 6 (six) hours if needed for mild pain for up to 20 doses. 20 tablet 025 Active ibuprofen 600 MG tablet Take 1 tablet (600 mg) by mouth every 6 (six) hours if needed for mild pain for up to 20 doses. 20 tablet 025 Active sertraline (Zoloft) 25 MG tablet Take 1 tablet (25 mg) by mouth Once per day. 90 tablet 3 025 Active Tirzepatide-Weig ht Management (Zepbound) 7.5 MG/0.5ML solution auto-injector Inject 0.5 mL (7.5 mg) under the skin 1 (one) time per week. 2 mL 025 Active cetirizine (ZyrTEC) 10 MG tablet TAKE 1 TABLET BY MOUTH EVERY DAY IF NEEDED FOR ALLERGIES OR RHINITIS 90 tablet 1 025 Active hydrOXYzine pamoate (Vistaril) 25 MG capsule Take 1 or 2 capsules by mouth 30 minutes before dental procedure. 2 capsule 025 Active Drospirenone (Slynd) 4 MG tablet Take 1 tablet by mouth Once per day. 28 tablet 11 025 2025 Active medroxyPROGESTER one (Depo-Provera) 150 MG/ML injectionIndicat ions:Encounter for other general counseling or advice on contraception Inject 1 mL (150 mg) into the shoulder, thigh, or buttocks every 3 (three) months. TAKE TO DOCTOR'S OFFICE FOR ADMINISTRATION EVERY 3 MONTHS 1 mL 3 024 2024 Discontinued Hospital, Clinic, or Other Facility Administered Medication Ordered Dose Route Frequency Start Date End Date Status medroxyPROGESTERone (Depo-Provera) injection 150 mgIndications:Depo- Provera contraceptive status 150 mg IM Every 3 months 01/02/2025 Discontinued Active Problems Patient Care Coordination No te Formatting of this note migh t be different from the original. [id number] Alan Cortez, C3/CM Elvia Schreiber RN Problem Noted Date Diagnosed Date Pain, dental 02/07/2025 Acute bacterial conjunctivitis of left eye 12/19 [...] Depo-provera Receives Iron Infusions -continue following with [facility] Sorter Assessment & Plan (02/04/2023 9:54 AM EDT): Most likely due to Abnormal Uterine Bleeding; Patient on Depo-provera Receives Iron Infusions -continue following with [facility] Sorter History of anemia 12/01/2022 Assessment & Plan [...] excessive bleeding -seen by Heme/Onc -referred to [facility] Status post tonsillectomy and adenoidectomy 11/11 Current [...] to contract her safety today -continue current S -pt is hesitant about starting antidepressant -judicious [...] referral to surgical weight loss program at [facility]. Will make a referral Assessment & Plan [...] she requests a new appt -Discussed about [facility] Wt management clinic Assessment & Plan (12/01/2022 12:44 PM EST): -Continue working on lifestyle modifications -Referred to our RD; she requests a new appt -Discussed about [facility] Wt management clinic Mild intellectual disability 08/19/2012 [...] device 02/04/2023 02/24/2024 Right otitis media 09/25/2022 3 Assessment & Plan (09/25/2022 1:07 PM EST): R ear with bubbles and erythema, will send antibiotics and recommended f/u if no improvement. Obese 09/20/2017 10/23/[address] 02/20/2016 3 Hypertrophy of tonsils 08/19/201211/24 Encounters Date Type Department Care Team Description 02/19/2025 1:15 PM EDT Procedure Visit [facility] [place] [address] Roberta Altamirano CNM Encounter for initial insertion of intrauterine contraceptive device (Primary Dx); Vaginal odor 02/19/2025 Travel 02/16/[address] [facility] [place] [address] Roberta Altamirano CNM Chart Prep 02/16/2025 Patient Outreach [address] [address] Antoinette Mejia MD Care Coordination (CM/CHW outreach) 02/15/2025 Patient Outreach [address] [address] Antoinette Mejia MD Care Coordination (CHW chart review) 02/15/2025 Patient Outreach [address] [address] Antoinette Mejia MD Care Management (C3- chart review) 02/15/2025 Patient Outreach [address] [address] Antoinette Mejia MD 02/13/2025 Orders Only [address] [address] Antoinette Mejia MD Mild intellectual disability (Primary Dx); Prediabetes; Class 3 severe obesity due to excess calories with serious comorbidity and body mass index (BMI) of 45.0 to 49.9 in adult; Elevated blood pressure reading in office without diagnosis of hypertension; AGUSTÍN (obstructive sleep apnea) 02/13/[address] [address] Antoinette Mejia MD Nurse Triage 02/08/2025 Orders Only [address] [address] Antoinette Mejia MD 02/07/2025 2:00 PM EDT Office Visit [facility] ADULT DENTAL [address] [place] [address] Dennys Raymundo DDS Pain, dental (Primary Dx) 02/07/2025 Telephone [facility] [address] [place] [address] Dennys Raymundo DDS 02/07/2025 Telephone [facility] MED[facility] [address] [place] [address], [place] [address] Antoinette Mejia MD Medication Question 01/31/2025 Telephone [facility] [address] [place] [address] Karl Ruiz, DMD Dr Ruiz referral for RCT ; rs appt/hung up 01/25/[address] [place] [address] Antoinette Mejia MD may recall 01/11/[address] [place] [address] Tyra Bueno DE 01/09/2025 3:15 PM EDT Office Visit [address] [place] [address] Roberta Altamirano CNM Family planning counseling (Primary Dx); Routine cervical smear; Screening examination for venereal disease; Right ovarian cyst 01/09/2025 Travel 01/08/2025 3:00 PM EDT Office Visit [facility] [address] [place] [address] Karl Ruiz, DMD 01/08/[address] [place] [address] Antoinette Mejia MD 01/02/2025 2:30 PM EDT Clinical Support [address] [place] [address] Daniela Alex RN Encounter for contraceptive management, unspecified type 01/02/2025 Orders Only [address] [place] [address] Payton Crocker, VENKATESH Depo-Provera contraceptive status 01/02/2025 Travel 12/25/[address] [place] [address] Antoinette Mejia MD Appointment Request 12/22/2024 Population Health Risk Score [facility] (C3) Department [address] [place] [phone] Provider, Population Health Generic 12/19/2024 2:30 PM EDT Office Visit [facility] [address] [place] [address] Mimi Allen NP Acute bacterial conjunctivitis of left eye (Primary Dx) 12/19/2024 Travel 12/19/2024 Telephone [facility] [address] [place] [address] Antoinette Mejia MD Nurse Triage 12/15/[address] [facility] [address] [place], [place] [phone] Antoinette Mejia MD 12/14/[address] [address] Antoinette Mejia MD chart prep 12/06/2024 Orders Only GENERIC EXTERNAL DATA DEPARTMENT Provider, Generic External Data 12/06/[address] [facility] [address] [place] [address] Antoinette Mejia MD from Last 3 Months Immunizations Name Administration [...] 06/02/2017,12/06/19 13 Pfizer Covid-19 Vaccine 12+ 05/28/2021, Pfizer Covid-19 Vaccine 12+ rae-sucrose (Leary Cap) [...] your housing situation today? I have mari gustavo 02/24/[address] you li [...] Sign Reading Time Taken Comments Blood Pressure 144/93 02/19/2025 1:32 PM EDT Pulse 105 02/19/2025 1:32 PM EDT Temperature 35.9 ??C (96.6 ??F) 02/19/2025 1:32 PM ED T Respiratory Rate 20 02/19/2025 1:32 PM EDT Oxygen Saturation 98% 02/19/2025 1:32 PM EDT Inhaled Oxygen Concentration - - Weight 126 kg (276 lb 12.8 oz) 02/19/2025 1:32 P M EDT Height 158.8 cm (5' 2.5 ) 02/19/2025 1:32 PM EDT Body Mass Index 49.82 02/19/2025 1:32 PM EDT Plan of Treatment Upcoming Encounters Date Type Department Care Team (Late st Contact Info) Description 03/12/2025 2:00 PM EDT Office Visit [address] [address] Antoinette Mejia MD [address] [place] [address] 03/20/2025 2:00 PM EDT Clinical Support [address] [address] 04/23/2025 2:00 PM EDT Office Visit [address] [address] RaulRoberta akhtar, CNM [address] [place] [address] Health Maintenance Due Date Last Done Comments Dental Oral Exam 03/19/2024 09/17/2023, , 02/13/2019 Dental Prophylaxis 03/19/2024 09/17/2023, 0 06/01/2022, 11/16/2019, Additional history exists COVID-19 Vaccine (2023- season) 2024 01/24/2022, 05/28/2021, 05/16/2021, Additional history exists SDOH Screening 02/23/2025 02/24/2024 Alcohol/Substance Use Screening 08/08/2025 08/08/2024 Depression Screening 08/08/2025 08/08/2024, 08/08/20 Diabetes: Hemoglobin A1C 08/08/2025 024, 02/25/2024, 12/17/2023, Additional history exists DTaP/Tdap/Td Vaccines (8 - Td or Tdap) 08/12/2025 08/12/2015, 12/06/2012, 04/03/2005, Additional history exists Dental X-Ray: Bitewings 11/07/2025 11/06/19 25, 09/17/2023, 06/01/2022, Additional history exists Pap Smear 01/09/2026 01/09/2025, 12/24/2021 Family Planning (PISQ) 02/19/2026 02/19/2025 Tobacco Screening 02/19/2026 02/19/2025 Dental X-Ray: Full Mouth 11/02/2027 025, 09/17/2023, [...] Procedure Name Priority Date/Time Associated Diagnosis Comments POCT WET MOUNT/NACHO Routine 02/19/2025 2: 17 PM EDT Vaginal odor POCT , URINE Routine 02/19/2025 1:42 PM EDT Encounter for initial insertion of intrauterine contraceptive device NO CHARGE VISIT Routine 02/07/2025 2:00 PM EDT CHLAMYDIA/N. GONORRHOEAE AND T. VAGINALIS RNA, QUAL,TMA Routine 01/09/2025 3:50 PM EDT Screening examination for venereal disease PAP SMEAR Routine 01/09/2025 3:50 PM EDT Routine cervical smear CASE PRESENTATION, DETAILED AND EXTENSIVE TREATMENT PLANNING [...] RADIOGRAPHIC IMAGE Routine 11/06/2024 8:00 AM EST PANORAMIC RADIOGRAPHIC IMAGE Routine 11/01/2024 2:00 PM EST HEPATITIS C AB W/REFL TO HCV RNA, QN, PCR Routine 10/23/2024 4:00 PM EST Vaginal discharge HIV 1/2 ANTIGEN/ANTIBODY, FOURTH GENERATION W/RFL Routine 10/23/2024 4:00 PM EST Vaginal discharge HEMOGLOBIN A1C Routine 08/08/2024 2:50 PM EDT Prediabetes LIPID PANEL WITH REFLEX TO DIRECT LDL Routine 02/25/2024 11:45 AM EDT Elevated blood pressure reading in office without diagnosis of hypertension Full PROPHYLAXIS - ADULT Routine 09/17/2023 1:00 PM EST PERIODIC ORAL EVALUATION - ESTABLISHED PATIENT Routine 09/17/2023 1:00 PM EST from Last 3 Months or Most Recently Relevant to Health Maintenance Results * POCT fern test, vaginal fluid manually resulted (02/19/2025 2:17 PM EDT) NACHO Prep Negative Comment:pH 4.5, neg whiff, n eg clue, neg trich, neg yeast, neg wbc Vaginal Fluid Vaginal structure / Unknown 02/19/2025 2:17 PM EDT Roberta Altamirano CNM POINT OF CARE TEST ENTER/ EDIT ORDERABLES Final Result * POCT , urine manually resulted (02/19/2025 1:42 PM EDT) Preg Test, Ur Negative Negative, Indeterminate, None Detected, Invalid, Specimen unsatisfactory for evaluation, Weakly Positive, 2+ QC Media Lot # [id number] Lot# Expiration Date [id number] Urine 02/19/2025 1:42 PM EDT Roberta Altamirano CNM POINT OF CARE TEST ENTER/ EDIT ORDERABLES Final Result * STI testing add on (NG, CT, Trich) (01/09/2025 3:50 PM EDT) Trichomonas (NAAT) NOT DETECTED NOT DETECTED [facility] Comment:The analytical perfo rmance characteristics of thisassay have been determined by [employer]. Themodifications have not been cleared or approved bythe FDA. This assay has been validated pursuant to theCLIA regulations and is used for clinical purposes.For additional information, please refer tohttp://education.[employer]/faq/Trichomonastma(This link is being provided for information/educational purposes only.)THIS TEST WAS PERFORMED AT:[facility] [place] [phone] DUNCAN MD CTNG Ref Lab NOT DETECTED NOT DETECTED [facility] NG Ref Lab NOT DETECTED NOT DETECTED [facility] ThinPrep?? vial Cervix uteri structure / Unknown 01/09/2025 3:50 PM EDT 01/11/2025 7:06 AM EDT Narrative [facility] - 01/12/2025 11:54 PM EDT Collection Date: [id number] by: [employer] [place]: Cervix Roberta Altamirano CNM LAB CYTOLOGY ORDERABLES F inal Result [facility] [address] [place] [phone] * Pap Smear (01/09/2025 3:50 PM EDT) Swab Cervix uteri structure / Unknown 01/09/2025 3:50 PM EDT 01/11/2025 6:11 AM EDT [facility] - 01/15/2025 3:36 PM EDT ----- ------- Name: Leatha Mendez ? Age/Sex: 24/F ? : 2000 Unit#: [id number] ?? Attend Dr: ROBERTA ALTAMIRANO CNM ?Re01/09/25 ?Status: DEP REF ? Location: HO.HHCLNP ? Disch: ? ----- ------- SPEC : [id number] ? RECD: 01/11/25 ? STATUS: ??SOUT ? REQ NUM: [id number] ? FABIAN: 01/09/25-1549 ? SUBM DR: ROBERTA ALTAMIRANO CNM ? ENTERED: ??01/11/25 ?SP TYPE: Pap Smr ?OTHR : ? ORDERED: ??Pap Smear, PAP path review ? Interpretation ?? General Category: ?? Epithelial cell abnormality. ?? Adequacy: ?Endocervical component present. ?? Interpretation: ?Atypical squamous cells of undetermined significance. ?Clue cells present. ?Abundant blood present. ?Scant squamous cellularity. ?Clinical Information LMP: 01/02/25 Previous PAP test: 12/2021 Other surgery: Other history: ? Material Received ?? ThinPrep-Cervical ----- ------- Signed (signature on file) Shirley Barataria 01/15/25 1536 ? ----- ------- ? END OF REPORT ? Roberta Altamirano CN LAB CYTOLOGY ORDERABLES F inal Result Performing Organization Address [facility] [employer] de Phone Number [facility] [address] [place] [address] [phone] * SARS-CoV-2 RNA, Influenza A/B, and RSV RNA, Ql NAAT (12/06/2024 9:45 PM EST) Influenza A PCR NEGATIVE Negative [facility] Influenza B PCR NEGATIVE Negative [facility] Resp Syncy Virus RNA Qual PCR NEGATIVE Negative [facility] SARS COV2 PCR NEGATIVE Negative [facility] Comment:All test results mus t [...] use by authorized laboratories.Testing performed on the [employer] GeneXpert utilizingreal-time RT-PCR.All SARS CoV2 and positive influenza A/B results arereported to [facility]. 12/06/2024 9:45 PM EST 12/06/2024 9:53 PM EST us Generic External Data Provider LAB MICROBIOLOGY - GENERAL ORDERABLES Final Result Performing Organization Address [facility] de Phone Number [facility] [address] [place] [phone] * XR Chest 2 Views (12/06/2024 9:00 PM EST) Anatomical Region Laterality Modality Chest Radiographic Sierra ging 12/06/2024 9:00 PM EST Narrative 12/06/2024 9:02 PM EST ? [facility] ?[address] ?[place] [address] ?XRay Report ? Signed ? Patient: Andrea,Leatha M ?MR#: [id number] ?? [id number] ? : 2000 ?Acct:[id number] ? Age/Sex: 24 / F ?ADM Date: 12/06/24 ? Loc: HO.ED ? Attending Dr: ? Ordering Physician: Neo Soliman ?? Date of Service: 12/06/24 ?? Procedure(s): XR chest 2V ?? Accession Number(s): [id number] ? cc: Neo Soliman; Antoinette Mejia MD [...] DD/ 2100 ? TD/TT: 12/06/24 2100 ? Drawer Liner: ? Procedure Note Bernice Miller - 12/06/[address] [address] XRay Report Signed Patient: Leatha Mendez MMR#: [id number] : 2000Acct:[id number] Age/Sex: 24 / FADM Date: 12/06/24 Loc: HO.ED Attending Dr: Ordering Physician: Neo Soliman Date of Service: 12/06/24 Procedure(s): XR chest 2V Accession Number(s): [id number] cc: Neo Soliman; Antoinette Mejia MD CLINICAL [...] in OV> 12/06/242100 DD/ 99 TD/TT: 12/06/242099 Drawer Liner: [facility] External Provider IMG XR PROCEDURES Edited Result - Final * Hepatitis C Antibody with Reflex to HCV, RNA, Quantitative, Real-Time PCR (10/23/2024 4:00 PM EST) Hepatitis C Antibody Nonreactive Nonreactive [facility] Comment:Antibodies to HCV no t detected; does not exclude early acuteHCV infection. Blood Venous blood specimen / Unknown 10/23/2024 4:00 PM EST 10/23/2024 5:37 PM EST Shanell Bermeo MD LAB BLOOD ORDERABLES Final Result [facility] [address] [place] [phone] * HIV-1/2 Antigen and Antibodies, Fourth Generation, with Reflexes (10/23/2024 4:00 PM EST) HIV AB/AG Nonreactive Nonreactive [facility] Comment:HIV-1 p24 Ag and/or HIV-1/HIV-2 Ab not detected.A test result that is nonreactive does not exclude thepossibility of exposure to or infection with HIV-1 and/orHIV-2. Nonreactive results in this assay for individualswith prior exposure to HIV-1 and/or HIV-2 may be due toantigen and antibody levels that are below the limit ofdetection of this assay.The [employer] HIV Ag/Ab Combo assay result andsupplemental assay results should be interpreted inconjunction with the patient's clinical presentation,history and other laboratory results. If the results areinconsistent with clinical evidence, additional testing issuggested to confirm the result. Blood Venous blood specimen / Unknown 10/23/2024 4:00 PM EST 10/23/2024 5:37 PM EST us Shanell Bermeo MD LAB BLOOD ORDERABLES Final Result Performing Organization Address [facility] de Phone Number [facility] [address] [place] [phone] * Hemoglobin A1c (08/08/2024 2:50 PM EDT) Hemoglobin A1c 5.4 <6.0 % [facility] Comment:Hemoglobin A1C Refer ence Range Adults: 4.8 - 6.0 % Non diabetic: < 6.0 % Goal: < 7.0 %Additional Action Suggested: > 8.0 %Note: Hemoglobin A1c results are invalid for patients with abnormal amounts of HbF. Blood transfusions may impact the HbA1c concentration in the patient sample. Estimated Average Glucose 108 mg/dL [facility] Comment:eAG = Estimated ave rage glucose which is %A1C expressed asaverage glucose, using the formula of the Z3B-ZgokgoaCukklis Glucose study (ADAG), Diabetes Care, Vol.31,#8,May. 2007 Blood Venous blood specimen / Unknown 08/08/2024 2:50 PM EDT 08/08/2024 4:31 PM EDT us Antoinette Mejia MD LAB BLOOD ORDERABLES Final Resul t Performing Organization Address [facility] de Phone Number [facility] [address] [place] [phone] * (ABNORMAL) Lipid Panel with Reflex to Direct LDL (02/25/2024 11:45 AM EDT) Triglycerides 160(H) <150 mg/dL [facility] Comment:Desirable Triglyceri de: less than 150 mg/dLBorderline High Triglyceride 150-199 mg/dLHigh Triglyceride: 200-499 mg/dLVery High Triglyceride: greater than or equal to 5OO mg/dL Cholesterol 129 <200 mg/dL [facility] Comment:Desirable Cholestero l: less than 200 mg/dLBorderline High Cholesterol: 200-239 mg/dLHigh Cholesterol: greater than 239 mg/dL LDL Cholesterol Calculated 64 <100 mg/dL [facility] Comment:Desirable LDL: less than 100 mg/dLNear Optimal/Above Optimal LDL: 110- 129 mg/dLBorderline High LDL: 130-159 mg/dLHigh LDL: 160-189 mg/dLVery High LDL: greater than or equal to 190 mg/dL HDL Cholesterol 33(L) >40 mg/dL [facility] Comment:Desirable HDL: great er than 40 mg/dL Note: This HDL assay may give artificially low results in patients with liver disease. Blood 02/25/2024 11:4 5 AM EDT 02/25/2024 11:45 AM EDT us Antoinette Mejia MD LAB BLOOD ORDERABLES Final Resul t [facility] [address] [place] [address] [phone] from Last 3 Months or Most Recently Relevant to Health Maintenance Insurance [facility] STANDARD DENTAL - [facility] MEDICAID DDS ADULT Care Teams Ball Rolling Machine Operator Relationship Specialty Start Date End Date Antoinette Mejia MD [address] [place] [phone] PCP - General Family Medicine 10/11/18
--- OUTSIDE RECORDS SUMMARY | 2025-02-19 17:29 | XMS_ITS | Encounter Summary ---
Author Organization [employer] Address [address] [facility] [address] [place] [address] Care Team Providers Care Temporary Help Agency Referral Clerk Name Role Phone Antoinette Mejia MD Primary Care Provider [phone] Reason for Visit * Reason Onset Date Comments Med Refill 09/06/2024 Encounter Details Date Type Department Care Team (Late st Contact Info) Description 09/06/2024 Refill [facility] [address] [place] [address] Toña [place], CN [address] [place] [address] Social History Tobacco Use Types Packs/Day Years [...] your housing situation today? I have mari chne 02/24/[address] you li [...] Description 03/12/2025 2:00 PM EDT Office Visit [facility] [address] [place] [phone] Antoinette Mejia MD [address] [place] [phone] 03/20/2025 2:00 PM EDT Clinical Support [address] [address] 04/23/2025 2:00 PM EDT Office Visit [facility] [address] [place] [phone] Toña Parish CNM [address] [place] [address] documented as of this encounter Visit Diagnoses Not on filedocumented in this encounter Additional Health Concerns Assessment Noted Time PHQ-9 Depression Total Score: 11 024 2:25 PM EDT documented as of this encounter Care Teams Temporary Help Agency Referral Clerk Relationship Specialty Start Date End Date Antoinette Mejia MD [address] [place] [phone] PCP - General Family Medicine 10/11/18 documented as of this encounter
--- OUTSIDE RECORDS SUMMARY | 2025-02-19 17:29 | XMS_ITS | Encounter Summary ---
Author Organization [employer] Address [address] [facility] [address] [place] [address] Care Team Providers Care Technology Teacher Name Role Phone Antoinette Mejia MD Primary Care Provider [phone] Reason for Visit * Reason Onset Date Comments New Med Request 04/24/2024 Encounter Details Date Type Department Care Team ([facility] st Contact Info) Description 04/24/2024 Telephone [facility] [address] [place], [place] [phone] Antoinette Mejia MD [address] [place] [address] New Med Request Social History Tobacco Use [...] Description 03/12/2025 2:00 PM EDT Office Visit [facility] [address] [place] [address] Antoinette Mejia MD [address] [place] [address] 03/20/2025 2:00 PM EDT Clinical Support [address] [address] 04/23/2025 2:00 PM EDT Office Visit [facility] [address] [place] [phone] Toña Parish CNM [address] [place] [address] documented as of this encounter Visit Diagnoses Not on filedocumented in this encounter Additional Health Concerns Assessment Noted Time PHQ-9 Depression Total Score: 0 02/24/20 24 10:07 AM EDT documented as of this encounter Care Teams Technology Teacher Relationship Specialty Start Date End Date Antoinette Mejia MD [address] [place] [phone] PCP - General Family Medicine 10/11/18 documented as of this encounter
--- OUTSIDE RECORDS SUMMARY | 2025-02-19 17:29 | XMS_ITS | Encounter Summary ---
Author Organization [employer] Address [address] 7t [place] [address] Care Team Providers Care Partition Making Machine Operator Name Role Phone Antoinette Mejia MD Primary Care Provider [phone] Encounter Details Date Type Department Care Team (Late st Contact Info) Description 05/15/2024 Orders Only [facility] MEDICINE 230 [place] [address] Antoinette eMjia MD 230 [place], [place] [phone] Social History Tobacco Use Types Packs/Day Years [...] Description 03/12/2025 2:00 PM EDT Office Visit [address] [address] Antoinette Mejia MD [address] [place] [address] 03/20/2025 2:00 PM EDT Clinical Support [address] [address] 04/23/2025 2:00 PM EDT Office Visit [address] [address] Toña Parish CNM [address] [place] [address] documented as of this encounter Visit Diagnoses Not on filedocumented in this encounter Additional Health Concerns Assessment Noted Time PHQ-9 Depression Total Score: 0 02/24/20 24 10:07 AM EDT documented as of this encounter Care Teams Partition Making Machine Operator Relationship Specialty Start Date End Date Antoinette Mejia MD [address] [place] [address] PCP - General Family Medicine 10/11/18 documented as of this encounter
--- OUTSIDE RECORDS SUMMARY | 2025-02-19 17:29 | XMS_ITS | Encounter Summary ---
Author Organization [employer] Address [address] 7t [place] [address] Care Team Providers Care Candy Puller Name Role Phone Antoinette Mejia MD Primary Care Provider Encounter Details Date Type Department Care Team ([facility] st Contact Info) Description 03/01/2024 Orders Only [facility] MEDICINE 230 [place] [address] Antoinette Mejia MD 230 [place], [place] [phone] Social History Tobacco Use Types Packs/Day Years [...] Description 03/12/2025 2:00 PM EDT Office Visit [address] [address] Antoinette Mejia MD [address] [place] [address] 03/20/2025 2:00 PM EDT Clinical Support [address] [address] 04/23/2025 2:00 PM EDT Office Visit [address] [address] Toña Parish CNM 230 [place] [address] documented as of this encounter Visit Diagnoses Not on filedocumented in this encounter Additional Health Concerns Assessment Noted Time PHQ-9 Depression Total Score: 0 02/24/20 24 10:07 AM EDT documented as of this encounter Care Teams Candy Puller Relationship Specialty Start Date End Date Antoinette Mejia MD [address] [place] [address] PCP - General Family Medicine 10/11/18 documented as of this encounter
--- OUTSIDE RECORDS SUMMARY | 2025-02-19 17:29 | XMS_ITS | Encounter Summary ---
Author Organization [employer] Address [address] 7t [place] [address] Care Team Providers Care Music Mixer Name Role Phone Antoinette Mejia MD Primary Care Provider [phone] Encounter Details Date Type Department Care Team (Late st Contact Info) Description 04/17/2024 Orders Only [facility] MEDICINE 230 [place], [place] [phone] Antoinette Mejia MD 230 [place], [place] [phone] Social History Tobacco Use Types Packs/Day Years [...] Description 03/12/2025 2:00 PM EDT Office Visit [address] [address] Antoinette Mejia MD [address] [place] [address] 03/20/2025 2:00 PM EDT Clinical Support [address] [address] 04/23/2025 2:00 PM EDT Office Visit [address] [address] Toña Parish CNM 230 [place] [address] documented as of this encounter Visit Diagnoses Not on filedocumented in this encounter Additional Health Concerns Assessment Noted Time PHQ-9 Depression Total Score: 0 02/24/20 24 10:07 AM EDT documented as of this encounter Care Teams Music Mixer Relationship Specialty Start Date End Date Antoinette Mejia MD [address] [place] [address] PCP - General Family Medicine 10/11/18 documented as of this encounter
--- OUTSIDE RECORDS SUMMARY | 2025-02-19 17:29 | XMS_ITS | Encounter Summary ---
Author Organization [employer] Address [address] 7t [place] [address] Care Team Providers Care Whale Fisherman Name Role Phone Antoinette Mejia MD Primary Care Provider [phone] Reason for Visit * Reason Onset Date Comments Med Refill 01/19/2024 Encounter Details Date Type Department Care Team ([facility] st Contact Info) Description 01/19/2024 Telephone [facility] MEDICINE 230 [place], [place] [phone] Antoinette Mejia MD 230 [place] [address] Med Refill Social History Tobacco Use Types [...] Medication is not pended as according to [facility] med last prescribed 08/14/22 with 2 refills.Please review * Telephone Encounter - Lisa Cortez - 01/19/2024 9:55 AM EDT TC from pt requesting medication refill. Medications needing refill : sertraline (Zoloft) 25 MG tablet To be sent to: [facility] - [place], [place] - [address] [facility] documented in this encounter Plan of Treatment Upcoming Encounters Date Type Department Care Team (Late st Contact Info) Description 03/12/2025 2:00 PM EDT Office Visit [facility] MEDICINE 230 [place] [address] Antoinette Mejia MD 230 [facility] [place] [address] 03/20/2025 2:00 PM EDT Clinical Support [address] [phone] 04/23/2025 2:00 PM EDT Office Visit [address] [address] Toña Parish, BOYD 230 [place], [place] [phone] documented as of this encounter Visit Diagnoses Not on filedocumented in this encounter Additional Health Concerns Assessment Noted Time PHQ-9 Depression Total Score: 4 02/05/20 23 9:05 AM EDT documented as of this encounter Care Teams Whale Fisherman Relationship Specialty Start Date End Date Antoinette Mejia MD [address] [place] [address] PCP - General Family Medicine 10/11/18 documented as of this encounter
--- OUTSIDE RECORDS SUMMARY | 2025-02-19 17:29 | XMS_ITS | Encounter Summary ---
Author Organization [employer] Address [address] 7t [place] [address] Care Team Providers Care Marriage And Family Therapist Name Role Phone Antoinette Mejia MD Primary Care Provider [phone] Reason for Visit * Reason Onset Date Comments Med Refill 05/18/2024 Encounter Details Date Type Department Care Team ([facility] st Contact Info) Description 05/18/2024 Telephone [facility] MEDICINE 230 [place], [place] [phone] Antoinette Mejia MD 230 [place] [address] Med Refill Social History Tobacco Use Types [...] regular dose not available at the pharmacy. [id number] [place], [place] - [address] [facility] documented in this encounter Plan of Treatment Upcoming Encounters Date Type Department Care Team (Late st Contact Info) Description 03/12/2025 2:00 PM EDT Office Visit [address] [address] Antoinette Mejia MD [address] [place] [address] 03/20/2025 2:00 PM EDT Clinical Support [address] [address] 04/23/2025 2:00 PM EDT Office Visit [address] [place] [address] Toña Parish CNM 230 [place], [place] [phone] documented as of this encounter Visit Diagnoses Not on filedocumented in this encounter Additional Health Concerns Assessment Noted Time PHQ-9 Depression Total Score: 0 02/24/20 24 10:07 AM EDT documented as of this encounter Care Teams Marriage And Family Therapist Relationship Specialty Start Date End Date Antoinette Mejia MD 230 [place] [address] PCP - General Family Medicine 10/11/18 documented as of this encounter
--- OUTSIDE RECORDS SUMMARY | 2025-02-19 17:29 | XMS_ITS | Encounter Summary ---
Author Organization [employer] Address [address] 7t [place] [address] Care Team Providers Care Field Care Advocate Name Role Phone Antoinette Mejia MD Primary Care Provider [phone] Reason for Visit * Reason Comments Care Management C3- chart review Encounter Details Date Type Department Care Team ([facility] st Contact Info) Description 02/15/2025 Patient Outreach [facility] MEDICINE 230 [place], [place] [phone] Antoinette Mejia MD 230 [place] [address] Care Management (C3CM- chart review) Social History Tobacco Use Types [...] the past 12 months, has t he [employer], gas, oil or water company threatened to [...] as of this encounter Progress Notes * Amanda Cortez RN - 02/15/2025 11:57 AM EDT JAMIE Cortez RN, performed chart review, in anticipation of initial assessment with patient, as patient has stratified for Adult Complex Care through the PCP referral. History significant forOSA, myopia, obesity, mild intellectual disability, allergic rhinitic, status post tonsillectomy and adenoidectomy, current moderate episode of major depressive d/o without prior episode, anemia, irregular menstrual bleeding, low back pain, prediabetes, BV, syphilis, and on pre-exposure prophylaxisfor HIV. Specialists include [facility] Dental, Bariatrics, Optometry, Podiatry, Allergy, Nutrition, Endocrinology, and OPH. ED visits within the last 12 months include [facility] 12/[facility]24. Last appointment in PCP office on 01/09/25 for FOOD TECHNOLOGY TEACHER exam. Last seen by PCP on 07/2024. Next appointment scheduled for 02/19/25 at 1:15pm FOOD TECHNOLOGY TEACHER follow up/ procedure and 03/22/25 at 2:00pm for PE with PCP. documented in this encounter Plan of Treatment Upcoming Encounters Date Type Department Care Team (Late st Contact Info) Description 03/12/2025 2:00 PM EDT Office Visit [facility] MEDICINE 230 [place] [address] Antoinette Mejia MD 230 [place] [address] 03/20/2025 2:00 PM EDT Clinical Support [address] [phone] 04/23/2025 2:00 PM EDT Office Visit [facility] 230 [place] [address] Toña Parish CN [address] [place], [place] [phone] documented as of this encounter Visit Diagnoses Not on filedocumented in this encounter Additional Health Concerns Assessment Noted Time PHQ-9 Depression Total Score: 11 024 2:25 PM EDT documented as of this encounter Care Teams Field Care Advocate Relationship Specialty Start Date End Date Antoinette Mejia MD Junito [place], [place] [phone] PCP - General Family Medicine 10/11/18 documented as of this encounter
--- OUTSIDE RECORDS SUMMARY | 2025-02-19 17:29 | XMS_ITS | Encounter Summary ---
Author Organization [employer] Address [address] 7t [place] [address] Care Team Providers Care Fiberglass Boat Finisher Name Role Phone Antoinette Mejia MD Primary Care Provider [phone] Encounter Details Date Type Department Care Team ([facility] st Contact Info) Description 02/08/2025 Orders Only [facility] MEDICINE 230 [place], [place] 1024140 Antoinette Mejia MD 230 [place], [place] [phone] Social History Tobacco Use Types Packs/Day Years [...] Description 03/12/2025 2:00 PM EDT Office Visit [facility] MEDICINE [address] [place] [address] Antoinette Mejia MD [address] [place] [address] 03/20/2025 2:00 PM EDT Clinical Support [address] [address] 04/23/2025 2:00 PM EDT Office Visit [address] [address] Toña Parish CNM [address] [place] [address] documented as of this encounter Visit Diagnoses Not on filedocumented in this encounter Additional Health Concerns Assessment Noted Time PHQ-9 Depression Total Score: 11 024 2:25 PM EDT documented as of this encounter Care Teams Fiberglass Boat Finisher Relationship Specialty Start Date End Date Antoinette Mejia MD [address] [place] [address] PCP - General Family Medicine 10/11/18 documented as of this encounter
--- OUTSIDE RECORDS SUMMARY | 2025-02-19 17:29 | XMS_ITS | Encounter Summary ---
Author Organization [employer] Address [address] [facility] 7t [place] [address] Care Team Providers Care Road Tester Name Role Phone Antoinette Mejia MD Primary Care Provider [phone] Encounter Details Date Type Department Care Team ([facility] Contact Info) Description 01/21/2023 Orders Only [address] [phone] Antoinette Mejia MD [address] [place] [address] [phone] Social History Tobacco Use Types Packs/Day Years [...] Description 03/12/2025 2:00 PM EDT Office Visit [address] [phone] Antoinette Mejia MD [address] [place] [address] 03/20/2025 2:00 PM EDT Clinical Support [address] [phone] 04/23/2025 2:00 PM EDT Office Visit [facility] MEDICINE 230 [place], [place] [phone] Toña Parish CNM 230 [place] [address] documented as of this encounter Visit Diagnoses Not on filedocumented in this encounter Care Teams Road Tester Relationship Specialty Start Date End Date Antoinette Mejia MD [address] [place] [address] [phone] PCP - General Family Medicine 10/11/18 documented as of this encounter
--- OUTSIDE RECORDS SUMMARY | 2025-02-19 17:29 | XMS_ITS | Encounter Summary ---
Author Organization [employer] Address [address] 7t [place] [address] Care Team Providers Care Assembler Movement Name Role Phone Antoinette Mejia MD Primary Care Provider [phone] Reason for Visit * Reason Onset Date Comments Med Refill 03/13/2024 Encounter Details Date Type Department Care Team ([facility] st Contact Info) Description 03/13/2024 Telephone [facility] MEDICINE 230 [place] [address] Elis Chapman, ANP 230 [place] [address] Med Refill Social History Tobacco Use Types [...] be seen - You become worse Leatha Colvin [place] [facility] Clinical Support (supporting Antoinette Mejia MD)44 [...] 03/12/2025 2:00 PM EDT Office Visit [address] [address] Antoinette Mejia MD [address] [place] [address] 03/20/2025 2:00 PM EDT Clinical Support [address] [address] 04/23/2025 2:00 PM EDT Office Visit [address] [address] Toña Parish, CN 230 [place] [address] documented as of this encounter Visit Diagnoses Diagnosis Encounter for other general counseling or advice on contraception documented in this encounter Additional Health Concerns Assessment Noted Time PHQ-9 Depression Total Score: 0 02/24/20 24 10:07 AM EDT documented as of this encounter Care Teams Assembler Movement Relationship Specialty Start Date End Date Antoinette Mejia MD [address] [place] [address] PCP - General Family Medicine 10/11/18 documented as of this encounter
--- OUTSIDE RECORDS SUMMARY | 2025-02-19 17:29 | XMS_ITS | Encounter Summary ---
Author Organization [employer] Address [address] 7t [place] [address] Care Team Providers Care Scrap Separator Name Role Phone Antoinette Mejia MD Primary Care Provider [phone] Encounter Details Date Type Department Care Team ([facility] Contact Info) Description 02/12/2023 Orders Only [facility] MEDICINE 230 [place] [address] Antoinette Mejia MD 230 [place] [address] Food allergy (Primary Dx); Allergic rhinitis, unspecified [...] Description 03/12/2025 2:00 PM EDT Office Visit [facility] MEDICINE 230 [place] [address] Antoinette Mejia MD 230 [place] [address] 03/20/2025 2:00 PM EDT Clinical Support [address] [address] 04/23/2025 2:00 PM EDT Office Visit [facility] 230 [place] [address] Toña Parish CNM 230 [place] [address] documented as of this encounter Visit Diagnoses Diagnosis Food allergy- Primary Dermatitis due to food taken internally Allergic rhinitis, unspecified seasonality, unspecified trigger documented in this encounter Additional Health Concerns Assessment Noted Time PHQ-9 Depression Total Score: 4 02/05/20 23 9:05 AM EDT documented as of this encounter Care Teams Scrap Separator Relationship Specialty Start Date End Date Antoinette Mejia MD [address] [place] [address] PCP - General Family Medicine 10/11/18 documented as of this encounter
--- OUTSIDE RECORDS SUMMARY | 2025-02-19 17:29 | XMS_ITS | Encounter Summary ---
Author Organization [employer] Address [address] 7t [place] [address] Care Team Providers Care Wallcovering Hanger Name Role Phone Antoinette Mejia MD Primary Care Provider [phone] Reason for Visit * Reason Comments Procedure Encounter Details Date Type Department Care Team (Latest Contact Info) Description 02/19/2025 1:15 PM EDT Procedure Visit [facility] MEDICINE 230 [place] [address] Toña Parish CNM [address] [place] [address] Encounter for initial insertion of intrauterine contraceptive device (Primary Dx); Vaginal odor Social History Tobacco Use Types Packs/Day Years [...] the past 12 months, has t he [employer], [employer], oil or water [employer] threatened to shut off services in your [...] Mass Index 49.82 02/19/2025 1:32 PM EDT documented in this encounter Progress Notes * Toña Parish CNM - 02/19/2025 1:15 PM EDT Subjective Patient ID: Leatha Mendez is a 24 y.o. female who presents for IUD Originally scheduled for IUD insertion. Decided she would like to try oral contraceptive pill instead. ASCUS pap, Gonorrhea/Chlamydia/trichomonas neg 01/2025. Last Depo given 01/02/2025. Treated for syphilis 03/2024, RPR 1:1. RPR negative 10/2024. Pelvic ultrasound ordered for followup on right ovarian cyst. Notes some vaginal odor, no other vaginal symptoms. No change in partner. Declines self collection of vaginal swabs Review of Systems Genitourinary: Negative for difficulty urinating, dyspareunia, dysuria, frequency, menstrual problem, pelvic pain, vaginal bleeding, vaginal discharge and vaginal pain. Objective BP (!) 144/93 (BP Location: Right arm, Patient Position: Sitting, BP Cuff Size: Large adult) Pulse 105 Temp 96.6 ??F (35.9 ??C) (Temporal) Resp 20 Ht 5' 2.5 (1.588 m) Wt 276 lb 12.8 oz (126 kg) LMP 01/09/2025 (Approximate) SpO2 98% BMI 49.82 kg/m?? Physical Exam Constitutional: Appearance: Normal appearance. Genitourinary: General: Normal vulva. Labia: Right: No rash, tenderness, lesion or injury. Left: No rash, tenderness, lesion or injury. Comments: Speculum and bimanual exam deferred. Blind swab collection. Neurological: Mental Status: She is alert. Psychiatric: Mood and Affect: Mood normal. Behavior: Behavior normal. Assessment/Plan Diagnoses and all orders for this visit: Encounter for initial insertion of intrauterine contraceptive device - POCT , urine manually resulted test negative today. Would like oral contraceptive pill instead of IUD. Slynd rx sent in.On Zepbound, reviewed interaction with oral contraceptive pill. Advised 100% condom use with oral contraceptive pill. Reviewed normal side effects and danger signs. Followup 2 months for pill check, but may call any time if she wants IUD instead. Reviewed IUD preinsertion instructions (use condoms consistently for 2 weeks prior to appointment, eat a snack and take either 800mg ibuprofen or 500-1000mg Tylenol about an hour before appointment). Vaginal odor - POCT fern test, vaginal fluid manually resulted - Bacterial Vaginosis Panel No obvious vaginitis on wet mount. Bacterial vaginosis swab sent. Will treat positive results. Other orders - Drospirenone (Slynd) 4 MG tablet; Take 1 tablet by mouth Once per day. documented in this encounter Plan of Treatment Upcoming Encounters Date Type Department Care Team (Late st Contact Info) Description 03/12/2025 2:00 PM EDT Office Visit [address] [address] Antoinette Mejia MD 230 [place], [place] [phone] 03/20/2025 2:00 PM EDT Clinical Support [address] [phone] 04/23/2025 2:00 PM EDT Office Visit [address] [phone] Toña Parish CNM 230 [place], [place] [phone] Scheduled Orders Name Type Priority Associated Diagnoses Orde r Schedule Bacterial Vaginosis Panel Microbiology Routine Vaginal odor Ordered: 02/19/2025 documented as of this encounter Procedures Procedure Name Priority Date/Time Associated Diagnosis Comments POCT WET MOUNT/NACHO Routine 02/19/2025 2: 17 PM EDT Vaginal odor POCT , URINE Routine 02/19/2025 1:42 PM EDT Encounter for initial insertion of intrauterine contraceptive device documented in this encounter Results * POCT fern test, vaginal fluid manually resulted (02/19/2025 2:17 PM EDT) NACHO Prep Negative Comment:pH 4.5, neg whiff, n eg clue, neg trich, neg yeast, neg wbc Vaginal Fluid Vaginal structure / Unknown 02/19/2025 2:17 PM EDT Toña Parish CNM POINT OF CARE TEST ENTER/ EDIT ORDERABLES Final Result * POCT , urine manually resulted (02/19/2025 1:42 PM EDT) Preg Test, Ur Negative Negative, Indeterminate, None Detected, Invalid, Specimen unsatisfactory for evaluation, Weakly Positive, 2+ QC Media Lot # [id number] Lot# Expiration Date [id number] Urine 02/19/2025 1:42 PM EDT Toña NIX POINT OF CARE TEST ENTER/ EDIT ORDERABLES Final Result documented in this encounter Visit Diagnoses Diagnosis Encounter for initial insertion of intrauterine contraceptive device- Primary Vaginal odor Unspecified symptom associated with female genital organs documented in this encounter Additional Health Concerns Assessment Noted Time PHQ-9 Depression Total Score: 11 024 2:25 PM EDT documented as of this encounter Care Teams Wallcovering Hanger Relationship Specialty Start Date End Date Antoinette Mejia MD 230 [place] [address] PCP - General Family Medicine 10/11/18 documented as of this encounter
--- OUTSIDE RECORDS SUMMARY | 2025-02-19 17:29 | XMS_ITS | Encounter Summary ---
Author Organization [employer] Address [address] 7[address] [place] [address] Care Team Providers Care Estimator And Drafter Supervisor Name Role Phone Antoinette Mejia MD Primary Care Provider [phone] Encounter Details Date Type Department Care Team (Late st Contact Info) Description 11/12/2023 Orders Only [facility] MEDICINE 230 [place], [place] [phone] Antoinette Mejia MD 230 [place] [address] Chronic pain of left ankle (Primary Dx); [...] Description 03/12/2025 2:00 PM EDT Office Visit [address] [address] Antoinette Mejia MD [address] [place] [address] 03/20/2025 2:00 PM EDT Clinical Support [address] [address] 04/23/2025 2:00 PM EDT Office Visit [address] [address] Toña Parish CN 230 [place] [address] documented as of this encounter Visit Diagnoses Diagnosis Chronic pain of left ankle- Primary Great toe pain, left Ingrown toenail of both feet documented in this encounter Additional Health Concerns Assessment Noted Time PHQ-9 Depression Total Score: 4 02/05/20 23 9:05 AM EDT documented as of this encounter Care Teams Estimator And Drafter Supervisor Relationship Specialty Start Date End Date Antoinette Mejia MD [address] [place] [address] PCP - General Family Medicine 10/11/18 documented as of this encounter
--- OUTSIDE RECORDS SUMMARY | 2025-02-19 17:29 | XMS_ITS | Encounter Summary ---
Author Organization [employer] Address [address] 7[address] [place] [address] Care Team Providers Care Resident Buyer Name Role Phone Antoinette Mejia MD Primary Care Provider [phone] Encounter Details Date Type Department Care Team (Latest Contact Info) Description 05/16/2019 Abstract [facility] CONVERSIONS Dental, Provider, DDS Social History Tobacco [...] Description 03/12/2025 2:00 PM EDT Office Visit [address] [address] Antoinette Mejia MD [address] [place] [address] 03/20/2025 2:00 PM EDT Clinical Support [address] [phone] 04/23/2025 2:00 PM EDT Office Visit [address] [address] [place] CNM [address] [place] [address] documented as of this encounter Visit Diagnoses Not on filedocumented in this encounter Care Teams Resident Buyer Relationship Specialty Start Date End Date Antoinette Mejia MD [address] [place] [phone] PCP - General Family Medicine 10/11/18 documented as of this encounter
--- OUTSIDE RECORDS SUMMARY | 2025-02-19 17:29 | XMS_ITS | Encounter Summary ---
Author Organization [employer] Address [address] 7[address] [place] [address] Care Team Providers Care Associate Media Director Name Role Phone Antoinette Mejia MD Primary Care Provider Encounter Details Date Type Department Care Team (Late st Contact Info) Description 01/20/2024 Orders Only [facility] [address] [place], [place] [phone] Antoinette Mejia MD 230 [place], [place] [phone] Social History Tobacco Use Types Packs/Day Years [...] Description 03/12/2025 2:00 PM EDT Office Visit [facility] [address] [place] [address] Antoinette Mejia MD [address] [place] [address] 03/20/2025 2:00 PM EDT Clinical Support [address] [address] 04/23/2025 2:00 PM EDT Office Visit [address] [address] [place] CNM [address] [place] [address] documented as of this encounter Visit Diagnoses Not on filedocumented in this encounter Additional Health Concerns Assessment Noted Time PHQ-9 Depression Total Score: 4 02/05/20 23 9:05 AM EDT documented as of this encounter Care Teams Associate Media Director Relationship Specialty Start Date End Date Antoinette Mejia MD [address] [place] [phone] PCP - General Family Medicine 10/11/18 documented as of this encounter
--- OUTSIDE RECORDS SUMMARY | 2025-02-19 17:29 | XMS_ITS | Encounter Summary ---
Author Organization [employer] Address [address] 7[address] [place] [address] Care Team Providers Care Presales Senior Specialist Name Role Phone Antoinette Mejia MD Primary Care Provider [phone] Reason for Visit * Reason Onset Date Comments Med Refill 06/24/2024 Encounter Details Date Type Department Care Team (Late st Contact Info) Description 06/24/2024 Refill [facility] [address] [place], [place] [phone] Antoinette Mejia MD 230 [place] [address] Social History Tobacco Use Types Packs/Day Years [...] Description 03/12/2025 2:00 PM EDT Office Visit [address] [address] Antoinette Mejia MD [address] [place] [address] 03/20/2025 2:00 PM EDT Clinical Support [address] [address] 04/23/2025 2:00 PM EDT Office Visit [address] [address] [place] CNM [address] [place] [address] documented as of this encounter Visit Diagnoses Not on filedocumented in this encounter Additional Health Concerns Assessment Noted Time PHQ-9 Depression Total Score: 0 02/24/20 24 10:07 AM EDT documented as of this encounter Care Teams Presales Senior Specialist Relationship Specialty Start Date End Date Antoinette Mejia MD [address] [place] [address] PCP - General Family Medicine 10/11/18 documented as of this encounter
--- OUTSIDE RECORDS SUMMARY | 2025-02-19 17:29 | XMS_ITS | Clinical Summary ---
Author Organization [facility] Address [address] [place] [address] Care Team Providers Care Line Department Supervisor Name Role Phone Antoinette Mejia MD Primary Care Provider [phone] Social History Tobacco Use Types Packs/Day Years [...] age to complete this topic Meningococcal B Vaccine Aged Out No l onger eligible based on patient's age to complete [...] age to complete this topic Care Teams Line Department Supervisor Relationship Specialty Start Date End Date Antoinette Mejia MD [address] [place] [phone] PCP - General 09/22/23
--- OUTSIDE RECORDS SUMMARY | 2025-02-19 17:29 | XMS_ITS | Encounter Summary ---
Author Organization [employer] Address [address] [facility] [place] [address] Care Team Providers Care Washer Repairman Name Role Phone Antoinette Mejia MD Primary Care Provider [phone] Reason for Visit * Reason Onset Date Comments Medication Question 06/26/2024 Results 06/26/2024 Encounter Details Date Type Department Care Team ([facility] st Contact Info) Description 06/26/2024 Telephone [facility] MEDICINE 230 [place] [address] Antoinette Mejia MD [address] [place] [address] Medication Question; Results Social History Tobacco Use [...] results from 06/19/24. Please contact pt at [phone]. documented in this encounter Plan of Treatment Upcoming Encounters Date Type Department Care Team (Late st Contact Info) Description 03/12/2025 2:00 PM EDT Office Visit [address] [address] Antoinette Mejia MD [address] [place] [address] 03/20/2025 2:00 PM EDT Clinical Support [address] [address] 04/23/2025 2:00 PM EDT Office Visit [address] [address] [place] CNM [address] [place] [address] documented as of this encounter Visit Diagnoses Not on filedocumented in this encounter Additional Health Concerns Assessment Noted Time PHQ-9 Depression Total Score: 0 02/24/20 24 10:07 AM EDT documented as of this encounter Care Teams Washer Repairman Relationship Specialty Start Date End Date Antoinette Mejia MD [address] [place] [address] PCP - General Family Medicine 10/11/18 documented as of this encounter
--- OUTSIDE RECORDS SUMMARY | 2025-02-19 17:29 | XMS_ITS | Encounter Summary ---
Author Organization [employer] Address [address] 7t [place] [address] Care Team Providers Care Chart Clerk Name Role Phone Antoinette Mejia MD Primary Care Provider [phone] Encounter Details Date Type Department Care Team (Late st Contact Info) Description 03/16/2024 Orders Only [facility] MED[facility] [address] [place], [place] [phone] Antoinette Mejia MD 230 [place], [place] [phone] Social History Tobacco Use Types Packs/Day Years [...] Description 03/12/2025 2:00 PM EDT Office Visit [address] [address] Antoinette Mejia MD [address] [place] [address] 03/20/2025 2:00 PM EDT Clinical Support [address] [address] 04/23/2025 2:00 PM EDT Office Visit [address] [address] [place] CNM [address] [place] [address] documented as of this encounter Visit Diagnoses Not on filedocumented in this encounter Additional Health Concerns Assessment Noted Time PHQ-9 Depression Total Score: 0 02/24/20 24 10:07 AM EDT documented as of this encounter Care Teams Chart Clerk Relationship Specialty Start Date End Date Antoinette Mejia MD [address] [place] [address] PCP - General Family Medicine 10/11/18 documented as of this encounter
--- OUTSIDE RECORDS SUMMARY | 2025-02-19 17:29 | XMS_ITS | Encounter Summary ---
Author Organization [employer] Address [address] 7[address] [place] [address] Care Team Providers Care Pantry Chef Name Role Phone Antoinette Mejia MD Primary Care Provider [phone] Reason for Visit * Reason Onset Date Comments Med Refill 02/17/2024 Encounter Details Date Type Department Care Team ([facility] st Contact Info) Description 02/17/2024 Refill [facility] MEDICINE [address] [place] [address] Antoinette Mejia MD 230 [place] [address] Social History Tobacco Use Types Packs/Day Years [...] 03/12/2025 2:00 PM EDT Office Visit [address] [address] Antoinette Mejia MD [address] [place] [address] 03/20/2025 2:00 PM EDT Clinical Support [address] [address] 04/23/2025 2:00 PM EDT Office Visit [address] [address] [place] CN[address] [address] documented as of this encounter Visit Diagnoses Not on filedocumented in this encounter Additional Health Concerns Assessment Noted Time PHQ-9 Depression Total Score: 4 02/05/20 23 9:05 AM EDT documented as of this encounter Care Teams Pantry Chef Relationship Specialty Start Date End Date Antoinette Mejia MD [address] [place] [address] PCP - General Family Medicine 10/11/18 documented as of this encounter
[2025-02-20 11:52] LABS: Bacterial Vaginosis PCR NEGATIVE (Negative); Candida Group PCR NOT DETECTED (Not Detect); Candida glab krusei PCR NOT DETECTED (Not Detect); Trichomonas vaginalis PCR NOT DETECTED (Not Detect)
== END 2025-02-19 17:27 | disposition home or self-care (01) ==
LOC: HO.HHCLNP 17:26
PROVIDERS: Visit Provider Advanced Practice Midwife
DX: N89.8 Other specified noninflammatory disorders of vagina (principal)
CPT/HCPCS: 81515

== ENCOUNTER 2025-04-17 11:41 | Outpatient (REF) | payer MEDICAID, SELFPAY ==
--- OUTSIDE RECORDS SUMMARY | 2025-04-17 12:44 | XMS_ITS | Clinical Summary ---
Author Organization [facility] Address [address] [place] [address] Care Team Providers Care Network Engineer Administrator Name Role Phone Antoinette Mejia MD Primary Care Provider [phone] Social History Tobacco Use Types Packs/Day Years [...] - 2023-2 5 season) 2024 Influenza Vaccine (#1) 2025 HIB Vaccines Aged Out No longer [...] 5 Years) and At-Risk Patients (6 to 49 Years) Aged Out No longer eligible b ased on patient's age to complete this topic RSV Immunization Patients Un lyric 20 months Aged Out No longer eligible b ased on patient's age to complete this topic Varicella Vaccines Aged Out No longer eligible based on patient's age to complete this topic Care Teams Network Engineer Administrator Relationship Specialty Start Date End Date Antoinette Mejia MD [address] [place] [phone] PCP - General 09/22/23
--- OUTSIDE RECORDS SUMMARY | 2025-04-17 12:44 | XMS_ITS | Encounter Summary ---
Author Organization [employer] Address [address] [facility] 7 [place] [address] Care Team Providers Care Horse And Wagon Driver Name Role Phone Antoinette Mejia MD Primary Care Provider [phone] Reason for Visit * Reason Onset Date Comments Appointment Request 10/18/2023 Encounter Details Date Type Department Care Team ([facility] st Contact Info) Description 10/18/2023 Telephone [facility]ICINE [address] [place] [address] Antoinette Mejia MD [address] [place] [address] Appointment Request Social History Tobacco Use Types [...] Care Team (Late st Contact Info) Description 04/23/2025 2:00 PM EDT Office Visit [facility] MEDICINE [address] [place] [address] [place] CNM [address] [place] [address] 06/01/2025 3:00 PM EDT Office Visit [facility] ADULT DENTAL [address] [place] [address] Kavin, Jasmyne [address] [place] [address] documented as of this encounter Visit Diagnoses Not on filedocumented in this encounter Additional Health Concerns Assessment Noted Time PHQ-9 Depression Total Score: 4 02/05/20 23 9:05 AM EDT documented as of this encounter Care Teams Horse And Wagon Driver Relationship Specialty Start Date End Date Antoinette Mejia MD [address] [place] [address] PCP - General Family Medicine 10/11/18 documented as of this encounter
[2025-04-17 12:45] LABS: Hemoglobin A1C 141.6797 umol/L; Total Hemoglobin (HGBA1C) 3676.3002 umol/L
[2025-04-17 12:46] LABS: Alanine Aminotransferase 27 U/L (0-31); Albumin Level 4.3 g/dL (3.5-5.0); Alkaline Phosphatase 59 U/L (39-117); Anion Gap 10 (12-20); Aspartate Amino Transferase 27 U/L (5-31); Blood Urea Nitrogen 9 mg/dL (9-16); Calcium 9.3 mg/dL (8.4-10.2); Carbon Dioxide 28 mmol/L (22-29); Chloride 108 mmol/L (96-108); Cholesterol 115 mg/dL (<200); Estimated Glomerular Filt Rate > 60; HDL Cholesterol 29 mg/dL (>40); Potassium 4.3 mmol/L (3.3-5.1); Sodium 142 mmol/L (135-145); Total Protein 7.4 g/dL (6.5-8.0); Triglycerides 203 mg/dL (<150)
[2025-04-17 13:53] LABS: Reflex LDLD? No
== END 2025-04-17 11:42 | disposition home or self-care (01) ==
LOC: HO.HHCL 11:41
PROVIDERS: PCP Family Medicine; Visit Provider Family Medicine
DX: R73.03 Prediabetes (principal); E55.9 Vitamin D deficiency, unspecified; I10 Essential (primary) hypertension
CPT/HCPCS: 36415; 80053; 80061; 82306; 83036; 84443

== ENCOUNTER 2025-04-23 14:55 | Outpatient (REF) | payer MEDICAID, SELFPAY ==
--- OUTSIDE RECORDS SUMMARY | 2025-04-23 16:11 | XMS_ITS | Clinical Summary ---
Author Organization [facility] Address [address] [place] [address] Care Team Providers Care Code Number Stamper Name Role Phone Antoinette Mejia MD Primary Care Provider [phone] Social History Tobacco Use Types Packs/Day Years [...] age to complete this topic Care Teams Code Number Stamper Relationship Specialty Start Date End Date Antoinette Mejia MD [address] [place] [phone] PCP - General 09/22/23
[2025-04-24 08:12] LABS: Syphilis Screen Reactive (Nonreactive)
[2025-04-24 08:24] LABS: HIV Num 1 0.06 S/CO (0.00-0.99)
[2025-04-24 09:57] LABS: CT PCR Urine NOT DETECTED (Not Detect.); NG PCR Urine NOT DETECTED (Not Detect.)
[2025-04-28 14:38] LABS: T.Pallidum Particle Agg Test Reactive (Nonreactive)
== END 2025-04-23 14:56 | disposition home or self-care (01) ==
LOC: HO.HHCL 14:55
PROVIDERS: PCP Family Medicine; Visit Provider Advanced Practice Midwife
DX: Z11.3 Encounter for screening for infections with a predominantly sexual mode of transmission (principal)
CPT/HCPCS: 36415; 86592; 86780; 87389; 87491; 87591; 87661

== ENCOUNTER 2025-05-11 12:36 | Outpatient (REF) | payer MEDICAID, SELFPAY ==
--- OUTSIDE RECORDS SUMMARY | 2025-05-11 12:38 | XMS_ITS | Clinical Summary ---
Author Organization [facility] Address [address] [place] [address] Care Team Providers Care Log Loader Name Role Phone Antoinette Mejia MD Primary Care Provider [phone] Social History Tobacco Use Types Packs/Day Years [...] Cervical Cancer Screening: P ap Smear 2021 HIV Screening 11/05/2023 Hepatitis C Screening 11/05/2023 Social Influencers of Health Screening 11/05/2023 COVID-19 Vaccine ( - 2023-2 5 season) 2024 Depression Screening 10/11/2024 Influenza Vaccine (#1) 2025 HIB Vaccines Aged [...] age to complete this topic Care Teams Log Loader Relationship Specialty Start Date End Date Antoinette Mejia MD [address] [place] [phone] PCP - General 09/22/23
[2025-05-11 12:51] LABS: MANUAL DIFF FLAG NO
[2025-05-11 13:12] LABS: Hematocrit 41.4 % (37.0-47.0); Hemoglobin 13.4 g/dl (12.0-16.0); Imm Gran Abs Auto 0.02 X10*3/uL (0.00-0.03); Imm Gran Pct Auto 0.3 % (0.0-0.4); Lymphocytes Absolute Auto 2.7 X10*3/uL (1.2-4.9); Mean Corpuscular HGB Conc 32.4 g/dl (31.0-35.0); Mean Corpuscular Hemoglobin 28.4 pg (27.0-33.0); Mean Corpuscular Volume 87.7 fL (80.0-98.0); NRBC Abs Auto 0.000 X10*3/uL (0.0-0.012); NRBC Pct Auto 0.0 /100WBC (0.0-0.2); Platelet Count 278 X10*3/uL (160-400); Red Blood Count 4.72 X10*6/uL (4.20-5.50); Reticulocytes Absolute 0.089 X10*6/uL (0.026-0.095); White Blood Count 7.9 X10*3/uL (4.8-10.8)
[2025-05-11 13:43] LABS: Iron 52 mcg/dL (30-160); Percent Iron Saturation 19 % (15-50); Total Iron Binding Capacity 276 mcg/dL (228-428); Unsaturated Iron Binding 224 ug/dL
[2025-05-11 14:10] LABS: Ferritin 24 ng/mL (10-122)
[2025-05-11 14:22] LABS: Folate 7.2 ng/mL (> or = 4.0); Vitamin B12 334 pg/mL (200-900)
== END 2025-05-11 12:37 | disposition home or self-care (01) ==
LOC: HO.LAB 12:36
PROVIDERS: PCP Family Medicine; Visit Provider Family Medicine
DX: Z13.0 Encounter for screening for diseases of the blood and blood-forming organs and certain disorders involving the immune mechanism (principal); Z86.2 Personal history of diseases of the blood and blood-forming organs and certain disorders involving the immune mechanism
CPT/HCPCS: 36415; 82607; 82728; 82746; 83540; 85025; 85045

== ENCOUNTER 2025-06-01 16:22 | Emergency (ER) | payer MEDICAID, SELFPAY ==
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
[2025-06-01 16:40] VITALS: BP 156/88; PULSE 73; RESP 18; TEMP 36.7; O2SAT 96; BMI 53.0
--- OUTSIDE RECORDS SUMMARY | 2025-06-01 17:30 | XMS_ITS | Clinical Summary ---
Author Organization [facility] ity Address [address] [place] [address] Care Team Providers Care Rooms Director Name Role Phone Antoinette Mejia MD Primary Care Provider [phone] Social History Tobacco Use Types Packs/Day Years [...] age to complete this topic Care Teams Rooms Director Relationship Specialty Start Date End Date Antoinette Mejia MD [address] [place] [phone] PCP - General 09/22/23
[2025-06-01 17:53] LABS: UPreg QC Valid YES
[2025-06-01 18:00] VITALS: BP 156/88; PULSE 73; RESP 18; TEMP 36.7; O2SAT 96
[2025-06-01 18:01] LABS: Cannabinoid Screen Urine Not Detected (Not Detect)
[2025-06-01 18:19] LABS: Appearance Urine Clear; Glucose Urine UA Negative (Negative); PH 5.5 (5.0-9.0); Specific Gravity - Urine 1.010 (1.005-1.025); UMIC TRIGGER UA YES
--- NOTE | 2025-06-01 21:56 | MHC.CARE ---
RAD Team completed PHP referral for this pt.
== END 2025-06-01 19:05 | disposition home or self-care (01) ==
PROVIDERS: Physician Assistant Medical; Emergency Provider Emergency Medicine; PCP Family Medicine
DX: F32.A Depression, unspecified (principal); R45.851 Suicidal ideations; D64.9 Anemia, unspecified; G47.33 Obstructive sleep apnea (adult) (pediatric); K21.9 Gastro-esophageal reflux disease without esophagitis; Z79.899 Other long term (current) drug therapy
CPT/HCPCS: 80307; 81001; 81025; 99283; 99284; S9485